=== PATIENT | male | born 1940 | race African-American/Black ===

== ENCOUNTER → 2016-08-28 | Outpatient (CLI) | payer OTHER ==
--- NOTE | 2016-08-28 16:08 | RAD ---
Chest, 2 views, 08/28/2016: History: COPD Comparison is made to a study from 09/17/2009. The heart is within normal limits in size. There is calcific plaquing and tortuosity of the thoracic aorta. There appear to be a few scattered parenchymal scars. No acute infiltrates are seen. There is no evidence of pleural fluid. The bony structures are demineralized. Moderate scattered spurs are present in the spine. IMPRESSION: 1. Aortic atherosclerosis. 2. No acute abnormality is detected.
--- NOTE | 2016-08-28 16:10 | RAD ---
Indication chronic low back pain. AP and lateral views of the lumbar spine were obtained as well as a coned view targeted to the lumbosacral junction. Vertebral height is well maintained. Alignment is unremarkable. Significant disc space narrowing is not seen at any level. Advanced degenerative changes are not seen particularly given the patient's age. Some modest facet degenerative change is noted in the lower lumbar spine. IMPRESSION: No acute finding. No significant finding seen particularly given the patient's age
== END | disposition home or self-care (01) ==
LOC: RAD 13:54
PROVIDERS: ATTEND Internal Medicine Cardiovascular Disease
DX: J44.9 Chronic obstructive pulmonary disease, unspecified (principal); Q25.46 Tortuous aortic arch; I70.0 Atherosclerosis of aorta; G89.29 Other chronic pain
CPT/HCPCS: 71020; 72100

== ENCOUNTER 2018-01-06 12:38 | Inpatient (IN) | payer OTHER ==
[~2018-01-06] VITALS: Ht 172.7 cm; Wt 81.6 kg
[2018-01-06 14:24] LABS: BILIRUBIN,URINE SMALL (NEG); CLARITY,URINE CLEAR; COLOR,URINE AMBER; NITRITE,URINE NEGATIVE (NEG); PROTEIN,URINE NEGATIVE (NEG-TRACE)
[2018-01-06] MEDS ORDERED: FAMOTIDINE 20 MG/2 ML VIAL IVP ONE (14:30)
[2018-01-06] MEDS ORDERED: IOHEXOL 300 MG/ML 100ML VIAL. IV ONE (14:30)
[2018-01-06] MEDS ORDERED: ONDANSETRON PF 4 MG/2 ML VIAL. IV ONE (14:30)
[2018-01-06] MEDS ORDERED: IV NORMAL SALINE 1000ML BAG 1,000 ML IV ONE (14:30)
[2018-01-06 14:34] LABS: BACTERIA,URINE FEW /HPF (0-FEW); HYALINE CASTS, URINE MODERATE /HPF; SQUAMOUS EPITHELIAL CELL,UR FEW /LPF
[2018-01-06] MEDS ORDERED: CONTRAST GIVEN. MC PRN (14:45)
--- NOTE | 2018-01-06 14:58 | RAD ---
Single view of the chest. 01/06/2018 2:28 PM Indication: NOT FELL WELL, PT AMS Comparison: Chest radiograph August 28, 2016 Findings: No pneumothorax or pleural effusion is identified. No acute focal consolidative infiltrate is seen. Diffuse interstitial coarsening is similar to prior studies. Heart size is top normal, but grossly stable. No acute osseous changes are seen. IMPRESSION: No evidence of acute cardiopulmonary process or acute change from prior study. Electronically signed by: Brian Tong MD (01/06/2018 2:55 PM) [facility]
[2018-01-06 15:08] LABS: BASO # 0.1 x10^3/uL (0.0-0.2); BASO % 1 % (0-3); EOS # 0.1 x10^3/uL (0.0-0.7); EOS % 1 % (0-3); HEMOGLOBIN 13.1 g/dL (13.0-17.5); LYMPH # 1.4 x10^3/uL (1.0-4.8); LYMPH % 24 % (24-48); MEAN CORPUSCULAR HEMOGLOBIN 28 pg (25-35); MEAN CORPUSCULAR HGB CONC 34 g/dL (31-37); MEAN CORPUSCULAR VOLUME 82 fL (79-100); MONO # 0.8 x10^3/uL (0.0-1.1); MONO % 14 % (0-9); NEUT # 3.6 x10^3uL (1.8-7.7); NEUT % 61 % (31-73); PLATELET COUNT 212 x10^3/uL (140-400); RED BLOOD COUNT 4.76 x10^6/uL (4.30-5.70); RED CELL DISTRIBUTION WIDTH 14.5 % (11.5-14.5)
[2018-01-06 15:23] LABS: BARBITURATES NEG (NEG); BENZODIAZEPINES NEG (NEG); CANNABINOIDS NEG (NEG); COCAINE NEG (NEG); METHADONE NEG (NEG); OPIATES NEG (NEG); PHENCYCLIDINE NEG (NEG)
[2018-01-06 15:25] LABS: CALCIUM 9.9 mg/dL (8.5-10.1); CREATININE 1.6 mg/dL (0.7-1.3); GFR 51.2; POTASSIUM 4.4 mmol/L (3.5-5.1)
[2018-01-06 15:26] LABS: AMPHETAMINE/METHAMPHETAMINE NEG (NEG)
[2018-01-06 15:28] LABS: INFLUENZA A PATIENT NEGATIVE (NEGATIVE); INFLUENZA B PATIENT NEGATIVE (NEGATIVE)
--- NOTE | 2018-01-06 15:29 | PHYS DOC ---
Past Medical History Past Medical History: COPD, Dementia, Hypertension, Seizure Past Surgical History: No Surgical History Additional Past Surgical Histo: unable to assess Alcohol Use: None Additional Information: unknown Drug Use: None Adult General Chief Complaint Chief Complaint: ABDOMINAL PAIN HPI HPI Patient is a 77 year old male with history of seizures, hypertension, COPD, dementia, was brought today by a day care. Patient is by himself. Patient is demented and not able to give us information, there is a piece of note stating he has lower abdominal pain. Patient's nurse attempted to contact the daycare patient came from, they state patient complained of lower abdominal pain. Patient not able to give us any information. From information received from the daycare patient resides at home alone. Review of Systems Review of Systems Constitutional: Denies fever or chills [] Eyes: Unable to assess HENT: Unable to assess Respiratory: Unable to assess Cardiovascular: Unable to assess] GI: Lower abdominal pain, : Unable to assess Musculoskeletal: Unable to assess Integument: Unable to assess Neurologic: Unable to assess All other systems were reviewed and found to be within normal limits, except as documented in this note. Current Medications Current Medications Current Medications Medications (Trade) Dose Ordered Sig/Rebekah Start Time Stop Time Status Last Admin Dose Admin Ciprofloxacin/ Dextrose 200 ml @ 200 mls/hr 1X ONCE 01/06/18 17:15 01/06/18 18:14 01/06/18 17:25 200 MLS/HR Famotidine (Pepcid Vial) 20 mg 1X ONCE 01/06/18 14:30 01/06/18 14:31 DC 01/06/18 15:24 20 MG Info (CONTRAST GIVEN -- Rx MONITORING) 1 each PRN DAILY PRN 01/06/18 14:45 01/08/18 14:44 Iohexol (Omnipaque 300 Mg/ml) 75 ml 1X ONCE 01/06/18 14:30 01/06/18 14:33 DC Metronidazole 100 ml @ 100 mls/hr 1X ONCE 01/06/18 17:15 01/06/18 18:14 Morphine Sulfate (Morphine Sulfate) 2 mg PRN Q2HR PRN 01/06/18 17:00 01/07/18 16:59 Ondansetron HCl (Zofran) 4 mg PRN Q8HRS PRN 01/06/18 17:00 01/07/18 16:59 Sodium Chloride 1,000 ml @ 1,000 mls/hr 1X ONCE 01/06/18 14:30 01/06/18 15:29 DC 01/06/18 15:24 1,000 MLS/HR Allergies Allergies Allergies Coded Allergies Type Severity Reaction Last Updated Verified No Known Drug Allergies 01/06/18 No Physical Exam Physical Exam Constitutional: Well developed, well nourished, no acute distress, non-toxic appearance. [] HENT: Normocephalic, atraumatic, bilateral external ears normal, oropharynx moist, no oral exudates, nose normal. [] Eyes: PERRLA, EOMI, conjunctiva normal, no discharge. [] Neck: Normal range of motion, no tenderness, supple, no stridor. [] Cardiovascular:Heart rate regular rhythm, no murmur [] Lungs & Thorax: Bilateral breath sounds clear to auscultation [] Abdomen: Bowel sounds normal, soft, no tenderness, no masses, no pulsatile masses. [] Skin: Warm, dry, no erythema, no rash. [] Back: No tenderness, no CVA tenderness. [] Extremities: No tenderness, no cyanosis, no clubbing, ROM intact, no edema. [] Neurologic: Alert and oriented X 1, normal motor function, normal sensory function, no focal deficits noted. Cranial nerves II through XII intact Psychologic: Affect normal, judgement normal, mood normal. [] Current Patient Data Vital Signs Vital Signs Date Time Temp Pulse Resp B/P (MAP) Pulse Ox O2 Delivery O2 Flow Rate FiO2 01/06/18 13:30 97.9 71 18 145/82 (103) 95 Room Air 97.9 Lab Values Laboratory Tests Test 01/06/18 14:18 01/06/18 14:55 Urine Collection Type Unknown Urine Color Honey Urine Clarity Clear Urine pH 5.0 Urine Specific [place] 1.020 Urine Protein Negative mg/dL (NEG-TRACE) Urine Glucose (UA) Negative mg/dL (NEG) Urine Ketones (Stick) Trace mg/dL (NEG) Urine Blood Negative (NEG) Urine Nitrite Negative (NEG) Urine Bilirubin Small (NEG) Urine Urobilinogen Dipstick 1.0 mg/dL (0.2 mg/dL) Urine Leukocyte Esterase Negative (NEG) Urine RBC 1-2 /HPF (0-2) Urine WBC 1-4 /HPF (0-4) Urine Squamous Epithelial Cells Few /LPF Urine Bacteria Few /HPF (0-FEW) Urine Hyaline Casts Moderate /HPF Urine Mucus Mod /LPF Urine Opiates Screen Neg (NEG) Urine Methadone Screen Neg (NEG) Urine Barbiturates Neg (NEG) Urine Phencyclidine Screen Neg (NEG) Urine Amphetamine/Methamphetamine Neg (NEG) Urine Benzodiazepines Screen Neg (NEG) Urine Cocaine Screen Neg (NEG) Urine Cannabinoids Screen Neg (NEG) Urine Ethyl Alcohol Neg (NEG) White Blood Count 6.0 x10^3/uL (4.0-11.0) Red Blood Count 4.76 x10^6/uL (4.30-5.70) Hemoglobin 13.1 g/dL (13.0-17.5) Hematocrit 39.0 % (39.0-53.0) Mean Corpuscular Volume 82 fL (79-100) Mean Corpuscular Hemoglobin 28 pg (25-35) Mean Corpuscular Hemoglobin Concent 34 g/dL (31-37) Red Cell Distribution Width 14.5 % (11.5-14.5) Platelet Count 212 x10^3/uL (140-400) Neutrophils (%) (Auto) 61 % (31-73) Lymphocytes (%) (Auto) 24 % (24-48) Monocytes (%) (Auto) 14 % (0-9) H Eosinophils (%) (Auto) 1 % (0-3) Basophils (%) (Auto) 1 % (0-3) Neutrophils # (Auto) 3.6 x10^3uL (1.8-7.7) Lymphocytes # (Auto) 1.4 x10^3/uL (1.0-4.8) Monocytes # (Auto) 0.8 x10^3/uL (0.0-1.1) Eosinophils # (Auto) 0.1 x10^3/uL (0.0-0.7) Basophils # (Auto) 0.1 x10^3/uL (0.0-0.2) Sodium Level 136 mmol/L (136-145) Potassium Level 4.4 mmol/L (3.5-5.1) Chloride Level 100 mmol/L (98-107) Carbon Dioxide Level 26 mmol/L (21-32) Anion Gap 10 (6-14) Blood Urea Nitrogen 40 mg/dL (8-26) H Creatinine 1.6 mg/dL (0.7-1.3) H Estimated GFR (Cockcroft-Gault) 51.2 BUN/Creatinine Ratio 25 (6-20) H Glucose Level 102 mg/dL (70-99) H Calcium Level 9.9 mg/dL (8.5-10.1) Magnesium Level 2.6 mg/dL (1.8-2.4) H Total Bilirubin 0.5 mg/dL (0.2-1.0) Aspartate Amino Transferase (AST) 36 U/L (15-37) Alanine Aminotransferase (ALT) 28 U/L (16-63) Alkaline Phosphatase 138 U/L (46-116) H Troponin I Quantitative < 0.017 ng/mL (0.000-0.055) UM-Drz-N-Type Natriuretic Peptide 569 pg/mL (0-449) H Total Protein 9.5 g/dL (6.4-8.2) H Albumin 4.0 g/dL (3.4-5.0) Albumin/Globulin Ratio 0.7 (1.0-1.7) L Thyroid Stimulating Hormone (TSH) 0.885 uIU/mL (0.358-3.74) Influenza Type A Antigen Negative (NEGATIVE) Influenza Type B Antigen Negative (NEGATIVE) Laboratory Tests 01/06/18 14:55 Laboratory Tests 01/06/18 14:55 EKG EKG 15:[address] Payton sinus rhythm heart rate 61 no STEMI[] Radiology/Procedures Radiology/Procedures []PROCEDURE: CT ABD PELV W/ IV CONTRST ONLY CT ABD PELV W/ IV CONTRST ONLY Indication: PT COMPLAINS OF ABD PAIN AND H/O DEMENTIA INJ 60 ML OMNI 300 NO PRE Exposure: One or more of the following individualized dose reduction techniques were utilized for this examination: 1. Automated exposure control 2. Adjustment of the mA and/or kV according to patient size 3. Use of iterative reconstruction technique. Comparison: None are available. Contrast: Intravenous contrast was given. No oral contrast per request. FINDINGS: Lower thorax: Mild opacity at the dependent posterior lungs and in the anterior right lung base, likely atelectasis. Heart size appears enlarged, mild coronary artery calcifications. Liver: Small hypodense lesion peripheral right lobe measures 11 mm x 6 mm, too small to accurately characterize but would most likely be benign such as a cyst. Spleen: Unremarkable Pancreas: Unremarkable Adrenals: No evidence of mass. Kidneys: Small bilateral renal lesions too small to characterize but would commonly represent cysts. Urinary tracts: No hydronephrosis. Gallbladder: No calcified stone Lymph nodes: No significant enlargement Vessels: The aorta is calcified, ectatic and tortuous. Ectasia extends into the proximal iliac arteries. No evidence of focal aneurysm. GI tract: Limited exam without oral contrast. Mild distention of small bowel loops with mostly fluid. No obvious colonic wall thickening but limited evaluation due to the lack of much surrounding fat. Mild gaseous distention of the colon. Appendix is not clearly visualized. Reproductive organs: Prostate gland mildly enlarged. Urinary bladder: Unremarkable. Peritoneum: No evidence of pneumoperitoneum. No free fluid. Diffuse fatty stranding throughout the peritoneum and mesentery. Abdominal wall:Unremarkable Spine: Degenerative spondylosis. Bones: No destructive bone lesion. IMPRESSION: 1. Mild small bowel distention, could indicate ileus or enteritis. No definite bowel obstruction. There is stranding within the mesenteric and peritoneal fat, suggesting generalized inflammation or edema. 2. Mild prostatomegaly. 3. Small right liver and small renal lesions too small to characterize but would commonly represent benign lesion such as cysts. Electronically signed by: Curtis Rivas MD (01/06/2018 4:22 PM) [facility] DICTATED and SIGNED BY: CURTIS RIVAS MD DATE: 01/06/18 1611 PROCEDURE: PORTABLE CHEST 1V Single view of the chest. 01/06/2018 2:28 PM Indication: NOT FELL WELL, PT AMS Comparison: Chest radiograph August 28, 2016 Findings: No pneumothorax or pleural effusion is identified. No acute focal consolidative infiltrate is seen. Diffuse interstitial coarsening is similar to prior studies. Heart size is top normal, but grossly stable. No acute osseous changes are seen. IMPRESSION: No evidence of acute cardiopulmonary process or acute change from prior study. Electronically signed by: Brian Pyle MD (01/06/2018 2:55 PM) [facility] DICTATED and SIGNED BY: BRIAN PYLE MD DATE: 01/06/18 3527 Course & Med Decision Making Course & Med Decision Making Pertinent Labs and Imaging studies reviewed. (See chart for details) This is a 77-year-old male patient was dropped off by a day care to the ED with a note stating he has abdominal pain. See history of present illness. Patient himself is a poor historian and not able to give us any information. Apparently this patient lives home by himself. Chest x-ray is negative for any acute findings. CBC with a normal WBC, CMP with creatinine of 1.6, BUN 40 unknown if this is new or old. Consulted with Dr. Lockwood who accepted patient for admission. CT of the abdomen and pelvic IMPRESSION: 1. Mild small bowel distention, could indicate ileus or enteritis. No definite bowel obstruction. There is stranding within the mesenteric and peritoneal fat, suggesting generalized inflammation or edema. 2. Mild prostatomegaly. 3. Small right liver and small renal lesions too small to characterize but would commonly represent benign lesion such as cysts. Patient was started on Flagyl and Cipro in the ED. 17:[address] James who will f/u with patient Dragon Disclaimer Dragon Disclaimer This electronic medical record was generated, in whole or in part, using a voice recognition dictation system. Departure Departure Impression: Primary Impression: Abdominal pain Additional Impression: Ileus Disposition: ADMITTED INPATIENT Condition: STABLE Referrals: UNKNOWN PCP NAME (PCP) Problem Qualifiers Primary Impression: Abdominal pain Abdominal location: lower abdomen, unspecified Qualified Codes: R10.30 - Lower abdominal pain, unspecified JOAQUÍN VELASCO [employer]ATOR Jan 06, 2018 15:29
[2018-01-06 15:30] LABS: ALBUMIN/GLOBULIN RATIO 0.7 (1.0-1.7); MAGNESIUM 2.6 mg/dL (1.8-2.4); TOTAL BILIRUBIN 0.5 mg/dL (0.2-1.0); TOTAL PROTEIN 9.5 g/dL (6.4-8.2)
--- NOTE | 2018-01-06 15:44 | EKG ---
[facility] [address] [place] [address] Test Date: 2018-01-06 Test Time: 15:07:21 Pat Name: ADARSH JACOBS Department: Room: Gender: M [employer] Continuous Process: : 1940 Requested By: JOAQUÍN VELASCO Order Number: [id number] Reading MD: Andres Washington Measurements Intervals [place] Rate: 61 P: 62 MT: 162 QRS: 56 QRSD: 122 T: -7 QT: 432 QTc: 441 Interpretive Statements SINUS RHYTHM T ABNORMALITY IN INFERIOR LEADS ABNORMAL ECG Electronically Signed On 01-09-2018 10:26:05 CDT by Andres Washington
--- NOTE | 2018-01-06 16:23 | PDOC1 ---
History and Physical Date of Admission Date of Admission DATE: 01/06/18 TIME: 16:23 Identification/Chief Complaint Chief Complaint [facility] ED GENERAL TEMPLATE Patient Name: Warren English Unit Number: [id number] Date of : 1940 Patient Status: Admitted Inpatient Attending Doctor: Lamont Becerra MD Past Medical History Past Medical History Past Medical History: COPD, Dementia, Hypertension, Seizure Past Surgical History: No Surgical History Additional Past Surgical Histo: unable to assess Alcohol Use: None Additional Information: unknown Drug Use: None seen in er 77 year old male with history of seizures, hypertension, COPD, dementia, was brought today by a day care. Patient is by himself. Patient is demented and not able to give us information, has lower abdominal pain. Patient 's nurse attempted to contact the daycare patient came from, they state patient complained of lower abdominal pain. Patient not able to give us any information due to advanced dementia Review of Systems Review of Systems Constitutional: Denies fever or chills [] Eyes: Unable to assess HENT: Unable to assess Respiratory: Unable to assess Cardiovascular: Unable to assess] GI: Lower abdominal pain, : Unable to assess Musculoskeletal: Unable to assess Integument: Unable to assess Neurologic: Unable to assess 14 pt systems were reviewed and found to be within normal limits, except as documented. Current Medications Current Medications Current Medications Medications (Trade) Dose Ordered Sig/Rebekah Start Time Stop Time Status Last Admin Dose Admin Ciprofloxacin/ Dextrose 200 ml @ 200 mls/hr 1X ONCE 01/06/18 17:15 01/06/18 18:14 01/06/18 17:25 200 MLS/HR Famotidine (Pepcid Vial) 20 mg 1X ONCE 01/06/18 14:30 01/06/18 14:31 DC 01/06/18 15:24 20 MG Info (CONTRAST GIVEN -- Rx MONITORING) 1 each PRN DAILY PRN 01/06/18 14:45 01/08/18 14:44 Iohexol (Omnipaque 300 Mg/ml) 75 ml 1X ONCE 01/06/18 14:30 01/06/18 14:33 DC Metronidazole 100 ml @ 100 mls/hr 1X ONCE 01/06/18 17:15 01/06/18 18:14 Morphine Sulfate (Morphine Sulfate) 2 mg PRN Q2HR PRN 01/06/18 17:00 01/07/18 16:59 Ondansetron HCl (Zofran) 4 mg PRN Q8HRS PRN 01/06/18 17:00 01/07/18 16:59 Sodium Chloride 1,000 ml @ 1,000 mls/hr 1X ONCE 01/06/18 14:30 01/06/18 15:29 DC 01/06/18 15:24 1,000 MLS/HR Allergies Allergies Allergies Coded Allergies Type Severity Reaction Last Updated Verified No Known Drug Allergies 01/06/18 No Physical Exam Physical Exam Constitutional: Well developed, well nourished, no acute distress, non-toxic appearance. [] HENT: Normocephalic, atraumatic, bilateral external ears normal, oropharynx moist, no oral exudates, nose normal. [] Eyes: PERRLA, EOMI, conjunctiva normal, no discharge. [] Neck: Normal range of motion, no tenderness, supple, no stridor. [] Cardiovascular:Heart rate regular rhythm, no murmur [] Lungs & Thorax: Bilateral breath sounds clear to auscultation [] Abdomen: Bowel sounds normal, soft, no tenderness, no masses, no pulsatile masses. [] Skin: Warm, dry, no erythema, no rash. [] Back: No tenderness, no CVA tenderness. [] Extremities: No tenderness, no cyanosis, no clubbing, ROM intact, no edema. [] Neurologic: confused normal motor function, normal sensory function, no focal deficits noted. Cranial nerves II through XII intact Psychologic: Affect normal, judgement normal, mood normal. [] Current Patient Data Vital Signs Vital Signs Date Time Temp Pulse Resp B/P (MAP) Pulse Ox O2 Delivery O2 Flow Rate FiO2 01/06/18 13:30 97.9 71 18 145/82 (103) 95 Room Air 97.9 Lab Values Laboratory Tests Test 01/06/18 14:18 01/06/18 14:55 Urine Collection Type Unknown Urine Color Honey Urine Clarity Clear Urine pH 5.0 Urine Specific [place] 1.020 Urine Protein Negative mg/dL (NEG-TRACE) Urine Glucose (UA) Negative mg/dL (NEG) Urine Ketones (Stick) Trace mg/dL (NEG) Urine Blood Negative (NEG) Urine Nitrite Negative (NEG) Urine Bilirubin Small (NEG) Urine Urobilinogen Dipstick 1.0 mg/dL (0.2 mg/dL) Urine Leukocyte Esterase Negative (NEG) Urine RBC 1-2 /HPF (0-2) Urine WBC 1-4 /HPF (0-4) Urine Squamous Epithelial Cells Few /LPF Urine Bacteria Few /HPF (0-FEW) Urine Hyaline Casts Moderate /HPF Urine Mucus Mod /LPF Urine Opiates Screen Neg (NEG) Urine Methadone Screen Neg (NEG) Urine Barbiturates Neg (NEG) Urine Phencyclidine Screen Neg (NEG) Urine Amphetamine/Methamphetamine Neg (NEG) Urine Benzodiazepines Screen Neg (NEG) Urine Cocaine Screen Neg (NEG) Urine Cannabinoids Screen Neg (NEG) Urine Ethyl Alcohol Neg (NEG) White Blood Count 6.0 x10^3/uL (4.0-11.0) Red Blood Count 4.76 x10^6/uL (4.30-5.70) Hemoglobin 13.1 g/dL (13.0-17.5) Hematocrit 39.0 % (39.0-53.0) Mean Corpuscular Volume 82 fL (79-100) Mean Corpuscular Hemoglobin 28 pg (25-35) Mean Corpuscular Hemoglobin Concent 34 g/dL (31-37) Red Cell Distribution Width 14.5 % (11.5-14.5) Platelet Count 212 x10^3/uL (140-400) Neutrophils (%) (Auto) 61 % (31-73) Lymphocytes (%) (Auto) 24 % (24-48) Monocytes (%) (Auto) 14 % (0-9) H Eosinophils (%) (Auto) 1 % (0-3) Basophils (%) (Auto) 1 % (0-3) Neutrophils # (Auto) 3.6 x10^3uL (1.8-7.7) Lymphocytes # (Auto) 1.4 x10^3/uL (1.0-4.8) Monocytes # (Auto) 0.8 x10^3/uL (0.0-1.1) Eosinophils # (Auto) 0.1 x10^3/uL (0.0-0.7) Basophils # (Auto) 0.1 x10^3/uL (0.0-0.2) Sodium Level 136 mmol/L (136-145) Potassium Level 4.4 mmol/L (3.5-5.1) Chloride Level 100 mmol/L (98-107) Carbon Dioxide Level 26 mmol/L (21-32) Anion Gap 10 (6-14) Blood Urea Nitrogen 40 mg/dL (8-26) H Creatinine 1.6 mg/dL (0.7-1.3) H Estimated GFR (Cockcroft-Gault) 51.2 BUN/Creatinine Ratio 25 (6-20) H Glucose Level 102 mg/dL (70-99) H Calcium Level 9.9 mg/dL (8.5-10.1) Magnesium Level 2.6 mg/dL (1.8-2.4) H Total Bilirubin 0.5 mg/dL (0.2-1.0) Aspartate Amino Transferase (AST) 36 U/L (15-37) Alanine Aminotransferase (ALT) 28 U/L (16-63) Alkaline Phosphatase 138 U/L (46-116) H Troponin I Quantitative < 0.017 ng/mL (0.000-0.055) GY-Wrk-[id number]-Type Natriuretic Peptide 569 pg/mL (0-449) H Total Protein 9.5 g/dL (6.4-8.2) H Albumin 4.0 g/dL (3.4-5.0) Albumin/Globulin Ratio 0.7 (1.0-1.7) L Thyroid Stimulating Hormone (TSH) 0.885 uIU/mL (0.358-3.74) Influenza Type A Antigen Negative (NEGATIVE) Influenza Type B Antigen Negative (NEGATIVE) Laboratory Tests 01/06/18 14:55 Laboratory Tests 01/06/18 14:55 EKG EKG 15:[address] Payton sinus rhythm heart rate 61 no STEMI[] Radiology/Procedures Radiology/Procedures []PROCEDURE: CT ABD PELV W/ IV CONTRST ONLY CT ABD PELV W/ IV CONTRST ONLY Indication: PT COMPLAINS OF ABD PAIN AND H/O DEMENTIA INJ 60 ML OMNI 300 NO PRE Comparison: None are available. Contrast: Intravenous contrast was given. No oral contrast per request. FINDINGS: Lower thorax: Mild opacity at the dependent posterior lungs and in the anterior right lung base, likely atelectasis. Heart size appears enlarged, mild coronary artery calcifications. Liver: Small hypodense lesion peripheral right lobe measures 11 mm x 6 mm, too small to accurately characterize but would most likely be benign such as a cyst. Spleen: Unremarkable Pancreas: Unremarkable Adrenals: No evidence of mass. Kidneys: Small bilateral renal lesions too small to characterize but would commonly represent cysts. Urinary tracts: No hydronephrosis. Gallbladder: No calcified stone Lymph nodes: No significant enlargement Vessels: The aorta is calcified, ectatic and tortuous. Ectasia extends into the proximal iliac arteries. No evidence of focal aneurysm. GI tract: Limited exam without oral contrast. Mild distention of small bowel loops with mostly fluid. No obvious colonic wall thickening but limited evaluation due to the lack of much surrounding fat. Mild gaseous distention of the colon. Appendix is not clearly visualized. Reproductive organs: Prostate gland mildly enlarged. Urinary bladder: Unremarkable. Peritoneum: No evidence of pneumoperitoneum. No free fluid. Diffuse fatty stranding throughout the peritoneum and mesentery. Abdominal wall:Unremarkable Spine: Degenerative spondylosis. Bones: No destructive bone lesion. IMPRESSION: 1. Mild small bowel distention, could indicate ileus or enteritis. No definite bowel obstruction. There is stranding within the mesenteric and peritoneal fat, suggesting generalized inflammation or edema. 2. Mild prostatomegaly. 3. Small right liver and small renal lesions too small to characterize but would commonly represent benign lesion such as cysts. Electronically signed by: Curtis Rivas MD (01/06/2018 4:22 PM) [facility] DICTATED and SIGNED BY: CURTIS RIVAS MD DATE: 01/06/18 1611 PROCEDURE: PORTABLE CHEST 1V Single view of the chest. 01/06/2018 2:28 PM Indication: NOT FELL WELL, PT AMS Comparison: Chest radiograph August 28, 2016 Findings: No pneumothorax or pleural effusion is identified. No acute focal consolidative infiltrate is seen. Diffuse interstitial coarsening is similar to prior studies. Heart size is top normal, but grossly stable. No acute osseous changes are seen. IMPRESSION: No evidence of acute cardiopulmonary process or acute change from prior study. Electronically signed by: Brian Pyle MD (01/06/2018 2:55 PM) [facility] DICTATED and SIGNED BY: BRIAN PYLE MD DATE: 01/06/[address] of the abdomen and pelvis IMPRESSION: 1. Mild small bowel distention, could indicate ileus or enteritis. No definite bowel obstruction. There is stranding within the mesenteric and peritoneal fat, suggesting generalized inflammation or edema. 2. Mild prostatomegaly. 3. Small right liver and small renal lesions too small to characterize but would commonly represent benign lesion such as cysts. Patient was started on Flagyl and Cipro in the ED. Impression: 1. Abdominal pain 2. Mild small bowel distention, could indicate ileus or enteritis. No definite bowel obstruction. There is stranding within the mesenteric and peritoneal fat, suggesting generalized inflammation or edema. 3.dementia: 4.Ileus 5. lack of social support plan admit iv fluids bowel rest gen surg consult serial exams sq lovenox dvt prophylaxis iv protonix npo Past Medical History Psych: Other (dementia) Family History Family History: Hypertension Social History Smoke: No ALCOHOL: none Drugs: None Current Medications Current Medications Current Medications Sodium Chloride 1,000 ml @ 1,000 mls/hr 1X ONCE IV Last administered on 01/06at 15:24; Start 01/06/18 at 14:30; Stop 01/06/18 at 15:29; Status DC Ondansetron HCl (Zofran) 4 mg 1X ONCE IV Last administered on 01/06/18at 15:24 ; Start 01/06/18 at 14:30; Stop 01/06/18 at 14:31; Status DC Famotidine (Pepcid Vial) 20 mg 1X ONCE IVP Last administered on 01/06/18at 15: 24; Start 01/06/18 at 14:30; Stop 01/06/18 at 14:31; Status DC Iohexol (Omnipaque 300 Mg/ml) 75 ml 1X ONCE IV ; Start 01/06/18 at 14:30; Stop 01/06/18 at 14:33; Status DC Info (CONTRAST GIVEN -- Rx MONITORING) 1 each PRN DAILY PRN MC SEE COMMENTS; Start 01/06/18 at 14:45; Stop 01/08/18 at 14:44 Allergies Allergies: Coded Allergies: No Known Drug Allergies (Unverified , 01/06/18) ROS General: YES: Fatigue ALLERGY AND IMMUNOLOGY: No: Hives, Insect Bite Sensitivity, Itchy/Watery Eyes, Nasal Congestion, Post Nasal Drip, Seasonal Allergies, Other Musculoskeletal: Yes Joint Stiffness Neurological: Yes Confusion Skin: Yes Dry Skin Physical Exam General: Cooperative, mild distress HEENT: Atraumatic, PERRLA Lungs: Clear to auscultation Breasts: Not examined Abdomen: Soft Rectal Exam: not examined Extremities: No cyanosis, No edema Neuro: Cranial nerves 3-12 NL Vitals Vitals Vital Signs Date Time Temp Pulse Resp B/P (MAP) Pulse Ox O2 Delivery O2 Flow Rate FiO2 01/06/18 13:30 97.9 71 18 145/82 (103) 95 Room Air 97.9 Labs Labs Laboratory Tests Test 01/06/18 14:18 01/06/18 14:55 Urine Collection Type Unknown Urine Color Honey Urine Clarity Clear Urine pH 5.0 Urine Specific [place] 1.020 Urine Protein Negative mg/dL (NEG-TRACE) Urine Glucose (UA) Negative mg/dL (NEG) Urine Ketones (Stick) Trace mg/dL (NEG) Urine Blood Negative (NEG) Urine Nitrite Negative (NEG) Urine Bilirubin Small (NEG) Urine Urobilinogen Dipstick 1.0 mg/dL (0.2 mg/dL) Urine Leukocyte Esterase Negative (NEG) Urine RBC 1-2 /HPF (0-2) Urine WBC 1-4 /HPF (0-4) Urine Squamous Epithelial Cells Few /LPF Urine Bacteria Few /HPF (0-FEW) Urine Hyaline Casts Moderate /HPF Urine Mucus Mod /LPF Urine Opiates Screen Neg (NEG) Urine Methadone Screen Neg (NEG) Urine Barbiturates Neg (NEG) Urine Phencyclidine Screen Neg (NEG) Urine Amphetamine/Methamphetamine Neg (NEG) Urine Benzodiazepines Screen Neg (NEG) Urine Cocaine Screen Neg (NEG) Urine Cannabinoids Screen Neg (NEG) Urine Ethyl Alcohol Neg (NEG) White Blood Count 6.0 x10^3/uL (4.0-11.0) Red Blood Count 4.76 x10^6/uL (4.30-5.70) Hemoglobin 13.1 g/dL (13.0-17.5) Hematocrit 39.0 % (39.0-53.0) Mean Corpuscular Volume 82 fL (79-100) Mean Corpuscular Hemoglobin 28 pg (25-35) Mean Corpuscular Hemoglobin Concent 34 g/dL (31-37) Red Cell Distribution Width 14.5 % (11.5-14.5) Platelet Count 212 x10^3/uL (140-400) Neutrophils (%) (Auto) 61 % (31-73) Lymphocytes (%) (Auto) 24 % (24-48) Monocytes (%) (Auto) 14 % (0-9) Eosinophils (%) (Auto) 1 % (0-3) Basophils (%) (Auto) 1 % (0-3) Neutrophils # (Auto) 3.6 x10^3uL (1.8-7.7) Lymphocytes # (Auto) 1.4 x10^3/uL (1.0-4.8) Monocytes # (Auto) 0.8 x10^3/uL (0.0-1.1) Eosinophils # (Auto) 0.1 x10^3/uL (0.0-0.7) Basophils # (Auto) 0.1 x10^3/uL (0.0-0.2) Sodium Level 136 mmol/L (136-145) Potassium Level 4.4 mmol/L (3.5-5.1) Chloride Level 100 mmol/L (98-107) Carbon Dioxide Level 26 mmol/L (21-32) Anion Gap 10 (6-14) Blood Urea Nitrogen 40 mg/dL (8-26) Creatinine 1.6 mg/dL (0.7-1.3) Estimated GFR (Cockcroft-Gault) 51.2 BUN/Creatinine Ratio 25 (6-20) Glucose Level 102 mg/dL (70-99) Calcium Level 9.9 mg/dL (8.5-10.1) Magnesium Level 2.6 mg/dL (1.8-2.4) Total Bilirubin 0.5 mg/dL (0.2-1.0) Aspartate Amino Transf (AST/SGOT) 36 U/L (15-37) Alanine Aminotransferase (ALT/SGPT) 28 U/L (16-63) Alkaline Phosphatase 138 U/L (46-116) Troponin I Quantitative < 0.017 ng/mL (0.000-0.055) DT-Nor-Y-Type Natriuretic Peptide 569 pg/mL (0-449) Total Protein 9.5 g/dL (6.4-8.2) Albumin 4.0 g/dL (3.4-5.0) Albumin/Globulin Ratio 0.7 (1.0-1.7) Thyroid Stimulating Hormone (TSH) 0.885 uIU/mL (0.358-3.74) Influenza Type A Antigen Negative (NEGATIVE) Influenza Type B Antigen Negative (NEGATIVE) Laboratory Tests Test 01/06/18 14:18 01/06/18 14:55 Urine Collection Type Unknown Urine Color Honey Urine Clarity Clear Urine pH 5.0 Urine Specific [place] 1.020 Urine Protein Negative mg/dL (NEG-TRACE) Urine Glucose (UA) Negative mg/dL (NEG) Urine Ketones (Stick) Trace mg/dL (NEG) Urine Blood Negative (NEG) Urine Nitrite Negative (NEG) Urine Bilirubin Small (NEG) Urine Urobilinogen Dipstick 1.0 mg/dL (0.2 mg/dL) Urine Leukocyte Esterase Negative (NEG) Urine RBC 1-2 /HPF (0-2) Urine WBC 1-4 /HPF (0-4) Urine Squamous Epithelial Cells Few /LPF Urine Bacteria Few /HPF (0-FEW) Urine Hyaline Casts Moderate /HPF Urine Mucus Mod /LPF Urine Opiates Screen Neg (NEG) Urine Methadone Screen Neg (NEG) Urine Barbiturates Neg (NEG) Urine Phencyclidine Screen Neg (NEG) Urine Amphetamine/Methamphetamine Neg (NEG) Urine Benzodiazepines Screen Neg (NEG) Urine Cocaine Screen Neg (NEG) Urine Cannabinoids Screen Neg (NEG) Urine Ethyl Alcohol Neg (NEG) White Blood Count 6.0 x10^3/uL (4.0-11.0) Red Blood Count 4.76 x10^6/uL (4.30-5.70) Hemoglobin 13.1 g/dL (13.0-17.5) Hematocrit 39.0 % (39.0-53.0) Mean Corpuscular Volume 82 fL (79-100) Mean Corpuscular Hemoglobin 28 pg (25-35) Mean Corpuscular Hemoglobin Concent 34 g/dL (31-37) Red Cell Distribution Width 14.5 % (11.5-14.5) Platelet Count 212 x10^3/uL (140-400) Neutrophils (%) (Auto) 61 % (31-73) Lymphocytes (%) (Auto) 24 % (24-48) Monocytes (%) (Auto) 14 % (0-9) Eosinophils (%) (Auto) 1 % (0-3) Basophils (%) (Auto) 1 % (0-3) Neutrophils # (Auto) 3.6 x10^3uL (1.8-7.7) Lymphocytes # (Auto) 1.4 x10^3/uL (1.0-4.8) Monocytes # (Auto) 0.8 x10^3/uL (0.0-1.1) Eosinophils # (Auto) 0.1 x10^3/uL (0.0-0.7) Basophils # (Auto) 0.1 x10^3/uL (0.0-0.2) Sodium Level 136 mmol/L (136-145) Potassium Level 4.4 mmol/L (3.5-5.1) Chloride Level 100 mmol/L (98-107) Carbon Dioxide Level 26 mmol/L (21-32) Anion Gap 10 (6-14) Blood Urea Nitrogen 40 mg/dL (8-26) Creatinine 1.6 mg/dL (0.7-1.3) Estimated GFR (Cockcroft-Gault) 51.2 BUN/Creatinine Ratio 25 (6-20) Glucose Level 102 mg/dL (70-99) Calcium Level 9.9 mg/dL (8.5-10.1) Magnesium Level 2.6 mg/dL (1.8-2.4) Total Bilirubin 0.5 mg/dL (0.2-1.0) Aspartate Amino Transf (AST/SGOT) 36 U/L (15-37) Alanine Aminotransferase (ALT/SGPT) 28 U/L (16-63) Alkaline Phosphatase 138 U/L (46-116) Troponin I Quantitative < 0.017 ng/mL (0.000-0.055) QZ-Nnn-K-Type Natriuretic Peptide 569 pg/mL (0-449) Total Protein 9.5 g/dL (6.4-8.2) Albumin 4.0 g/dL (3.4-5.0) Albumin/Globulin Ratio 0.7 (1.0-1.7) Thyroid Stimulating Hormone (TSH) 0.885 uIU/mL (0.358-3.74) Influenza Type A Antigen Negative (NEGATIVE) Influenza Type B Antigen Negative (NEGATIVE) VTE Prophylaxis Ordered VTE Prophylaxis Devices: Yes VTE Pharmacological Prophylaxi: Yes Assessment/Plan Assessment/Plan Impression: 1. Abdominal pain 2. Mild small bowel distention, could indicate ileus or enteritis. No definite bowel obstruction. There is stranding within the mesenteric and peritoneal fat, suggesting generalized inflammation or edema. 3.dementia: 4.Ileus 5. lack of social support plan admit iv fluids bowel rest gen surg consult serial exams sq lovenox dvt prophylaxis iv protonix npo stool enteric pathogens LAMONT BECERRA MD Jan 06, 2018 16:23
[2018-01-06] MEDS ORDERED: MORPHINE SULFATE 2 MG/ML VIAL. IV PRN (17:00)
[2018-01-06] MEDS ORDERED: ONDANSETRON PF 4 MG/2 ML VIAL. IV PRN (17:00)
[2018-01-06] MEDS ORDERED: CIPROFLOXACIN 400MG PREMIX 200 ML IV ONE (17:15)
[2018-01-06 19:00] VITALS: BP 124/84
[2018-01-06] MEDS ORDERED: MEMA10TA PO (19:04)
[2018-01-06] MEDS ORDERED: PHEN100C PO (19:04)
[2018-01-06] MEDS ORDERED: BUDE10.2 IH (19:04)
[2018-01-06] MEDS ORDERED: PROAIR HFA8.5 GM INH (19:04)
[2018-01-06] MEDS ORDERED: LOSA50TA7 PO (19:04)
[2018-01-06] MEDS ORDERED: SIMV40TA3 PO (19:04)
[2018-01-06] MEDS ORDERED: HYDR12.53 PO (19:04)
[2018-01-06 23:06] VITALS: BP 132/85
[2018-01-07 03:08] VITALS: BP 147/82
[2018-01-07 07:00] VITALS: BP 150/59
[2018-01-07 07:43] LABS: CALCIUM 9.4 mg/dL (8.5-10.1); GFR 88.1
[2018-01-07 07:56] LABS: BASO # 0.1 x10^3/uL (0.0-0.2); BASO % 1 % (0-3); EOS # 0.1 x10^3/uL (0.0-0.7); EOS % 2 % (0-3); HEMATOCRIT 39.5 % (39.0-53.0); HEMOGLOBIN 13.3 g/dL (13.0-17.5); LYMPH # 1.6 x10^3/uL (1.0-4.8); LYMPH % 32 % (24-48); MEAN CORPUSCULAR HEMOGLOBIN 28 pg (25-35); MEAN CORPUSCULAR HGB CONC 34 g/dL (31-37); MEAN CORPUSCULAR VOLUME 83 fL (79-100); MONO # 0.6 x10^3/uL (0.0-1.1); MONO % 12 % (0-9); NEUT # 2.6 x10^3uL (1.8-7.7); NEUT % 53 % (31-73); PLATELET COUNT 209 x10^3/uL (140-400); RED BLOOD COUNT 4.74 x10^6/uL (4.30-5.70); RED CELL DISTRIBUTION WIDTH 14.3 % (11.5-14.5)
[2018-01-07] MEDS: CIPROFLOXACIN 400MG PREMIX 200 ML IV SCH ×2 (10:01→21:10)
[2018-01-07 11:55] VITALS: BP 124/65
--- NOTE | 2018-01-07 14:16 | PDOC2 ---
CONSULT Date of Consult Date of Consult DATE: 01/07/18 TIME: 14:12 Reason for Consult Reason for Consult: ileus vs enteritis Referring Physician Referring Physician: Mandie Identification/Chief Complaint Chief Complaint abd pain Source Source: Chart review, Patient History of Present Illness Reason for Visit: 77 yo M with c/o abd pain per NH. Pt is extremely poor historian. Currently appears comfortable Past Medical History Psych: Other (dementia) Past Surgical History Past Surgical History: No pertinent history Family History Family History: Hypertension Social History No ALCOHOL: none Drugs: None Current Problem List Problem List Problems Medical Problems: (1) Ileus Status: Acute Current Medications Current Medications Current Medications Sodium Chloride 1,000 ml @ 1,000 mls/hr 1X ONCE IV Last administered on 01/06at 15:24; Start 01/06/18 at 14:30; Stop 01/06/18 at 15:29; Status DC Ondansetron HCl (Zofran) 4 mg 1X ONCE IV Last administered on 01/06/18at 15:24 ; Start 01/06/18 at 14:30; Stop 01/06/18 at 14:31; Status DC Famotidine (Pepcid Vial) 20 mg 1X ONCE IVP Last administered on 01/06/18at 15: 24; Start 01/06/18 at 14:30; Stop 01/06/18 at 14:31; Status DC Iohexol (Omnipaque 300 Mg/ml) 75 ml 1X ONCE IV ; Start 01/06/18 at 14:30; Stop 01/06/18 at 14:33; Status DC Info (CONTRAST GIVEN -- Rx MONITORING) 1 each PRN DAILY PRN MC SEE COMMENTS; Start 01/06/18 at 14:45; Stop 01/08/18 at 14:44 Ondansetron HCl (Zofran) 4 mg PRN Q8HRS PRN IV NAUSEA/VOMITING; Start at 17:00; Stop 01/07/18 at 16:59 Morphine Sulfate (Morphine Sulfate) 2 mg PRN Q2HR PRN IV PAIN; Start 01/06/18 at 17:00; Stop 01/07/18 at 16:59 Ciprofloxacin/ Dextrose 200 ml @ 200 mls/hr Q12HR IV Last administered on at 10:01; Start 01/07/18 at 09:00 Metronidazole 100 ml @ 100 mls/hr Q8HRS IV Last administered on 01/07/18at 05: 30; Start 01/07/18 at 06:00 Ciprofloxacin/ Dextrose 200 ml @ 200 mls/hr 1X ONCE IV Last administered on 01/06/18at 17:25; Start 01/06/18 at 17:15; Stop 01/06/18 at 18:14; Status DC Metronidazole 100 ml @ 100 mls/hr 1X ONCE IV ; Start 01/06/18 at 17:15; Stop 01/06/18 at 18:14; Status DC Active Scripts Active Reported Losartan Potassium 50 Mg Tablet 50 Mg PO DAILY Hydrochlorothiazide Capsule (Hydrochlorothiazide) 12.5 Mg Capsule 1 Cap PO DAILY Namenda (Memantine Hcl) 10 Mg Tablet 10 Mg PO HS Simvastatin 40 Mg Tablet 1 Tab PO QHS Proair Hfa Inhaler (Albuterol Sulfate) 8.5 Gm Hfa.aer.ad 2 Puff INH QID PRN Dilantin (Phenytoin Sodium Extended) 100 Mg Capsule 1 Cap PO BID Symbicort 160-4.5 Mcg Inhaler (Budesonide/Formoterol Fumarate) 10.2 Gm Hfa.aer.ad 2 Puff IH BID Allergies Allergies: Coded Allergies: No Known Drug Allergies (Unverified , 01/06/18) ROS Review of System unobtainable Physical Exam General: Alert, No acute distress HEENT: Atraumatic Lungs: Normal air movement Abdomen: Soft, No tenderness Extremities: No clubbing, No cyanosis Skin: No rashes, No breakdown Psych/Mental Status: Mood NL Vitals VITALS Vital Signs Date Time Temp Pulse Resp B/P (MAP) Pulse Ox O2 Delivery O2 Flow Rate FiO2 01/07/18 11:55 98.2 63 18 124/65 (84) 95 Room Air 98.2 Labs Labs Laboratory Tests Test 01/06/18 14:18 01/06/18 14:55 01/07/18 06:19 Urine Collection Type Unknown Urine Color Honey Urine Clarity Clear Urine pH 5.0 Urine Specific [place] 1.020 Urine Protein Negative mg/dL (NEG-TRACE) Urine Glucose (UA) Negative mg/dL (NEG) Urine Ketones (Stick) Trace mg/dL (NEG) Urine Blood Negative (NEG) Urine Nitrite Negative (NEG) Urine Bilirubin Small (NEG) Urine Urobilinogen Dipstick 1.0 mg/dL (0.2 mg/dL) Urine Leukocyte Esterase Negative (NEG) Urine RBC 1-2 /HPF (0-2) Urine WBC 1-4 /HPF (0-4) Urine Squamous Epithelial Cells Few /LPF Urine Bacteria Few /HPF (0-FEW) Urine Hyaline Casts Moderate /HPF Urine Mucus Mod /LPF Urine Opiates Screen Neg (NEG) Urine Methadone Screen Neg (NEG) Urine Barbiturates Neg (NEG) Urine Phencyclidine Screen Neg (NEG) Urine Amphetamine/Methamphetamine Neg (NEG) Urine Benzodiazepines Screen Neg (NEG) Urine Cocaine Screen Neg (NEG) Urine Cannabinoids Screen Neg (NEG) Urine Ethyl Alcohol Neg (NEG) White Blood Count 6.0 x10^3/uL (4.0-11.0) 5.0 x10^3/uL (4.0-11.0) Red Blood Count 4.76 x10^6/uL (4.30-5.70) 4.74 x10^6/uL (4.30-5.70) Hemoglobin 13.1 g/dL (13.0-17.5) 13.3 g/dL (13.0-17.5) Hematocrit 39.0 % (39.0-53.0) 39.5 % (39.0-53.0) Mean Corpuscular Volume 82 fL (79-100) 83 fL (79-100) Mean Corpuscular Hemoglobin 28 pg (25-35) 28 pg (25-35) Mean Corpuscular Hemoglobin Concent 34 g/dL (31-37) 34 g/dL (31-37) Red Cell Distribution Width 14.5 % (11.5-14.5) 14.3 % (11.5-14.5) Platelet Count 212 x10^3/uL (140-400) 209 x10^3/uL (140-400) Neutrophils (%) (Auto) 61 % (31-73) 53 % (31-73) Lymphocytes (%) (Auto) 24 % (24-48) 32 % (24-48) Monocytes (%) (Auto) 14 % (0-9) 12 % (0-9) Eosinophils (%) (Auto) 1 % (0-3) 2 % (0-3) Basophils (%) (Auto) 1 % (0-3) 1 % (0-3) Neutrophils # (Auto) 3.6 x10^3uL (1.8-7.7) 2.6 x10^3uL (1.8-7.7) Lymphocytes # (Auto) 1.4 x10^3/uL (1.0-4.8) 1.6 x10^3/uL (1.0-4.8) Monocytes # (Auto) 0.8 x10^3/uL (0.0-1.1) 0.6 x10^3/uL (0.0-1.1) Eosinophils # (Auto) 0.1 x10^3/uL (0.0-0.7) 0.1 x10^3/uL (0.0-0.7) Basophils # (Auto) 0.1 x10^3/uL (0.0-0.2) 0.1 x10^3/uL (0.0-0.2) Sodium Level 136 mmol/L (136-145) 138 mmol/L (136-145) Potassium Level 4.4 mmol/L (3.5-5.1) 4.0 mmol/L (3.5-5.1) Chloride Level 100 mmol/L (98-107) 103 mmol/L (98-107) Carbon Dioxide Level 26 mmol/L (21-32) 24 mmol/L (21-32) Anion Gap 10 (6-14) 11 (6-14) Blood Urea Nitrogen 40 mg/dL (8-26) 26 mg/dL (8-26) Creatinine 1.6 mg/dL (0.7-1.3) 1.0 mg/dL (0.7-1.3) Estimated GFR (Cockcroft-Gault) 51.2 88.1 BUN/Creatinine Ratio 25 (6-20) Glucose Level 102 mg/dL (70-99) 99 mg/dL (70-99) Calcium Level 9.9 mg/dL (8.5-10.1) 9.4 mg/dL (8.5-10.1) Magnesium Level 2.6 mg/dL (1.8-2.4) Total Bilirubin 0.5 mg/dL (0.2-1.0) Aspartate Amino Transf (AST/SGOT) 36 U/L (15-37) Alanine Aminotransferase (ALT/SGPT) 28 U/L (16-63) Alkaline Phosphatase 138 U/L (46-116) Troponin I Quantitative < 0.017 ng/mL (0.000-0.055) VR-Cve-D-Type Natriuretic Peptide 569 pg/mL (0-449) Total Protein 9.5 g/dL (6.4-8.2) Albumin 4.0 g/dL (3.4-5.0) Albumin/Globulin Ratio 0.7 (1.0-1.7) Thyroid Stimulating Hormone (TSH) 0.885 uIU/mL (0.358-3.74) Influenza Type A Antigen Negative (NEGATIVE) Influenza Type B Antigen Negative (NEGATIVE) Laboratory Tests Test 01/06/18 14:18 01/06/18 14:55 01/07/18 06:19 Urine Collection Type Unknown Urine Color Honey Urine Clarity Clear Urine pH 5.0 Urine Specific [place] 1.020 Urine Protein Negative mg/dL (NEG-TRACE) Urine Glucose (UA) Negative mg/dL (NEG) Urine Ketones (Stick) Trace mg/dL (NEG) Urine Blood Negative (NEG) Urine Nitrite Negative (NEG) Urine Bilirubin Small (NEG) Urine Urobilinogen Dipstick 1.0 mg/dL (0.2 mg/dL) Urine Leukocyte Esterase Negative (NEG) Urine RBC 1-2 /HPF (0-2) Urine WBC 1-4 /HPF (0-4) Urine Squamous Epithelial Cells Few /LPF Urine Bacteria Few /HPF (0-FEW) Urine Hyaline Casts Moderate /HPF Urine Mucus Mod /LPF Urine Opiates Screen Neg (NEG) Urine Methadone Screen Neg (NEG) Urine Barbiturates Neg (NEG) Urine Phencyclidine Screen Neg (NEG) Urine Amphetamine/Methamphetamine Neg (NEG) Urine Benzodiazepines Screen Neg (NEG) Urine Cocaine Screen Neg (NEG) Urine Cannabinoids Screen Neg (NEG) Urine Ethyl Alcohol Neg (NEG) White Blood Count 6.0 x10^3/uL (4.0-11.0) 5.0 x10^3/uL (4.0-11.0) Red Blood Count 4.76 x10^6/uL (4.30-5.70) 4.74 x10^6/uL (4.30-5.70) Hemoglobin 13.1 g/dL (13.0-17.5) 13.3 g/dL (13.0-17.5) Hematocrit 39.0 % (39.0-53.0) 39.5 % (39.0-53.0) Mean Corpuscular Volume 82 fL (79-100) 83 fL (79-100) Mean Corpuscular Hemoglobin 28 pg (25-35) 28 pg (25-35) Mean Corpuscular Hemoglobin Concent 34 g/dL (31-37) 34 g/dL (31-37) Red Cell Distribution Width 14.5 % (11.5-14.5) 14.3 % (11.5-14.5) Platelet Count 212 x10^3/uL (140-400) 209 x10^3/uL (140-400) Neutrophils (%) (Auto) 61 % (31-73) 53 % (31-73) Lymphocytes (%) (Auto) 24 % (24-48) 32 % (24-48) Monocytes (%) (Auto) 14 % (0-9) 12 % (0-9) Eosinophils (%) (Auto) 1 % (0-3) 2 % (0-3) Basophils (%) (Auto) 1 % (0-3) 1 % (0-3) Neutrophils # (Auto) 3.6 x10^3uL (1.8-7.7) 2.6 x10^3uL (1.8-7.7) Lymphocytes # (Auto) 1.4 x10^3/uL (1.0-4.8) 1.6 x10^3/uL (1.0-4.8) Monocytes # (Auto) 0.8 x10^3/uL (0.0-1.1) 0.6 x10^3/uL (0.0-1.1) Eosinophils # (Auto) 0.1 x10^3/uL (0.0-0.7) 0.1 x10^3/uL (0.0-0.7) Basophils # (Auto) 0.1 x10^3/uL (0.0-0.2) 0.1 x10^3/uL (0.0-0.2) Sodium Level 136 mmol/L (136-145) 138 mmol/L (136-145) Potassium Level 4.4 mmol/L (3.5-5.1) 4.0 mmol/L (3.5-5.1) Chloride Level 100 mmol/L (98-107) 103 mmol/L (98-107) Carbon Dioxide Level 26 mmol/L (21-32) 24 mmol/L (21-32) Anion Gap 10 (6-14) 11 (6-14) Blood Urea Nitrogen 40 mg/dL (8-26) 26 mg/dL (8-26) Creatinine 1.6 mg/dL (0.7-1.3) 1.0 mg/dL (0.7-1.3) Estimated GFR (Cockcroft-Gault) 51.2 88.1 BUN/Creatinine Ratio 25 (6-20) Glucose Level 102 mg/dL (70-99) 99 mg/dL (70-99) Calcium Level 9.9 mg/dL (8.5-10.1) 9.4 mg/dL (8.5-10.1) Magnesium Level 2.6 mg/dL (1.8-2.4) Total Bilirubin 0.5 mg/dL (0.2-1.0) Aspartate Amino Transf (AST/SGOT) 36 U/L (15-37) Alanine Aminotransferase (ALT/SGPT) 28 U/L (16-63) Alkaline Phosphatase 138 U/L (46-116) Troponin I Quantitative < 0.017 ng/mL (0.000-0.055) LK-Ces-T-Type Natriuretic Peptide 569 pg/mL (0-449) Total Protein 9.5 g/dL (6.4-8.2) Albumin 4.0 g/dL (3.4-5.0) Albumin/Globulin Ratio 0.7 (1.0-1.7) Thyroid Stimulating Hormone (TSH) 0.885 uIU/mL (0.358-3.74) Influenza Type A Antigen Negative (NEGATIVE) Influenza Type B Antigen Negative (NEGATIVE) Images Images CT c/w enteritis Assessment/Plan Assessment/Plan Enteritis supportive care with bowel rest and IVF no surgical plans Thanks for consult! DYLAN LYNCH MD Jan 07, 2018 14:16
[2018-01-07] MEDS ORDERED: traMADol 50 MG TABLET PO PRN (14:30)
[2018-01-07] MEDS ORDERED: DOCUSATE SODIUM 100 MG CAPSULE. PO PRN (14:30)
[2018-01-07] MEDS ORDERED: ACETAMINOPHEN 325 MG TABLET. PO PRN (14:30)
[2018-01-07] MEDS ORDERED: ONDANSETRON PF 4 MG/2 ML VIAL. IV PRN (14:30)
[2018-01-07] MEDS ORDERED: MORPHINE SULFATE 2 MG/ML VIAL. IV PRN (14:30)
--- NOTE | 2018-01-07 14:39 | PDOC ---
PROGRESS NOTES Chief Complaint Chief Complaint Abdominal pain with possible enteritis \severe dementia HTN copd stable markus, vasomotor, resolved plan: fu with sx, no need sx npo for now, swallow eval ivf on cipro, flagyl, likely can dc soon cont home meds if can take po sw consult for SNF dvt ppx PTOT History of Present Illness History of Present Illness vROS: no Fever, chills, sob or chest pain not sure why pt comes to ER. pt looks very calm , but has severe dementia, cannot communicate mumble, nurse said mainly family want him to go to snf, and pt lives alone (not sure if it is true) pt denies abd pain, no tenderness Vitals Vitals Vital Signs Date Time Temp Pulse Resp B/P (MAP) Pulse Ox O2 Delivery O2 Flow Rate FiO2 01/07/18 11:55 98.2 63 18 124/65 (84) 95 Room Air 98.2 Physical Exam Physical Exam aaox1 to himself only follow commands by squeeze my hands General: Alert, No acute distress Heart: Regular rate, Normal S1, Normal S2 Lungs: Clear Abdomen: Normal bowel sounds, Soft, No tenderness Extremities: No clubbing, No cyanosis Skin: No rashes, No breakdown Labs LABS Laboratory Tests Test 01/06/18 14:55 01/07/18 06:19 White Blood Count 6.0 x10^3/uL (4.0-11.0) 5.0 x10^3/uL (4.0-11.0) Red Blood Count 4.76 x10^6/uL (4.30-5.70) 4.74 x10^6/uL (4.30-5.70) Hemoglobin 13.1 g/dL (13.0-17.5) 13.3 g/dL (13.0-17.5) Hematocrit 39.0 % (39.0-53.0) 39.5 % (39.0-53.0) Mean Corpuscular Volume 82 fL (79-100) 83 fL (79-100) Mean Corpuscular Hemoglobin 28 pg (25-35) 28 pg (25-35) Mean Corpuscular Hemoglobin Concent 34 g/dL (31-37) 34 g/dL (31-37) Red Cell Distribution Width 14.5 % (11.5-14.5) 14.3 % (11.5-14.5) Platelet Count 212 x10^3/uL (140-400) 209 x10^3/uL (140-400) Neutrophils (%) (Auto) 61 % (31-73) 53 % (31-73) Lymphocytes (%) (Auto) 24 % (24-48) 32 % (24-48) Monocytes (%) (Auto) 14 % (0-9) 12 % (0-9) Eosinophils (%) (Auto) 1 % (0-3) 2 % (0-3) Basophils (%) (Auto) 1 % (0-3) 1 % (0-3) Neutrophils # (Auto) 3.6 x10^3uL (1.8-7.7) 2.6 x10^3uL (1.8-7.7) Lymphocytes # (Auto) 1.4 x10^3/uL (1.0-4.8) 1.6 x10^3/uL (1.0-4.8) Monocytes # (Auto) 0.8 x10^3/uL (0.0-1.1) 0.6 x10^3/uL (0.0-1.1) Eosinophils # (Auto) 0.1 x10^3/uL (0.0-0.7) 0.1 x10^3/uL (0.0-0.7) Basophils # (Auto) 0.1 x10^3/uL (0.0-0.2) 0.1 x10^3/uL (0.0-0.2) Sodium Level 136 mmol/L (136-145) 138 mmol/L (136-145) Potassium Level 4.4 mmol/L (3.5-5.1) 4.0 mmol/L (3.5-5.1) Chloride Level 100 mmol/L (98-107) 103 mmol/L (98-107) Carbon Dioxide Level 26 mmol/L (21-32) 24 mmol/L (21-32) Anion Gap 10 (6-14) 11 (6-14) Blood Urea Nitrogen 40 mg/dL (8-26) 26 mg/dL (8-26) Creatinine 1.6 mg/dL (0.7-1.3) 1.0 mg/dL (0.7-1.3) Estimated GFR (Cockcroft-Gault) 51.2 88.1 BUN/Creatinine Ratio 25 (6-20) Glucose Level 102 mg/dL (70-99) 99 mg/dL (70-99) Calcium Level 9.9 mg/dL (8.5-10.1) 9.4 mg/dL (8.5-10.1) Magnesium Level 2.6 mg/dL (1.8-2.4) Total Bilirubin 0.5 mg/dL (0.2-1.0) Aspartate Amino Transf (AST/SGOT) 36 U/L (15-37) Alanine Aminotransferase (ALT/SGPT) 28 U/L (16-63) Alkaline Phosphatase 138 U/L (46-116) Troponin I Quantitative < 0.017 ng/mL (0.000-0.055) BT-Dfw-N-Type Natriuretic Peptide 569 pg/mL (0-449) Total Protein 9.5 g/dL (6.4-8.2) Albumin 4.0 g/dL (3.4-5.0) Albumin/Globulin Ratio 0.7 (1.0-1.7) Thyroid Stimulating Hormone (TSH) 0.885 uIU/mL (0.358-3.74) Influenza Type A Antigen Negative (NEGATIVE) Influenza Type B Antigen Negative (NEGATIVE) Assessment and Plan Assessmemt and Plan Problems Medical Problems: (1) Ileus Status: Acute Comment Review of Relevant I have reviewed the following items eleazar (where applicable) has been applied. Labs Laboratory Tests Test 01/06/18 14:18 01/06/18 14:55 01/07/18 06:19 Urine Collection Type Unknown Urine Color Honey Urine Clarity Clear Urine pH 5.0 Urine Specific [place] 1.020 Urine Protein Negative mg/dL (NEG-TRACE) Urine Glucose (UA) Negative mg/dL (NEG) Urine Ketones (Stick) Trace mg/dL (NEG) Urine Blood Negative (NEG) Urine Nitrite Negative (NEG) Urine Bilirubin Small (NEG) Urine Urobilinogen Dipstick 1.0 mg/dL (0.2 mg/dL) Urine Leukocyte Esterase Negative (NEG) Urine RBC 1-2 /HPF (0-2) Urine WBC 1-4 /HPF (0-4) Urine Squamous Epithelial Cells Few /LPF Urine Bacteria Few /HPF (0-FEW) Urine Hyaline Casts Moderate /HPF Urine Mucus Mod /LPF Urine Opiates Screen Neg (NEG) Urine Methadone Screen Neg (NEG) Urine Barbiturates Neg (NEG) Urine Phencyclidine Screen Neg (NEG) Urine Amphetamine/Methamphetamine Neg (NEG) Urine Benzodiazepines Screen Neg (NEG) Urine Cocaine Screen Neg (NEG) Urine Cannabinoids Screen Neg (NEG) Urine Ethyl Alcohol Neg (NEG) White Blood Count 6.0 x10^3/uL (4.0-11.0) 5.0 x10^3/uL (4.0-11.0) Red Blood Count 4.76 x10^6/uL (4.30-5.70) 4.74 x10^6/uL (4.30-5.70) Hemoglobin 13.1 g/dL (13.0-17.5) 13.3 g/dL (13.0-17.5) Hematocrit 39.0 % (39.0-53.0) 39.5 % (39.0-53.0) Mean Corpuscular Volume 82 fL (79-100) 83 fL (79-100) Mean Corpuscular Hemoglobin 28 pg (25-35) 28 pg (25-35) Mean Corpuscular Hemoglobin Concent 34 g/dL (31-37) 34 g/dL (31-37) Red Cell Distribution Width 14.5 % (11.5-14.5) 14.3 % (11.5-14.5) Platelet Count 212 x10^3/uL (140-400) 209 x10^3/uL (140-400) Neutrophils (%) (Auto) 61 % (31-73) 53 % (31-73) Lymphocytes (%) (Auto) 24 % (24-48) 32 % (24-48) Monocytes (%) (Auto) 14 % (0-9) 12 % (0-9) Eosinophils (%) (Auto) 1 % (0-3) 2 % (0-3) Basophils (%) (Auto) 1 % (0-3) 1 % (0-3) Neutrophils # (Auto) 3.6 x10^3uL (1.8-7.7) 2.6 x10^3uL (1.8-7.7) Lymphocytes # (Auto) 1.4 x10^3/uL (1.0-4.8) 1.6 x10^3/uL (1.0-4.8) Monocytes # (Auto) 0.8 x10^3/uL (0.0-1.1) 0.6 x10^3/uL (0.0-1.1) Eosinophils # (Auto) 0.1 x10^3/uL (0.0-0.7) 0.1 x10^3/uL (0.0-0.7) Basophils # (Auto) 0.1 x10^3/uL (0.0-0.2) 0.1 x10^3/uL (0.0-0.2) Sodium Level 136 mmol/L (136-145) 138 mmol/L (136-145) Potassium Level 4.4 mmol/L (3.5-5.1) 4.0 mmol/L (3.5-5.1) Chloride Level 100 mmol/L (98-107) 103 mmol/L (98-107) Carbon Dioxide Level 26 mmol/L (21-32) 24 mmol/L (21-32) Anion Gap 10 (6-14) 11 (6-14) Blood Urea Nitrogen 40 mg/dL (8-26) 26 mg/dL (8-26) Creatinine 1.6 mg/dL (0.7-1.3) 1.0 mg/dL (0.7-1.3) Estimated GFR (Cockcroft-Gault) 51.2 88.1 BUN/Creatinine Ratio 25 (6-20) Glucose Level 102 mg/dL (70-99) 99 mg/dL (70-99) Calcium Level 9.9 mg/dL (8.5-10.1) 9.4 mg/dL (8.5-10.1) Magnesium Level 2.6 mg/dL (1.8-2.4) Total Bilirubin 0.5 mg/dL (0.2-1.0) Aspartate Amino Transf (AST/SGOT) 36 U/L (15-37) Alanine Aminotransferase (ALT/SGPT) 28 U/L (16-63) Alkaline Phosphatase 138 U/L (46-116) Troponin I Quantitative < 0.017 ng/mL (0.000-0.055) EL-Wvw-N-Type Natriuretic Peptide 569 pg/mL (0-449) Total Protein 9.5 g/dL (6.4-8.2) Albumin 4.0 g/dL (3.4-5.0) Albumin/Globulin Ratio 0.7 (1.0-1.7) Thyroid Stimulating Hormone (TSH) 0.885 uIU/mL (0.358-3.74) Influenza Type A Antigen Negative (NEGATIVE) Influenza Type B Antigen Negative (NEGATIVE) Laboratory Tests Test 01/06/18 14:55 01/07/18 06:19 White Blood Count 6.0 x10^3/uL (4.0-11.0) 5.0 x10^3/uL (4.0-11.0) Red Blood Count 4.76 x10^6/uL (4.30-5.70) 4.74 x10^6/uL (4.30-5.70) Hemoglobin 13.1 g/dL (13.0-17.5) 13.3 g/dL (13.0-17.5) Hematocrit 39.0 % (39.0-53.0) 39.5 % (39.0-53.0) Mean Corpuscular Volume 82 fL (79-100) 83 fL (79-100) Mean Corpuscular Hemoglobin 28 pg (25-35) 28 pg (25-35) Mean Corpuscular Hemoglobin Concent 34 g/dL (31-37) 34 g/dL (31-37) Red Cell Distribution Width 14.5 % (11.5-14.5) 14.3 % (11.5-14.5) Platelet Count 212 x10^3/uL (140-400) 209 x10^3/uL (140-400) Neutrophils (%) (Auto) 61 % (31-73) 53 % (31-73) Lymphocytes (%) (Auto) 24 % (24-48) 32 % (24-48) Monocytes (%) (Auto) 14 % (0-9) 12 % (0-9) Eosinophils (%) (Auto) 1 % (0-3) 2 % (0-3) Basophils (%) (Auto) 1 % (0-3) 1 % (0-3) Neutrophils # (Auto) 3.6 x10^3uL (1.8-7.7) 2.6 x10^3uL (1.8-7.7) Lymphocytes # (Auto) 1.4 x10^3/uL (1.0-4.8) 1.6 x10^3/uL (1.0-4.8) Monocytes # (Auto) 0.8 x10^3/uL (0.0-1.1) 0.6 x10^3/uL (0.0-1.1) Eosinophils # (Auto) 0.1 x10^3/uL (0.0-0.7) 0.1 x10^3/uL (0.0-0.7) Basophils # (Auto) 0.1 x10^3/uL (0.0-0.2) 0.1 x10^3/uL (0.0-0.2) Sodium Level 136 mmol/L (136-145) 138 mmol/L (136-145) Potassium Level 4.4 mmol/L (3.5-5.1) 4.0 mmol/L (3.5-5.1) Chloride Level 100 mmol/L (98-107) 103 mmol/L (98-107) Carbon Dioxide Level 26 mmol/L (21-32) 24 mmol/L (21-32) Anion Gap 10 (6-14) 11 (6-14) Blood Urea Nitrogen 40 mg/dL (8-26) 26 mg/dL (8-26) Creatinine 1.6 mg/dL (0.7-1.3) 1.0 mg/dL (0.7-1.3) Estimated GFR (Cockcroft-Gault) 51.2 88.1 BUN/Creatinine Ratio 25 (6-20) Glucose Level 102 mg/dL (70-99) 99 mg/dL (70-99) Calcium Level 9.9 mg/dL (8.5-10.1) 9.4 mg/dL (8.5-10.1) Magnesium Level 2.6 mg/dL (1.8-2.4) Total Bilirubin 0.5 mg/dL (0.2-1.0) Aspartate Amino Transf (AST/SGOT) 36 U/L (15-37) Alanine Aminotransferase (ALT/SGPT) 28 U/L (16-63) Alkaline Phosphatase 138 U/L (46-116) Troponin I Quantitative < 0.017 ng/mL (0.000-0.055) JY-Sem-Q-Type Natriuretic Peptide 569 pg/mL (0-449) Total Protein 9.5 g/dL (6.4-8.2) Albumin 4.0 g/dL (3.4-5.0) Albumin/Globulin Ratio 0.7 (1.0-1.7) Thyroid Stimulating Hormone (TSH) 0.885 uIU/mL (0.358-3.74) Influenza Type A Antigen Negative (NEGATIVE) Influenza Type B Antigen Negative (NEGATIVE) Medications Current Medications Sodium Chloride 1,000 ml @ 1,000 mls/hr 1X ONCE IV Last administered on 01/06at 15:24; Start 01/06/18 at 14:30; Stop 01/06/18 at 15:29; Status DC Ondansetron HCl (Zofran) 4 mg 1X ONCE IV Last administered on 01/06/18at 15:24 ; Start 01/06/18 at 14:30; Stop 01/06/18 at 14:31; Status DC Famotidine (Pepcid Vial) 20 mg 1X ONCE IVP Last administered on 01/06/18at 15: 24; Start 01/06/18 at 14:30; Stop 01/06/18 at 14:31; Status DC Iohexol (Omnipaque 300 Mg/ml) 75 ml 1X ONCE IV ; Start 01/06/18 at 14:30; Stop 01/06/18 at 14:33; Status DC Info (CONTRAST GIVEN -- Rx MONITORING) 1 each PRN DAILY PRN MC SEE COMMENTS; Start 01/06/18 at 14:45; Stop 01/08/18 at 14:44 Ondansetron HCl (Zofran) 4 mg PRN Q8HRS PRN IV NAUSEA/VOMITING; Start at 17:00; Stop 01/07/18 at 16:59 Morphine Sulfate (Morphine Sulfate) 2 mg PRN Q2HR PRN IV PAIN; Start 01/06/18 at 17:00; Stop 01/07/18 at 16:59 Ciprofloxacin/ Dextrose 200 ml @ 200 mls/hr Q12HR IV Last administered on at 10:01; Start 01/07/18 at 09:00 Metronidazole 100 ml @ 100 mls/hr Q8HRS IV Last administered on 01/07/18at 05: 30; Start 01/07/18 at 06:00 Ciprofloxacin/ Dextrose 200 ml @ 200 mls/hr 1X ONCE IV Last administered on 01/06/18at 17:25; Start 01/06/18 at 17:15; Stop 01/06/18 at 18:14; Status DC Metronidazole 100 ml @ 100 mls/hr 1X ONCE IV ; Start 01/06/18 at 17:15; Stop 01/06/18 at 18:14; Status DC Active Scripts Active Reported Losartan Potassium 50 Mg Tablet 50 Mg PO DAILY Hydrochlorothiazide Capsule (Hydrochlorothiazide) 12.5 Mg Capsule 1 Cap PO DAILY Namenda (Memantine Hcl) 10 Mg Tablet 10 Mg PO HS Simvastatin 40 Mg Tablet 1 Tab PO QHS Proair Hfa Inhaler (Albuterol Sulfate) 8.5 Gm Hfa.aer.ad 2 Puff INH QID PRN Dilantin (Phenytoin Sodium Extended) 100 Mg Capsule 1 Cap PO BID Symbicort 160-4.5 Mcg Inhaler (Budesonide/Formoterol Fumarate) 10.2 Gm Hfa.aer.ad 2 Puff IH BID Vitals/I & O Vital Sign - Last 24 Hours 01/06/18 01/06/18 01/06/18 01/06/18 15:30 17:29 19:00 20:08 Temp 97.9 97.9 Pulse 71 52 74 Resp 20 18 20 B/P (MAP) 138/79 (98) 123/86 (98) 124/84 (97) Pulse Ox 93 98 93 O2 Delivery Room Air Room Air Room Air Room Air 01/06/18 01/07/18 01/07/18 01/07/18 23:06 03:08 07:00 08:00 Temp 97.9 97.0 97.4 97.9 97.0 97.4 Pulse 69 70 65 Resp 20 20 18 B/P (MAP) 132/85 (101) 147/82 (103) 150/59 (89) Pulse Ox 98 96 95 O2 Delivery Room Air Room Air Room Air Room Air 01/07/18 11:55 Temp 98.2 98.2 Pulse 63 Resp 18 B/P (MAP) 124/65 (84) Pulse Ox 95 O2 Delivery Room Air Intake and Output 01/06/18 01/06/18 01/07/18 15:00 23:00 07:00 Intake Total 1000 ml Output Total 200 ml Balance 1000 ml -200 ml MAURICE MATHEW MD Jan 07, 2018 14:39
[2018-01-07] MEDS ORDERED: ALBUTEROL SULFATE 2.5 MG/3 ML NEBU. NEB PRN (14:45)
[2018-01-07 15:00] VITALS: BP 141/89
[2018-01-07] MEDS: ALBUTEROL SULFATE 2.5 MG/3 ML NEBU. NEB SCH ×2 (16:08→19:48)
[2018-01-07] MEDS: AMINO AC 3%/ELECTROLYTE/GLYCER 1,000 ML IV SCH (16:40)
[2018-01-07 19:00] VITALS: BP 128/76
[2018-01-07] MEDS: LOSARTAN POTASSIUM 50 MG TABLET. PO SCH (19:45)
[2018-01-07] MEDS: BUDESONIDE 0.5 MG/2 ML NEBU. NEB SCH (19:49)
[2018-01-07] MEDS ORDERED: NON FORMULARY ITEM (Budesonide/Formoterol Fumarate (Symbicort 160-4.5 Mcg Inhaler) 2 PUFF) IH SCH (21:00)
[2018-01-07] MEDS: PHENYTOIN SODIUM EXTENDED 100 MG CAPSULE PO SCH (21:10)
[2018-01-07] MEDS: MEMANTINE 10 MG TABLET. PO SCH (21:10)
[2018-01-07] MEDS: SIMVASTATIN 40 MG TABLET. PO SCH (21:10)
[2018-01-07] MEDS: FAMOTIDINE 20 MG/2 ML VIAL IVP SCH (21:11)
[2018-01-07 23:00] VITALS: BP 117/74
[2018-01-08 03:00] VITALS: BP 138/86
[2018-01-08] MEDS: AMINO AC 3%/ELECTROLYTE/GLYCER 1,000 ML IV SCH (03:30)
[2018-01-08 06:03] LABS: BASO % 1 % (0-3); EOS # 0.1 x10^3/uL (0.0-0.7); EOS % 2 % (0-3); HEMATOCRIT 37.9 % (39.0-53.0); HEMOGLOBIN 12.9 g/dL (13.0-17.5); LYMPH # 0.9 x10^3/uL (1.0-4.8); LYMPH % 19 % (24-48); MEAN CORPUSCULAR HEMOGLOBIN 28 pg (25-35); MEAN CORPUSCULAR HGB CONC 34 g/dL (31-37); MEAN CORPUSCULAR VOLUME 83 fL (79-100); MONO # 0.5 x10^3/uL (0.0-1.1); MONO % 10 % (0-9); NEUT # 3.1 x10^3uL (1.8-7.7); NEUT % 68 % (31-73); PLATELET COUNT 208 x10^3/uL (140-400); RED BLOOD COUNT 4.57 x10^6/uL (4.30-5.70); RED CELL DISTRIBUTION WIDTH 14.2 % (11.5-14.5); WHITE BLOOD COUNT 4.6 x10^3/uL (4.0-11.0)
[2018-01-08 06:08] LABS: CALCIUM 9.4 mg/dL (8.5-10.1); CREATININE 0.9 mg/dL (0.7-1.3); GFR 99.5; POTASSIUM 3.6 mmol/L (3.5-5.1)
[2018-01-08 07:00] VITALS: BP 150/77
[2018-01-08] MEDS: ALBUTEROL SULFATE 2.5 MG/3 ML NEBU. NEB SCH ×4 (08:10→19:43)
[2018-01-08] MEDS: BUDESONIDE 0.5 MG/2 ML NEBU. NEB SCH ×2 (08:10→19:42)
[2018-01-08] MEDS: PHENYTOIN SODIUM EXTENDED 100 MG CAPSULE PO SCH ×2 (08:42→20:34)
[2018-01-08] MEDS: LOSARTAN POTASSIUM 50 MG TABLET. PO SCH (08:43)
[2018-01-08] MEDS: CIPROFLOXACIN 400MG PREMIX 200 ML IV SCH (08:43)
--- NOTE | 2018-01-08 08:46 | PDOC ---
SURGICAL PROGRESS NOTE Subjective Tolerating diet resting stool documented Vital Signs Vital Signs Date Time Temp Pulse Resp B/P (MAP) Pulse Ox O2 Delivery O2 Flow Rate FiO2 01/08/18 08:43 67 138/86 01/08/18 08:12 98 Room Air 01/08/18 03:00 97.9 19 97.9 I&O Intake and Output 01/08/18 07:00 Output Total 0 ml Balance 0 ml Output Urine Total 0 ml # Voids 2 # Bowel Movements 1 General: Alert, Oriented X3, Cooperative, No acute distress Abdomen: Soft, Other (ND, NTTP) Labs Laboratory Tests Test 01/06/18 14:18 01/06/18 14:55 01/07/18 06:19 01/08/18 04:50 Urine Collection Type Unknown Urine Color Honey Urine Clarity Clear Urine pH 5.0 Urine Specific [place] 1.020 Urine Protein Negative mg/dL (NEG-TRACE) Urine Glucose (UA) Negative mg/dL (NEG) Urine Ketones (Stick) Trace mg/dL (NEG) Urine Blood Negative (NEG) Urine Nitrite Negative (NEG) Urine Bilirubin Small (NEG) Urine Urobilinogen Dipstick 1.0 mg/dL (0.2 mg/dL) Urine Leukocyte Esterase Negative (NEG) Urine RBC 1-2 /HPF (0-2) Urine WBC 1-4 /HPF (0-4) Urine Squamous Epithelial Cells Few /LPF Urine Bacteria Few /HPF (0-FEW) Urine Hyaline Casts Moderate /HPF Urine Mucus Mod /LPF Urine Opiates Screen Neg (NEG) Urine Methadone Screen Neg (NEG) Urine Barbiturates Neg (NEG) Urine Phencyclidine Screen Neg (NEG) Urine Amphetamine/Methamphetamine Neg (NEG) Urine Benzodiazepines Screen Neg (NEG) Urine Cocaine Screen Neg (NEG) Urine Cannabinoids Screen Neg (NEG) Urine Ethyl Alcohol Neg (NEG) White Blood Count 6.0 x10^3/uL (4.0-11.0) 5.0 x10^3/uL (4.0-11.0) 4.6 x10^3/uL (4.0-11.0) Red Blood Count 4.76 x10^6/uL (4.30-5.70) 4.74 x10^6/uL (4.30-5.70) 4.57 x10^6/uL (4.30-5.70) Hemoglobin 13.1 g/dL (13.0-17.5) 13.3 g/dL (13.0-17.5) 12.9 g/dL (13.0-17.5) Hematocrit 39.0 % (39.0-53.0) 39.5 % (39.0-53.0) 37.9 % (39.0-53.0) Mean Corpuscular Volume 82 fL (79-100) 83 fL (79-100) 83 fL (79-100) Mean Corpuscular Hemoglobin 28 pg (25-35) 28 pg (25-35) 28 pg (25-35) Mean Corpuscular Hemoglobin Concent 34 g/dL (31-37) 34 g/dL (31-37) 34 g/dL (31-37) Red Cell Distribution Width 14.5 % (11.5-14.5) 14.3 % (11.5-14.5) 14.2 % (11.5-14.5) Platelet Count 212 x10^3/uL (140-400) 209 x10^3/uL (140-400) 208 x10^3/uL (140-400) Neutrophils (%) (Auto) 61 % (31-73) 53 % (31-73) 68 % (31-73) Lymphocytes (%) (Auto) 24 % (24-48) 32 % (24-48) 19 % (24-48) Monocytes (%) (Auto) 14 % (0-9) 12 % (0-9) 10 % (0-9) Eosinophils (%) (Auto) 1 % (0-3) 2 % (0-3) 2 % (0-3) Basophils (%) (Auto) 1 % (0-3) 1 % (0-3) 1 % (0-3) Neutrophils # (Auto) 3.6 x10^3uL (1.8-7.7) 2.6 x10^3uL (1.8-7.7) 3.1 x10^3uL (1.8-7.7) Lymphocytes # (Auto) 1.4 x10^3/uL (1.0-4.8) 1.6 x10^3/uL (1.0-4.8) 0.9 x10^3/uL (1.0-4.8) Monocytes # (Auto) 0.8 x10^3/uL (0.0-1.1) 0.6 x10^3/uL (0.0-1.1) 0.5 x10^3/uL (0.0-1.1) Eosinophils # (Auto) 0.1 x10^3/uL (0.0-0.7) 0.1 x10^3/uL (0.0-0.7) 0.1 x10^3/uL (0.0-0.7) Basophils # (Auto) 0.1 x10^3/uL (0.0-0.2) 0.1 x10^3/uL (0.0-0.2) 0.0 x10^3/uL (0.0-0.2) Sodium Level 136 mmol/L (136-145) 138 mmol/L (136-145) 138 mmol/L (136-145) Potassium Level 4.4 mmol/L (3.5-5.1) 4.0 mmol/L (3.5-5.1) 3.6 mmol/L (3.5-5.1) Chloride Level 100 mmol/L (98-107) 103 mmol/L (98-107) 102 mmol/L (98-107) Carbon Dioxide Level 26 mmol/L (21-32) 24 mmol/L (21-32) 25 mmol/L (21-32) Anion Gap 10 (6-14) 11 (6-14) 11 (6-14) Blood Urea Nitrogen 40 mg/dL (8-26) 26 mg/dL (8-26) 17 mg/dL (8-26) Creatinine 1.6 mg/dL (0.7-1.3) 1.0 mg/dL (0.7-1.3) 0.9 mg/dL (0.7-1.3) Estimated GFR (Cockcroft-Gault) 51.2 88.1 99.5 BUN/Creatinine Ratio 25 (6-20) Glucose Level 102 mg/dL (70-99) 99 mg/dL (70-99) 109 mg/dL (70-99) Calcium Level 9.9 mg/dL (8.5-10.1) 9.4 mg/dL (8.5-10.1) 9.4 mg/dL (8.5-10.1) Magnesium Level 2.6 mg/dL (1.8-2.4) Total Bilirubin 0.5 mg/dL (0.2-1.0) Aspartate Amino Transf (AST/SGOT) 36 U/L (15-37) Alanine Aminotransferase (ALT/SGPT) 28 U/L (16-63) Alkaline Phosphatase 138 U/L (46-116) Troponin I Quantitative < 0.017 ng/mL (0.000-0.055) AN-Zas-J-Type Natriuretic Peptide 569 pg/mL (0-449) Total Protein 9.5 g/dL (6.4-8.2) Albumin 4.0 g/dL (3.4-5.0) Albumin/Globulin Ratio 0.7 (1.0-1.7) Thyroid Stimulating Hormone (TSH) 0.885 uIU/mL (0.358-3.74) Influenza Type A Antigen Negative (NEGATIVE) Influenza Type B Antigen Negative (NEGATIVE) Laboratory Tests Test 01/08/18 04:50 White Blood Count 4.6 x10^3/uL (4.0-11.0) Red Blood Count 4.57 x10^6/uL (4.30-5.70) Hemoglobin 12.9 g/dL (13.0-17.5) Hematocrit 37.9 % (39.0-53.0) Mean Corpuscular Volume 83 fL (79-100) Mean Corpuscular Hemoglobin 28 pg (25-35) Mean Corpuscular Hemoglobin Concent 34 g/dL (31-37) Red Cell Distribution Width 14.2 % (11.5-14.5) Platelet Count 208 x10^3/uL (140-400) Neutrophils (%) (Auto) 68 % (31-73) Lymphocytes (%) (Auto) 19 % (24-48) Monocytes (%) (Auto) 10 % (0-9) Eosinophils (%) (Auto) 2 % (0-3) Basophils (%) (Auto) 1 % (0-3) Neutrophils # (Auto) 3.1 x10^3uL (1.8-7.7) Lymphocytes # (Auto) 0.9 x10^3/uL (1.0-4.8) Monocytes # (Auto) 0.5 x10^3/uL (0.0-1.1) Eosinophils # (Auto) 0.1 x10^3/uL (0.0-0.7) Basophils # (Auto) 0.0 x10^3/uL (0.0-0.2) Sodium Level 138 mmol/L (136-145) Potassium Level 3.6 mmol/L (3.5-5.1) Chloride Level 102 mmol/L (98-107) Carbon Dioxide Level 25 mmol/L (21-32) Anion Gap 11 (6-14) Blood Urea Nitrogen 17 mg/dL (8-26) Creatinine 0.9 mg/dL (0.7-1.3) Estimated GFR (Cockcroft-Gault) 99.5 Glucose Level 109 mg/dL (70-99) Calcium Level 9.4 mg/dL (8.5-10.1) Problem List Problems Medical Problems: (1) Ileus Status: Acute Assessment/Plan enteritis stable no surgical plans ALANA RIVERA [employer] Jan 08, 2018 08:46
--- NOTE | 2018-01-08 10:14 | PDOC ---
PROGRESS NOTES Chief Complaint Chief Complaint Abdominal pain with possible enteritis \severe dementia HTN copd stable markus, vasomotor, resolved plan: fu with sx, no need sx npo for now, swallow eval ivf on cipro, flagyl, likely can dc soon cont home meds if can take po sw consult for SNF dvt ppx PTOT History of Present Illness History of Present Illness vROS: no Fever, chills, sob or chest pain not sure why pt comes to ER. pt looks very calm , but has severe dementia, cannot communicate mumble, nurse said mainly family want him to go to snf, and pt lives alone (not sure if it is true) pt denies abd pain, no tenderness Vitals Vitals Vital Signs Date Time Temp Pulse Resp B/P (MAP) Pulse Ox O2 Delivery O2 Flow Rate FiO2 01/08/18 08:43 67 138/86 01/08/18 08:12 98 Room Air 01/08/18 07:00 97.0 18 97.0 Physical Exam Physical Exam aaox1 to himself only follow commands by squeeze my hands, pleasant General: Alert, Cooperative, No acute distress Heart: Regular rate, Normal S1, Normal S2, No murmurs Lungs: Clear Abdomen: Soft, No tenderness, Other (ND, NTTP) Extremities: No clubbing, No cyanosis Skin: No rashes, No breakdown Labs LABS Liver: Small hypodense lesion peripheral right lobe measures 11 mm x 6 mm, too small to accurately characterize but would most likely be benign such as a cyst. Spleen: Unremarkable Pancreas: Unremarkable Adrenals: No evidence of mass. Kidneys: Small bilateral renal lesions too small to characterize but would commonly represent cysts. Urinary tracts: No hydronephrosis. Gallbladder: No calcified stone Lymph nodes: No significant enlargement Vessels: The aorta is calcified, ectatic and tortuous. Ectasia extends into the proximal iliac arteries. No evidence of focal aneurysm. GI tract: Limited exam without oral contrast. Mild distention of small bowel loops with mostly fluid. No obvious colonic wall thickening but limited evaluation due to the lack of much surrounding fat. Mild gaseous distention of the colon. Appendix is not clearly visualized. Reproductive organs: Prostate gland mildly enlarged. Urinary bladder: Unremarkable. Peritoneum: No evidence of pneumoperitoneum. No free fluid. Diffuse fatty stranding throughout the peritoneum and mesentery. Abdominal wall:Unremarkable Spine: Degenerative spondylosis. Bones: No destructive bone lesion. IMPRESSION: 1. Mild small bowel distention, could indicate ileus or enteritis. No definite bowel obstruction. There is stranding within the mesenteric and peritoneal fat, suggesting generalized inflammation or edema. 2. Mild prostatomegaly. 3. Small right liver and small renal lesions too small to characterize but would commonly represent benign lesion such as cysts. Electronically signed by: Curtis Rivas MD (01/06/2018 4:22 PM) [facility] Laboratory Tests Test 01/08/18 04:50 White Blood Count 4.6 x10^3/uL (4.0-11.0) Red Blood Count 4.57 x10^6/uL (4.30-5.70) Hemoglobin 12.9 g/dL (13.0-17.5) Hematocrit 37.9 % (39.0-53.0) Mean Corpuscular Volume 83 fL (79-100) Mean Corpuscular Hemoglobin 28 pg (25-35) Mean Corpuscular Hemoglobin Concent 34 g/dL (31-37) Red Cell Distribution Width 14.2 % (11.5-14.5) Platelet Count 208 x10^3/uL (140-400) Neutrophils (%) (Auto) 68 % (31-73) Lymphocytes (%) (Auto) 19 % (24-48) Monocytes (%) (Auto) 10 % (0-9) Eosinophils (%) (Auto) 2 % (0-3) Basophils (%) (Auto) 1 % (0-3) Neutrophils # (Auto) 3.1 x10^3uL (1.8-7.7) Lymphocytes # (Auto) 0.9 x10^3/uL (1.0-4.8) Monocytes # (Auto) 0.5 x10^3/uL (0.0-1.1) Eosinophils # (Auto) 0.1 x10^3/uL (0.0-0.7) Basophils # (Auto) 0.0 x10^3/uL (0.0-0.2) Sodium Level 138 mmol/L (136-145) Potassium Level 3.6 mmol/L (3.5-5.1) Chloride Level 102 mmol/L (98-107) Carbon Dioxide Level 25 mmol/L (21-32) Anion Gap 11 (6-14) Blood Urea Nitrogen 17 mg/dL (8-26) Creatinine 0.9 mg/dL (0.7-1.3) Estimated GFR (Cockcroft-Gault) 99.5 Glucose Level 109 mg/dL (70-99) Calcium Level 9.4 mg/dL (8.5-10.1) Assessment and Plan Assessmemt and Plan Problems Medical Problems: (1) Ileus Status: Acute Comment Review of Relevant I have reviewed the following items eleazar (where applicable) has been applied. Labs Laboratory Tests Test 01/06/18 14:18 01/06/18 14:55 01/07/18 06:19 01/08/18 04:50 Urine Collection Type Unknown Urine Color Honey Urine Clarity Clear Urine pH 5.0 Urine Specific [place] 1.020 Urine Protein Negative mg/dL (NEG-TRACE) Urine Glucose (UA) Negative mg/dL (NEG) Urine Ketones (Stick) Trace mg/dL (NEG) Urine Blood Negative (NEG) Urine Nitrite Negative (NEG) Urine Bilirubin Small (NEG) Urine Urobilinogen Dipstick 1.0 mg/dL (0.2 mg/dL) Urine Leukocyte Esterase Negative (NEG) Urine RBC 1-2 /HPF (0-2) Urine WBC 1-4 /HPF (0-4) Urine Squamous Epithelial Cells Few /LPF Urine Bacteria Few /HPF (0-FEW) Urine Hyaline Casts Moderate /HPF Urine Mucus Mod /LPF Urine Opiates Screen Neg (NEG) Urine Methadone Screen Neg (NEG) Urine Barbiturates Neg (NEG) Urine Phencyclidine Screen Neg (NEG) Urine Amphetamine/Methamphetamine Neg (NEG) Urine Benzodiazepines Screen Neg (NEG) Urine Cocaine Screen Neg (NEG) Urine Cannabinoids Screen Neg (NEG) Urine Ethyl Alcohol Neg (NEG) White Blood Count 6.0 x10^3/uL (4.0-11.0) 5.0 x10^3/uL (4.0-11.0) 4.6 x10^3/uL (4.0-11.0) Red Blood Count 4.76 x10^6/uL (4.30-5.70) 4.74 x10^6/uL (4.30-5.70) 4.57 x10^6/uL (4.30-5.70) Hemoglobin 13.1 g/dL (13.0-17.5) 13.3 g/dL (13.0-17.5) 12.9 g/dL (13.0-17.5) Hematocrit 39.0 % (39.0-53.0) 39.5 % (39.0-53.0) 37.9 % (39.0-53.0) Mean Corpuscular Volume 82 fL (79-100) 83 fL (79-100) 83 fL (79-100) Mean Corpuscular Hemoglobin 28 pg (25-35) 28 pg (25-35) 28 pg (25-35) Mean Corpuscular Hemoglobin Concent 34 g/dL (31-37) 34 g/dL (31-37) 34 g/dL (31-37) Red Cell Distribution Width 14.5 % (11.5-14.5) 14.3 % (11.5-14.5) 14.2 % (11.5-14.5) Platelet Count 212 x10^3/uL (140-400) 209 x10^3/uL (140-400) 208 x10^3/uL (140-400) Neutrophils (%) (Auto) 61 % (31-73) 53 % (31-73) 68 % (31-73) Lymphocytes (%) (Auto) 24 % (24-48) 32 % (24-48) 19 % (24-48) Monocytes (%) (Auto) 14 % (0-9) 12 % (0-9) 10 % (0-9) Eosinophils (%) (Auto) 1 % (0-3) 2 % (0-3) 2 % (0-3) Basophils (%) (Auto) 1 % (0-3) 1 % (0-3) 1 % (0-3) Neutrophils # (Auto) 3.6 x10^3uL (1.8-7.7) 2.6 x10^3uL (1.8-7.7) 3.1 x10^3uL (1.8-7.7) Lymphocytes # (Auto) 1.4 x10^3/uL (1.0-4.8) 1.6 x10^3/uL (1.0-4.8) 0.9 x10^3/uL (1.0-4.8) Monocytes # (Auto) 0.8 x10^3/uL (0.0-1.1) 0.6 x10^3/uL (0.0-1.1) 0.5 x10^3/uL (0.0-1.1) Eosinophils # (Auto) 0.1 x10^3/uL (0.0-0.7) 0.1 x10^3/uL (0.0-0.7) 0.1 x10^3/uL (0.0-0.7) Basophils # (Auto) 0.1 x10^3/uL (0.0-0.2) 0.1 x10^3/uL (0.0-0.2) 0.0 x10^3/uL (0.0-0.2) Sodium Level 136 mmol/L (136-145) 138 mmol/L (136-145) 138 mmol/L (136-145) Potassium Level 4.4 mmol/L (3.5-5.1) 4.0 mmol/L (3.5-5.1) 3.6 mmol/L (3.5-5.1) Chloride Level 100 mmol/L (98-107) 103 mmol/L (98-107) 102 mmol/L (98-107) Carbon Dioxide Level 26 mmol/L (21-32) 24 mmol/L (21-32) 25 mmol/L (21-32) Anion Gap 10 (6-14) 11 (6-14) 11 (6-14) Blood Urea Nitrogen 40 mg/dL (8-26) 26 mg/dL (8-26) 17 mg/dL (8-26) Creatinine 1.6 mg/dL (0.7-1.3) 1.0 mg/dL (0.7-1.3) 0.9 mg/dL (0.7-1.3) Estimated GFR (Cockcroft-Gault) 51.2 88.1 99.5 BUN/Creatinine Ratio 25 (6-20) Glucose Level 102 mg/dL (70-99) 99 mg/dL (70-99) 109 mg/dL (70-99) Calcium Level 9.9 mg/dL (8.5-10.1) 9.4 mg/dL (8.5-10.1) 9.4 mg/dL (8.5-10.1) Magnesium Level 2.6 mg/dL (1.8-2.4) Total Bilirubin 0.5 mg/dL (0.2-1.0) Aspartate Amino Transf (AST/SGOT) 36 U/L (15-37) Alanine Aminotransferase (ALT/SGPT) 28 U/L (16-63) Alkaline Phosphatase 138 U/L (46-116) Troponin I Quantitative < 0.017 ng/mL (0.000-0.055) XB-Riv-E-Type Natriuretic Peptide 569 pg/mL (0-449) Total Protein 9.5 g/dL (6.4-8.2) Albumin 4.0 g/dL (3.4-5.0) Albumin/Globulin Ratio 0.7 (1.0-1.7) Thyroid Stimulating Hormone (TSH) 0.885 uIU/mL (0.358-3.74) Influenza Type A Antigen Negative (NEGATIVE) Influenza Type B Antigen Negative (NEGATIVE) Laboratory Tests Test 01/08/18 04:50 White Blood Count 4.6 x10^3/uL (4.0-11.0) Red Blood Count 4.57 x10^6/uL (4.30-5.70) Hemoglobin 12.9 g/dL (13.0-17.5) Hematocrit 37.9 % (39.0-53.0) Mean Corpuscular Volume 83 fL (79-100) Mean Corpuscular Hemoglobin 28 pg (25-35) Mean Corpuscular Hemoglobin Concent 34 g/dL (31-37) Red Cell Distribution Width 14.2 % (11.5-14.5) Platelet Count 208 x10^3/uL (140-400) Neutrophils (%) (Auto) 68 % (31-73) Lymphocytes (%) (Auto) 19 % (24-48) Monocytes (%) (Auto) 10 % (0-9) Eosinophils (%) (Auto) 2 % (0-3) Basophils (%) (Auto) 1 % (0-3) Neutrophils # (Auto) 3.1 x10^3uL (1.8-7.7) Lymphocytes # (Auto) 0.9 x10^3/uL (1.0-4.8) Monocytes # (Auto) 0.5 x10^3/uL (0.0-1.1) Eosinophils # (Auto) 0.1 x10^3/uL (0.0-0.7) Basophils # (Auto) 0.0 x10^3/uL (0.0-0.2) Sodium Level 138 mmol/L (136-145) Potassium Level 3.6 mmol/L (3.5-5.1) Chloride Level 102 mmol/L (98-107) Carbon Dioxide Level 25 mmol/L (21-32) Anion Gap 11 (6-14) Blood Urea Nitrogen 17 mg/dL (8-26) Creatinine 0.9 mg/dL (0.7-1.3) Estimated GFR (Cockcroft-Gault) 99.5 Glucose Level 109 mg/dL (70-99) Calcium Level 9.4 mg/dL (8.5-10.1) Medications Current Medications Sodium Chloride 1,000 ml @ 1,000 mls/hr 1X ONCE IV Last administered on 01/06at 15:24; Start 01/06/18 at 14:30; Stop 01/06/18 at 15:29; Status DC Ondansetron HCl (Zofran) 4 mg 1X ONCE IV Last administered on 01/06/18at 15:24 ; Start 01/06/18 at 14:30; Stop 01/06/18 at 14:31; Status DC Famotidine (Pepcid Vial) 20 mg 1X ONCE IVP Last administered on 01/06/18at 15: 24; Start 01/06/18 at 14:30; Stop 01/06/18 at 14:31; Status DC Iohexol (Omnipaque 300 Mg/ml) 75 ml 1X ONCE IV ; Start 01/06/18 at 14:30; Stop 01/06/18 at 14:33; Status DC Info (CONTRAST GIVEN -- Rx MONITORING) 1 each PRN DAILY PRN MC SEE COMMENTS; Start 01/06/18 at 14:45; Stop 01/08/18 at 14:44 Ondansetron HCl (Zofran) 4 mg PRN Q8HRS PRN IV NAUSEA/VOMITING; Start at 17:00; Stop 01/07/18 at 16:59; Status DC Morphine Sulfate (Morphine Sulfate) 2 mg PRN Q2HR PRN IV PAIN; Start 01/06/18 at 17:00; Stop 01/07/18 at 16:59; Status DC Ciprofloxacin/ Dextrose 200 ml @ 200 mls/hr Q12HR IV Last administered on 01/08at 08:43; Start 01/07/18 at 09:00 Metronidazole 100 ml @ 100 mls/hr Q8HRS IV Last administered on 01/08/18at 05: 53; Start 01/07/18 at 06:00 Ciprofloxacin/ Dextrose 200 ml @ 200 mls/hr 1X ONCE IV Last administered on 01/06/18at 17:25; Start 01/06/18 at 17:15; Stop 01/06/18 at 18:14; Status DC Metronidazole 100 ml @ 100 mls/hr 1X ONCE IV ; Start 01/06/18 at 17:15; Stop 01/06/18 at 18:14; Status DC Losartan Potassium (Cozaar) 50 mg DAILY PO Last administered on 01/08/18at 08:43 ; Start 01/07/18 at 15:30 Albuterol Sulfate (Ventolin Neb Soln) 2.5 mg PRN Q6HRS PRN NEB SHORTNESS OF BREATH; Start 01/07/18 at 14:45 Non-Formulary Medication (Budesonide/ Formoterol Fumarate (Symbicort 160-4.5 Mcg Inhaler)) 2 puff BID IH ; Start 01/07/18 at 21:00; Status UNV Memantine (Namenda) 10 mg QHS PO Last administered on 01/07/18at 21:10; Start 01/07/18 at 21:00 Phenytoin Sodium (Dilantin) 100 mg BID PO Last administered on 01/08/18at 08:42 ; Start 01/07/18 at 21:00 Simvastatin (Zocor) 40 mg QHS PO Last administered on 01/07/18at 21:10; Start 01/07/18 at 21:00 Acetaminophen (Tylenol) 650 mg PRN Q6HRS PRN PO FEVER; Start 01/07/18 at 14:30 Ondansetron HCl (Zofran) 4 mg PRN Q6HRS PRN IV NAUSEA/VOMITING; Start at 14:30 Morphine Sulfate (Morphine Sulfate) 2 mg PRN Q2HR PRN IV MODERATE TO SEVERE PAIN; Start 01/07/18 at 14:30 Tramadol HCl (Ultram) 50 mg PRN Q6HRS PRN PO MILD TO MODERATE PAIN; Start at 14:30 Docusate Sodium (Colace) 100 mg PRN DAILY PRN PO CONSTIPATION; Start 01/07/18 at 14:30 Famotidine (Pepcid Vial) 20 mg QHS IVP Last administered on 01/07/18at 21:11; Start 01/07/18 at 21:00 Amino Acids/ Glycerin/ Electrolytes 1,000 ml @ 80 mls/hr [id number] IV Last administered on 01/08/18at 03:30; Start 01/07/18 at 15:00 Budesonide (Pulmicort) 0.5 mg RTBID NEB Last administered on 01/08/18at 08:10; Start 01/07/18 at 20:00 Albuterol Sulfate (Ventolin Neb Soln) 2.5 mg RTQID NEB Last administered on 01/08/18at 08:10; Start 01/07/18 at 16:00 Active Scripts Active Reported Losartan Potassium 50 Mg Tablet 50 Mg PO DAILY Hydrochlorothiazide Capsule (Hydrochlorothiazide) 12.5 Mg Capsule 1 Cap PO DAILY Namenda (Memantine Hcl) 10 Mg Tablet 10 Mg PO HS Simvastatin 40 Mg Tablet 1 Tab PO QHS Proair Hfa Inhaler (Albuterol Sulfate) 8.5 Gm Hfa.aer.ad 2 Puff INH QID PRN Dilantin (Phenytoin Sodium Extended) 100 Mg Capsule 1 Cap PO BID Symbicort 160-4.5 Mcg Inhaler (Budesonide/Formoterol Fumarate) 10.2 Gm Hfa.aer.ad 2 Puff IH BID Vitals/I & O Vital Sign - Last 24 Hours 01/07/18 01/07/18 01/07/18 01/07/18 11:55 15:00 16:12 19:00 Temp 98.2 97.5 97.8 98.2 97.5 97.8 Pulse 63 61 94 Resp 18 18 B/P (MAP) 124/65 (84) 141/89 (106) 128/76 (93) Pulse Ox 95 98 94 97 O2 Delivery Room Air Room Air Room Air Room Air 01/07/18 01/07/18 01/07/1801/07/18 19:45 19:49 19:52 20:00 Pulse 75 B/P (MAP) 117/82 Pulse Ox 96 96 O2 Delivery Room Air Room Air Room Air 01/07/18 01/08/18 01/08/18 01/08/18 23:00 03:00 07:00 08:00 Temp 97.9 97.9 97.0 97.9 97.9 97.0 Pulse 73 67 63 Resp 17 19 18 B/P (MAP) 117/74 (88) 138/86 (103) 150/77 (101) Pulse Ox 97 98 O2 Delivery Room Air Room Air Room Air Room Air 01/08/18 01/08/18 08:12 08:43 Pulse 67 B/P (MAP) 138/86 Pulse Ox 98 O2 Delivery Room Air Intake and Output 01/07/18 01/07/18 01/08/18 15:00 23:00 07:00 Output Total 0 ml Balance 0 ml PHILOMENA BECERRA MD Jan 08, 2018 10:14
[2018-01-08 11:00] VITALS: BP 113/72
[2018-01-08 15:00] VITALS: BP 140/78
[2018-01-08 19:00] VITALS: BP 131/90
[2018-01-08] MEDS: MEMANTINE 10 MG TABLET. PO SCH (20:33)
[2018-01-08] MEDS: SIMVASTATIN 40 MG TABLET. PO SCH (20:33)
[2018-01-08] MEDS: CIPROFLOXACIN HCL 250 MG TABLET. PO SCH (20:33)
[2018-01-08] MEDS: LACTOBACILLUS RHAMNOSUS GG 1 CAPSULE. PO SCH (20:34)
[2018-01-08] MEDS: FAMOTIDINE 20 MG/2 ML VIAL IVP SCH (20:34)
[2018-01-08] MEDS: metroNIDAZOLE 500 MG TABLET PO SCH (21:50)
[2018-01-08] MEDS ORDERED: OLANZapine IM 10 MG VIAL. IM ONE (22:45)
[2018-01-08 23:00] VITALS: BP 135/85
[2018-01-09] MEDS ORDERED: HALOPERIDOL 2 MG TABLET. PO ONE (01:00)
[2018-01-09 03:00] VITALS: BP 140/86
[2018-01-09] MEDS: metroNIDAZOLE 500 MG TABLET PO SCH ×3 (05:08→21:50)
[2018-01-09 07:00] VITALS: BP 162/90
[2018-01-09] MEDS: BUDESONIDE 0.5 MG/2 ML NEBU. NEB SCH ×2 (07:18→20:07)
--- NOTE | 2018-01-09 07:46 | RAD ---
Acute abdomen series with chest, 3 views, 01/08/2018: HISTORY: Ileus There is a moderate amount of gas in the transverse colon. There is a small amount of gas and stool in other portions of the colon. No free air seen in the abdomen. There is no evidence of organomegaly. Multiple pelvic calcifications are probably vascular. Moderate degenerative change is evident in the spine. The heart is mildly enlarged. There is calcific plaquing and tortuosity of the thoracic aorta. A few scattered parenchymal scars are seen. No pulmonary consolidation is evident. There is no evidence of pleural fluid. IMPRESSION: 1. No acute abdominal abnormality is detected. 2. Mild cardiomegaly and aortic atherosclerosis. Electronically signed by: Tomasz Sanchez MD (01/09/2018 7:43 AM) [facility]
[2018-01-09] MEDS: ALBUTEROL SULFATE 2.5 MG/3 ML NEBU. NEB SCH ×4 (07:56→20:07)
--- NOTE | 2018-01-09 08:13 | PDOC ---
PROGRESS NOTES Chief Complaint Chief Complaint Abdominal pain with possible enteritis severe dementia HTN copd stable markus, vasomotor, resolved History of Present Illness History of Present Illness not sure why pt comes to ER initially, but was found with abdominal pain on report, seen by GI and surgery. Also noted with ARF. pt looks very calm , but has severe dementia, cannot communicate, mumbles. Overnight he became very agitated, restless, shouting at nursing staff. Now on 1 -1 sitter. Given zyprex with improvement and very improved with jello, pudding, and ice cream. He now has appetite, but notes his abdomen still hurts, then begins mumbling incoherently ROS: no Fever, chills, sob or chest pain A/P: Abdominal pain with possible enteritis - no need for surgery, on cipro, flagyl, likely can dc soon severe dementia with acute delerium - will cont 1-1 sitter for today, will reorient and medication judiciously with zyprexa and haldol if absolutely necessary HTN - stable copd stable markus, vasomotor, resolved Hypokalemia - 3.1 today, orally replacing and 1x IV replacement 20meq sw consult for SNF dvt ppx PTOT Full Code Vitals Vitals Vital Signs Date Time Temp Pulse Resp B/P (MAP) Pulse Ox O2 Delivery O2 Flow Rate FiO2 01/09/18 07:23 98 Room Air 01/09/18 03:00 97.6 60 18 140/86 (104) 97.6 Physical Exam Physical Exam aaox1 to himself only follow commands by squeeze my hands, pleasant General: Alert, Cooperative, No acute distress Heart: Regular rate, Normal S1, Normal S2, No murmurs Lungs: Clear Abdomen: Soft, No tenderness, Other (ND, NTTP) Extremities: No clubbing, No cyanosis Skin: No rashes, No breakdown Assessment and Plan Assessmemt and Plan Problems Medical Problems: (1) Ileus Status: Acute Comment Review of Relevant I have reviewed the following items eleazar (where applicable) has been applied. Labs Laboratory Tests Test 01/08/18 04:50 White Blood Count 4.6 x10^3/uL (4.0-11.0) Red Blood Count 4.57 x10^6/uL (4.30-5.70) Hemoglobin 12.9 g/dL (13.0-17.5) Hematocrit 37.9 % (39.0-53.0) Mean Corpuscular Volume 83 fL (79-100) Mean Corpuscular Hemoglobin 28 pg (25-35) Mean Corpuscular Hemoglobin Concent 34 g/dL (31-37) Red Cell Distribution Width 14.2 % (11.5-14.5) Platelet Count 208 x10^3/uL (140-400) Neutrophils (%) (Auto) 68 % (31-73) Lymphocytes (%) (Auto) 19 % (24-48) Monocytes (%) (Auto) 10 % (0-9) Eosinophils (%) (Auto) 2 % (0-3) Basophils (%) (Auto) 1 % (0-3) Neutrophils # (Auto) 3.1 x10^3uL (1.8-7.7) Lymphocytes # (Auto) 0.9 x10^3/uL (1.0-4.8) Monocytes # (Auto) 0.5 x10^3/uL (0.0-1.1) Eosinophils # (Auto) 0.1 x10^3/uL (0.0-0.7) Basophils # (Auto) 0.0 x10^3/uL (0.0-0.2) Sodium Level 138 mmol/L (136-145) Potassium Level 3.6 mmol/L (3.5-5.1) Chloride Level 102 mmol/L (98-107) Carbon Dioxide Level 25 mmol/L (21-32) Anion Gap 11 (6-14) Blood Urea Nitrogen 17 mg/dL (8-26) Creatinine 0.9 mg/dL (0.7-1.3) Estimated GFR (Cockcroft-Gault) 99.5 Glucose Level 109 mg/dL (70-99) Calcium Level 9.4 mg/dL (8.5-10.1) Medications Current Medications Sodium Chloride 1,000 ml @ 1,000 mls/hr 1X ONCE IV Last administered on 01/06at 15:24; Start 01/06/18 at 14:30; Stop 01/06/18 at 15:29; Status DC Ondansetron HCl (Zofran) 4 mg 1X ONCE IV Last administered on 01/06/18at 15:24 ; Start 01/06/18 at 14:30; Stop 01/06/18 at 14:31; Status DC Famotidine (Pepcid Vial) 20 mg 1X ONCE IVP Last administered on 01/06/18at 15: 24; Start 01/06/18 at 14:30; Stop 01/06/18 at 14:31; Status DC Iohexol (Omnipaque 300 Mg/ml) 75 ml 1X ONCE IV ; Start 01/06/18 at 14:30; Stop 01/06/18 at 14:33; Status DC Info (CONTRAST GIVEN -- Rx MONITORING) 1 each PRN DAILY PRN MC SEE COMMENTS; Start 01/06/18 at 14:45; Stop 01/08/18 at 14:44; Status DC Ondansetron HCl (Zofran) 4 mg PRN Q8HRS PRN IV NAUSEA/VOMITING; Start at 17:00; Stop 01/07/18 at 16:59; Status DC Morphine Sulfate (Morphine Sulfate) 2 mg PRN Q2HR PRN IV PAIN; Start 01/06/18 at 17:00; Stop 01/07/18 at 16:59; Status DC Ciprofloxacin/ Dextrose 200 ml @ 200 mls/hr Q12HR IV Last administered on 01/08at 08:43; Start 01/07/18 at 09:00; Stop 01/08/18 at 14:54; Status DC Metronidazole 100 ml @ 100 mls/hr Q8HRS IV Last administered on 01/08/18at 13: 47; Start 01/07/18 at 06:00; Stop 01/08/18 at 16:00; Status DC Ciprofloxacin/ Dextrose 200 ml @ 200 mls/hr 1X ONCE IV Last administered on 01/06/18at 17:25; Start 01/06/18 at 17:15; Stop 01/06/18 at 18:14; Status DC Metronidazole 100 ml @ 100 mls/hr 1X ONCE IV ; Start 01/06/18 at 17:15; Stop 01/06/18 at 18:14; Status DC Losartan Potassium (Cozaar) 50 mg DAILY PO Last administered on 01/08/18at 08:43 ; Start 01/07/18 at 15:30 Albuterol Sulfate (Ventolin Neb Soln) 2.5 mg PRN Q6HRS PRN NEB SHORTNESS OF BREATH; Start 01/07/18 at 14:45 Non-Formulary Medication (Budesonide/ Formoterol Fumarate (Symbicort 160-4.5 Mcg Inhaler)) 2 puff BID IH ; Start 01/07/18 at 21:00; Status UNV Memantine (Namenda) 10 mg QHS PO Last administered on 01/08/18at 20:33; Start 01/07/18 at 21:00 Phenytoin Sodium (Dilantin) 100 mg BID PO Last administered on 01/08/18at 20:34 ; Start 01/07/18 at 21:00 Simvastatin (Zocor) 40 mg QHS PO Last administered on 01/08/18at 20:33; Start 01/07/18 at 21:00 Acetaminophen (Tylenol) 650 mg PRN Q6HRS PRN PO FEVER; Start 01/07/18 at 14:30 Ondansetron HCl (Zofran) 4 mg PRN Q6HRS PRN IV NAUSEA/VOMITING; Start at 14:30 Morphine Sulfate (Morphine Sulfate) 2 mg PRN Q2HR PRN IV MODERATE TO SEVERE PAIN; Start 01/07/18 at 14:30 Tramadol HCl (Ultram) 50 mg PRN Q6HRS PRN PO MILD TO MODERATE PAIN; Start at 14:30 Docusate Sodium (Colace) 100 mg PRN DAILY PRN PO CONSTIPATION; Start 01/07/18 at 14:30 Famotidine (Pepcid Vial) 20 mg QHS IVP Last administered on 01/08/18at 20:34; Start 01/07/18 at 21:00 Amino Acids/ Glycerin/ Electrolytes 1,000 ml @ 80 mls/hr [id number] IV Last administered on 01/08/18at 03:30; Start 01/07/18 at 15:00; Stop 01/08/18 at 19: 48; Status DC Budesonide (Pulmicort) 0.5 mg RTBID NEB Last administered on 01/09/18at 07:18; Start 01/07/18 at 20:00 Albuterol Sulfate (Ventolin Neb Soln) 2.5 mg RTQID NEB Last administered on 01/09/18at 07:56; Start 01/07/18 at 16:00 Ciprofloxacin (Cipro) 500 mg BID PO Last administered on 01/08/18at 20:33; Start 01/08/18 at 21:00 Metronidazole (Flagyl) 500 mg Q8HRS PO Last administered on 01/09/18at 05:08; Start 01/08/18 at 22:00 Lactobacillus Rhamnosus (Culturelle) 1 cap BID PO Last administered on at 20:34; Start 01/08/18 at 21:00 Olanzapine (ZyPREXA IM) 5 mg 1X ONCE IM Last administered on 01/08/18at 23:06; Start 01/08/18 at 22:45; Stop 01/08/18 at 22:46; Status DC Haloperidol (Haldol) 2 mg 1X ONCE PO Last administered on 01/09/18at 00:58; Start 01/09/18 at 01:00; Stop 01/09/18 at 01:01; Status DC Active Scripts Active Reported Losartan Potassium 50 Mg Tablet 50 Mg PO DAILY Hydrochlorothiazide Capsule (Hydrochlorothiazide) 12.5 Mg Capsule 1 Cap PO DAILY Namenda (Memantine Hcl) 10 Mg Tablet 10 Mg PO HS Simvastatin 40 Mg Tablet 1 Tab PO QHS Proair Hfa Inhaler (Albuterol Sulfate) 8.5 Gm Hfa.aer.ad 2 Puff INH QID PRN Dilantin (Phenytoin Sodium Extended) 100 Mg Capsule 1 Cap PO BID Symbicort 160-4.5 Mcg Inhaler (Budesonide/Formoterol Fumarate) 10.2 Gm Hfa.aer.ad 2 Puff IH BID Vitals/I & O Vital Sign - Last 24 Hours 01/08/18 01/08/18 01/08/18 01/08/18 08:43 11:00 12:02 15:00 Temp 96.8 98.8 96.8 98.8 Pulse 67 65 92 Resp 18 18 B/P (MAP) 138/86 113/72 (86) 140/78 (98) Pulse Ox 98 O2 Delivery Room Air Room Air Room Air 01/08/18 01/08/18 01/08/18 01/08/18 15:46 19:00 19:44 19:45 Temp 97.9 97.9 Pulse 70 Resp 18 B/P (MAP) 131/90 (104) Pulse Ox 97 97 O2 Delivery Room Air Room Air Room Air Room Air 01/08/18 01/08/18 01/09/18 01/09/18 20:00 23:00 03:00 07:23 Temp 97.9 97.6 97.9 97.6 Pulse 71 60 Resp 18 18 B/P (MAP) 135/85 (102) 140/86 (104) Pulse Ox 98 O2 Delivery Room Air Room Air Room Air Room Air Intake and Output 01/08/18 01/08/18 01/09/18 15:00 23:00 07:00 Intake Total 1060 ml 340 ml Balance 1060 ml 340 ml LUÍS ARRIAGA MD Jan 09, 2018 08:13
[2018-01-09 08:36] LABS: BASO % 1 % (0-3); EOS # 0.1 x10^3/uL (0.0-0.7); EOS % 3 % (0-3); HEMATOCRIT 39.2 % (39.0-53.0); HEMOGLOBIN 13.1 g/dL (13.0-17.5); LYMPH % 20 % (24-48); MEAN CORPUSCULAR HEMOGLOBIN 28 pg (25-35); MEAN CORPUSCULAR HGB CONC 34 g/dL (31-37); MEAN CORPUSCULAR VOLUME 83 fL (79-100); MONO # 0.6 x10^3/uL (0.0-1.1); MONO % 11 % (0-9); NEUT # 3.3 x10^3uL (1.8-7.7); NEUT % 65 % (31-73); PLATELET COUNT 225 x10^3/uL (140-400); RED BLOOD COUNT 4.74 x10^6/uL (4.30-5.70); RED CELL DISTRIBUTION WIDTH 13.8 % (11.5-14.5)
[2018-01-09] MEDS: CIPROFLOXACIN HCL 250 MG TABLET. PO SCH ×2 (08:51→21:51)
[2018-01-09] MEDS: LOSARTAN POTASSIUM 50 MG TABLET. PO SCH (08:51)
[2018-01-09] MEDS: LACTOBACILLUS RHAMNOSUS GG 1 CAPSULE. PO SCH ×2 (08:52→21:51)
[2018-01-09 08:56] LABS: CALCIUM 9.2 mg/dL (8.5-10.1); GFR 88.1; POTASSIUM 3.1 mmol/L (3.5-5.1)
[2018-01-09] MEDS: PHENYTOIN SODIUM EXTENDED 100 MG CAPSULE PO SCH ×2 (08:57→21:50)
[2018-01-09 11:00] VITALS: BP 133/91
--- NOTE | 2018-01-09 11:32 | PDOC ---
SURGICAL PROGRESS NOTE Subjective tolerating diet appears to have no complaints having confusion Vital Signs Vital Signs Date Time Temp Pulse Resp B/P (MAP) Pulse Ox O2 Delivery O2 Flow Rate FiO2 01/09/18 11:22 98 Room Air 01/09/18 08:51 60 140/86 01/09/18 03:00 97.6 18 97.6 I&O Intake and Output 01/09/18 07:00 Intake Total 1400 ml Balance 1400 ml Intake Oral 1400 ml # Voids 8 General: Cooperative Abdomen: Soft Labs Laboratory Tests Test 01/08/18 04:50 01/09/18 08:15 White Blood Count 4.6 x10^3/uL (4.0-11.0) 5.0 x10^3/uL (4.0-11.0) Red Blood Count 4.57 x10^6/uL (4.30-5.70) 4.74 x10^6/uL (4.30-5.70) Hemoglobin 12.9 g/dL (13.0-17.5) 13.1 g/dL (13.0-17.5) Hematocrit 37.9 % (39.0-53.0) 39.2 % (39.0-53.0) Mean Corpuscular Volume 83 fL (79-100) 83 fL (79-100) Mean Corpuscular Hemoglobin 28 pg (25-35) 28 pg (25-35) Mean Corpuscular Hemoglobin Concent 34 g/dL (31-37) 34 g/dL (31-37) Red Cell Distribution Width 14.2 % (11.5-14.5) 13.8 % (11.5-14.5) Platelet Count 208 x10^3/uL (140-400) 225 x10^3/uL (140-400) Neutrophils (%) (Auto) 68 % (31-73) 65 % (31-73) Lymphocytes (%) (Auto) 19 % (24-48) 20 % (24-48) Monocytes (%) (Auto) 10 % (0-9) 11 % (0-9) Eosinophils (%) (Auto) 2 % (0-3) 3 % (0-3) Basophils (%) (Auto) 1 % (0-3) 1 % (0-3) Neutrophils # (Auto) 3.1 x10^3uL (1.8-7.7) 3.3 x10^3uL (1.8-7.7) Lymphocytes # (Auto) 0.9 x10^3/uL (1.0-4.8) 1.0 x10^3/uL (1.0-4.8) Monocytes # (Auto) 0.5 x10^3/uL (0.0-1.1) 0.6 x10^3/uL (0.0-1.1) Eosinophils # (Auto) 0.1 x10^3/uL (0.0-0.7) 0.1 x10^3/uL (0.0-0.7) Basophils # (Auto) 0.0 x10^3/uL (0.0-0.2) 0.0 x10^3/uL (0.0-0.2) Sodium Level 138 mmol/L (136-145) 136 mmol/L (136-145) Potassium Level 3.6 mmol/L (3.5-5.1) 3.1 mmol/L (3.5-5.1) Chloride Level 102 mmol/L (98-107) 102 mmol/L (98-107) Carbon Dioxide Level 25 mmol/L (21-32) 23 mmol/L (21-32) Anion Gap 11 (6-14) 11 (6-14) Blood Urea Nitrogen 17 mg/dL (8-26) 15 mg/dL (8-26) Creatinine 0.9 mg/dL (0.7-1.3) 1.0 mg/dL (0.7-1.3) Estimated GFR (Cockcroft-Gault) 99.5 88.1 Glucose Level 109 mg/dL (70-99) 112 mg/dL (70-99) Calcium Level 9.4 mg/dL (8.5-10.1) 9.2 mg/dL (8.5-10.1) Laboratory Tests Test 01/09/18 08:15 White Blood Count 5.0 x10^3/uL (4.0-11.0) Red Blood Count 4.74 x10^6/uL (4.30-5.70) Hemoglobin 13.1 g/dL (13.0-17.5) Hematocrit 39.2 % (39.0-53.0) Mean Corpuscular Volume 83 fL (79-100) Mean Corpuscular Hemoglobin 28 pg (25-35) Mean Corpuscular Hemoglobin Concent 34 g/dL (31-37) Red Cell Distribution Width 13.8 % (11.5-14.5) Platelet Count 225 x10^3/uL (140-400) Neutrophils (%) (Auto) 65 % (31-73) Lymphocytes (%) (Auto) 20 % (24-48) Monocytes (%) (Auto) 11 % (0-9) Eosinophils (%) (Auto) 3 % (0-3) Basophils (%) (Auto) 1 % (0-3) Neutrophils # (Auto) 3.3 x10^3uL (1.8-7.7) Lymphocytes # (Auto) 1.0 x10^3/uL (1.0-4.8) Monocytes # (Auto) 0.6 x10^3/uL (0.0-1.1) Eosinophils # (Auto) 0.1 x10^3/uL (0.0-0.7) Basophils # (Auto) 0.0 x10^3/uL (0.0-0.2) Sodium Level 136 mmol/L (136-145) Potassium Level 3.1 mmol/L (3.5-5.1) Chloride Level 102 mmol/L (98-107) Carbon Dioxide Level 23 mmol/L (21-32) Anion Gap 11 (6-14) Blood Urea Nitrogen 15 mg/dL (8-26) Creatinine 1.0 mg/dL (0.7-1.3) Estimated GFR (Cockcroft-Gault) 88.1 Glucose Level 112 mg/dL (70-99) Calcium Level 9.2 mg/dL (8.5-10.1) Problem List Problems Medical Problems: (1) Ileus Status: Acute Assessment/Plan improved no surgical needs, available as needed ALANA RIVERA APRN Jan 09, 2018 11:32
[2018-01-09] MEDS ORDERED: OLANZapine IM 10 MG VIAL. IM SCH (12:15)
[2018-01-09 15:00] VITALS: BP 146/93
[2018-01-09] MEDS ORDERED: HALOPERIDOL LACTATE 5 MG/ML VIAL. IVP PRN (16:45)
[2018-01-09 19:00] VITALS: BP 162/90
[2018-01-09] MEDS: MEMANTINE 10 MG TABLET. PO SCH (19:55)
[2018-01-09] MEDS: SIMVASTATIN 40 MG TABLET. PO SCH (21:51)
[2018-01-09] MEDS: FAMOTIDINE 20 MG/2 ML VIAL IVP SCH (21:52)
[2018-01-09 22:37] VITALS: BP 126/82
[2018-01-10 02:55] VITALS: BP 147/86
[2018-01-10] MEDS: metroNIDAZOLE 500 MG TABLET PO SCH ×3 (06:22→20:56)
[2018-01-10 07:00] VITALS: BP 141/80
[2018-01-10] MEDS: ALBUTEROL SULFATE 2.5 MG/3 ML NEBU. NEB SCH ×4 (07:46→20:35)
[2018-01-10] MEDS: BUDESONIDE 0.5 MG/2 ML NEBU. NEB SCH ×2 (07:46→20:35)
--- NOTE | 2018-01-10 08:22 | PDOC ---
PROGRESS NOTES Chief Complaint Chief Complaint Abdominal pain with possible enteritis severe dementia HTN copd stable markus, vasomotor, resolved History of Present Illness History of Present Illness not sure why pt comes to ER initially, but was found with abdominal pain on report, seen by GI and surgery. Also noted with ARF. pt looks very calm , but has severe dementia, cannot communicate, mumbles. Overnight he became very agitated, restless, shouting at nursing staff. Now on 1 -1 sitter. Given zyprex with improvement and very improved with jello, pudding, and ice cream. He now has appetite, but notes his abdomen still hurts, then begins mumbling incoherently ROS: no Fever, chills, sob or chest pain A/P: Abdominal pain with possible enteritis - no need for surgery, on cipro, flagyl, likely can dc WHEN CASE MGT ARRANGES severe dementia with acute delerium - will cont 1-1 sitter for today, will reorient and medication judiciously with zyprexa and haldol if absolutely necessary HTN - stable copd stable markus, vasomotor, resolved Hypokalemia - PRN orally replacing sw consult for SNF dvt ppx PTOT Full Code Vitals Vitals Vital Signs Date Time Temp Pulse Resp B/P (MAP) Pulse Ox O2 Delivery O2 Flow Rate FiO2 01/10/18 07:47 96 Room Air 01/10/18 02:55 97.3 61 16 147/86 (106) 97.3 Physical Exam Physical Exam aaox1 to himself only follow commands by squeeze my hands, pleasant General: Cooperative, No acute distress Heart: Regular rate, Normal S1, Normal S2, No murmurs Lungs: Clear Abdomen: Normal bowel sounds, Soft, No tenderness Extremities: No clubbing, No cyanosis Skin: No rashes, No breakdown Assessment and Plan Assessmemt and Plan Problems Medical Problems: (1) Ileus Status: Acute Comment Review of Relevant I have reviewed the following items eleazar (where applicable) has been applied. Labs Laboratory Tests Test 01/09/18 08:15 White Blood Count 5.0 x10^3/uL (4.0-11.0) Red Blood Count 4.74 x10^6/uL (4.30-5.70) Hemoglobin 13.1 g/dL (13.0-17.5) Hematocrit 39.2 % (39.0-53.0) Mean Corpuscular Volume 83 fL (79-100) Mean Corpuscular Hemoglobin 28 pg (25-35) Mean Corpuscular Hemoglobin Concent 34 g/dL (31-37) Red Cell Distribution Width 13.8 % (11.5-14.5) Platelet Count 225 x10^3/uL (140-400) Neutrophils (%) (Auto) 65 % (31-73) Lymphocytes (%) (Auto) 20 % (24-48) Monocytes (%) (Auto) 11 % (0-9) Eosinophils (%) (Auto) 3 % (0-3) Basophils (%) (Auto) 1 % (0-3) Neutrophils # (Auto) 3.3 x10^3uL (1.8-7.7) Lymphocytes # (Auto) 1.0 x10^3/uL (1.0-4.8) Monocytes # (Auto) 0.6 x10^3/uL (0.0-1.1) Eosinophils # (Auto) 0.1 x10^3/uL (0.0-0.7) Basophils # (Auto) 0.0 x10^3/uL (0.0-0.2) Sodium Level 136 mmol/L (136-145) Potassium Level 3.1 mmol/L (3.5-5.1) Chloride Level 102 mmol/L (98-107) Carbon Dioxide Level 23 mmol/L (21-32) Anion Gap 11 (6-14) Blood Urea Nitrogen 15 mg/dL (8-26) Creatinine 1.0 mg/dL (0.7-1.3) Estimated GFR (Cockcroft-Gault) 88.1 Glucose Level 112 mg/dL (70-99) Calcium Level 9.2 mg/dL (8.5-10.1) Medications Current Medications Sodium Chloride 1,000 ml @ 1,000 mls/hr 1X ONCE IV Last administered on 01/06at 15:24; Start 01/06/18 at 14:30; Stop 01/06/18 at 15:29; Status DC Ondansetron HCl (Zofran) 4 mg 1X ONCE IV Last administered on 01/06/18at 15:24 ; Start 01/06/18 at 14:30; Stop 01/06/18 at 14:31; Status DC Famotidine (Pepcid Vial) 20 mg 1X ONCE IVP Last administered on 01/06/18at 15: 24; Start 01/06/18 at 14:30; Stop 01/06/18 at 14:31; Status DC Iohexol (Omnipaque 300 Mg/ml) 75 ml 1X ONCE IV ; Start 01/06/18 at 14:30; Stop 01/06/18 at 14:33; Status DC Info (CONTRAST GIVEN -- Rx MONITORING) 1 each PRN DAILY PRN MC SEE COMMENTS; Start 01/06/18 at 14:45; Stop 01/08/18 at 14:44; Status DC Ondansetron HCl (Zofran) 4 mg PRN Q8HRS PRN IV NAUSEA/VOMITING; Start at 17:00; Stop 01/07/18 at 16:59; Status DC Morphine Sulfate (Morphine Sulfate) 2 mg PRN Q2HR PRN IV PAIN; Start 01/06/18 at 17:00; Stop 01/07/18 at 16:59; Status DC Ciprofloxacin/ Dextrose 200 ml @ 200 mls/hr Q12HR IV Last administered on 01/08at 08:43; Start 01/07/18 at 09:00; Stop 01/08/18 at 14:54; Status DC Metronidazole 100 ml @ 100 mls/hr Q8HRS IV Last administered on 01/08/18at 13: 47; Start 01/07/18 at 06:00; Stop 01/08/18 at 16:00; Status DC Ciprofloxacin/ Dextrose 200 ml @ 200 mls/hr 1X ONCE IV Last administered on 01/06/18at 17:25; Start 01/06/18 at 17:15; Stop 01/06/18 at 18:14; Status DC Metronidazole 100 ml @ 100 mls/hr 1X ONCE IV ; Start 01/06/18 at 17:15; Stop 01/06/18 at 18:14; Status DC Losartan Potassium (Cozaar) 50 mg DAILY PO Last administered on 01/09/18at 08:51 ; Start 01/07/18 at 15:30 Albuterol Sulfate (Ventolin Neb Soln) 2.5 mg PRN Q6HRS PRN NEB SHORTNESS OF BREATH; Start 01/07/18 at 14:45 Non-Formulary Medication (Budesonide/ Formoterol Fumarate (Symbicort 160-4.5 Mcg Inhaler)) 2 puff BID IH ; Start 01/07/18 at 21:00; Status UNV Memantine (Namenda) 10 mg QHS PO Last administered on 01/09/18at 19:55; Start 01/07/18 at 21:00 Phenytoin Sodium (Dilantin) 100 mg BID PO Last administered on 01/09/18at 21:50 ; Start 01/07/18 at 21:00 Simvastatin (Zocor) 40 mg QHS PO Last administered on 01/09/18 21:51; Start 01/07/18 at 21:00 Acetaminophen (Tylenol) 650 mg PRN Q6HRS PRN PO FEVER; Start 01/07/18 at 14:30 Ondansetron HCl (Zofran) 4 mg PRN Q6HRS PRN IV NAUSEA/VOMITING; Start at 14:30 Morphine Sulfate (Morphine Sulfate) 2 mg PRN Q2HR PRN IV MODERATE TO SEVERE PAIN; Start 01/07/18 at 14:30 Tramadol HCl (Ultram) 50 mg PRN Q6HRS PRN PO MILD TO MODERATE PAIN; Start at 14:30 Docusate Sodium (Colace) 100 mg PRN DAILY PRN PO CONSTIPATION; Start 01/07/18 at 14:30 Famotidine (Pepcid Vial) 20 mg QHS IVP Last administered on 01/09/18at 21:52; Start 01/07/18 at 21:00 Amino Acids/ Glycerin/ Electrolytes 1,000 ml @ 80 mls/hr [id number] IV Last administered on 01/08/18at 03:30; Start 01/07/18 at 15:00; Stop 01/08/18 at 19: 48; Status DC Budesonide (Pulmicort) 0.5 mg RTBID NEB Last administered on 01/10/18at 07:46; Start 01/07/18 at 20:00 Albuterol Sulfate (Ventolin Neb Soln) 2.5 mg RTQID NEB Last administered on 01/10/18at 07:46; Start 01/07/18 at 16:00 Ciprofloxacin (Cipro) 500 mg BID PO Last administered on 11/2/18at 21:51; Start 01/08/18 at 21:00 Metronidazole (Flagyl) 500 mg Q8HRS PO Last administered on 01/10/18at 06:22; Start 01/08/18 at 22:00 Lactobacillus Rhamnosus (Culturelle) 1 cap BID PO Last administered on at 21:51; Start 01/08/18 at 21:00 Olanzapine (ZyPREXA IM) 5 mg 1X ONCE IM Last administered on 01/08/18at 23:06; Start 01/08/18 at 22:45; Stop 01/09/18 at 12:19; Status DC Haloperidol (Haldol) 2 mg 1X ONCE PO Last administered on 01/09/18at 00:58; Start 01/09/18 at 01:00; Stop 01/09/18 at 01:01; Status DC Olanzapine (ZyPREXA IM) 10 mg BID IM ; Start 01/09/18 at 12:15; Status UNV Olanzapine (ZyPREXA ZYDIS) 5 mg BID PO ; Start 01/09/18 at 21:00; Stop 01/09/18 at 21:00; Status DC Olanzapine (ZyPREXA ZYDIS) 5 mg BID PO Last administered on 01/09/18at 19:55; Start 01/09/18 at 13:00 Haloperidol Lactate (Haldol Inj) 2.5 mg PRN Q5MIN PRN IVP AGITATION Last administered on 01/09/18at 19:21; Start 01/09/18 at 16:45 Active Scripts Active Reported Losartan Potassium 50 Mg Tablet 50 Mg PO DAILY Hydrochlorothiazide Capsule (Hydrochlorothiazide) 12.5 Mg Capsule 1 Cap PO DAILY Namenda (Memantine Hcl) 10 Mg Tablet 10 Mg PO HS Simvastatin 40 Mg Tablet 1 Tab PO QHS Proair Hfa Inhaler (Albuterol Sulfate) 8.5 Gm Hfa.aer.ad 2 Puff INH QID PRN Dilantin (Phenytoin Sodium Extended) 100 Mg Capsule 1 Cap PO BID Symbicort 160-4.5 Mcg Inhaler (Budesonide/Formoterol Fumarate) 10.2 Gm Hfa.aer.ad 2 Puff IH BID Vitals/I & O Vital Sign - Last 24 Hours 01/09/18 01/09/18 01/09/18 01/09/18 08:51 11:00 11:22 15:00 Temp 98.7 96.6 98.7 96.6 Pulse 60 68 78 Resp 18 20 B/P (MAP) 140/86 133/91 (105) 146/93 (110) Pulse Ox 98 98 98 O2 Delivery Room Air Room Air Room Air 01/09/18 01/09/18 01/09/18 01/09/18 15:40 19:00 20:00 20:09 Pulse 87 Resp 20 B/P (MAP) 162/90 (114) Pulse Ox 98 99 O2 Delivery Room Air Room Air Room Air Room Air 01/09/18 01/10/18 01/10/18 22:37 02:55 07:47 Temp 97.6 97.3 97.6 97.3 Pulse 70 61 Resp 18 16 B/P (MAP) 126/82 (97) 147/86 (106) Pulse Ox 99 97 96 O2 Delivery Room Air Room Air Room Air Intake and Output 01/09/18 01/09/18 01/10/18 15:00 23:00 07:00 Intake Total 200 ml 800 ml Balance 200 ml 800 ml Nutrition Consultation Dietary Evaluation: Recommendations by RD: Increase Calorie Intake, Protein supplementation Comments: ensure tid Expected Outcomes/Goals: to meet > 75% est nutr needs Malnutrition Findings: Body Fat Depletion (Non Severe: Mild Depletion Weight Status: Underweight PHILOMENA BECERRA MD Jan 10, 2018 08:22
[2018-01-10] MEDS: CIPROFLOXACIN HCL 250 MG TABLET. PO SCH ×2 (08:58→20:56)
[2018-01-10] MEDS: LOSARTAN POTASSIUM 50 MG TABLET. PO SCH (08:59)
[2018-01-10] MEDS: PHENYTOIN SODIUM EXTENDED 100 MG CAPSULE PO SCH ×2 (08:59→20:56)
[2018-01-10] MEDS: LACTOBACILLUS RHAMNOSUS GG 1 CAPSULE. PO SCH ×2 (08:59→20:56)
[2018-01-10 11:00] VITALS: BP 137/72
[2018-01-10 15:00] VITALS: BP 159/42
[2018-01-10 19:00] VITALS: BP 111/72
[2018-01-10] MEDS: MEMANTINE 10 MG TABLET. PO SCH (20:56)
[2018-01-10] MEDS: SIMVASTATIN 40 MG TABLET. PO SCH (20:56)
[2018-01-10] MEDS: FAMOTIDINE 20 MG/2 ML VIAL IVP SCH (20:57)
[2018-01-10 23:00] VITALS: BP 120/80
[2018-01-11 03:00] VITALS: BP 116/70
[2018-01-11] MEDS: metroNIDAZOLE 500 MG TABLET PO SCH ×3 (05:02→21:30)
[2018-01-11 05:21] LABS: BASO # 0.1 x10^3/uL (0.0-0.2); BASO % 1 % (0-3); EOS # 0.3 x10^3/uL (0.0-0.7); EOS % 6 % (0-3); HEMOGLOBIN 11.7 g/dL (13.0-17.5); LYMPH # 1.7 x10^3/uL (1.0-4.8); LYMPH % 33 % (24-48); MEAN CORPUSCULAR HEMOGLOBIN 28 pg (25-35); MEAN CORPUSCULAR HGB CONC 33 g/dL (31-37); MEAN CORPUSCULAR VOLUME 83 fL (79-100); MONO # 0.5 x10^3/uL (0.0-1.1); MONO % 9 % (0-9); NEUT # 2.6 x10^3uL (1.8-7.7); NEUT % 51 % (31-73); PLATELET COUNT 211 x10^3/uL (140-400); RED BLOOD COUNT 4.24 x10^6/uL (4.30-5.70); RED CELL DISTRIBUTION WIDTH 14.2 % (11.5-14.5); WHITE BLOOD COUNT 5.1 x10^3/uL (4.0-11.0)
[2018-01-11 05:54] LABS: CALCIUM 8.7 mg/dL (8.5-10.1); CREATININE 1.2 mg/dL (0.7-1.3); GFR 71.4; POTASSIUM 4.1 mmol/L (3.5-5.1)
[2018-01-11 07:00] VITALS: BP 139/90
[2018-01-11] MEDS: ALBUTEROL SULFATE 2.5 MG/3 ML NEBU. NEB SCH ×4 (07:44→19:44)
[2018-01-11] MEDS: BUDESONIDE 0.5 MG/2 ML NEBU. NEB SCH ×2 (07:44→19:44)
--- NOTE | 2018-01-11 09:08 | PDOC ---
PROGRESS NOTES Chief Complaint Chief Complaint Abdominal pain with possible enteritis severe dementia HTN copd stable markus, vasomotor, resolved History of Present Illness History of Present Illness not sure why pt comes to ER initially, but was found with abdominal pain on report, seen by GI and surgery. Also noted with ARF. pt looks very calm , but has severe dementia, cannot communicate, mumbles. Overnight he became very agitated, restless, shouting at nursing staff. Now on 1 -1 sitter. Given zyprex with improvement and very improved with jello, pudding, and ice cream. He now has appetite, but notes his abdomen still hurts, then begins mumbling incoherently ROS: no Fever, chills, sob or chest pain A/P: Abdominal pain with possible enteritis - no need for surgery, on cipro, flagyl, likely can dc WHEN CASE MGT ARRANGES severe dementia with acute delerium - will cont 1-1 sitter for today, will reorient and medication judiciously with zyprexa and haldol if absolutely necessary HTN - stable copd stable markus, vasomotor, resolved Hypokalemia - PRN orally replacing sw consult for SNF dvt ppx PTOT Full Code Vitals Vitals Vital Signs Date Time Temp Pulse Resp B/P (MAP) Pulse Ox O2 Delivery O2 Flow Rate FiO2 01/11/18 07:47 98 Room Air 01/11/18 03:00 97.5 75 18 116/70 (85) 97.5 Physical Exam Physical Exam aaox1 to himself only follow commands by squeeze my hands, pleasant General: Cooperative, No acute distress Heart: Regular rate, Normal S1, Normal S2, No murmurs Lungs: Clear Abdomen: Normal bowel sounds, Soft, No tenderness Extremities: No clubbing, No cyanosis Skin: No rashes, No breakdown Labs LABS Laboratory Tests Test 01/11/18 04:50 White Blood Count 5.1 x10^3/uL (4.0-11.0) Red Blood Count 4.24 x10^6/uL (4.30-5.70) Hemoglobin 11.7 g/dL (13.0-17.5) Hematocrit 35.0 % (39.0-53.0) Mean Corpuscular Volume 83 fL (79-100) Mean Corpuscular Hemoglobin 28 pg (25-35) Mean Corpuscular Hemoglobin Concent 33 g/dL (31-37) Red Cell Distribution Width 14.2 % (11.5-14.5) Platelet Count 211 x10^3/uL (140-400) Neutrophils (%) (Auto) 51 % (31-73) Lymphocytes (%) (Auto) 33 % (24-48) Monocytes (%) (Auto) 9 % (0-9) Eosinophils (%) (Auto) 6 % (0-3) Basophils (%) (Auto) 1 % (0-3) Neutrophils # (Auto) 2.6 x10^3uL (1.8-7.7) Lymphocytes # (Auto) 1.7 x10^3/uL (1.0-4.8) Monocytes # (Auto) 0.5 x10^3/uL (0.0-1.1) Eosinophils # (Auto) 0.3 x10^3/uL (0.0-0.7) Basophils # (Auto) 0.1 x10^3/uL (0.0-0.2) Sodium Level 138 mmol/L (136-145) Potassium Level 4.1 mmol/L (3.5-5.1) Chloride Level 105 mmol/L (98-107) Carbon Dioxide Level 24 mmol/L (21-32) Anion Gap 9 (6-14) Blood Urea Nitrogen 25 mg/dL (8-26) Creatinine 1.2 mg/dL (0.7-1.3) Estimated GFR (Cockcroft-Gault) 71.4 Glucose Level 86 mg/dL (70-99) Calcium Level 8.7 mg/dL (8.5-10.1) Assessment and Plan Assessmemt and Plan Problems Medical Problems: (1) Ileus Status: Acute Comment Review of Relevant I have reviewed the following items eleazar (where applicable) has been applied. Labs Laboratory Tests Test 01/11/18 04:50 White Blood Count 5.1 x10^3/uL (4.0-11.0) Red Blood Count 4.24 x10^6/uL (4.30-5.70) Hemoglobin 11.7 g/dL (13.0-17.5) Hematocrit 35.0 % (39.0-53.0) Mean Corpuscular Volume 83 fL (79-100) Mean Corpuscular Hemoglobin 28 pg (25-35) Mean Corpuscular Hemoglobin Concent 33 g/dL (31-37) Red Cell Distribution Width 14.2 % (11.5-14.5) Platelet Count 211 x10^3/uL (140-400) Neutrophils (%) (Auto) 51 % (31-73) Lymphocytes (%) (Auto) 33 % (24-48) Monocytes (%) (Auto) 9 % (0-9) Eosinophils (%) (Auto) 6 % (0-3) Basophils (%) (Auto) 1 % (0-3) Neutrophils # (Auto) 2.6 x10^3uL (1.8-7.7) Lymphocytes # (Auto) 1.7 x10^3/uL (1.0-4.8) Monocytes # (Auto) 0.5 x10^3/uL (0.0-1.1) Eosinophils # (Auto) 0.3 x10^3/uL (0.0-0.7) Basophils # (Auto) 0.1 x10^3/uL (0.0-0.2) Sodium Level 138 mmol/L (136-145) Potassium Level 4.1 mmol/L (3.5-5.1) Chloride Level 105 mmol/L (98-107) Carbon Dioxide Level 24 mmol/L (21-32) Anion Gap 9 (6-14) Blood Urea Nitrogen 25 mg/dL (8-26) Creatinine 1.2 mg/dL (0.7-1.3) Estimated GFR (Cockcroft-Gault) 71.4 Glucose Level 86 mg/dL (70-99) Calcium Level 8.7 mg/dL (8.5-10.1) Laboratory Tests Test 01/11/18 04:50 White Blood Count 5.1 x10^3/uL (4.0-11.0) Red Blood Count 4.24 x10^6/uL (4.30-5.70) Hemoglobin 11.7 g/dL (13.0-17.5) Hematocrit 35.0 % (39.0-53.0) Mean Corpuscular Volume 83 fL (79-100) Mean Corpuscular Hemoglobin 28 pg (25-35) Mean Corpuscular Hemoglobin Concent 33 g/dL (31-37) Red Cell Distribution Width 14.2 % (11.5-14.5) Platelet Count 211 x10^3/uL (140-400) Neutrophils (%) (Auto) 51 % (31-73) Lymphocytes (%) (Auto) 33 % (24-48) Monocytes (%) (Auto) 9 % (0-9) Eosinophils (%) (Auto) 6 % (0-3) Basophils (%) (Auto) 1 % (0-3) Neutrophils # (Auto) 2.6 x10^3uL (1.8-7.7) Lymphocytes # (Auto) 1.7 x10^3/uL (1.0-4.8) Monocytes # (Auto) 0.5 x10^3/uL (0.0-1.1) Eosinophils # (Auto) 0.3 x10^3/uL (0.0-0.7) Basophils # (Auto) 0.1 x10^3/uL (0.0-0.2) Sodium Level 138 mmol/L (136-145) Potassium Level 4.1 mmol/L (3.5-5.1) Chloride Level 105 mmol/L (98-107) Carbon Dioxide Level 24 mmol/L (21-32) Anion Gap 9 (6-14) Blood Urea Nitrogen 25 mg/dL (8-26) Creatinine 1.2 mg/dL (0.7-1.3) Estimated GFR (Cockcroft-Gault) 71.4 Glucose Level 86 mg/dL (70-99) Calcium Level 8.7 mg/dL (8.5-10.1) Microbiology 01/07/18 Stool Culture - Final, Resulted 01/07/18 Stool Culture Result 1 (CRISTIN) - Final, Resulted 01/07/18 Campylobacter Antigen Assay - Preliminary, Resulted 01/07/18 Campylobactor Result 1 - Preliminary, Resulted 01/07/18 Shiga Toxin Test - Final, Resulted Medications Current Medications Sodium Chloride 1,000 ml @ 1,000 mls/hr 1X ONCE IV Last administered on 01/06at 15:24; Start 01/06/18 at 14:30; Stop 01/06/18 at 15:29; Status DC Ondansetron HCl (Zofran) 4 mg 1X ONCE IV Last administered on 01/06/18at 15:24 ; Start 01/06/18 at 14:30; Stop 01/06/18 at 14:31; Status DC Famotidine (Pepcid Vial) 20 mg 1X ONCE IVP Last administered on 01/06/18at 15: 24; Start 01/06/18 at 14:30; Stop 01/06/18 at 14:31; Status DC Iohexol (Omnipaque 300 Mg/ml) 75 ml 1X ONCE IV ; Start 01/06/18 at 14:30; Stop 01/06/18 at 14:33; Status DC Info (CONTRAST GIVEN -- Rx MONITORING) 1 each PRN DAILY PRN MC SEE COMMENTS; Start 01/06/18 at 14:45; Stop 01/08/18 at 14:44; Status DC Ondansetron HCl (Zofran) 4 mg PRN Q8HRS PRN IV NAUSEA/VOMITING; Start at 17:00; Stop 01/07/18 at 16:59; Status DC Morphine Sulfate (Morphine Sulfate) 2 mg PRN Q2HR PRN IV PAIN; Start 01/06/18 at 17:00; Stop 01/07/18 at 16:59; Status DC Ciprofloxacin/ Dextrose 200 ml @ 200 mls/hr Q12HR IV Last administered on 01/08at 08:43; Start 01/07/18 at 09:00; Stop 01/08/18 at 14:54; Status DC Metronidazole 100 ml @ 100 mls/hr Q8HRS IV Last administered on 01/08/18at 13: 47; Start 01/07/18 at 06:00; Stop 01/08/18 at 16:00; Status DC Ciprofloxacin/ Dextrose 200 ml @ 200 mls/hr 1X ONCE IV Last administered on 01/06/18at 17:25; Start 01/06/18 at 17:15; Stop 01/06/18 at 18:14; Status DC Metronidazole 100 ml @ 100 mls/hr 1X ONCE IV ; Start 01/06/18 at 17:15; Stop 01/06/18 at 18:14; Status DC Losartan Potassium (Cozaar) 50 mg DAILY PO Last administered on 01/10/18at 08:59 ; Start 01/07/18 at 15:30 Albuterol Sulfate (Ventolin Neb Soln) 2.5 mg PRN Q6HRS PRN NEB SHORTNESS OF BREATH; Start 01/07/18 at 14:45 Non-Formulary Medication (Budesonide/ Formoterol Fumarate (Symbicort 160-4.5 Mcg Inhaler)) 2 puff BID IH ; Start 01/07/18 at 21:00; Status UNV Memantine (Namenda) 10 mg QHS PO Last administered on 01/10/18at 20:56; Start 01/07/18 at 21:00 Phenytoin Sodium (Dilantin) 100 mg BID PO Last administered on 01/10/18at 20:56 ; Start 01/07/18 at 21:00 Simvastatin (Zocor) 40 mg QHS PO Last administered on 01/10/18at 20:56; Start 01/07/18 at 21:00 Acetaminophen (Tylenol) 650 mg PRN Q6HRS PRN PO FEVER; Start 01/07/18 at 14:30 Ondansetron HCl (Zofran) 4 mg PRN Q6HRS PRN IV NAUSEA/VOMITING; Start at 14:30 Morphine Sulfate (Morphine Sulfate) 2 mg PRN Q2HR PRN IV MODERATE TO SEVERE PAIN; Start 01/07/18 at 14:30 Tramadol HCl (Ultram) 50 mg PRN Q6HRS PRN PO MILD TO MODERATE PAIN; Start at 14:30 Docusate Sodium (Colace) 100 mg PRN DAILY PRN PO CONSTIPATION; Start 01/07/18 at 14:30 Famotidine (Pepcid Vial) 20 mg QHS IVP Last administered on 01/10/18at 20:57; Start 01/07/18 at 21:00 Amino Acids/ Glycerin/ Electrolytes 1,000 ml @ 80 mls/hr [id number] IV Last administered on 01/08/18at 03:30; Start 01/07/18 at 15:00; Stop 01/08/18 at 19: 48; Status DC Budesonide (Pulmicort) 0.5 mg RTBID NEB Last administered on 01/11/18at 07:44; Start 01/07/18 at 20:00 Albuterol Sulfate (Ventolin Neb Soln) 2.5 mg RTQID NEB Last administered on 01/11/18at 07:44; Start 01/07/18 at 16:00 Ciprofloxacin (Cipro) 500 mg BID PO Last administered on 01/10/18at 20:56; Start 01/08/18 at 21:00 Metronidazole (Flagyl) 500 mg Q8HRS PO Last administered on 01/11/18at 05:02; Start 01/08/18 at 22:00 Lactobacillus Rhamnosus (Culturelle) 1 cap BID PO Last administered on at 20:56; Start 01/08/18 at 21:00 Olanzapine (ZyPREXA IM) 5 mg 1X ONCE IM Last administered on 01/08/18at 23:06; Start 01/08/18 at 22:45; Stop 01/09/18 at 12:19; Status DC Haloperidol (Haldol) 2 mg 1X ONCE PO Last administered on 01/09/18at 00:58; Start 01/09/18 at 01:00; Stop 01/09/18 at 01:01; Status DC Olanzapine (ZyPREXA IM) 10 mg BID IM ; Start 01/09/18 at 12:15; Status UNV Olanzapine (ZyPREXA ZYDIS) 5 mg BID PO ; Start 01/09/18 at 21:00; Stop 01/09/18 at 21:00; Status DC Olanzapine (ZyPREXA ZYDIS) 5 mg BID PO Last administered on 01/10/18at 20:56; Start 01/09/18 at 13:00 Haloperidol Lactate (Haldol Inj) 2.5 mg PRN Q5MIN PRN IVP AGITATION Last administered on 01/09/18at 19:21; Start 01/09/18 at 16:45 Active Scripts Active Reported Losartan Potassium 50 Mg Tablet 50 Mg PO DAILY Hydrochlorothiazide Capsule (Hydrochlorothiazide) 12.5 Mg Capsule 1 Cap PO DAILY Namenda (Memantine Hcl) 10 Mg Tablet 10 Mg PO HS Simvastatin 40 Mg Tablet 1 Tab PO QHS Proair Hfa Inhaler (Albuterol Sulfate) 8.5 Gm Hfa.aer.ad 2 Puff INH QID PRN Dilantin (Phenytoin Sodium Extended) 100 Mg Capsule 1 Cap PO BID Symbicort 160-4.5 Mcg Inhaler (Budesonide/Formoterol Fumarate) 10.2 Gm Hfa.aer.ad 2 Puff IH BID Vitals/I & O Vital Sign - Last 24 Hours 11/301/10/18 01/10/18 01/10/18 09:30 11:00 11:55 14:00 Temp 98.7 98.7 Pulse 88 Resp 18 B/P (MAP) 137/72 (93) Pulse Ox 98 O2 Delivery Room Air Room Air Room Air Room Air 01/10/18 01/10/18 01/10/18 01/10/18 15:00 16:31 19:00 19:47 Temp 94.1 97.8 94.1 97.8 Pulse 84 61 Resp 18 18 B/P (MAP) 159/42 (81) 111/72 (85) Pulse Ox 98 98 O2 Delivery Room Air Room Air Room Air Room Air 01/10/18 01/10/18 01/11/18 01/11/18 20:36 23:00 03:00 07:46 Temp 97.9 97.5 97.9 97.5 Pulse 74 75 Resp 18 18 B/P (MAP) 120/80 (93) 116/70 (85) Pulse Ox 96 100 98 O2 Delivery Room Air Room Air Room Air Room Air 01/11/18 07:47 Pulse Ox 98 O2 Delivery Room Air Intake and Output 01/10/18 01/10/18 01/11/18 15:00 23:00 07:00 Intake Total 200 ml 200 ml Output Total 775 ml Balance 200 ml -575 ml Nutrition Consultation Dietary Evaluation: Recommendations by RD: Increase Calorie Intake, Protein supplementation Comments: ensure tid Expected Outcomes/Goals: to meet > 75% est nutr needs Malnutrition Findings: Body Fat Depletion (Non Severe: Mild Depletion Weight Status: Underweight PHILOMENA BECERRA MD Jan 11, 2018 09:08
[2018-01-11 11:00] VITALS: BP 101/60
[2018-01-11 15:00] VITALS: BP 132/41
[2018-01-11] MEDS: PHENYTOIN SODIUM EXTENDED 100 MG CAPSULE PO SCH ×2 (17:25→21:30)
[2018-01-11] MEDS: CIPROFLOXACIN HCL 250 MG TABLET. PO SCH ×2 (17:25→21:29)
[2018-01-11] MEDS: LACTOBACILLUS RHAMNOSUS GG 1 CAPSULE. PO SCH ×2 (17:25→21:30)
[2018-01-11] MEDS: LOSARTAN POTASSIUM 50 MG TABLET. PO SCH (17:26)
[2018-01-11 19:00] VITALS: BP 126/62
[2018-01-11] MEDS ORDERED: FAMOTIDINE 20 MG TABLET. PO SCH (21:00)
[2018-01-11] MEDS: SIMVASTATIN 40 MG TABLET. PO SCH (21:30)
[2018-01-11] MEDS: MEMANTINE 10 MG TABLET. PO SCH (21:30)
[2018-01-11 23:00] VITALS: BP 98/57
[2018-01-12 03:00] VITALS: BP 106/71
[2018-01-12] MEDS: metroNIDAZOLE 500 MG TABLET PO SCH ×2 (06:30→15:26)
[2018-01-12 07:00] VITALS: BP 114/81
[2018-01-12] MEDS: BUDESONIDE 0.5 MG/2 ML NEBU. NEB SCH (08:11)
[2018-01-12] MEDS: ALBUTEROL SULFATE 2.5 MG/3 ML NEBU. NEB SCH ×2 (08:12→12:07)
[2018-01-12] MEDS: CIPROFLOXACIN HCL 250 MG TABLET. PO SCH (08:46)
[2018-01-12] MEDS: LACTOBACILLUS RHAMNOSUS GG 1 CAPSULE. PO SCH (08:46)
[2018-01-12] MEDS: PHENYTOIN SODIUM EXTENDED 100 MG CAPSULE PO SCH (08:46)
[2018-01-12] MEDS: LOSARTAN POTASSIUM 50 MG TABLET. PO SCH (08:48)
[2018-01-12] MEDS ORDERED: METR500T PO (09:03)
[2018-01-12] MEDS ORDERED: BUDE0.5A NEB (09:03)
[2018-01-12] MEDS ORDERED: OLAN5TAB5 PO (09:03)
[2018-01-12] MEDS ORDERED: CIPR250T30 PO (09:03)
--- NOTE | 2018-01-12 09:04 | DISCH ---
DISCHARGE DISCHARGE INFORMATION: DISCHARGE DATE: Jan 12, 2018 FINAL DIAGNOSIS Problems Medical Problems: (1) Ileus Status: Acute CONDITION ON DISCHARGE: Stable CODE STATUS: Code Status: Full HALF-WAY: SNF STAY <30 DAYS: Yes HOSPICE: HOSPICE: No HOSPICE EVAL & TREAT: No LTAC: ADMIT TO LTAC: Yes POST DISCHARGE ORDERS: ACTIVITY ORDERS: Activity as tolerated WEIGHT BEARING STATUS: As tolerated DIET AFTER DISCHARGE: Regular CHECKS AFTER DISCHARGE: CHECKS AFTER DISCHARGE: Check blood press - daily TREATMENT/EQUIPMENT ORDERS: ADAPTIVE EQUIPMENT NEEDED: Four wheeled walker Physical Therapy For: Evalulation/Treatment Occupational Therapy For: Evaluation/Treatment DISCHARGE MEDICATIONS: Home Meds Active Scripts Budesonide (BUDESONIDE) 0.5 Mg/2 Ml Ampul.neb, 0.5 MG NEB RTBID for SOA MDD 1, # 30 EACH Prov:SHALONDA BENSON MD 01/12/18 Olanzapine (ZYPREXA ZYDIS) 5 Mg Tab.rapdis, 5 MG PO BID for agitatuon MDD 1, # 30 TAB Prov:SHALONDA BENSON MD 01/12/18 Metronidazole (FLAGYL) 500 Mg Tablet, 500 MG PO Q8HRS for AGE MDD 1 for 7 Days, #21 TAB Prov:SHALONDA BENSON MD 01/12/18 Ciprofloxacin Hcl (CIPRO) 250 Mg Tablet, 500 MG PO BID for AGE MDD 1 for 7 Days , #28 TAB Prov:SHALONDA BENSON MD 01/12/18 Reported Medications Losartan Potassium (LOSARTAN POTASSIUM) 50 Mg Tablet, 50 MG PO DAILY, TAB 01/06/18 Hydrochlorothiazide (HYDROCHLOROTHIAZIDE CAPSULE ) 12.5 Mg Capsule, 1 CAP PO DAILY, #30 CAP 5 Refills 01/06/18 Memantine Hcl (NAMENDA) 10 Mg Tablet, 10 MG PO HS, TAB 01/06/18 Simvastatin (SIMVASTATIN) 40 Mg Tablet, 1 TAB PO QHS, #30 TAB 5 Refills 01/06/18 Albuterol Sulfate (PROAIR HFA INHALER) 8.5 Gm Hfa.aer.ad, 2 PUFF INH QID PRN for SHORTNESS OF BREATH, INHALER 0 Refills 01/06/18 Phenytoin Sodium Extended (DILANTIN) 100 Mg Capsule, 1 CAP PO BID, #90 CAP 3 Refills 01/06/18 Budesonide/Formoterol Fumarate (SYMBICORT 160-4.5 MCG INHALER) 10.2 Gm Hfa.aer.ad, 2 PUFF IH BID, #10.6 GM 3 Refills 01/06/18 SHALONDA BENSON MD Jan 12, 2018 09:04
--- NOTE | 2018-01-12 10:55 | PDOC3 ---
Discharge Summary Visit Information Date of Admission: Jan 06, 2018 Date of Discharge: Jan 12, 2018 Admitting Diagnosis Comment: enteritis, resolved severe dementia on meds - no swallow issues HTN copd stable markus, vasomotor, resolved FULL CODE Final Diagnosis Problems Medical Problems: (1) Ileus Status: Acute Brief Hospital Course Allergies Allergies Coded Allergies Type Severity Reaction Last Updated Verified No Known Drug Allergies 01/06/18 No Vital Signs Vital Signs Date Time Temp Pulse Resp B/P (MAP) Pulse Ox O2 Delivery O2 Flow Rate FiO2 01/12/18 08:48 67 114/81 01/12/18 08:12 98 Room Air 01/12/18 07:00 97.8 18 97.8 Lab Results Laboratory Tests Test 01/11/18 04:50 White Blood Count 5.1 x10^3/uL (4.0-11.0) Red Blood Count 4.24 x10^6/uL (4.30-5.70) Hemoglobin 11.7 g/dL (13.0-17.5) Hematocrit 35.0 % (39.0-53.0) Mean Corpuscular Volume 83 fL (79-100) Mean Corpuscular Hemoglobin 28 pg (25-35) Mean Corpuscular Hemoglobin Concent 33 g/dL (31-37) Red Cell Distribution Width 14.2 % (11.5-14.5) Platelet Count 211 x10^3/uL (140-400) Neutrophils (%) (Auto) 51 % (31-73) Lymphocytes (%) (Auto) 33 % (24-48) Monocytes (%) (Auto) 9 % (0-9) Eosinophils (%) (Auto) 6 % (0-3) Basophils (%) (Auto) 1 % (0-3) Neutrophils # (Auto) 2.6 x10^3uL (1.8-7.7) Lymphocytes # (Auto) 1.7 x10^3/uL (1.0-4.8) Monocytes # (Auto) 0.5 x10^3/uL (0.0-1.1) Eosinophils # (Auto) 0.3 x10^3/uL (0.0-0.7) Basophils # (Auto) 0.1 x10^3/uL (0.0-0.2) Sodium Level 138 mmol/L (136-145) Potassium Level 4.1 mmol/L (3.5-5.1) Chloride Level 105 mmol/L (98-107) Carbon Dioxide Level 24 mmol/L (21-32) Anion Gap 9 (6-14) Blood Urea Nitrogen 25 mg/dL (8-26) Creatinine 1.2 mg/dL (0.7-1.3) Estimated GFR (Cockcroft-Gault) 71.4 Glucose Level 86 mg/dL (70-99) Calcium Level 8.7 mg/dL (8.5-10.1) Brief Hospital Course Mr. English is a 77 old very pleasant -[place] male came in from home, admitted for gastroenteritis with diarrhea abdominal pain as manifestation. Started on Cipro Flagyl and doing much better, no more GI symptoms. Course remarkable for some mild AK I which we have corrected. Needs SNU per PT and is agreeable. Full code. On file Dementia on meds but no swallowing issues DC time less than 30 minutes on discharge disposition to SNU-full code Meds on chart Consults-none Procedures none Discharge Information Condition at Discharge: Improved, Stable Disposition/Orders: Other (snu) Scheduled Budesonide (Budesonide) 0.5 Mg/2 Ml Ampul.neb, 0.5 MG NEB RTBID for SOA MDD 1, # 30 Prescribed by: SHALONDA BENSON on 01/12/18 0903 Budesonide/Formoterol Fumarate (Symbicort 160-4.5 Mcg Inhaler) 10.2 Gm Hfa.aer.ad, 2 PUFF IH BID, #10.6 Ref 3 (Reported) Entered as Reported by: SALVATORE WAGGONER on 01/06/181903 Last Action: Converted on 01/07/181431 by MAURICE MATHEW MD Ciprofloxacin Hcl (Cipro) 250 Mg Tablet, 500 MG PO BID for AGE MDD 1 for 7 Days , #28 Prescribed by: SHALONDA BENSON on 01/12/18 0903 Hydrochlorothiazide (Hydrochlorothiazide Capsule ) 12.5 Mg Capsule, 1 CAP PO DAILY, #30 Ref 5 (Reported) Entered as Reported by: SALVATORE WAGGONER on 01/06/181903 Last Action: HELD on 01/07/18 143 by MAURICE MATHEW MD Losartan Potassium (Losartan Potassium) 50 Mg Tablet, 50 MG PO DAILY, (Reported) Entered as Reported by: SALVATORE WAGGONER on 01/06/181903 Last Action: Continued on 01/07/181431 by MAURICE MATHEW MD Memantine Hcl (Namenda) 10 Mg Tablet, 10 MG PO HS, (Reported) Entered as Reported by: SALVATORE WAGGONER on 01/06/181903 Last Action: Converted on 01/07/181431 by MAURICE MATHEW MD Metronidazole (Flagyl) 500 Mg Tablet, 500 MG PO Q8HRS for AGE MDD 1 for 7 Days, #21 Prescribed by: SHALONDA BENSON on 01/12/18 0903 Olanzapine (Zyprexa Zydis) 5 Mg Tab.rapdis, 5 MG PO BID for agitatuon MDD 1, #30 Prescribed by: SHALONDA BENSON on 01/12/18 0903 Phenytoin Sodium Extended (Dilantin) 100 Mg Capsule, 1 CAP PO BID, #90 Ref 3 ( Reported) Entered as Reported by: SALVATORE WAGGONER on 01/06/181903 Last Action: Converted on 01/07/181431 by MAURICE MATHEW MD Simvastatin (Simvastatin) 40 Mg Tablet, 1 TAB PO QHS, #30 Ref 5 (Reported) Entered as Reported by: SALVATORE WAGGONER on 01/06/181903 Last Action: Converted on 01/07/181431 by MAURICE MATHEW MD Scheduled PRN Albuterol Sulfate (Proair Hfa Inhaler) 8.5 Gm Hfa.aer.ad, 2 PUFF INH QID PRN for SHORTNESS OF BREATH, Ref 0 (Reported) Entered as Reported by: SALVATORE WAGGONER on 01/06/181903 Last Action: Converted on 01/07/181431 by MD KELLEY DEAN CHERRIE Y MD Jan 12, 2018 10:55
[2018-01-12 11:00] VITALS: BP 115/78
[2018-01-12 15:00] VITALS: BP 109/68
== END 2018-01-12 15:30 | DRG 371 ==
LOC: ER 12:38 → ED HOLD 16:22 → 5 NORTH 18:23
PROVIDERS: ADMIT Family Medicine; ATTEND Family Medicine
DX: A04.9 Bacterial intestinal infection, unspecified (principal); N17.0 Acute kidney failure with tubular necrosis; K56.7 Ileus, unspecified; E87.6 Hypokalemia; F03.90 Unspecified dementia, unspecified severity, without behavioral disturbance, psychotic disturbance, mood disturbance, and anxiety; I10 Essential (primary) hypertension; J44.9 Chronic obstructive pulmonary disease, unspecified; N40.0 Benign prostatic hyperplasia without lower urinary tract symptoms; Z79.899 Other long term (current) drug therapy; Z82.49 Family history of ischemic heart disease and other diseases of the circulatory system
CPT/HCPCS: 36415; 71045; 74022; 74177; 80048; 80053; 80307; 81001; 83735; 83880; 84443; 84484; 85025; 87045; 87804; 93005; 94640; 94760; 96361; 96365; 96375; J0744; J1630; J2405; J3490; J7030; J7613; J7626; 92610; 97116; 97535; 99285-25; G0479

== ENCOUNTER 2019-04-14 13:32 | Emergency (ER) | payer MEDICARE, OTHER ==
[~2019-04-14] VITALS: Ht 185.4 cm; Wt 70.0 kg
[~2019-04-14 13:32] MED LIST: ALBU2.5V8 INH; BUDE0.5A NEB; BUDE10.2 IH; CIPR250T30 PO; HYDR12.575 PO; LOSA-73 PO; MELO7.5T29 PO; MEMA10TA PO; METR500T PO; OLAN5TAB5 PO; PHEN100C PO; SIMV40TA18 PO
--- NOTE | 2019-04-14 13:52 | PHYS DOC ---
Past Medical History Past Medical History: COPD, Dementia, Hypertension, Seizure Past Surgical History: No Surgical History Additional Past Surgical Histo: unable to assess Smoking Status: Never Smoker Alcohol Use: None Drug Use: None Adult General HPI HPI Patient is a 79-year-old male, with a past history of COPD, dementia, and epilepsy, her prior records, who presents to the emergency department via EMS. Bessy rapp was reportedly at a library with his family members, who were reportedly trying to take over power of front desk lead for the patient and manage his affairs, financial and otherwise, and the patient reportedly became agitated. He began shaking in his agitation but did not lose consciousness or fall down. Family was concerned that he might be having a seizure and EMS was called but the patient was not postictal, and was coherent upon their arrival. The patient denies any complaints at this time and denies any pain. He reports taking his Dilantin as prescribed for his seizures. There are no alleviating or exacerbating factors to his symptoms. Review of Systems Review of Systems Constitutional: Denies fever or chills [] Eyes: Denies change in visual acuity, redness, or eye pain [] HENT: Denies nasal congestion or sore throat [] Respiratory: Denies cough or shortness of breath [] Cardiovascular: The patient denies any shortness of breath, chest pain, pal pitations, or orthopnea [] GI: Denies abdominal pain, nausea, vomiting, bloody stools or diarrhea [] : Denies dysuria or hematuria [] Musculoskeletal: Denies back pain or joint pain [] Integument: Denies rash or skin lesions [] Neurologic: Denies headache, focal weakness or sensory changes [] Endocrine: Denies polyuria or polydipsia [] All other systems were reviewed and found to be within normal limits, except as documented in this note. Current Medications Current Medications Current Medications Medications (Trade) Dose Ordered Sig/Rebekah Start Time Stop Time Status Last Admin Dose Admin Lorazepam (Ativan Inj) 0.5 mg 1X ONCE 04/14/19 14:00 04/14/19 14:01 DC Allergies Allergies Allergies Coded Allergies Type Severity Reaction Last Updated Verified No Known Drug Allergies 01/06/18 No Physical Exam Physical Exam PHYSICAL EXAM: CONSTITUTIONAL: Well developed, well nourished HEAD: normocephalic, atraumatic EENT: PERRL, EOMI. Conjunctivae normal color, sclerae non-icteric; moist mucous membranes. NECK: Supple, non-tender; no meningismus. LUNGS: Lungs CTA, breathing even and unlabored. Normal air movement. HEART: Regular rate and rhythm, no murmur CHEST: No deformity; non-tender ABDOMEN: The abdomen is soft, and non-tender, no masses or bruits. EXTREM: Normal ROM; no deformity, no calf tenderness. Normal pulses palpable in all extremities. There is no pedal edema. SKIN: No rash; no diaphoresis NEURO: Alert; normal speech and cognition; CN's grossly intact; strength grossly intact without focal deficit. BACK: No CVA TTP. PSYCHIATRIC: The patient appears mildly anxious. The patient is mildly tremulous, but able to follow commands. He is not exhibiting any seizure activity. Current Patient Data Vital Signs Vital Signs Date Time Temp Pulse Resp B/P (MAP) Pulse Ox O2 Delivery O2 Flow Rate FiO2 04/14/19 14:44 84 117/66 (83) 98 Room Air 04/14/19 13:32 97.6 19 97.6 Lab Values Laboratory Tests Test 04/14/19 14:50 White Blood Count 6.7 x10^3/uL (4.0-11.0) Red Blood Count 4.42 x10^6/uL (4.30-5.70) Hemoglobin 12.2 g/dL (13.0-17.5) L Hematocrit 36.7 % (39.0-53.0) L Mean Corpuscular Volume 83 fL (79-100) Mean Corpuscular Hemoglobin 28 pg (25-35) Mean Corpuscular Hemoglobin Concent 33 g/dL (31-37) Red Cell Distribution Width 14.3 % (11.5-14.5) Platelet Count 199 x10^3/uL (140-400) Neutrophils (%) (Auto) 75 % (31-73) H Lymphocytes (%) (Auto) 16 % (24-48) L Monocytes (%) (Auto) 8 % (0-9) Eosinophils (%) (Auto) 0 % (0-3) Basophils (%) (Auto) 1 % (0-3) Neutrophils # (Auto) 5.0 x10^3/uL (1.8-7.7) Lymphocytes # (Auto) 1.1 x10^3/uL (1.0-4.8) Monocytes # (Auto) 0.5 x10^3/uL (0.0-1.1) Eosinophils # (Auto) 0.0 x10^3/uL (0.0-0.7) Basophils # (Auto) 0.1 x10^3/uL (0.0-0.2) Sodium Level 144 mmol/L (136-145) Potassium Level 3.5 mmol/L (3.5-5.1) Chloride Level 108 mmol/L (98-107) H Carbon Dioxide Level 29 mmol/L (21-32) Anion Gap 7 (6-14) Blood Urea Nitrogen 22 mg/dL (8-26) Creatinine 1.2 mg/dL (0.7-1.3) Estimated GFR (Cockcroft-Gault) 71.0 Glucose Level 120 mg/dL (70-99) H Calcium Level 8.8 mg/dL (8.5-10.1) Phenytoin (Dilantin) Level 11.7 mcg/mL (10.0-20.0) Phenytoin Last Dose Date Unk Phenytoin Last Dose Time Unk Laboratory Tests 04/14/19 14:50 Laboratory Tests 04/14/19 14:50 EKG EKG [] Radiology/Procedures Radiology/Procedures [] Course & Med Decision Making Course & Med Decision Making Pertinent Lab studies reviewed. (See chart for details) 4:15 p.m.:Patient remains stable. I discussed test results, the need for close follow-up, and return precautions. Dragon Disclaimer Dragon Disclaimer This electronic medical record was generated, in whole or in part, using a voice recognition dictation system. Departure Departure Impression: Primary Impression: Anxiety Disposition: HOME, SELF-CARE Condition: STABLE Referrals: KELSY BERNSTEIN MD (PCP) Patient Instructions: Anxiety and Panic Attacks DONNY CLINTON MD Apr 14, 2019 13:52
[2019-04-14 15:07] LABS: BASO # 0.1 x10^3/uL (0.0-0.2); BASO % 1 % (0-3); EOS % 0 % (0-3); HEMATOCRIT 36.7 % (39.0-53.0); HEMOGLOBIN 12.2 g/dL (13.0-17.5); LYMPH # 1.1 x10^3/uL (1.0-4.8); LYMPH % 16 % (24-48); MEAN CORPUSCULAR HEMOGLOBIN 28 pg (25-35); MEAN CORPUSCULAR HGB CONC 33 g/dL (31-37); MEAN CORPUSCULAR VOLUME 83 fL (79-100); MONO # 0.5 x10^3/uL (0.0-1.1); MONO % 8 % (0-9); NEUT % 75 % (31-73); PLATELET COUNT 199 x10^3/uL (140-400); RED BLOOD COUNT 4.42 x10^6/uL (4.30-5.70); RED CELL DISTRIBUTION WIDTH 14.3 % (11.5-14.5); WHITE BLOOD COUNT 6.7 x10^3/uL (4.0-11.0)
[2019-04-14 15:29] LABS: ANION GAP 7 (6-14); BLOOD UREA NITROGEN 22 mg/dL (8-26); CALCIUM 8.8 mg/dL (8.5-10.1); CARBON DIOXIDE 29 mmol/L (21-32); CHLORIDE 108 mmol/L (98-107); CREATININE 1.2 mg/dL (0.7-1.3); GLUCOSE 120 mg/dL (70-99); PHENY 11.7 mcg/mL (10.0-20.0); POTASSIUM 3.5 mmol/L (3.5-5.1); SODIUM 144 mmol/L (136-145)
[2019-04-14 17:55] VITALS: BP 146/92
== END 2019-04-14 18:00 | disposition home or self-care (01) ==
LOC: ER 13:32
DX: F41.9 Anxiety disorder, unspecified (principal); R45.1 Restlessness and agitation; J44.9 Chronic obstructive pulmonary disease, unspecified; I10 Essential (primary) hypertension
CPT/HCPCS: 36415; 80048; 80185; 85025; 99284

== ENCOUNTER 2019-09-29 15:02 | Inpatient (IN) | payer MEDICARE, OTHER ==
[~2019-09-29] VITALS: Ht 170.2 cm; Wt 58.8 kg
[~2019-09-29 15:02] MED LIST changes: -OLAN5TAB5 PO; +OLAN5TAB99 PO
[2019-09-29 15:57] LABS: BASO % 1 % (0-3); EOS # 0.1 x10^3/uL (0.0-0.7); EOS % 2 % (0-3); HEMOGLOBIN 11.2 g/dL (13.0-17.5); LYMPH # 1.4 x10^3/uL (1.0-4.8); LYMPH % 28 % (24-48); MEAN CORPUSCULAR HEMOGLOBIN 28 pg (25-35); MEAN CORPUSCULAR HGB CONC 34 g/dL (31-37); MEAN CORPUSCULAR VOLUME 83 fL (79-100); MONO # 0.6 x10^3/uL (0.0-1.1); MONO % 12 % (0-9); NEUT # 2.9 x10^3/uL (1.8-7.7); NEUT % 58 % (31-73); PLATELET COUNT 222 x10^3/uL (140-400); RED BLOOD COUNT 3.99 x10^6/uL (4.30-5.70); RED CELL DISTRIBUTION WIDTH 15.2 % (11.5-14.5); WHITE BLOOD COUNT 5.1 x10^3/uL (4.0-11.0)
[2019-09-29 16:06] LABS: CALCIUM 8.2 mg/dL (8.5-10.1); CREATININE 1.3 mg/dL (0.7-1.3); GFR 64.8; POTASSIUM 4.4 mmol/L (3.5-5.1)
[2019-09-29 16:13] LABS: ALBUMIN 3.3 g/dL (3.4-5.0); ALBUMIN/GLOBULIN RATIO 0.7 (1.0-1.7); MAGNESIUM 2.1 mg/dL (1.8-2.4); TOTAL BILIRUBIN 0.3 mg/dL (0.2-1.0); TOTAL PROTEIN 7.8 g/dL (6.4-8.2)
[2019-09-29 16:32] LABS: BILIRUBIN,URINE NEGATIVE (NEG); CLARITY,URINE CLEAR; COLOR,URINE YELLOW; NITRITE,URINE POSITIVE (NEG); PH,URINE 7.5 (<5.0-8.0); PROTEIN,URINE NEGATIVE (NEG-TRACE); UROBILINOGEN,URINE 0.2 mg/dL (0.2 mg/dL)
[2019-09-29 16:42] LABS: BACTERIA,URINE MANY /HPF (0-FEW); RBC,URINE 0 /HPF (0-2); WBC,URINE OCC /HPF (0-4)
[2019-09-29] MEDS ORDERED: cefTRIAXone IV Push 1 GM VIAL. IVP ONE ×2 (16:54→16:55)
[2019-09-29] MEDS ORDERED: IV NORMAL SALINE 1000ML BAG 1,000 ML IV ONE (17:15)
--- NOTE | 2019-09-29 18:09 | PHYS DOC ---
Past Medical History Past Medical History: COPD, Dementia, Hypertension, Seizure Past Surgical History: No Surgical History Additional Past Surgical Histo: unable to assess Smoking Status: Former Smoker Alcohol Use: None Drug Use: None General Adult EDM: Chief Complaint: ams HPI: HPI: Patient is a 79 year old male with history of seizure disorder was brought here by EMS from home due to altered mental status. Patient has history of dementia at baseline. He was observed sitting outside on the bench and slid down, he picked himself up, was acting confused then. It was not sure if he had a seizure. EMS were called to take him here for evaluation. Upon arrival to ER patient was confused, did not follow commands, agitated, he keeps trying to get out of the bed, he tried to urinate on the floor. It was reported that patient lives in an apartment complex by himself however he had a home health nurse lives in the same apartment complex that she would check on him daily. Review of Systems: Review of Systems: Constitutional: Denies fever or chills. [] Eyes: Denies change in visual acuity. [] HENT: Denies nasal congestion or sore throat. [] Respiratory: Denies cough or shortness of breath. [] Cardiovascular: Denies chest pain or edema. [] GI: Denies abdominal pain, nausea, vomiting, bloody stools or diarrhea. [] : Denies dysuria. [] Musculoskeletal: Denies back pain or joint pain. [] Integument: Denies rash. [] Neurologic: Denies headache, focal weakness or sensory changes. [] Endocrine: Denies polyuria or polydipsia. [] Lymphatic: Denies swollen glands. [] Psychiatric: Denies depression or anxiety. [] Heart Score: Risk Factors: Risk Factors: DM, Current or recent (<one month) smoker, HTN, HLP, family history of CAD, obesity. Risk Scores: Score 0 - 3: 2.5% MACE over next 6 weeks - Discharge Home Score 4 - 6: 20.3% MACE over next 6 weeks - Admit for Clinical Observation Score 7 - 10: 72.7% MACE over next 6 weeks - Early Invasive Strategies Current Medications: Current Medications Medications (Trade) Dose Ordered Sig/Rebekah Start Time Stop Time Status Last Admin Dose Admin Ceftriaxone Sodium (Rocephin) 1 gm 1X ONCE 09/29/19 16:55 09/29/19 17:04 DC 09/29/19 16:55 1 GM Lorazepam (Ativan Inj) 1 mg 1X ONCE 09/29/19 16:55 09/29/19 17:04 DC 09/29/19 16:55 1 MG Sodium Chloride 1,000 ml @ 1,000 mls/hr 1X ONCE 09/29/19 17:15 09/29/19 18:14 09/29/19 17:08 1,000 MLS/HR Allergies: Allergies: Allergies Coded Allergies Type Severity Reaction Last Updated Verified No Known Drug Allergies 01/06/18 No Physical Exam: PE: Constitutional: Well developed, well nourished, appears agitated, non-toxic appearance. [] HENT: Normocephalic, atraumatic, bilateral external ears normal, oropharynx dry. No oral exudates, nose normal. [] Eyes: PERRLA, EOMI, conjunctiva normal, no discharge. [] Neck: Normal range of motion, no tenderness, supple, no stridor. [] Cardiovascular:Heart rate regular rhythm, no murmur [] Lungs & Thorax: Bilateral breath sounds clear to auscultation [] Abdomen: Bowel sounds normal, soft, no tenderness, no masses, no pulsatile masses. [] Skin: Warm, dry, no erythema, no rash. [] Back: No tenderness, no CVA tenderness. [] Extremities: No tenderness, no cyanosis, no clubbing, ROM intact, no edema. [] Neurologic: Patient is awake alert, disoriented to time place and person, he was able to move all extremities] Psychologic: He appears agitated, and anxious. Current Patient Data: Labs: Laboratory Tests Test 09/29/19 15:10 White Blood Count 5.1 x10^3/uL (4.0-11.0) Red Blood Count 3.99 x10^6/uL (4.30-5.70) L Hemoglobin 11.2 g/dL (13.0-17.5) L Hematocrit 33.0 % (39.0-53.0) L Mean Corpuscular Volume 83 fL (79-100) Mean Corpuscular Hemoglobin 28 pg (25-35) Mean Corpuscular Hemoglobin Concent 34 g/dL (31-37) Red Cell Distribution Width 15.2 % (11.5-14.5) H Platelet Count 222 x10^3/uL (140-400) Neutrophils (%) (Auto) 58 % (31-73) Lymphocytes (%) (Auto) 28 % (24-48) Monocytes (%) (Auto) 12 % (0-9) H Eosinophils (%) (Auto) 2 % (0-3) Basophils (%) (Auto) 1 % (0-3) Neutrophils # (Auto) 2.9 x10^3/uL (1.8-7.7) Lymphocytes # (Auto) 1.4 x10^3/uL (1.0-4.8) Monocytes # (Auto) 0.6 x10^3/uL (0.0-1.1) Eosinophils # (Auto) 0.1 x10^3/uL (0.0-0.7) Basophils # (Auto) 0.0 x10^3/uL (0.0-0.2) Urine Collection Type Unknown Urine Color Yellow Urine Clarity Clear Urine pH 7.5 (<5.0-8.0) Urine Specific [place] 1.010 (1.000-1.030) Urine Protein Negative mg/dL (NEG-TRACE) Urine Glucose (UA) Negative mg/dL (NEG) Urine Ketones (Stick) Negative mg/dL (NEG) Urine Blood Negative (NEG) Urine Nitrite Positive (NEG) Urine Bilirubin Negative (NEG) Urine Urobilinogen Dipstick 0.2 mg/dL (0.2 mg/dL) Urine Leukocyte Esterase Trace (NEG) Urine RBC 0 /HPF (0-2) Urine WBC Occ /HPF (0-4) Urine Squamous Epithelial Cells None /LPF Urine Bacteria Many /HPF (0-FEW) Sodium Level 139 mmol/L (136-145) Potassium Level 4.4 mmol/L (3.5-5.1) Chloride Level 105 mmol/L (98-107) Carbon Dioxide Level 29 mmol/L (21-32) Anion Gap 5 (6-14) L Blood Urea Nitrogen 21 mg/dL (8-26) Creatinine 1.3 mg/dL (0.7-1.3) Estimated GFR (Cockcroft-Gault) 64.8 BUN/Creatinine Ratio 16 (6-20) Glucose Level 82 mg/dL (70-99) Calcium Level 8.2 mg/dL (8.5-10.1) L Magnesium Level 2.1 mg/dL (1.8-2.4) Total Bilirubin 0.3 mg/dL (0.2-1.0) Aspartate Amino Transferase (AST) 21 U/L (15-37) Alanine Aminotransferase (ALT) 19 U/L (16-63) Alkaline Phosphatase 129 U/L (46-116) H Creatine Kinase 122 U/L (39-308) Troponin I Quantitative < 0.017 ng/mL (0.000-0.055) OG-Nwg-D-Type Natriuretic Peptide 884 pg/mL (0-449) H Total Protein 7.8 g/dL (6.4-8.2) Albumin 3.3 g/dL (3.4-5.0) L Albumin/Globulin Ratio 0.7 (1.0-1.7) L Laboratory Tests 09/29/19 15:10 Laboratory Tests 09/29/19 15:10 Vital Signs: Vital Signs Date Time Temp Pulse Resp B/P (MAP) Pulse Ox O2 Delivery O2 Flow Rate FiO2 09/29/19 15:35 76 09/29/19 15:14 20 135/64 (87) Room Air EKG: EKG: [] Radiology/Procedures: Radiology/Procedures: [] Course & Med Decision Making: Course & Med Decision Making Pertinent Labs and Imaging studies reviewed. (See chart for details) Patient is a 79-year-old male who was evaluated in the ER due to confusion, his lab work showed that he had a UTI. Patient was acting agitated, continue to climb out of the bed, urinated on the floor. He was requiring one-to-one for observation. Dragon Disclaimer: Dragon Disclaimer: This electronic medical record was generated, in whole or in part, using a voice recognition dictation system. Departure Departure Impression: Primary Impression: UTI (urinary tract infection) Additional Impression: AMS (altered mental status) Disposition: ADMITTED INPATIENT Admitting Physician: Kelsy Glynn Condition: STABLE Referrals: KELSY GLYNN MD (PCP) Justicifation of Admission Dx: Justifications for Admission: Justification of Admission Dx: N/A JUAN CARLOS CHATMAN DO Sep 29, 2019 18:09
[2019-09-29 18:59] LABS: PHENY 15.4 mcg/mL (10.0-20.0)
[2019-09-29] MEDS ORDERED: ONDANSETRON PF 4 MG/2 ML VIAL. IV PRN (19:00)
[2019-09-29] MEDS: IV NORMAL SALINE 1000ML BAG 1,000 ML IV SCH (19:15)
[2019-09-29 21:30] VITALS: BP 124/74
[2019-09-29 23:00] VITALS: BP 141/86
--- NOTE | 2019-09-29 23:03 | NUR ---
Pt received to unit from ED per deepak @ 2109. Admitted with AMS and UTI. Pt a/o X 1-2. Limited admission data due to pt's mental status. Denies discomfort or pain. Hx of seizure, seizure precaution implemented with rails padded x 4. On 1:1.
[2019-09-30 03:00] VITALS: BP 134/91
[2019-09-30] MEDS: IV NORMAL SALINE 1000ML BAG 1,000 ML IV SCH (03:10)
--- NOTE | 2019-09-30 04:48 | EKG ---
[facility] [address] [place] [address] Test Date: 2019-09-29 Test Time: 16:20:20 Pat Name: ADARSH JACOBS Department: Room: Gender: M Creative Lead: : 1940 Requested By: JUAN CARLOS CHATMAN Order Number: [id number] Reading MD: Measurements Intervals [place] Rate: 79 P: 60 MO: 188 QRS: -61 QRSD: 128 T: -13 QT: 396 QTc: 455 Interpretive Statements SINUS RHYTHM VENTRICULAR PREMATURE COMPLEX(ES) ABNORMAL LEFT AXIS DEVIATION LEFT ANTERIOR FASCICULAR BLOCK NON SPECIFIC INTRAVENTRICULAR BLOCK ABNORMAL ECG RI6.02 No previous ECG available for comparison
--- NOTE | 2019-09-30 06:49 | NUR ---
Pt continues to be a/o x1-2. Frequent urination with episodes of incontinence. Dr Glynn paged x 2 for orders.
[2019-09-30 07:05] VITALS: BP_SYST 136; BP_DIAS 70; BP_DIAS 95
[2019-09-30] MEDS: cefTRIAXone IV Push 1 GM VIAL. IVP SCH (08:05)
[2019-09-30] MEDS: LOSARTAN POTASSIUM 50 MG TABLET. PO SCH (09:00)
[2019-09-30] MEDS ORDERED: ALBUTEROL SULFATE 2.5 MG/3 ML NEBU. INH PRN (09:00)
[2019-09-30] MEDS ORDERED: NON FORMULARY ITEM (Budesonide/Formoterol Fumarate (Symbicort 160-4.5 Mcg Inhaler) 2 PUFF) IH SCH (09:00)
--- NOTE | 2019-09-30 09:31 | HP ---
ADMIT DATE: 09/29/2019 MEDICAL HISTORY AND PHYSICAL LOCATION: 504. REASON FOR ADMISSION TO THE HOSPITAL: Confusion, urinary tract infection and elevated Dilantin levels. HISTORY OF PRESENT ILLNESS: The patient is a 79-year-old male patient known to me, has history of hypertension, dementia, and previous seizure disorder. The patient has been brought because of his worsening altered mental status and confusion. He has a visiting nurse. He was observed to be slid down and is acting confused. The patient was brought to the Emergency Room. His urine shows infection and CBC and chem profile were unremarkable. His Dilantin was slightly elevated to 15. He usually does well below the levels of 10. In the past, he was admitted one time with a high Dilantin toxicity couple of years ago. PAST MEDICAL HISTORY: COPD, dementia, seizures, and hypertension. PAST SURGICAL HISTORY: None. ALLERGIES: None. MEDICATIONS AT HOME: The patient is on Dilantin 100 mg twice a day, albuterol 2 puffs 4 times daily, Symbicort 1 twice a day, losartan 50 mg daily, Namenda 10 mg daily, and simvastatin 40 mg daily. PERSONAL HISTORY: Ex-smoker, other than smoked for 30-40 years, now he does not smoke. Denies alcohol or drug abuse. SOCIAL HISTORY: Lives at home. Niece is DPOA. He has home health. FAMILY HISTORY: Unremarkable. REVIEW OF SYMPTOMS: The patient denies any chest pain or shortness of breath. Rest of the review of systems was reviewed and negative. PHYSICAL EXAMINATION: GENERAL: The patient is not in any distress in bed. He is making a slight conversation. VITAL SIGNS: Temperature 98, pulse 76, respirations 20, and oxygen 92-95 saturation on room air. HEENT: Head is atraumatic. Pupils equal. Oral cavity: No congestion. NECK: Supple. Thyroid not enlarged. JVD not elevated. CHEST: Symmetrical. CARDIOVASCULAR: S1 and S2. LUNGS: Clear. ABDOMEN: Soft, no mass palpable. EXTERNAL GENITALIA: No Akbar. RECTAL: Deferred. EXTREMITIES: No calf tenderness, no edema. NEUROLOGIC: Cranial nerves intact. Power 5/5, moving all extremities. No focal deficits noted. LABORATORY DATA: Shows a Dilantin is 15. White count 5, hemoglobin 11, and platelets 222. Electrolytes show sodium 139, potassium 4.4, chloride 105, bicarbonate 29, BUN 21, and creatinine 1.3. LFTs were normal. Troponin was negative. Urine shows occasional white cells, positive for nitrites. FINAL IMPRESSION: 1. Confusion. 2. Possible urinary tract infection, contributing confusion. 3. Possible Dilantin toxicity. 4. History of seizures, on Dilantin. 5. Hypertension. 6. Dementia, Alzheimer's. PLAN: At this time, was given IV fluids. Urine cultures were sent. Start on Rocephin IV and also we will hold Dilantin levels and see if it comes to below 10, resume his Dilantin level. The patient may be getting progressively worse now, may need a intermediate. We will have social service consult. KELSY BERNSTEIN MD DR: LIANET/nts JOB#: [id number] / [id number]
--- NOTE | 2019-09-30 09:39 | RAD ---
EXAM: Chest, 2 views. HISTORY: COPD. Confusion. COMPARISON: 11/06/2018 FINDINGS: 2 views of the chest are obtained. There is hyperinflation due to emphysema. There is no consolidation, pleural effusion or pneumothorax. There is a stable prominent cardiac silhouette and tortuous thoracic aorta. IMPRESSION: No acute pulmonary finding. Electronically signed by: Mary Domínguez MD (09/30/2019 9:36 AM) [id number]
--- NOTE | 2019-09-30 10:02 | EKG ---
[facility] [address] [place] [address] Test Date: 2019-09-30 Test Time: 10:00:24 Pat Name: ADARSH JACOBS Department: Room: 504 1 Gender: M Communication Analyst: NICOLETTE : 1940 Requested By: KELSY BERNSTEIN Order Number: [id number] Reading MD: Measurements Intervals [place] Rate: 57 P: 63 [place]: 186 QRS: 134 QRSD: 130 T: -33 QT: 436 QTc: 427 Interpretive Statements SINUS RHYTHM VENTRICULAR PREMATURE COMPLEX(ES) ATRIAL PREMATURE COMPLEX(ES) NON SPECIFIC INTRAVENTRICULAR BLOCK CONSIDER RIGHT VENTRICULAR HYPERTROPHY ABNORMAL ECG RI6.02 Compared to ECG 09/29/2019 16:20:20 Left-axis deviation no longer present Left anterior fascicular block no longer present
--- NOTE | 2019-09-30 10:32 | NUR ---
ANTHONY following. Discussed with RN, pt from home alone, room air. Dr. Glynn is speaking with family about plan, possibility for SNU at discharge. PT/OT has been ordered. Pt confused, likely due to UTI and unstable labs. SW notified RN of pt needing a COVID test to go to SNU if that is the plan. RN checking with Dr. Glynn RE order.
[2019-09-30 11:15] VITALS: BP 152/84
[2019-09-30] MEDS: BUDESONIDE 0.5 MG/2 ML NEBU. NEB SCH ×2 (12:02→21:06)
[2019-09-30] MEDS: ALBUTEROL SULFATE 2.5 MG/3 ML NEBU. NEB SCH ×2 (12:02→21:06)
[2019-09-30 15:00] VITALS: BP 133/79
[2019-09-30 19:00] VITALS: BP 105/69
[2019-09-30] MEDS: MEMANTINE 10 MG TABLET. PO SCH (20:43)
[2019-09-30] MEDS: SIMVASTATIN 40 MG TABLET. PO SCH (20:43)
[2019-09-30] MEDS: LACTOBACILLUS RHAMNOSUS GG 1 CAPSULE. PO SCH (20:43)
[2019-09-30 23:00] VITALS: BP 101/74
[2019-10-01] VITALS (7 sets, daily range): BP systolic 105–171; BP diastolic 61–99
[2019-10-01 05:45] LABS: PHENY 10.8 mcg/mL (10.0-20.0)
[2019-10-01] MEDS: ALBUTEROL SULFATE 2.5 MG/3 ML NEBU. NEB SCH ×5 (07:16→20:14)
[2019-10-01] MEDS: BUDESONIDE 0.5 MG/2 ML NEBU. NEB SCH ×2 (07:16→20:14)
--- NOTE | 2019-10-01 08:27 | NUR ---
ANTHONY following. RN notified ANTHONY late yesterday of family wanting pt to go to [facility] for SNU. ANTHONY phoned and faxed referral this morning. COVID-19 swab done late yesterday. If Dr. Glynn can do discharge instructions/orders today for SNU, then [facility] can take pt tomorrow morning (10/02/2019), after pt's third midnight. ANTHONY notified Dr. Glynn. RN notified. Awaiting acceptance decision, and COVID-19 result. ANTHONY will continue to follow. Addendum: 10/01/19 at 1131 by DENVER CRUZ Pt accepted at [facility], pending COVID-19 result. ANTHONY will continue to follow.
--- NOTE | 2019-10-01 09:43 | PDOC ---
PROGRESS NOTES Subjective Subjective no new problems Objective Objective Vital Signs Date Time Temp Pulse Resp B/P (MAP) Pulse Ox O2 Delivery O2 Flow Rate FiO2 10/01/19 07:17 97 Room Air 10/01/19 07:15 97.6 74 18 138/93 (108) 97.6 Intake and Output 10/01/19 07:00 Intake Total 300 ml Output Total 560 ml Balance -260 ml Intake Oral 300 ml Output Urine Total 560 ml # Voids 3 Physical Exam Abdomen: Normal bowel sounds, Soft Heart: Regular rate, Normal S1, Normal S2 Extremities: No clubbing General: Alert, No acute distress HEENT: Atraumatic Lungs: Clear to auscultation MUSCULOSKELETAL: No deformity Neck: Supple Neuro: Normal speech Psych/Mental Status: Mental status NL Skin: No breakdown Diagnosis Problem List Problems Medical Problems: (1) AMS (altered mental status) Status: Acute (2) UTI (urinary tract infection) Status: Acute Assessment Assessment Problems Medical Problems: (1) AMS (altered mental status) Status: Acute (2) UTI (urinary tract infection) Status: Acute FINAL IMPRESSION: 1. Confusion.multiple etiologies. 2. Possible urinary tract infection, contributing confusion. 3. Possible Dilantin toxicity. 4. History of seizures, on Dilantin. 5. Hypertension. 6. Dementia, Alzheimer's. PLAN: dilantin 15 down to 10 today resume dilantin urine c/s pending iv rocephin for uti snu screen spoke with Karin URBINA. At this time, was given IV fluids. Urine cultures were sent. Start on Rocephin IV and also we will hold Dilantin levels and see if it comes to below 10, resume his Dilantin level. The patient may be getting progressively worse now, may need a alf. We will have social service consult. Plan Plan of Care Problems Medical Problems: (1) AMS (altered mental status) Status: Acute (2) UTI (urinary tract infection) Status: Acute Comment Review of Relevant I have reviewed the following items eleazar (where applicable) has been applied. Labs Laboratory Tests Test 10/01/19 04:26 Thyroid Stimulating Hormone (TSH) 2.897 uIU/mL (0.358-3.74) Phenytoin (Dilantin) Level 10.8 mcg/mL (10.0-20.0) Phenytoin Last Dose Date 09/29/19 Phenytoin Last Dose Time 1800 Medications Current Medications Albuterol Sulfate (Ventolin Neb Soln) 2.5 mg Q6HRS NEB Last administered on 09/30/19at 21:06; Start 09/30/19 at 12:00; Stop 10/01/19 at 05:21; Status DC Albuterol Sulfate (Ventolin Neb Soln) 2.5 mg RTQID NEB Last administered on 10/01/19at 07:16; Start 10/01/19 at 08:00 Lactobacillus Rhamnosus (Culturelle) 1 cap BID PO Last administered on 09/30/19at 20:43; Start 09/30/19 at 21:00 Memantine (Namenda) 10 mg HS PO Last administered on 09/30/19at 20:43; Start 09/30/19 at 21:00 Simvastatin (Zocor) 40 mg QHS PO Last administered on 09/30/19at 20:43; Start 09/30/19 at 21:00 Vitals/I & O Vital Sign - Last 24 Hours 09/30/19 09/30/19 09/30/19 09/30/19 10:27 11:15 12:05 15:00 Temp 98.0 97.3 98.0 97.3 Pulse 56 62 Resp 16 18 B/P (MAP) 152/84 (106) 133/79 (97) Pulse Ox 97 97 96 O2 Delivery Room Air Room Air Room Air Room Air 09/30/19 09/30/19 09/30/19 09/30/19 19:00 19:20 21:06 21:08 Temp 98.4 98.4 Pulse 69 Resp 20 B/P (MAP) 105/69 (81) Pulse Ox 96 97 97 O2 Delivery Room Air Room Air Room Air Room Air 09/30/19 10/01/19 10/01/19 10/01/19 23:00 03:02 04:00 07:15 Temp 97.5 97.9 97.6 97.5 97.9 97.6 Pulse 59 63 62 74 Resp 20 20 18 B/P (MAP) 101/74 (83) 171/99 (123) 154/89 (110) 138/93 (108) Pulse Ox 97 96 96 O2 Delivery Room Air Room Air Room Air 10/01/19 07:17 Pulse Ox 97 O2 Delivery Room Air Intake and Output 09/30/19 09/30/19 10/01/19 15:00 23:00 07:00 Intake Total 300 ml Output Total 200 ml 360 ml Balance -200 ml -60 ml Justicifation of Admission Dx: Justifications for Admission: Justification of Admission Dx: Yes Sepsis: Altered Mental Status KELSY BERNSTEIN MD Oct 01, 2019 09:43
[2019-10-01] MEDS: cefTRIAXone IV Push 1 GM VIAL. IVP SCH (09:46)
[2019-10-01] MEDS: LOSARTAN POTASSIUM 50 MG TABLET. PO SCH (09:47)
[2019-10-01] MEDS: LACTOBACILLUS RHAMNOSUS GG 1 CAPSULE. PO SCH ×2 (09:47→21:14)
[2019-10-01] MEDS: PHENYTOIN SODIUM EXTENDED 100 MG CAPSULE PO SCH ×2 (12:33→21:15)
[2019-10-01] MEDS ORDERED: CEFP200T PO (15:18)
--- NOTE | 2019-10-01 15:19 | SNU/HH DC ---
DISCHARGE ORDERS DISCHARGE INFORMATION: DISCHARGE DATE: Oct 02, 2019 FINAL DIAGNOSIS Problems Medical Problems: (1) AMS (altered mental status) Status: Acute (2) UTI (urinary tract infection) Status: Acute CONDITION ON DISCHARGE: Stable CODE STATUS: Code Status: Full [facility]: SNF STAY <30 DAYS: Yes HOSPICE: HOSPICE: No HOSPICE EVAL & TREAT: No LTAC: ADMIT TO LTAC: No POST DISCHARGE ORDERS: ACTIVITY ORDERS: Resume previous activity, Activity as tolerated WEIGHT BEARING STATUS: As tolerated DIET AFTER DISCHARGE: Low Sodium 2 gm CHECKS AFTER DISCHARGE: CHECKS AFTER DISCHARGE: Check blood press - daily TREATMENT/EQUIPMENT ORDERS: ADAPTIVE EQUIPMENT NEEDED: Four wheeled walker Physical Therapy For: Evalulation/Treatment Occupational Therapy For: Evaluation/Treatment DISCHARGE MEDICATIONS: Home Meds Active Scripts Cefpodoxime Proxetil (CEFPODOXIME PROXETIL) 200 Mg Tablet, 1 TAB PO BID for uti, #14 TAB Prov:KELSY BERNSTEIN MD 10/01/19 Reported Medications Losartan Potassium (LOSARTAN POTASSIUM) 50 Mg Tablet, 50 MG PO DAILY, TAB 01/06/18 Memantine Hcl (NAMENDA) 10 Mg Tablet, 10 MG PO HS, TAB 01/06/18 Simvastatin (SIMVASTATIN) 40 Mg Tablet, 1 TAB PO QHS, #30 TAB 5 Refills 01/06/18 Albuterol Sulfate (PROAIR HFA INHALER) 8.5 Gm Hfa.aer.ad, 2 PUFF INH QID PRN for SHORTNESS OF BREATH, INHALER 0 Refills 01/06/18 Phenytoin Sodium Extended (DILANTIN) 100 Mg Capsule, 1 CAP PO BID, #90 CAP 3 Refills 01/06/18 Budesonide/Formoterol Fumarate (SYMBICORT 160-4.5 MCG INHALER) 10.2 Gm Hfa.aer.ad, 2 PUFF IH BID, #10.6 GM 3 Refills 01/06/18 KELSY BERNSTEIN MD Oct 01, 2019 15:19
[2019-10-01] MEDS: SIMVASTATIN 40 MG TABLET. PO SCH (21:15)
[2019-10-01] MEDS: MEMANTINE 10 MG TABLET. PO SCH (21:15)
[2019-10-02 00:08] LABS: HEMOGLOBIN A1C 5.4 % (4.8-5.6)
[2019-10-02 03:00] VITALS: BP 148/94
[2019-10-02] MEDS: ALBUTEROL SULFATE 2.5 MG/3 ML NEBU. NEB SCH ×2 (07:30→11:23)
[2019-10-02] MEDS: BUDESONIDE 0.5 MG/2 ML NEBU. NEB SCH (07:30)
[2019-10-02 07:59] VITALS: BP 118/65
--- NOTE | 2019-10-02 08:39 | PDOC ---
PROGRESS NOTES Subjective Subjective no new problems ,base line confusion Objective Objective Vital Signs Date Time Temp Pulse Resp B/P (MAP) Pulse Ox O2 Delivery O2 Flow Rate FiO2 10/02/19 07:32 95 Room Air 10/02/19 03:00 97.5 65 18 148/94 (112) 97.5 Intake and Output 10/02/19 07:00 Intake Total 300 ml Balance 300 ml Intake Oral 300 ml # Voids 2 Physical Exam Abdomen: Normal bowel sounds, Soft Heart: Regular rate, Normal S1, Normal S2 Extremities: No clubbing General: Alert, No acute distress HEENT: Atraumatic Lungs: Clear to auscultation MUSCULOSKELETAL: No deformity Neck: Supple Neuro: Normal speech Psych/Mental Status: Mental status NL Skin: No breakdown Diagnosis Problem List Problems Medical Problems: (1) AMS (altered mental status) Status: Acute (2) UTI (urinary tract infection) Status: Acute Assessment Assessment Problems Medical Problems: (1) AMS (altered mental status) Status: Acute (2) UTI (urinary tract infection) Status: Acute FINAL IMPRESSION: 1. Confusion.multiple etiologies. 2. Possible urinary tract infection, contributing confusion. 3. Possible Dilantin toxicity. 4. History of seizures, on Dilantin. 5. Hypertension. 6. Dementia, Alzheimer's. PLAN: d/c to SNU today dilantin 15 down to 10 today resume dilantin urine c/s pending po Vantin for uti spoke with Karin URBINA. At this time, was given IV fluids. Urine cultures were sent. Start on Rocephin IV and also we will hold Dilantin levels and see if it comes to below 10, resume his Dilantin level. The patient may be getting progressively worse now, may need a custodial. We will have social service consult. Plan Plan of Care Problems Medical Problems: (1) AMS (altered mental status) Status: Acute (2) UTI (urinary tract infection) Status: Acute Comment Review of Relevant I have reviewed the following items eleazar (where applicable) has been applied. Medications Current Medications Phenytoin Sodium (Dilantin) 100 mg BID PO Last administered on 10/01/19at 21:15; Start 10/01/19 at 11:00 Vitals/I & O Vital Sign - Last 24 Hours 10/01/19 10/01/19 10/01/19 10/01/19 09:47 11:07 11:10 15:15 Temp 98.0 97.8 98.0 97.8 Pulse 74 68 59 Resp 16 16 B/P (MAP) 138/93 109/68 (82) 105/73 (84) Pulse Ox 100 98 O2 Delivery Room Air Room Air Room Air 10/01/19 10/01/19 10/01/19 10/01/19 15:20 19:00 20:00 20:17 Temp 98.1 98.1 Pulse 56 Resp 18 B/P (MAP) 118/61 (80) Pulse Ox 95 94 O2 Delivery Room Air Room Air Room Air Room Air 10/01/19 10/01/19 10/02/19 10/02/19 20:18 23:04 03:00 07:32 Temp 98.3 97.5 98.3 97.5 Pulse 51 65 Resp 18 18 B/P (MAP) 114/68 (83) 148/94 (112) Pulse Ox 94 92 96 95 O2 Delivery Room Air Room Air Room Air Room Air Intake and Output 10/01/19 10/01/19 10/02/19 15:00 23:00 07:00 Intake Total 200 ml 100 ml Balance 200 ml 100 ml Justicifation of Admission Dx: Justifications for Admission: Justification of Admission Dx: Yes Sepsis: Altered Mental Status KELSY BERNSTEIN MD Oct 02, 2019 08:39
[2019-10-02] MEDS: PHENYTOIN SODIUM EXTENDED 100 MG CAPSULE PO SCH (09:26)
[2019-10-02] MEDS: LACTOBACILLUS RHAMNOSUS GG 1 CAPSULE. PO SCH (09:26)
[2019-10-02] MEDS: LOSARTAN POTASSIUM 50 MG TABLET. PO SCH (09:27)
[2019-10-02] MEDS: cefTRIAXone IV Push 1 GM VIAL. IVP SCH (09:27)
[2019-10-02 10:23] VITALS: BP 101/71
--- NOTE | 2019-10-02 13:35 | NUR ---
Discharge Note: ADARSH JACOBS Discharge instructions and discharge home medications reviewed with Other facility and a copy given. All questions have been answered and understanding verbalized. The following instructions and handouts were given: patient sent with medication list and discharge paperwork. Discontinued lines and drains: Iv removed per protocol. Patient discharged to [facility], report given to JOSSE Centeno.
--- NOTE | 2019-10-05 09:59 | PDOC ---
Provider Note Provider Note Discharge summary dictated.#[id number]. Justicifation of Admission Dx: Justifications for Admission: Justification of Admission Dx: Yes Sepsis: Altered Mental Status KELSY BERNSTEIN MD Oct 05, 2019 09:59
--- NOTE | 2019-10-05 10:20 | DS ---
DATE OF DISCHARGE: 10/02/2019 REASON FOR ADMISSION TO THE HOSPITAL: 1. Worsening confusion. 2. Underlying dementia. 3. urinary tract infection with Escherichia coli. 4. Dilantin toxicity. HOSPITAL COURSE: The patient is a 79-year-old male with dementia, on Namenda. He also has hypertension and he was more agitated and confused. He has home health and they sent him to the hospital. The patient had a urine shows E. coli more than 100,000, sensitive to all medications, was given Rocephin, changed it to Vantin. The patient's Dilantin level was 15, he usually has a good level less than 10, he does okay. In the past, he had Dilantin toxicity couple of years ago. The patient was hold on Dilantin and came down to less than 10, was restarted on Dilantin. The patient also has dementia, the family want to send him to SNU for some time and the patient was discharged to long term at [facility]. FINAL DIAGNOSES: 1. Urinary tract infection with worsening confusion. 2. Possible Dilantin toxicity, contributing to the problem. 3. Underlying dementia. 4. Hypertension. COVID was negative. Chest x-ray was negative. KELSY BERNSTEIN MD DR: LIANET/yaneth JOB#: [id number] / [id number] XANDER
== END 2019-10-02 13:33 | DRG 689 ==
LOC: ER 15:02 → ED HOLD 18:35 → 5 NORTH 19:48
PROVIDERS: ADMIT Internal Medicine; ATTEND Internal Medicine
DX: N39.0 Urinary tract infection, site not specified (principal); G92 Toxic encephalopathy; J44.9 Chronic obstructive pulmonary disease, unspecified; F02.80 Dementia in other diseases classified elsewhere, unspecified severity, without behavioral disturbance, psychotic disturbance, mood disturbance, and anxiety; I10 Essential (primary) hypertension; G30.9 Alzheimer's disease, unspecified; T42.0X5A Adverse effect of hydantoin derivatives, initial encounter; Y92.89 Other specified places as the place of occurrence of the external cause; Z87.891 Personal history of nicotine dependence; Z03.818 Encounter for observation for suspected exposure to other biological agents ruled out
CPT/HCPCS: 36415; 71046; 80053; 80185; 81001; 82550; 83036; 83735; 83880; 84443; 84484; 85025; 87077; 87086; 87186; 93005; 94640; 94760; 96361; 96374; 96375; 99285; J0696; J2060; J7030; 97110-GP; 97530-GO; 97530-GP; 97535-GO; G0378; J7613; J7626; U0003-CS

== ENCOUNTER 2020-03-03 14:09 | Emergency (ER) | payer MEDICARE, OTHER ==
[~2020-03-03] VITALS: Ht 180.3 cm; Wt 66.0 kg
[~2020-03-03 14:09] MED LIST changes: +CEFP200T PO
[2020-03-03 14:44] LABS: BASO % 1 % (0-3); EOS # 0.1 x10^3/uL (0.0-0.7); EOS % 1 % (0-3); HEMATOCRIT 41.4 % (39.0-53.0); HEMOGLOBIN 13.8 g/dL (13.0-17.5); LYMPH # 1.1 x10^3/uL (1.0-4.8); LYMPH % 18 % (24-48); MEAN CORPUSCULAR HEMOGLOBIN 28 pg (25-35); MEAN CORPUSCULAR HGB CONC 33 g/dL (31-37); MEAN CORPUSCULAR VOLUME 83 fL (79-100); MONO # 0.6 x10^3/uL (0.0-1.1); MONO % 10 % (0-9); NEUT # 4.3 x10^3/uL (1.8-7.7); NEUT % 70 % (31-73); PLATELET COUNT 191 x10^3/uL (140-400); RED BLOOD COUNT 4.98 x10^6/uL (4.30-5.70); RED CELL DISTRIBUTION WIDTH 14.6 % (11.5-14.5); WHITE BLOOD COUNT 6.1 x10^3/uL (4.0-11.0)
[2020-03-03 14:46] LABS: BILIRUBIN,URINE NEGATIVE (NEG); CLARITY,URINE CLEAR; COLOR,URINE YELLOW; NITRITE,URINE NEGATIVE (NEG); PROTEIN,URINE 30 mg/dL (NEG-TRACE); UROBILINOGEN,URINE 0.2 mg/dL (0.2 mg/dL)
--- NOTE | 2020-03-03 14:46 | PHYS DOC ---
Past Medical History Past Medical History: COPD, Dementia, Hypertension, Seizure Past Surgical History: No Surgical History Additional Past Surgical Histo: unable to assess Smoking Status: Unknown if ever smoked Alcohol Use: None Drug Use: None General Adult EDM: Chief Complaint: ALTERED MENTAL STATUS HPI: HPI: Patient is a 80 year old male who was brought here by EMS from home due to confusion. Patient has history of dementia, hypertension, seizure disorder, who lives alone himself. He denies came by to check on him today and found him to be acting confused so EMS was called to take him here for evaluation. Patient did not want to come. Patient denies any chest pain, no abdominal pain, no nausea vomiting. Patient denies any cough or fever. Patient is upset that he was brought here for evaluation. Review of Systems: Review of Systems: Constitutional: Denies fever or chills. [] Eyes: Denies change in visual acuity. [] HENT: Denies nasal congestion or sore throat. [] Respiratory: Denies cough or shortness of breath. [] Cardiovascular: Denies chest pain or edema. [] GI: Denies abdominal pain, nausea, vomiting, bloody stools or diarrhea. [] : Denies dysuria. [] Musculoskeletal: Denies back pain or joint pain. [] Integument: Denies rash. [] Neurologic: Denies headache, focal weakness or sensory changes. [] Endocrine: Denies polyuria or polydipsia. [] Lymphatic: Denies swollen glands. [] Psychiatric: Denies depression or anxiety. [] Heart Score: Risk Factors: Risk Factors: DM, Current or recent (<one month) smoker, HTN, HLP, family history of CAD, obesity. Risk Scores: Score 0 - 3: 2.5% MACE over next 6 weeks - Discharge Home Score 4 - 6: 20.3% MACE over next 6 weeks - Admit for Clinical Observation Score 7 - 10: 72.7% MACE over next 6 weeks - Early Invasive Strategies Allergies: Allergies: Allergies Coded Allergies Type Severity Reaction Last Updated Verified No Known Drug Allergies 01/06/18 No Physical Exam: PE: Constitutional: Well developed, well nourished, no acute distress, non-toxic appearance. [] HENT: Normocephalic, atraumatic, bilateral external ears normal, oropharynx dry, no oral exudates, nose normal. [] Eyes: PERRLA, EOMI, conjunctiva normal, no discharge. [] Neck: Normal range of motion, no tenderness, supple, no stridor. [] Cardiovascular:Heart rate regular rhythm, no murmur [] Lungs & Thorax: Bilateral breath sounds clear to auscultation [] Abdomen: Bowel sounds normal, soft, no tenderness, no masses, no pulsatile masses. [] Skin: Warm, dry, no erythema, no rash. [] Back: No tenderness, no CVA tenderness. [] Extremities: No tenderness, no cyanosis, no clubbing, ROM intact, no edema. [] Neurologic: Alert and person and place, normal motor function, normal sensory function, no focal deficits noted. [] Psychologic: Affect normal, judgement normal, mood normal. [] Current Patient Data: Labs: Laboratory Tests Test 03/03/20 14:23 White Blood Count 6.1 x10^3/uL Red Blood Count 4.98 x10^6/uL Hemoglobin 13.8 g/dL Hematocrit 41.4 % Mean Corpuscular Volume 83 fL Mean Corpuscular Hemoglobin 28 pg Mean Corpuscular Hemoglobin Concent 33 g/dL Red Cell Distribution Width 14.6 % Platelet Count 191 x10^3/uL Neutrophils (%) (Auto) 70 % Lymphocytes (%) (Auto) 18 % Monocytes (%) (Auto) 10 % Eosinophils (%) (Auto) 1 % Basophils (%) (Auto) 1 % Neutrophils # (Auto) 4.3 x10^3/uL Lymphocytes # (Auto) 1.1 x10^3/uL Monocytes # (Auto) 0.6 x10^3/uL Eosinophils # (Auto) 0.1 x10^3/uL Basophils # (Auto) 0.0 x10^3/uL Urine Collection Type Void Urine Color Yellow Urine Clarity Clear Urine pH 5.0 Urine Specific [place] 1.015 Urine Protein 30 mg/dL Urine Glucose (UA) Negative mg/dL Urine Ketones (Stick) Trace mg/dL Urine Blood Moderate Urine Nitrite Negative Urine Bilirubin Negative Urine Urobilinogen Dipstick 0.2 mg/dL Urine Leukocyte Esterase Negative Urine RBC 0 /HPF Urine WBC Rare /HPF Urine Squamous Epithelial Cells Occ /LPF Urine Bacteria 0 /HPF Sodium Level 140 mmol/L Potassium Level 4.8 mmol/L Chloride Level 101 mmol/L Carbon Dioxide Level 23 mmol/L Anion Gap 16 Blood Urea Nitrogen 62 mg/dL Creatinine 2.2 mg/dL Estimated GFR (Cockcroft-Gault) 35.2 BUN/Creatinine Ratio 28 Glucose Level 107 mg/dL Calcium Level 9.8 mg/dL Magnesium Level 2.5 mg/dL Total Bilirubin 0.8 mg/dL Aspartate Amino Transf (AST/SGOT) 70 U/L Alanine Aminotransferase (ALT/SGPT) 56 U/L Alkaline Phosphatase 145 U/L Total Protein 9.5 g/dL Albumin 4.4 g/dL Albumin/Globulin Ratio 0.9 Urine Opiates Screen Neg Urine Methadone Screen Neg Urine Barbiturates Neg Phenytoin (Dilantin) Level 5.0 mcg/mL Phenytoin Last Dose Date Unk Phenytoin Last Dose Time Unk Urine Phencyclidine Screen Neg Urine Amphetamine/Methamphetamine Neg Urine Benzodiazepines Screen Neg Urine Cocaine Screen Neg Urine Cannabinoids Screen Neg Ethyl Alcohol Level < 10 mg/dL Urine Ethyl Alcohol Neg Current Medications Medications (Trade) Dose Ordered Sig/Rebekah Route PRN Reason Start Time Stop Time Status Last Admin Dose Admin Sodium Chloride 1,000 ml @ 1,000 mls/hr 1X ONCE IV 03/03/20 15:00 03/03/20 15:59 DC 03/03/20 14:54 Vital Signs: Vital Signs Date Time Temp Pulse Resp B/P (MAP) Pulse Ox O2 Delivery O2 Flow Rate FiO2 03/03/20 14:20 98.3 86 16 169/101 (123) 98 Room Air 98.3 EKG: EKG: [] Radiology/Procedures: Radiology/Procedures: [][facility] [address] [place], [place] [id number] IMAGING REPORT Signed PATIENT: ADARSH JACOBS ACCOUNT: [id number] : 1940 LOCATION: ER AGE: 80 SEX: M EXAM STATUS: REG ER ORD. PHYSICIAN: JUAN CARLOS CHATMAN DO REASON: AMS PROCEDURE: CT HEAD WO CONTRAST Exam performed: CT scan of the head without contrast. Date of Service: 03/03/2020. Comparison: CT head without contrast from . Clinical History: Altered mental status. Technique: Helical acquisitions are obtained from the foramen magnum to the vertex without intravenous administration of contrast. Findings: The ventricles are midline without evidence of dilatation. Normal farrell-white differentiation is maintained. There is no extra axial fluid collection, intraparenchymal hemorrhage or mass lesion. The visualized portions of the orbits, paranasal sinuses and the mastoid air cells appear clear. The calvarium is intact. Impression: 1. No acute intracranial process detected. PQRS Compliance Statement: One or more of the following individualized dose reduction techniques were utilized for this examination: 1. Automated exposure control 2. Adjustment of the mA and/or kV according to patient size 3. Use of iterative reconstruction technique Electronically signed by: Yzamin Gasca MD (03/03/2020 3:08 PM) [facility] DICTATED and SIGNED BY: YAZMIN GASCA MD DATE: 03/03/20 [id number] Course & Med Decision Making: Course & Med Decision Making Pertinent Labs and Imaging studies reviewed. (See chart for details) Patient is a 80-year-old male who was evaluated in ER due to confusion. Patient was found to be dehydrated, his creatinine level elevated and his BUN elevated. Patient was given 1 L normal saline IV bolus. Patient refused to be admitted to hospital. Patient wanted to be discharged home, patient asked that we call his niece to come and get him home. Patient will need to follow-up with his family physician to recheck HIS kidney function next week. Siminon Disclaimer: Johnna Disclaimer: This electronic medical record was generated, in whole or in part, using a voice recognition dictation system. Departure Departure Impression: Primary Impression: Dehydration Additional Impression: Acute renal insufficiency Disposition: 01 DC HOME SELF CARE/HOMELESS Condition: IMPROVED Referrals: KELSY BERNSTEIN MD (PCP) Please call your family physician for follow-up on Friday, you need to have your kidney function rechecked. Patient Instructions: Chronic Renal Insufficiency, Dehydration, Adult JUAN CARLOS CHATMAN DO Mar 03, 2020 14:45
[2020-03-03 14:48] LABS: BARBITURATES NEG (NEG); BENZODIAZEPINES NEG (NEG); CANNABINOIDS NEG (NEG); COCAINE NEG (NEG); METHADONE NEG (NEG); OPIATES NEG (NEG); PHENCYCLIDINE NEG (NEG)
[2020-03-03 14:49] LABS: AMPHETAMINE/METHAMPHETAMINE NEG (NEG)
[2020-03-03] MEDS ORDERED: IV NORMAL SALINE 1000ML BAG 1,000 ML IV ONE (15:00)
[2020-03-03 15:02] LABS: BACTERIA,URINE 0 /HPF (0-FEW); RBC,URINE 0 /HPF (0-2); WBC,URINE RARE /HPF (0-4)
--- NOTE | 2020-03-03 15:11 | RAD ---
Exam performed: CT scan of the head without contrast. Date of Service: 03/03/2020. Comparison: CT head without contrast from 11/06/2018. Clinical History: Altered mental status. Technique: Helical acquisitions are obtained from the foramen magnum to the vertex without intravenou s administration of contrast. Findings: The ventricles are midline without evidence of dilatation. Normal farrell-white differentiation is maint ained. There is no extra axial fluid collection, intraparenchymal hemorrhage or mass lesion. The vi sualized portions of the orbits, paranasal sinuses and the mastoid air cells appear clear. The stevie rium is intact. Impression: 1. No acute intracranial process detected. PQRS Compliance Statement: One or more of the following individualized dose reduction techniques were utilized for this examinat ion: 1. Automated exposure control 2. Adjustment of the mA and/or kV according to patient size 3. Use of iterative reconstruction technique Electronically signed by: Yazmin Gasca MD (03/03/2020 3:08 PM) [facility]
[2020-03-03 15:16] LABS: CALCIUM 9.8 mg/dL (8.5-10.1); CREATININE 2.2 mg/dL (0.7-1.3); GFR 35.2; POTASSIUM 4.8 mmol/L (3.5-5.1)
[2020-03-03 15:19] LABS: ALBUMIN 4.4 g/dL (3.4-5.0); ALBUMIN/GLOBULIN RATIO 0.9 (1.0-1.7); MAGNESIUM 2.5 mg/dL (1.8-2.4); TOTAL BILIRUBIN 0.8 mg/dL (0.2-1.0); TOTAL PROTEIN 9.5 g/dL (6.4-8.2)
[2020-03-03 16:47] VITALS: BP 149/86
[2020-03-05] MEDS ORDERED: HYDR12.58 PO (09:21)
== END 2020-03-03 17:02 | disposition home or self-care (01) ==
LOC: ER 14:09
DX: E86.0 Dehydration (principal); N28.9 Disorder of kidney and ureter, unspecified; R41.0 Disorientation, unspecified; J44.9 Chronic obstructive pulmonary disease, unspecified; F03.90 Unspecified dementia, unspecified severity, without behavioral disturbance, psychotic disturbance, mood disturbance, and anxiety; I10 Essential (primary) hypertension; G40.909 Epilepsy, unspecified, not intractable, without status epilepticus
CPT/HCPCS: 36415; 70450; 80053; 80185; 80307; 81001; 83735; 85025; 96360; 96361; 99284; G0480; J7030

== ENCOUNTER 2020-05-28 11:50 | Inpatient (IN) | payer MEDICARE, OTHER ==
[~2020-05-28] VITALS: Ht 180.3 cm; Wt 62.3 kg
[2020-05-28] VITALS (7 sets, daily range): BP systolic 104–140; BP diastolic 57–79
[~2020-05-28 11:50] MED LIST changes: +ASPI325T11 PO; +CRESTOR40 MG PO; +HYDR12.58 PO; +METO-239 PO
[2020-05-28 12:27] LABS: BASO # 0.1 x10^3/uL (0.0-0.2); BASO % 1 % (0-3); EOS % 0 % (0-3); HEMATOCRIT 38.9 % (39.0-53.0); LYMPH # 1.1 x10^3/uL (1.0-4.8); LYMPH % 9 % (24-48); MEAN CORPUSCULAR HEMOGLOBIN 28 pg (25-35); MEAN CORPUSCULAR HGB CONC 33 g/dL (31-37); MEAN CORPUSCULAR VOLUME 84 fL (79-100); MONO # 1.1 x10^3/uL (0.0-1.1); MONO % 10 % (0-9); NEUT # 9.6 x10^3/uL (1.8-7.7); NEUT % 81 % (31-73); PLATELET COUNT 247 x10^3/uL (140-400); RED BLOOD COUNT 4.66 x10^6/uL (4.30-5.70); RED CELL DISTRIBUTION WIDTH 13.8 % (11.5-14.5); WHITE BLOOD COUNT 11.9 x10^3/uL (4.0-11.0)
--- NOTE | 2020-05-28 12:29 | PHYS DOC ---
Past Medical History Past Medical History: COPD, Dementia, Hypertension, Seizure, Other Additional [facility] Past Surgical History: No Surgical History Additional Past Surgical Histo: unable to assess Smoking Status: Unknown if ever smoked Alcohol Use: None Drug Use: None Adult General Chief Complaint Chief Complaint: ALTERED MENTAL STATUS [facility] HPI Patient is a 80 year old male with a past medical history of hypertension, sezi ures and dementia now presenting the emergency department for possible fall. According to EMS they were called when the patient was found down on the ground. Patient was found next his bed by vending machine refiller who apparently was at the patient typically once at night. Primary vending machine refiller was coming to see the patient today noted the patient was on the ground. EMS was attempting to talk to the vending machine refiller and stated that the patient is normally alert and oriented x2 but there again there are times determining with the patient's normal baseline mental status was. Patient was only intermittently verbal and a poor historian and unable to provide any significant history. Supervisor [employer] Department also unable to provide any other significant history. Review of Systems Review of Systems Constitutional: Denies fever or chills [] Eyes: Denies change in visual acuity, redness, or eye pain [] HENT: Denies nasal congestion or sore throat [] Respiratory: Denies cough or shortness of breath [] Cardiovascular: No additional information not addressed in HPI [] GI: Denies abdominal pain, nausea, vomiting, bloody stools or diarrhea [] : Denies dysuria or hematuria [] Musculoskeletal: Denies back pain or joint pain [] Integument: Denies rash or skin lesions [] Neurologic: Denies headache, focal weakness or sensory changes [] Endocrine: Denies polyuria or polydipsia [] All other systems were reviewed and found to be within normal limits, except as documented in this note. Current Medications Current Medications Current Medications Medications (Trade) Dose Ordered Sig/Rebekah Start Time Stop Time Status Last Admin Dose Admin Aspirin (Aspirin Chewable) 324 mg 1X ONCE 05/28/20 13:00 05/28/20 13:01 DC 05/28/20 13:14 324 MG Furosemide (Lasix) 40 mg 1X ONCE 05/28/20 13:45 05/28/20 13:46 DC Allergies Allergies Allergies Coded Allergies Type Severity Reaction Last Updated Verified No Known Drug Allergies 01/06/18 No Physical Exam Physical Exam Constitutional: Well developed, well nourished, no acute distress, non-toxic appearance. [] HENT: Normocephalic, atraumatic, bilateral external ears normal, oropharynx moist, no oral exudates, nose normal. [] Eyes: PERRLA, EOMI, conjunctiva normal, no discharge. [] Neck: Normal range of motion, no tenderness, supple, no stridor. [] Cardiovascular:Heart rate regular rhythm, no murmur [] Lungs & Thorax: Bilateral breath sounds clear to auscultation [] Abdomen: Bowel sounds normal, soft, no tenderness, no masses, no pulsatile masses. [] Skin: Warm, dry, no erythema, no rash. [] Back: No tenderness, no CVA tenderness. [] Extremities: No tenderness, no cyanosis, no clubbing, ROM intact, no edema. [] Neurologic: Alert and oriented X 1, chronic left-sided facial and left upper and lower extremity deficits. [] Psychologic: Affect normal, judgement normal, mood normal. [] Current Patient Data Vital Signs Vital Signs Date Time Temp Pulse Resp B/P (MAP) Pulse Ox O2 Delivery O2 Flow Rate FiO2 05/28/20 11:50 99.2 95 32 136/85 (102) 98 Room Air 99.2 Lab Values Laboratory Tests Test 05/28/20 12:05 White Blood Count 11.9 x10^3/uL (4.0-11.0) H Red Blood Count 4.66 x10^6/uL (4.30-5.70) Hemoglobin 13.0 g/dL (13.0-17.5) Hematocrit 38.9 % (39.0-53.0) L Mean Corpuscular Volume 84 fL (79-100) Mean Corpuscular Hemoglobin 28 pg (25-35) Mean Corpuscular Hemoglobin Concent 33 g/dL (31-37) Red Cell Distribution Width 13.8 % (11.5-14.5) Platelet Count 247 x10^3/uL (140-400) Neutrophils (%) (Auto) 81 % (31-73) H Lymphocytes (%) (Auto) 9 % (24-48) L Monocytes (%) (Auto) 10 % (0-9) H Eosinophils (%) (Auto) 0 % (0-3) Basophils (%) (Auto) 1 % (0-3) Neutrophils # (Auto) 9.6 x10^3/uL (1.8-7.7) H Lymphocytes # (Auto) 1.1 x10^3/uL (1.0-4.8) Monocytes # (Auto) 1.1 x10^3/uL (0.0-1.1) Eosinophils # (Auto) 0.0 x10^3/uL (0.0-0.7) Basophils # (Auto) 0.1 x10^3/uL (0.0-0.2) Sodium Level 137 mmol/L (136-145) Potassium Level 3.8 mmol/L (3.5-5.1) Chloride Level 101 mmol/L (98-107) Carbon Dioxide Level 27 mmol/L (21-32) Anion Gap 9 (6-14) Blood Urea Nitrogen 14 mg/dL (8-26) Creatinine 1.1 mg/dL (0.7-1.3) Estimated GFR (Cockcroft-Gault) 78.3 Glucose Level 108 mg/dL (70-99) H Calcium Level 9.3 mg/dL (8.5-10.1) Magnesium Level 2.1 mg/dL (1.8-2.4) Total Bilirubin 0.7 mg/dL (0.2-1.0) Direct Bilirubin 0.3 mg/dL (0.0-0.2) H Aspartate Amino Transferase (AST) 142 U/L (15-37) H Alanine Aminotransferase (ALT) 33 U/L (16-63) Alkaline Phosphatase 149 U/L (46-116) H Ammonia 10 mcmol/L (11-34) L Creatine Kinase 1048 U/L (39-308) H Troponin I Quantitative 34.764 ng/mL (0.000-0.055) FK-Yhq-C-Type Natriuretic Peptide 1388 pg/mL (0-449) H Total Protein 8.5 g/dL (6.4-8.2) H Albumin 3.2 g/dL (3.4-5.0) L Laboratory Tests 05/28/20 12:05 Laboratory Tests 05/28/20 12:05 EKG EKG [] Radiology/Procedures Radiology/Procedures [] Course & Med Decision Making Course & Med Decision Making Pertinent Labs and Imaging studies reviewed. (See chart for details) 80M with nonspecific reported change in mental status are determined. In addition to the HPI EMS did note the patient had PVCs on EKG in route to the emergency department. Patient not expressing any chest pain at the time of this difficult to determine. Will obtain broad-spectrum work-up for altered mental status and encephalopathy which is include ACS, factious etiology or medication overdose. 13:26 -patient is a blood work does demonstrate a severely elevated troponin at 34 with an elevated BNP which raises concern for acute heart failure injury At this time. EKG does show some lateral depressions. I had a conversation with Dr Brooks the direct care worker on-call who evaluated the EKG and reviewed the patient's blood work and does not feel that the patient warrants treatment for ST elevation NV. In addition I was called by radiology informing me that the CT scan of the head does demonstrate what appears to be a subdural mass which could either be a hematoma or empyema. Given the patient's history of a fall we have to assume that this is secondary to a fall and acute trauma and must hold off on heparin for the possible acute coronary syndrome at this time. Currently attempting to page neurosurgeon on-call. 13:52 -neurosurgical team aware. Do agree that this is likely representing at subdural hematoma and planning to take the patient to the operating room. I did manage to get a hold of patient's niece who is the power of county attorney who states that she does not nothing about the event but does state that the family consents for any further procedures. Patient to be admitted to the ICU under the care of Dr. Glynn. Dragon Disclaimer Dragon Disclaimer This electronic medical record was generated, in whole or in part, using a voice recognition dictation system. Departure Departure Impression: Primary Impression: Subdural hematoma caused by concussion Additional Impression: Elevated troponin Disposition: 09 ADMITTED INPT THIS HOSP Condition: CRITICAL Referrals: KELSY GLYNN MD (PCP) Problem Qualifiers ELIER MONIQUE MD May 28, 2020 12:29
[2020-05-28 12:37] LABS: CALCIUM 9.3 mg/dL (8.5-10.1); CREATININE 1.1 mg/dL (0.7-1.3); GFR 78.3; POTASSIUM 3.8 mmol/L (3.5-5.1)
[2020-05-28 12:52] LABS: ALBUMIN 3.2 g/dL (3.4-5.0); DIRECT BILIRUBIN 0.3 mg/dL (0.0-0.2); MAGNESIUM 2.1 mg/dL (1.8-2.4); TOTAL BILIRUBIN 0.7 mg/dL (0.2-1.0); TOTAL PROTEIN 8.5 g/dL (6.4-8.2)
[2020-05-28] MEDS ORDERED: ASPIRIN CHEWABLE 81 MG TABLET. PO ONE (13:00)
--- NOTE | 2020-05-28 13:04 | RAD ---
CT HEAD/BRAIN WO History: Reason: altered mental status / Spl. Instructions: / History: Comparison: December 05, 2019 Technique: Noncontrast CT imaging was performed of the head. Exposure: One or more of the following individualized dose reduction techniques were utilized for thi s examination: 1. Automated exposure control 2. Adjustment of the mA and/or kV according to patient size 3. Use of iterative reconstruction technique. Findings: New right subdural heterogeneous predominantly low-attenuation collection. There is slight thickening of the dura. There is mass effect on the adjacent parietal and parietal lobes. Leftward midline shif t measures approximately 7 mm. Compression of the right lateral ventricle. Brain parenchymal volume loss. Foci of decreased attenuation within the hemispheric white matter, mos t often due to chronic microvascular ischemia. Imaged orbits are unremarkable. Imaged paranasal sinuses and mastoid air cells are clear. No acute ca lvarial fracture. Impression: 1. New right cerebral convexity subdural collection contributing to mass effect and leftward midline shift. Findings may relate to empyema or subacute hematoma. Recommend further clinical evaluation. R ecommend MRI with and without contrast to further evaluate. FOR INTERNAL CODING PURPOSES Critical result: Findings discussed with Dr. Randhawa at 05/28/2020 1:00 PM. RESULT CODE: (C) Electronically signed by: Jose R Hinojosa DO (05/28/2020 1:02 PM) [facility]
--- NOTE | 2020-05-28 13:14 | RAD ---
XR CHEST 1V History: Reason: altered mental status / Spl. Instructions: / History: Comparison: March 04, 2020 Findings: Hyperinflation with emphysematous changes. No consolidation or pleural effusion. Unchanged heart size . No pneumothorax. Impression: 1. Hyperinflation with emphysematous changes. Electronically signed by: Jose R Hinojosa DO (05/28/2020 1:11 PM) [facility] [place]
[2020-05-28] MEDS ORDERED: FUROSEMIDE 40 MG/4 ML VIAL. IVP ONE (13:45)
[2020-05-28] MEDS ORDERED: MORPHINE SULFATE 4 MG/ML VIAL. IV PRN (14:00)
[2020-05-28] MEDS ORDERED: ONDANSETRON PF 4 MG/2 ML VIAL. IV PRN (14:00)
[2020-05-28 14:01] LABS: PROTHROMBIN TIME PATIENT 15.5 SEC (11.7-14.0)
[2020-05-28] MEDS ORDERED: PROPOFOL 10 MG/ML (20ML) VIAL. IV ONE (14:19)
[2020-05-28] MEDS ORDERED: LIDOCAINE 2% PF 5 ML VIAL. ONE (14:19)
[2020-05-28] MEDS ORDERED: ROCURONIUM 50 MG/5 ML VIAL. ONE ×2 (14:20→16:26)
[2020-05-28] MEDS ORDERED: fentaNYL PF VIAL 100 MCG/2 ML VIAL ONE (14:20)
[2020-05-28] MEDS ORDERED: PHENYLEPHRINE in 0.9% NACL PF 1 MG/10 ML SYRINGE. IV ONE (14:21)
[2020-05-28] MEDS ORDERED: niCARdipine INJ. IV ONE (14:47)
[2020-05-28] MEDS ORDERED: NITROGLYCERIN 50 MG/10 ML ONE (14:47)
[2020-05-28] MEDS ORDERED: THROMBIN TOPICAL 20,000 UNIT SPRAY.SYRN KIT TP ONE (14:58)
[2020-05-28] MEDS ORDERED: SURGICEL HEMOSTAT 4X8 EACH. ONE (14:58)
[2020-05-28] MEDS ORDERED: BUPIVACAINE-EPI 0.5% 30 ML VIAL KIT. ONE (14:58)
[2020-05-28] MEDS ORDERED: BUPIVACAINE-EPI 0.5%-1:200000 MPF 30 ML VIAL. ONE (14:58)
[2020-05-28] MEDS ORDERED: GELATIN SPONGE SIZE 100. ONE (14:58)
[2020-05-28] MEDS ORDERED: HYDROmorphone 2 MG/ML VIAL IVP PRN (15:00)
[2020-05-28] MEDS ORDERED: fentaNYL PF VIAL 100 MCG/2 ML VIAL IVP PRN (15:00)
[2020-05-28] MEDS ORDERED: BACITRACIN 50,000 UNIT in IV NORMAL SALINE 1000ML BAG 1,000 ML IRR ONE (15:00)
[2020-05-28] MEDS ORDERED: MORPHINE SULFATE 2 MG/ML VIAL. IVP PRN (15:00)
[2020-05-28] MEDS ORDERED: IV RINGERS,LACTATED 1000ML 1,000 ML IV SCH (15:00)
[2020-05-28] MEDS ORDERED: PROCHLORPERAZINE 10 MG/2 ML VIAL. IVP PRN (15:00)
[2020-05-28] MEDS ORDERED: DEXAMETHASONE SOD PHOS 4 MG/ML VIAL ONE (16:26)
[2020-05-28] MEDS ORDERED: ePHEDrine PF IN SALINE 50 MG/10 ML SYRINGE. IV ONE (16:26)
[2020-05-28] MEDS ORDERED: ONDANSETRON PF 4 MG/2 ML VIAL. ONE (16:26)
[2020-05-28] MEDS ORDERED: PHENYLEPHRINE 10 MG/ML VIAL. ONE ×2 (16:26→16:40)
[2020-05-28] MEDS ORDERED: 0.9 % SODIUM CHLORIDE 10 ML DISP.SYRIN. IV PRN (17:15)
[2020-05-28] MEDS ORDERED: hydrALAZINE 20 MG/ML VIAL. IVP PRN (17:15)
[2020-05-28] MEDS ORDERED: MAGNESIUM HYDROXIDE 2,400 MG/30 ML ORAL.SUSP. PO PRN (17:15)
[2020-05-28] MEDS ORDERED: DEXTROSE 50% 25 GM / 50ML DISP.SYRIN. IV PRN (17:15)
[2020-05-28] MEDS ORDERED: SEVOFLURANE 61 TO 120 MINUTES. IH ONE (17:20)
--- NOTE | 2020-05-28 17:46 | OP ---
DATE OF SURGERY: 05/28/2020 PREOPERATIVE DIAGNOSES: Right frontoparietal subdural hematoma with mass effect shift and weakness and confusion. POSTOPERATIVE DIAGNOSIS: Right frontoparietal subdural hematoma with mass effect shift and weakness and confusion. OPERATION PERFORMED: Right posterior frontal elba hole evacuation of chronic subdural hematoma. SURGEON: Rick Fajardo M.D. [employer] FARM LABORER: Bisi Clements APRN, who assisted with the exposure and placing the elba hole evacuation and closure. OPERATIVE INDICATIONS: The patient is a pleasant 80-year-old man who was found down and in the Emergency Room was confused and demonstrated left-sided weakness. On imaging studies, the above-mentioned findings, which was a very large subacute/chronic right frontoparietal subdural hematoma and I recommended craniotomy emergently with evacuation. He had a number of other health issues and I felt that removing the subdural promptly for more complete and better care postoperatively. The family was apprised of the situation and per the Emergency Room physician wished for us to go ahead. DESCRIPTION OF PROCEDURE: Following general endotracheal anesthesia, the patient was positioned with a roll underneath his right shoulder. His head was turned to the left and the right frontotemporoparietal region was brought uppermost. I clipped, prepped and draped in the standard fashion. HUMBLE hose and AV impulse boots were applied for DVT prophylaxis. Ancef 2 grams was given less than 1 hour prior to initiation of the surgery. An incision was made in the right posterior frontal region and Aesculap clips were placed along the skin edges. I then stripped back the periosteum, placed self-retaining retractors and brought in a conical bur and placed a large elba hole. I used a Kerrison to enlarge this somewhat, still had excellent exposure and I incised the dura. There was another membrane beneath the dura, which I opened and there was spontaneous egress of brown colored subdural fluid. I irrigated with warmed saline and with the subdural fluid came back virtually clear and then I placed a Wiley drain brought out through a separate stab incision. I placed a elba hole cover, which largely cover the entire elba with opening for the drain. I secured this with 4 mm microscrews. Then, I closed the wound with absorbable suture. The skin was closed with skin dinorah. I did sew the drain in place with 3-0 nylon. The surgery went very well. The patient was awakened uneventfully. RICK FAJARDO MD DR: LÁZARO/yaneth JOB#: [id number] / [id number] XANDER
[2020-05-28] MEDS: POTASSIUM CL 20MEQ D5-0.45NACL 1,000 ML IV SCH (18:18)
[2020-05-28] MEDS: fentaNYL PF VIAL 100 MCG/2 ML VIAL IVP PRN ×2 (19:28→22:28)
[2020-05-28] MEDS: DOCUSATE SODIUM 100 MG CAPSULE. PO SCH (20:32)
--- NOTE | 2020-05-28 20:34 | EKG ---
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
[2020-05-28] MEDS: ceFAZolin SODIUM IV Push 1 GM VIAL. IVP SCH (21:33)
[2020-05-28] MEDS: PHENYTOIN SODIUM EXTENDED 100 MG CAPSULE PO SCH (22:15)
[2020-05-29] VITALS (23 sets, daily range): BP systolic 93–130; BP diastolic 47–87
[2020-05-29] MEDS: fentaNYL PF VIAL 100 MCG/2 ML VIAL IVP PRN (00:42)
[2020-05-29 00:43] LABS: PHENY 24.2 mcg/mL (10.0-20.0)
--- NOTE | 2020-05-29 04:45 | EKG ---
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
[2020-05-29 05:34] LABS: CALCIUM 7.8 mg/dL (8.5-10.1); CREATININE 1.2 mg/dL (0.7-1.3); GFR 70.9; POTASSIUM 4.3 mmol/L (3.5-5.1)
[2020-05-29 05:36] LABS: BASO % 0 % (0-3); EOS % 0 % (0-3); HEMATOCRIT 36.3 % (39.0-53.0); HEMOGLOBIN 11.8 g/dL (13.0-17.5); LYMPH # 1.3 x10^3/uL (1.0-4.8); LYMPH % 10 % (24-48); MEAN CORPUSCULAR HEMOGLOBIN 27 pg (25-35); MEAN CORPUSCULAR HGB CONC 32 g/dL (31-37); MEAN CORPUSCULAR VOLUME 84 fL (79-100); MONO # 1.3 x10^3/uL (0.0-1.1); MONO % 10 % (0-9); NEUT # 10.4 x10^3/uL (1.8-7.7); NEUT % 80 % (31-73); PLATELET COUNT 242 x10^3/uL (140-400); RED BLOOD COUNT 4.34 x10^6/uL (4.30-5.70); RED CELL DISTRIBUTION WIDTH 13.6 % (11.5-14.5); WHITE BLOOD COUNT 13.1 x10^3/uL (4.0-11.0)
[2020-05-29] MEDS: ceFAZolin SODIUM IV Push 1 GM VIAL. IVP SCH ×2 (05:56→15:19)
--- NOTE | 2020-05-29 08:31 | PDOC ---
PROGRESS NOTES Date of Service: DATE: 05/29/20 TIME: 08:31 Objective Objective Vital Signs Date Time Temp Pulse Resp B/P (MAP) Pulse Ox O2 Delivery O2 Flow Rate FiO2 05/29/20 07:58 99.2 99.2 05/29/20 06:24 67 103/55 (71) 100 Nasal Cannula 2.0 05/29/20 05:18 18 Intake and Output 05/29/20 07:00 Intake Total 0 ml Output Total 1245 ml Balance -1245 ml Intake Oral 0 ml Output Urine Total 1195 ml Drainage Total 40 ml Estimated Blood Loss 10 ml Physical Exam MUSCULOSKELETAL: No swelling Diagnosis Problem List Problems Medical Problems: (1) Elevated troponin Status: Acute (2) Subdural hematoma caused by concussion Status: Acute Assessment Assessment Problems Medical Problems: (1) Elevated troponin Status: Acute (2) Subdural hematoma caused by concussion Status: Acute Plan Plan of Care Problems Medical Problems: (1) Elevated troponin Status: Acute (2) Subdural hematoma caused by concussion Status: Acute Comment Review of Relevant I have reviewed the following items eleazar (where applicable) has been applied. Labs Laboratory Tests Test 05/28/20 12:05 05/28/20 13:40 05/29/20 00:25 05/29/20 05:15 White Blood Count 11.9 x10^3/uL (4.0-11.0) 13.1 x10^3/uL (4.0-11.0) Red Blood Count 4.66 x10^6/uL (4.30-5.70) 4.34 x10^6/uL (4.30-5.70) Hemoglobin 13.0 g/dL (13.0-17.5) 11.8 g/dL (13.0-17.5) Hematocrit 38.9 % (39.0-53.0) 36.3 % (39.0-53.0) Mean Corpuscular Volume 84 fL (79-100) 84 fL (79-100) Mean Corpuscular Hemoglobin 28 pg (25-35) 27 pg (25-35) Mean Corpuscular Hemoglobin Concent 33 g/dL (31-37) 32 g/dL (31-37) Red Cell Distribution Width 13.8 % (11.5-14.5) 13.6 % (11.5-14.5) Platelet Count 247 x10^3/uL (140-400) 242 x10^3/uL (140-400) Neutrophils (%) (Auto) 81 % (31-73) 80 % (31-73) Lymphocytes (%) (Auto) 9 % (24-48) 10 % (24-48) Monocytes (%) (Auto) 10 % (0-9) 10 % (0-9) Eosinophils (%) (Auto) 0 % (0-3) 0 % (0-3) Basophils (%) (Auto) 1 % (0-3) 0 % (0-3) Neutrophils # (Auto) 9.6 x10^3/uL (1.8-7.7) 10.4 x10^3/uL (1.8-7.7) Lymphocytes # (Auto) 1.1 x10^3/uL (1.0-4.8) 1.3 x10^3/uL (1.0-4.8) Monocytes # (Auto) 1.1 x10^3/uL (0.0-1.1) 1.3 x10^3/uL (0.0-1.1) Eosinophils # (Auto) 0.0 x10^3/uL (0.0-0.7) 0.0 x10^3/uL (0.0-0.7) Basophils # (Auto) 0.1 x10^3/uL (0.0-0.2) 0.0 x10^3/uL (0.0-0.2) Prothrombin Time 15.5 SEC (11.7-14.0) Prothromb Time International Ratio 1.3 (0.8-1.1) Activated Partial Thromboplast Time 30 SEC (24-38) Sodium Level 137 mmol/L (136-145) 137 mmol/L (136-145) Potassium Level 3.8 mmol/L (3.5-5.1) 4.3 mmol/L (3.5-5.1) Chloride Level 101 mmol/L (98-107) 103 mmol/L (98-107) Carbon Dioxide Level 27 mmol/L (21-32) 26 mmol/L (21-32) Anion Gap 9 (6-14) 8 (6-14) Blood Urea Nitrogen 14 mg/dL (8-26) 18 mg/dL (8-26) Creatinine 1.1 mg/dL (0.7-1.3) 1.2 mg/dL (0.7-1.3) Estimated GFR (Cockcroft-Gault) 78.3 70.9 Glucose Level 108 mg/dL (70-99) 143 mg/dL (70-99) Calcium Level 9.3 mg/dL (8.5-10.1) 7.8 mg/dL (8.5-10.1) Magnesium Level 2.1 mg/dL (1.8-2.4) Total Bilirubin 0.7 mg/dL (0.2-1.0) Direct Bilirubin 0.3 mg/dL (0.0-0.2) Aspartate Amino Transf (AST/SGOT) 142 U/L (15-37) Alanine Aminotransferase (ALT/SGPT) 33 U/L (16-63) Alkaline Phosphatase 149 U/L (46-116) Ammonia 10 mcmol/L (11-34) Creatine Kinase 1048 U/L (39-308) Troponin I Quantitative 34.764 ng/mL (0.000-0.055) 19.152 ng/mL (0.000-0.055) 17.354 ng/mL (0.000-0.055) UK-Nys-T-Type Natriuretic Peptide 1388 pg/mL (0-449) Total Protein 8.5 g/dL (6.4-8.2) Albumin 3.2 g/dL (3.4-5.0) SARS-CoV-2 Antigen (Rapid) Negative (NEGATIVE) Phenytoin (Dilantin) Level 24.2 mcg/mL (10.0-20.0) Phenytoin Last Dose Date Unk Phenytoin Last Dose Time Unk Medications Current Medications Albuterol Sulfate (Ventolin Neb Soln) 2.5 mg RTQID NEB ; Start 05/29/20 at 08:00 Aspirin (Aspirin Chewable) 324 mg 1X ONCE PO Last administered on 05/28/20at 13:14; Start 05/28/20 at 13:00; Stop 05/28/20 at 13:01; Status DC Atorvastatin Calcium (Lipitor) 80 mg QHS PO ; Start 05/29/20 at 21:00 Bacitracin 02019 unit/Sodium Chloride 1,000 ml @ 1,000 mls/hr 1X ONCE IRR Last administered on 05/28/20at 16:14; Start 05/28/20 at 15:00; Stop 05/28/20 at 15:59; Status DC Budesonide (Pulmicort) 0.5 mg RTBID NEB ; Start 05/29/20 at 08:00 Bupivacaine HCl/ Epinephrine Bitart (Sensorcain-Epi 0.5% Kit) 30 ml STK-MED ONCE .ROUTE ; Start 05/28/20 at 14:58; Stop 05/28/20 at 14:58; Status DC Bupivacaine HCl/ Epinephrine Bitart (Sensorcain-Epi 0.5%-1:127449 Mpf) 30 ml STK-MED ONCE .ROUTE Last administered on 05/28/20at 16:14; Start 05/28/20 at 14:58; Stop 05/28/20 at 14:59; Status DC Cefazolin Sodium (Ancef) 1 gm Q8HRS IVP Last administered on 05/29/20at 05:56; Start 05/28/20 at 22:00; Stop 05/29/20 at 14:01 Cellulose (Surgicel Hemostat 4x8) 1 each STK-MED ONCE .ROUTE ; Start 05/28/20 at 14:58; Stop 05/28/20 at 14:58; Status DC Dexamethasone Sodium Phosphate (Decadron) 4 mg STK-MED ONCE .ROUTE ; Start 05/28/20 at 16:26; Stop 05/28/20 at 16:27; Status DC Dextrose (Dextrose 50%-Water Syringe) 12.5 gm PRN Q15MIN PRN IV SEE COMMENTS; Start 05/28/20 at 17:15 Docusate Sodium (Colace) 100 mg BID PO ; Start 05/28/20 at 21:00 Ephedrine Sulfate (ePHEDrine PF IN SALINE SYRINGE) 50 mg STK-MED ONCE IV ; Start 05/28/20 at 16:26; Stop 05/28/20 at 16:27; Status DC Fentanyl Citrate (Fentanyl 2ml Vial) 25 mcg PRN Q5MIN PRN IVP MILD PAIN 1-3; Start 05/28/20 at 15:00; Stop 05/28/20 at 21:00; Status DC Fentanyl Citrate (Fentanyl 2ml Vial) 50 mcg PRN Q2HR PRN IVP PAIN Last administered on 05/29/20at 00:42; Start 05/28/20 at 17:15 Fentanyl Citrate (Fentanyl 2ml Vial) 100 mcg STK-MED ONCE .ROUTE ; Start 05/28/20 at 14:20; Stop 05/28/20 at 14:20; Status DC Furosemide (Lasix) 40 mg 1X ONCE IVP Last administered on 05/28/20at 13:56; Start 05/28/20 at 13:45; Stop 05/28/20 at 13:46; Status DC Gelatin (Gelfoam Size 100) 1 each STK-MED ONCE .ROUTE Last administered on 05/28/20at 16:14; Start 05/28/20 at 14:58; Stop 05/28/20 at 14:58; Status DC Hydralazine HCl (Apresoline Inj) 5 mg PRN Q6HRS PRN IVP TO KEEP SBP<150mmHg; Start 05/28/20 at 17:15 Hydromorphone HCl (Dilaudid) 0.5 mg PRN Q10MIN PRN IVP SEVERE PAIN 7-10, 2nd CHOICE; Start 05/28/20 at 15:00; Stop 05/28/20 at 21:00; Status DC Lidocaine HCl (Lidocaine Pf 2% Vial) 5 ml STK-MED ONCE .ROUTE ; Start 05/28/20 at 14:19; Stop 05/28/20 at 14:20; Status DC Losartan Potassium (Cozaar) 50 mg DAILY PO ; Start 05/29/20 at 09:00 Magnesium Hydroxide (Milk Of Magnesia) 2,400 mg PRN Q12HR PRN PO CONSTIPATION; Start 05/28/20 at 17:15 Metoprolol Succinate (Toprol Xl) 25 mg DAILY PO ; Start 05/29/20 at 09:00 Morphine Sulfate (Morphine Sulfate) 1 mg PRN Q10MIN PRN IVP SEVERE PAIN 7-10; Start 05/28/20 at 15:00; Stop 05/28/20 at 21:00; Status DC Morphine Sulfate (Morphine Sulfate) 4 mg PRN Q2HR PRN IV PAIN Last administered on 05/29/20at 02:35; Start 05/28/20 at 14:00; Stop 05/29/20 at 13:59 Nicardipine HCl (Cardene) 25 mg STK-MED ONCE IV ; Start 05/28/20 at 14:47; Stop 05/28/20 at 14:47; Status DC Nicardipine HCl 50 mg/Sodium Chloride 250 ml @ 25 mls/hr TITRATE PRN IV PER PROTOCOL; Start 05/28/20 at 17:30 Nitroglycerin (Nitroglycerin) 50 mg STK-MED ONCE .ROUTE ; Start 05/28/20 at 14:47; Stop 05/28/20 at 14:47; Status DC Non-Formulary Medication (Budesonide/ Formoterol Fumarate (Symbicort 160-4.5 Mcg Inhaler)) 2 puff BID IH ; Start 05/29/20 at 09:00; Status UNV Ondansetron HCl (Zofran) 4 mg PRN Q8HRS PRN IV NAUSEA/VOMITING; Start 05/28/20 at 14:00; Stop 05/29/20 at 13:59 Ondansetron HCl (Zofran) 4 mg STK-MED ONCE .ROUTE ; Start 05/28/20 at 16:26; Stop 05/28/20 at 16:27; Status DC Phenylephrine HCl (John-Synephrine Inj) 10 mg STK-MED ONCE .ROUTE ; Start 05/28/20 at 16:26; Stop 05/28/20 at 16:27; Status DC Phenylephrine HCl (John-Synephrine Inj) 10 mg STK-MED ONCE .ROUTE ; Start 05/28/20 at 16:40; Stop 05/28/20 at 16:41; Status DC Phenylephrine HCl (PHENYLEPHRINE in 0.9% NACL PF) 1 mg STK-MED ONCE IV ; Start 05/28/20 at 14:21; Stop 05/28/20 at 14:21; Status DC Phenytoin Sodium (Dilantin) 100 mg BID PO ; Start 05/28/20 at 22:15 Potassium Chloride/Dextrose/ Sod Cl 1,000 ml @ 75 mls/hr [id number] IV Last administered on 05/28/20at 18:18; Start 05/28/20 at 20:00 Prochlorperazine Edisylate (Compazine) 5 mg PACU PRN PRN IVP NAUSEA, MRX1; Start 05/28/20 at 15:00; Stop 05/28/20 at 21:00; Status DC Propofol (Diprivan) 200 mg STK-MED ONCE IV ; Start 05/28/20 at 14:19; Stop 05/28/20 at 14:20; Status DC Ringer's Solution 1,000 ml @ 30 mls/hr Q24H IV ; Start 05/28/20 at 15:00; Stop 05/28/20 at 21:00; Status DC Rocuronium Marion (Zemuron) 50 mg STK-MED ONCE .ROUTE ; Start 05/28/20 at 14:20; Stop 05/28/20 at 14:20; Status DC Rocuronium Marion (Zemuron) 50 mg STK-MED ONCE .ROUTE ; Start 05/28/20 at 16:26; Stop 05/28/20 at 16:26; Status DC Sevoflurane (Ultane) 60 ml STK-MED ONCE IH ; Start 05/28/20 at 17:20; Stop 05/28/20 at 17:20; Status DC Sodium Chloride (Normal Saline Flush) 3 ml QSHIFT PRN IV AFTER MEDS AND BLOOD DRAWS; Start 05/28/20 at 17:15 Thrombin 20,000 unit STK-MED ONCE TP Last administered on 05/28/20at 16:14; Start 05/28/20 at 14:58; Stop 05/28/20 at 14:58; Status DC Vitals/I & O Vital Sign - Last 24 Hours 05/28/20 05/28/20 05/28/20 05/28/20 11:50 12:57 13:12 13:42 Temp 99.2 99.2 Pulse 95 73 75 71 Resp 32 16 16 16 B/P (MAP) 136/85 (102) 142/84 (103) 146/86 (106) 142/87 (105) Pulse Ox 98 93 93 97 O2 Delivery Room Air Room Air Room Air Nasal Cannula O2 Flow Rate 2.0 05/28/20 05/28/20 05/28/20 05/28/20 13:57 14:12 17:24 17:24 Temp 98.8 98.8 Pulse 70 78 76 Resp 16 16 20 B/P (MAP) 143/86 (105) 137/83 (101) 123/81 Pulse Ox 100 100 100 O2 Delivery Nasal Cannula Nasal Cannula Simple Mask Mask O2 Flow Rate 2.0 2.0 10 10 05/28/20 05/28/20 05/28/20 05/28/20 17:39 17:54 18:00 18:09 Pulse 69 69 71 71 Resp 22 20 18 20 B/P (MAP) 145/74 124/78 140/79 (99) 129/74 Pulse Ox 98 100 94 94 O2 Delivery Simple Mask Simple Mask Room Air Room Air O2 Flow Rate 10 10 05/28/20 05/28/20 05/28/20 05/28/20 18:24 18:31 19:19 19:28 Temp 97.4 98.6 97.4 98.6 Pulse 70 77 62 Resp 20 20 22 16 B/P (MAP) 140/66 117/84 133/57 (82) Pulse Ox 91 92 95 95 O2 Delivery Room Air Room Air Nasal Cannula Room Air O2 Flow Rate 2.0 2.0 05/28/20 05/28/20 05/28/20 05/28/20 19:58 20:00 20:01 20:58 Temp 98.6 98.6 98.6 98.6 Pulse 62 70 Resp 16 16 18 B/P (MAP) 129/57 (81) 126/61 (82) Pulse Ox 94 100 100 O2 Delivery Room Air Nasal Cannula Nasal Cannula Nasal Cannula O2 Flow Rate 2.0 2.0 2.0 2.0 05/28/20 05/28/20 05/28/20 05/28/20 21:53 22:28 22:58 23:00 Temp 98.6 98.6 Pulse 65 72 Resp 20 18 18 B/P (MAP) 136/62 (86) 119/77 (91) Pulse Ox 100 97 100 100 O2 Delivery Nasal Cannula BiPAP/CPAP Nasal Cannula Nasal Cannula O2 Flow Rate 2.0 2.0 2.0 2.0 05/28/20 05/28/20 05/29/20 05/29/20 23:46 23:49 00:42 00:53 Temp 98.6 98.3 98.6 98.3 Pulse 70 76 Resp 20 20 20 B/P (MAP) 104/78 (87) 101/68 (79) Pulse Ox 100 100 O2 Delivery Nasal Cannula Nasal Cannula Nasal Cannula Nasal Cannula O2 Flow Rate 2.0 2.0 2.0 2.0 05/29/20 05/29/20 05/29/20 05/29/20 01:30 02:01 02:35 03:03 Temp 98.3 98.3 98.3 98.3 Pulse 68 68 Resp 16 16 20 20 B/P (MAP) 104/53 (70) 108/49 (68) Pulse Ox 99 100 100 100 O2 Delivery Nasal Cannula Nasal Cannula Nasal Cannula Nasal Cannula O2 Flow Rate 2.0 2.0 2.0 2.0 05/29/20 05/29/20 05/29/20 05/29/20 03:12 04:05 04:07 05:18 Temp 98.3 98.3 98.3 98.3 Pulse 69 67 Resp 18 16 18 B/P (MAP) 93/55 (68) 103/55 (71) Pulse Ox 99 100 100 O2 Delivery Nasal Cannula Nasal Cannula Nasal Cannula Nasal Cannula O2 Flow Rate 2.0 2.0 2.0 2.0 05/29/20 05/29/20 06:24 07:58 Temp 98.4 99.2 98.4 99.2 Pulse 67 B/P (MAP) 103/55 (71) Pulse Ox 100 O2 Delivery Nasal Cannula O2 Flow Rate 2.0 Intake and Output 05/28/20 05/28/20 05/29/20 15:00 23:00 07:00 Intake Total 0 ml 0 ml Output Total 905 ml 340 ml Balance -905 ml -340 ml Justifications for Admission Other Justification KELSY BERNSTEIN MD May 29, 2020 08:31
[2020-05-29] MEDS: PHENYTOIN SODIUM EXTENDED 100 MG CAPSULE PO SCH (09:00)
[2020-05-29] MEDS: METOPROLOL SUCC 24HR ER 25 MG TAB.ER.24H. PO SCH (09:00)
[2020-05-29] MEDS ORDERED: NON FORMULARY ITEM (Budesonide/Formoterol Fumarate (Symbicort 160-4.5 Mcg Inhaler) 2 PUFF) IH SCH (09:00)
[2020-05-29] MEDS: DOCUSATE SODIUM 100 MG CAPSULE. PO SCH ×2 (09:00→20:54)
[2020-05-29] MEDS ORDERED: LOSARTAN POTASSIUM 50 MG TABLET. PO SCH (09:00)
--- NOTE | 2020-05-29 09:19 | PDOC2 ---
RUY ROSALES WORK[employer] COMPENSATION EXAMINER 05/29/20 0919: CARDIAC CONSULT DATE OF CONSULT Date of Consult DATE: 05/29/20 TIME: 08:52 REASON FOR CONSULT Reason for Consult: CAD, NSTEMI REFERRING PHYSICIAN Referring Physician: Dr. Glynn SOURCE Source: Chart review HISTORY OF PRESENT ILLNESS HISTORY OF PRESENT ILLNESS This is a 80 yo male, with a history of 3V CAD, seizures, and dementia, who presented secondary to altered mental status. Patient was found down on floor by caregiver. Mentation was altered from baseline. Patient is able to tell me her feel at home. Does not know if he tripped and fell or was dizziness. Unknown if there was any loss of consciousness. Patient has a known history of 3V CAD being medically managed. Troponin noted at [address] head noted with subdural hematoma and underwent evacuation by neurosurgery. Patient was not started on anticoagulation therapy due to SDH. Patient denies any chest pain, dizziness, diaphoresis, or shortness of breath. PAST MEDICAL HISTORY Cardiovascular: CAD, CHF, HTN, Hyperlipidemia Pulmonary: COPD CENTRAL NERVOUS SYSTEM: Dementia, Seizure Musculoskeletal: Osteoarthritis Renal/: Acute renal failure PAST SURGICAL HISTORY Past Surgical History: No pertinent history FAMILY HISTORY Family History: Hypertension SOCIAL HISTORY Smoke: Quit ALCOHOL: none Drugs: None Lives: Alone CURRENT MEDICATIONS CURRENT MEDICATIONS Current Medications Medications (Trade) Dose Ordered Sig/Rebekah Route PRN Reason Start Time Stop Time Status Last Admin Dose Admin Aspirin (Aspirin Chewable) 324 mg 1X ONCE PO 05/28/20 13:00 05/28/20 13:01 DC 05/28/20 13:14 Furosemide (Lasix) 40 mg 1X ONCE IVP 05/28/20 13:45 05/28/20 13:46 DC 05/28/20 13:56 Morphine Sulfate (Morphine Sulfate) 4 mg PRN Q2HR PRN IV PAIN 05/28/20 14:00 05/29/20 13:59 05/29/20 02:35 Bacitracin 03078 unit/Sodium Chloride 1,000 ml @ 1,000 mls/hr 1X ONCE IRR 05/28/20 15:00 05/28/20 15:59 DC 05/28/20 16:14 Gelatin (Gelfoam Size 100) 1 each STK-MED ONCE .ROUTE 05/28/20 14:58 05/28/20 14:58 DC 05/28/20 16:14 Thrombin 20,000 unit STK-MED ONCE TP 05/28/20 14:58 05/28/20 14:58 DC 05/28/20 16:14 Bupivacaine HCl/ Epinephrine Bitart (Sensorcain-Epi 0.5%-1:810492 Mpf) 30 ml STK-MED ONCE .ROUTE 05/28/20 14:58 05/28/20 14:59 DC 05/28/20 16:14 Cefazolin Sodium (Ancef) 1 gm Q8HRS IVP 05/28/20 22:00 05/29/20 14:01 05/29/20 05:56 Fentanyl Citrate (Fentanyl 2ml Vial) 50 mcg PRN Q2HR PRN IVP PAIN 05/28/20 17:15 05/29/20 00:42 Potassium Chloride/Dextrose/ Sod Cl 1,000 ml @ 75 mls/hr [id number] IV 05/28/20 20:00 05/28/20 18:18 ALLERGIES ALLERGIES: Coded Allergies: No Known Drug Allergies (Unverified , 05/28/20) ROS Review of System 14 point ROS conducted with pertinent positives noted above in HPI, although limited. PHYSICAL EXAM General: Alert, Cooperative, No acute distress HEENT: Other (drsg intact to right head ) Heart: Regular rate Abdomen: Soft, No tenderness Extremities: No edema, Normal pulses Skin: No significant lesion Neuro: Normal speech, Sensation intact Psych/Mental Status: Mood NL MUSCULOSKELETAL: Osteoarthritic changes both hands VITALS/I&O VITALS/I&O: Vital Signs Date Time Temp Pulse Resp B/P (MAP) Pulse Ox O2 Delivery O2 Flow Rate FiO2 05/29/20 07:58 99.2 99.2 05/29/20 06:24 67 103/55 (71) 100 Nasal Cannula 2.0 05/29/20 05:18 18 I & O 05/28/20 05/28/20 05/29/20 15:00 23:00 07:00 Intake Total 0 ml 0 ml Output Total 905 ml 340 ml Balance -905 ml -340 ml LABS Lab: Laboratory Tests Test 05/28/20 12:05 05/28/20 13:40 05/29/20 00:25 05/29/20 05:15 White Blood Count 11.9 x10^3/uL (4.0-11.0) H 13.1 x10^3/uL (4.0-11.0) H Red Blood Count 4.66 x10^6/uL (4.30-5.70) 4.34 x10^6/uL (4.30-5.70) Hemoglobin 13.0 g/dL (13.0-17.5) 11.8 g/dL (13.0-17.5) L Hematocrit 38.9 % (39.0-53.0) L 36.3 % (39.0-53.0) L Mean Corpuscular Volume 84 fL (79-100) 84 fL (79-100) Mean Corpuscular Hemoglobin 28 pg (25-35) 27 pg (25-35) Mean Corpuscular Hemoglobin Concent 33 g/dL (31-37) 32 g/dL (31-37) Red Cell Distribution Width 13.8 % (11.5-14.5) 13.6 % (11.5-14.5) Platelet Count 247 x10^3/uL (140-400) 242 x10^3/uL (140-400) Neutrophils (%) (Auto) 81 % (31-73) H 80 % (31-73) H Lymphocytes (%) (Auto) 9 % (24-48) L 10 % (24-48) L Monocytes (%) (Auto) 10 % (0-9) H 10 % (0-9) H Eosinophils (%) (Auto) 0 % (0-3) 0 % (0-3) Basophils (%) (Auto) 1 % (0-3) 0 % (0-3) Neutrophils # (Auto) 9.6 x10^3/uL (1.8-7.7) H 10.4 x10^3/uL (1.8-7.7) H Lymphocytes # (Auto) 1.1 x10^3/uL (1.0-4.8) 1.3 x10^3/uL (1.0-4.8) Monocytes # (Auto) 1.1 x10^3/uL (0.0-1.1) 1.3 x10^3/uL (0.0-1.1) H Eosinophils # (Auto) 0.0 x10^3/uL (0.0-0.7) 0.0 x10^3/uL (0.0-0.7) Basophils # (Auto) 0.1 x10^3/uL (0.0-0.2) 0.0 x10^3/uL (0.0-0.2) Prothrombin Time 15.5 SEC (11.7-14.0) H Prothrombin Time INR 1.3 (0.8-1.1) H Activated Partial Thromboplast Time 30 SEC (24-38) Sodium Level 137 mmol/L (136-145) 137 mmol/L (136-145) Potassium Level 3.8 mmol/L (3.5-5.1) 4.3 mmol/L (3.5-5.1) Chloride Level 101 mmol/L (98-107) 103 mmol/L (98-107) Carbon Dioxide Level 27 mmol/L (21-32) 26 mmol/L (21-32) Anion Gap 9 (6-14) 8 (6-14) Blood Urea Nitrogen 14 mg/dL (8-26) 18 mg/dL (8-26) Creatinine 1.1 mg/dL (0.7-1.3) 1.2 mg/dL (0.7-1.3) Estimated GFR (Cockcroft-Gault) 78.3 70.9 Glucose Level 108 mg/dL (70-99) H 143 mg/dL (70-99) H Calcium Level 9.3 mg/dL (8.5-10.1) 7.8 mg/dL (8.5-10.1) L Magnesium Level 2.1 mg/dL (1.8-2.4) Total Bilirubin 0.7 mg/dL (0.2-1.0) Direct Bilirubin 0.3 mg/dL (0.0-0.2) H Aspartate Amino Transferase (AST) 142 U/L (15-37) H Alanine Aminotransferase (ALT) 33 U/L (16-63) Alkaline Phosphatase 149 U/L (46-116) H Ammonia 10 mcmol/L (11-34) L Creatine Kinase 1048 U/L (39-308) H Troponin I Quantitative 34.764 ng/mL (0.000-0.055) 19.152 ng/mL (0.000-0.055) 17.354 ng/mL (0.000-0.055) VX-Tas-D-Type Natriuretic Peptide 1388 pg/mL (0-449) H Total Protein 8.5 g/dL (6.4-8.2) H Albumin 3.2 g/dL (3.4-5.0) L SARS-CoV-2 Antigen (Rapid) Negative (NEGATIVE) Phenytoin (Dilantin) Level 24.2 mcg/mL (10.0-20.0) H Phenytoin Last Dose Date Unk Phenytoin Last Dose Time Unk Laboratory Tests 05/28/20 12:05 05/29/20 05:15 Laboratory Tests 05/28/20 12:05 05/29/20 05:15 ECHOCARDIOGRAM ECHOCARDIOGRAM <Conclusion> Akinetic apical wall with ejection fraction estimated at 40-45%. 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 Mild aortic regurgitation. Moderate mitral regurgitation. Mild to moderate tricuspid regurgitation. Estimated PAP 46 mmHg. There is no evidence of significant pericardial effusion. DATE: 03/06/20 [id number] 0 HEART CATH HEART CATH FINDINGS 1. Hemodynamics: Left ventricular end-diastolic pressure of 16 mmHg. No pullback gradient across the aortic valve. 2. Coronary angiography: a. The left main coronary artery arose from the left sinus of Valsalva, gave rise to the left anterior descending and left circumflex arteries and did not show any significant stenosis. b. The left anterior descending artery was heavily calcified and showed sequential 80%, 80% and 90% stenosis in the midsegment. c. The left circumflex artery was calcified and showed ectatic areas with a long 50% stenosis in the midsegment and 100% occlusion in the very distal segment. The first obtuse marginal branch which is a medium caliber vessel showed 90% proximal segment stenosis and a second obtuse marginal branch which is also a medium caliber vessel showed 90% stenosis in the proximal segment. d. The right coronary artery arose from the right sinus of Valsalva and showed 70% stenosis in the proximal to mid segment and 60% stenosis in the midsegment. Conclusion Severe three-vessel coronary artery disease Recommendations Patient needs coronary artery bypass surgery but considering his age, dementia a nd comorbidities, we will discuss with family regarding pursuing conservative management by optimizing medical therapy. DATE: 03/06/20 [id number] 0 ASSESSMENT/PLAN ASSESSMENT/PLAN 1. Fall; details unknown. No acute events on tele. 2. Encephalopathy with underlying dementia 3. SDH s/p evacuation 4. NSTEMI: trop peak 34. Recent LHC revealed severe 3VD CAD as noted above. Managed medically given his significant dementia, age and significant comorbid conditions. CP free. 5. Chronic systolic CHF; clinically compensated 6. ICM: Recent echo with LVEF of 40-45% 7. Hx of seizure with Dilantin use 8. NAE: due to dehydration and now resolved 9. Hypertension; low end 10. Hyperlipidemia; statin Recommendations Secondary prevention as able. No ASA with SDH Continue statin Losartan and Toprol as BP allows. Follow neurosurgery recommendations Supportive care FRANKIE MARRUFO MD 05/29/20 2913: CARDIAC CONSULT ASSESSMENT/PLAN ASSESSMENT/PLAN Patient seen and examined. Agree with EGG WORKER's assessment and plan. Patient presented with acute subdural hematoma resulting in from fall and underwent evacuation by neurosurgery team Elevated troponin consistent with non-STEMI. Patient has known history of three-vessel coronary disease that has been managed medically as stated above. Chronic systolic heart failure clinically well compensated. Telemetry did not show any significant arrhythmias. We were unable to give heparin secondary to SDH. Continue conservative management for non-STEMI secondary to his comorbidities. Thank you for your consultation. RUY ROSALES APRN May 29, 2020 09:19 FRANKIE MARRUFO MD May 29, 2020 17:59
[2020-05-29] MEDS: ALBUTEROL SULFATE 2.5 MG/3 ML NEBU. NEB SCH ×4 (09:21→20:32)
[2020-05-29] MEDS: BUDESONIDE 0.5 MG/2 ML NEBU. NEB SCH ×2 (09:21→20:32)
--- NOTE | 2020-05-29 10:06 | PDOC ---
PROGRESS NOTES Date of Service DATE: 05/29/20 TIME: 10:02 Subjective Subjective POD #1 s/p Right posterior frontal elba hole evacuation of chronic subdural hematoma awake, alert denies headache Objective Objective Vital Signs Date Time Temp Pulse Resp B/P (MAP) Pulse Ox O2 Delivery O2 Flow Rate FiO2 05/29/20 09:22 100 Nasal Cannula 2.0 05/29/20 09:00 64 24 104/67 (79) 05/29/20 07:58 99.2 99.2 Intake and Output 05/29/20 07:00 Intake Total 0 ml Output Total 1245 ml Balance -1245 ml Intake Oral 0 ml Output Urine Total 1195 ml Drainage Total 40 ml Estimated Blood Loss 10 ml Physical Exam General: Alert, Cooperative, No acute distress MUSCULOSKELETAL: Other (DAVE) Neuro: Other (DAVE, weaker on the left) Skin: Other (dressing dry and intact, drain removed without difficulty) Assessment Assessment Problems Medical Problems: (1) Elevated troponin Status: Acute (2) Subdural hematoma caused by concussion Status: Acute Plan Plan of Care needs to be flat for 2 hours post drain removal then may be OOB to chair PT/ OT SCDs D/W RN Comment Review of Relevant I have reviewed the following items eleazar (where applicable) has been applied. Labs Laboratory Tests Test 05/28/20 12:05 05/28/20 13:40 05/29/20 00:25 05/29/20 05:15 White Blood Count 11.9 x10^3/uL (4.0-11.0) 13.1 x10^3/uL (4.0-11.0) Red Blood Count 4.66 x10^6/uL (4.30-5.70) 4.34 x10^6/uL (4.30-5.70) Hemoglobin 13.0 g/dL (13.0-17.5) 11.8 g/dL (13.0-17.5) Hematocrit 38.9 % (39.0-53.0) 36.3 % (39.0-53.0) Mean Corpuscular Volume 84 fL (79-100) 84 fL (79-100) Mean Corpuscular Hemoglobin 28 pg (25-35) 27 pg (25-35) Mean Corpuscular Hemoglobin Concent 33 g/dL (31-37) 32 g/dL (31-37) Red Cell Distribution Width 13.8 % (11.5-14.5) 13.6 % (11.5-14.5) Platelet Count 247 x10^3/uL (140-400) 242 x10^3/uL (140-400) Neutrophils (%) (Auto) 81 % (31-73) 80 % (31-73) Lymphocytes (%) (Auto) 9 % (24-48) 10 % (24-48) Monocytes (%) (Auto) 10 % (0-9) 10 % (0-9) Eosinophils (%) (Auto) 0 % (0-3) 0 % (0-3) Basophils (%) (Auto) 1 % (0-3) 0 % (0-3) Neutrophils # (Auto) 9.6 x10^3/uL (1.8-7.7) 10.4 x10^3/uL (1.8-7.7) Lymphocytes # (Auto) 1.1 x10^3/uL (1.0-4.8) 1.3 x10^3/uL (1.0-4.8) Monocytes # (Auto) 1.1 x10^3/uL (0.0-1.1) 1.3 x10^3/uL (0.0-1.1) Eosinophils # (Auto) 0.0 x10^3/uL (0.0-0.7) 0.0 x10^3/uL (0.0-0.7) Basophils # (Auto) 0.1 x10^3/uL (0.0-0.2) 0.0 x10^3/uL (0.0-0.2) Prothrombin Time 15.5 SEC (11.7-14.0) Prothromb Time International Ratio 1.3 (0.8-1.1) Activated Partial Thromboplast Time 30 SEC (24-38) Sodium Level 137 mmol/L (136-145) 137 mmol/L (136-145) Potassium Level 3.8 mmol/L (3.5-5.1) 4.3 mmol/L (3.5-5.1) Chloride Level 101 mmol/L (98-107) 103 mmol/L (98-107) Carbon Dioxide Level 27 mmol/L (21-32) 26 mmol/L (21-32) Anion Gap 9 (6-14) 8 (6-14) Blood Urea Nitrogen 14 mg/dL (8-26) 18 mg/dL (8-26) Creatinine 1.1 mg/dL (0.7-1.3) 1.2 mg/dL (0.7-1.3) Estimated GFR (Cockcroft-Gault) 78.3 70.9 Glucose Level 108 mg/dL (70-99) 143 mg/dL (70-99) Calcium Level 9.3 mg/dL (8.5-10.1) 7.8 mg/dL (8.5-10.1) Magnesium Level 2.1 mg/dL (1.8-2.4) Total Bilirubin 0.7 mg/dL (0.2-1.0) Direct Bilirubin 0.3 mg/dL (0.0-0.2) Aspartate Amino Transf (AST/SGOT) 142 U/L (15-37) Alanine Aminotransferase (ALT/SGPT) 33 U/L (16-63) Alkaline Phosphatase 149 U/L (46-116) Ammonia 10 mcmol/L (11-34) Creatine Kinase 1048 U/L (39-308) Troponin I Quantitative 34.764 ng/mL (0.000-0.055) 19.152 ng/mL (0.000-0.055) 17.354 ng/mL (0.000-0.055) ZV-Sga-F-Type Natriuretic Peptide 1388 pg/mL (0-449) Total Protein 8.5 g/dL (6.4-8.2) Albumin 3.2 g/dL (3.4-5.0) SARS-CoV-2 Antigen (Rapid) Negative (NEGATIVE) Phenytoin (Dilantin) Level 24.2 mcg/mL (10.0-20.0) Phenytoin Last Dose Date Unk Phenytoin Last Dose Time Unk Laboratory Tests Test 05/28/20 12:05 05/28/20 13:40 05/29/20 00:25 05/29/20 05:15 White Blood Count 11.9 x10^3/uL (4.0-11.0) 13.1 x10^3/uL (4.0-11.0) Red Blood Count 4.66 x10^6/uL (4.30-5.70) 4.34 x10^6/uL (4.30-5.70) Hemoglobin 13.0 g/dL (13.0-17.5) 11.8 g/dL (13.0-17.5) Hematocrit 38.9 % (39.0-53.0) 36.3 % (39.0-53.0) Mean Corpuscular Volume 84 fL (79-100) 84 fL (79-100) Mean Corpuscular Hemoglobin 28 pg (25-35) 27 pg (25-35) Mean Corpuscular Hemoglobin Concent 33 g/dL (31-37) 32 g/dL (31-37) Red Cell Distribution Width 13.8 % (11.5-14.5) 13.6 % (11.5-14.5) Platelet Count 247 x10^3/uL (140-400) 242 x10^3/uL (140-400) Neutrophils (%) (Auto) 81 % (31-73) 80 % (31-73) Lymphocytes (%) (Auto) 9 % (24-48) 10 % (24-48) Monocytes (%) (Auto) 10 % (0-9) 10 % (0-9) Eosinophils (%) (Auto) 0 % (0-3) 0 % (0-3) Basophils (%) (Auto) 1 % (0-3) 0 % (0-3) Neutrophils # (Auto) 9.6 x10^3/uL (1.8-7.7) 10.4 x10^3/uL (1.8-7.7) Lymphocytes # (Auto) 1.1 x10^3/uL (1.0-4.8) 1.3 x10^3/uL (1.0-4.8) Monocytes # (Auto) 1.1 x10^3/uL (0.0-1.1) 1.3 x10^3/uL (0.0-1.1) Eosinophils # (Auto) 0.0 x10^3/uL (0.0-0.7) 0.0 x10^3/uL (0.0-0.7) Basophils # (Auto) 0.1 x10^3/uL (0.0-0.2) 0.0 x10^3/uL (0.0-0.2) Prothrombin Time 15.5 SEC (11.7-14.0) Prothromb Time International Ratio 1.3 (0.8-1.1) Activated Partial Thromboplast Time 30 SEC (24-38) Sodium Level 137 mmol/L (136-145) 137 mmol/L (136-145) Potassium Level 3.8 mmol/L (3.5-5.1) 4.3 mmol/L (3.5-5.1) Chloride Level 101 mmol/L (98-107) 103 mmol/L (98-107) Carbon Dioxide Level 27 mmol/L (21-32) 26 mmol/L (21-32) Anion Gap 9 (6-14) 8 (6-14) Blood Urea Nitrogen 14 mg/dL (8-26) 18 mg/dL (8-26) Creatinine 1.1 mg/dL (0.7-1.3) 1.2 mg/dL (0.7-1.3) Estimated GFR (Cockcroft-Gault) 78.3 70.9 Glucose Level 108 mg/dL (70-99) 143 mg/dL (70-99) Calcium Level 9.3 mg/dL (8.5-10.1) 7.8 mg/dL (8.5-10.1) Magnesium Level 2.1 mg/dL (1.8-2.4) Total Bilirubin 0.7 mg/dL (0.2-1.0) Direct Bilirubin 0.3 mg/dL (0.0-0.2) Aspartate Amino Transf (AST/SGOT) 142 U/L (15-37) Alanine Aminotransferase (ALT/SGPT) 33 U/L (16-63) Alkaline Phosphatase 149 U/L (46-116) Ammonia 10 mcmol/L (11-34) Creatine Kinase 1048 U/L (39-308) Troponin I Quantitative 34.764 ng/mL (0.000-0.055) 19.152 ng/mL (0.000-0.055) 17.354 ng/mL (0.000-0.055) AX-Vsg-R-Type Natriuretic Peptide 1388 pg/mL (0-449) Total Protein 8.5 g/dL (6.4-8.2) Albumin 3.2 g/dL (3.4-5.0) SARS-CoV-2 Antigen (Rapid) Negative (NEGATIVE) Phenytoin (Dilantin) Level 24.2 mcg/mL (10.0-20.0) Phenytoin Last Dose Date Unk Phenytoin Last Dose Time Unk Medications Current Medications Aspirin (Aspirin Chewable) 324 mg 1X ONCE PO Last administered on 05/28/20at 13:14; Start 05/28/20 at 13:00; Stop 05/28/20 at 13:01; Status DC Furosemide (Lasix) 40 mg 1X ONCE IVP Last administered on 05/28/20at 13:56; Start 05/28/20 at 13:45; Stop 05/28/20 at 13:46; Status DC Ondansetron HCl (Zofran) 4 mg PRN Q8HRS PRN IV NAUSEA/VOMITING; Start 05/28/20 at 14:00; Stop 05/29/20 at 13:59 Morphine Sulfate (Morphine Sulfate) 4 mg PRN Q2HR PRN IV PAIN Last administered on 05/29/20at 02:35; Start 05/28/20 at 14:00; Stop 05/29/20 at 13:59 Lidocaine HCl (Lidocaine Pf 2% Vial) 5 ml STK-MED ONCE .ROUTE ; Start 05/28/20 at 14:19; Stop 05/28/20 at 14:20; Status DC Propofol (Diprivan) 200 mg STK-MED ONCE IV ; Start 05/28/20 at 14:19; Stop 05/28/20 at 14:20; Status DC Fentanyl Citrate (Fentanyl 2ml Vial) 100 mcg STK-MED ONCE .ROUTE ; Start 05/28/20 at 14:20; Stop 05/28/20 at 14:20; Status DC Rocuronium [place]rance (Zemuron) 50 mg STK-MED ONCE .ROUTE ; Start 05/28/20 at 14:20; Stop 05/28/20 at 14:20; Status DC Phenylephrine HCl (PHENYLEPHRINE in 0.9% NACL PF) 1 mg STK-MED ONCE IV ; Start 05/28/20 at 14:21; Stop 05/28/20 at 14:21; Status DC Bacitracin 34650 unit/Sodium Chloride 1,000 ml @ 1,000 mls/hr 1X ONCE IRR Last administered on 05/28/20at 16:14; Start 05/28/20 at 15:00; Stop 05/28/20 at 15:59; Status DC Nicardipine HCl (Cardene) 25 mg STK-MED ONCE IV ; Start 05/28/20 at 14:47; Stop 05/28/20 at 14:47; Status DC Nitroglycerin (Nitroglycerin) 50 mg STK-MED ONCE .ROUTE ; Start 05/28/20 at 14:47; Stop 05/28/20 at 14:47; Status DC Fentanyl Citrate (Fentanyl 2ml Vial) 25 mcg PRN Q5MIN PRN IVP MILD PAIN 1-3; Start 05/28/20 at 15:00; Stop 05/28/20 at 21:00; Status DC Morphine Sulfate (Morphine Sulfate) 1 mg PRN Q10MIN PRN IVP SEVERE PAIN 7-10; Start 05/28/20 at 15:00; Stop 05/28/20 at 21:00; Status DC Ringer's Solution 1,000 ml @ 30 mls/hr Q24H IV ; Start 05/28/20 at 15:00; Stop 05/28/20 at 21:00; Status DC Hydromorphone HCl (Dilaudid) 0.5 mg PRN Q10MIN PRN IVP SEVERE PAIN 7-10, 2nd CHOICE; Start 05/28/20 at 15:00; Stop 05/28/20 at 21:00; Status DC Prochlorperazine Edisylate (Compazine) 5 mg PACU PRN PRN IVP NAUSEA, MRX1; Start 05/28/20 at 15:00; Stop 05/28/20 at 21:00; Status DC Gelatin (Gelfoam Size 100) 1 each STK-MED ONCE .ROUTE Last administered on 05/28/20at 16:14; Start 05/28/20 at 14:58; Stop 05/28/20 at 14:58; Status DC Bupivacaine HCl/ Epinephrine Bitart (Sensorcain-Epi 0.5% Kit) 30 ml STK-MED ONCE .ROUTE ; Start 05/28/20 at 14:58; Stop 05/28/20 at 14:58; Status DC Cellulose (Surgicel Hemostat 4x8) 1 each STK-MED ONCE .ROUTE ; Start 05/28/20 at 14:58; Stop 05/28/20 at 14:58; Status DC Thrombin 20,000 unit STK-MED ONCE TP Last administered on 05/28/20at 16:14; Start 05/28/20 at 14:58; Stop 05/28/20 at 14:58; Status DC Bupivacaine HCl/ Epinephrine Bitart (Sensorcain-Epi 0.5%-1:229644 Mpf) 30 ml STK-MED ONCE .ROUTE Last administered on 05/28/20at 16:14; Start 05/28/20 at 14:58; Stop 05/28/20 at 14:59; Status DC Rocuronium [place]rance (Zemuron) 50 mg STK-MED ONCE .ROUTE ; Start 05/28/20 at 16:26; Stop 05/28/20 at 16:26; Status DC Ephedrine Sulfate (ePHEDrine PF IN SALINE SYRINGE) 50 mg STK-MED ONCE IV ; Start 05/28/20 at 16:26; Stop 05/28/20 at 16:27; Status DC Phenylephrine HCl (John-Synephrine Inj) 10 mg STK-MED ONCE .ROUTE ; Start 05/28/20 at 16:26; Stop 05/28/20 at 16:27; Status DC Ondansetron HCl (Zofran) 4 mg STK-MED ONCE .ROUTE ; Start 05/28/20 at 16:26; Stop 05/28/20 at 16:27; Status DC Dexamethasone Sodium Phosphate (Decadron) 4 mg STK-MED ONCE .ROUTE ; Start 05/28/20 at 16:26; Stop 05/28/20 at 16:27; Status DC Phenylephrine HCl (John-Synephrine Inj) 10 mg STK-MED ONCE .ROUTE ; Start 05/28/20 at 16:40; Stop 05/28/20 at 16:41; Status DC Sevoflurane (Ultane) 60 ml STK-MED ONCE IH ; Start 05/28/20 at 17:20; Stop 05/28/20 at 17:20; Status DC Nicardipine HCl 50 mg/Sodium Chloride 250 ml @ 25 mls/hr TITRATE PRN IV PER PROTOCOL; Start 05/28/20 at 17:30 Hydralazine HCl (Apresoline Inj) 5 mg PRN Q6HRS PRN IVP TO KEEP SBP<150mmHg; Start 05/28/20 at 17:15 Sodium Chloride (Normal Saline Flush) 3 ml QSHIFT PRN IV AFTER MEDS AND BLOOD DRAWS; Start 05/28/20 at 17:15 Dextrose (Dextrose 50%-Water Syringe) 12.5 gm PRN Q15MIN PRN IV SEE COMMENTS; Start 05/28/20 at 17:15 Docusate Sodium (Colace) 100 mg BID PO ; Start 05/28/20 at 21:00 Magnesium Hydroxide (Milk Of Magnesia) 2,400 mg PRN Q12HR PRN PO CONSTIPATION; Start 05/28/20 at 17:15 Cefazolin Sodium (Ancef) 1 gm Q8HRS IVP Last administered on 05/29/20at 05:56; Start 05/28/20 at 22:00; Stop 05/29/20 at 14:01 Fentanyl Citrate (Fentanyl 2ml Vial) 50 mcg PRN Q2HR PRN IVP PAIN Last administered on 05/29/20at 00:42; Start 05/28/20 at 17:15 Potassium Chloride/Dextrose/ Sod Cl 1,000 ml @ 75 mls/hr [id number] IV Last administered on 05/28/20at 18:18; Start 05/28/20 at 20:00 Losartan Potassium (Cozaar) 50 mg DAILY PO ; Start 05/29/20 at 09:00; Stop 05/29/20 at 09:08; Status DC Metoprolol Succinate (Toprol Xl) 25 mg DAILY PO ; Start 05/29/20 at 09:00 Phenytoin Sodium (Dilantin) 100 mg BID PO ; Start 05/28/20 at 22:15 Non-Formulary Medication (Budesonide/ Formoterol Fumarate (Symbicort 160-4.5 Mcg Inhaler)) 2 puff BID IH ; Start 05/29/20 at 09:00; Status UNV Atorvastatin Calcium (Lipitor) 80 mg QHS PO ; Start 05/29/20 at 21:00 Budesonide (Pulmicort) 0.5 mg RTBID NEB Last administered on 05/29/20at 09:21; Start 05/29/20 at 08:00 Albuterol Sulfate (Ventolin Neb Soln) 2.5 mg RTQID NEB Last administered on 05/29/20at 09:21; Start 05/29/20 at 08:00 Losartan Potassium (Cozaar) 25 mg DAILY PO ; Start 05/30/20 at 09:00 Active Scripts Active Crestor (Rosuvastatin Calcium) 40 Mg Tablet 0.5 Tab PO DAILY 30 Days Metoprolol Succinate ( Xl ) (Metoprolol Succinate) 25 Mg Tab.er.24h 1 Tab PO DAILY Aspirin Ec (Aspirin) 325 Mg Tablet.dr 325 Mg PO DAILYWBKFT 365 Days Reported Losartan Potassium 50 Mg Tablet 50 Mg PO DAILY Namenda (Memantine Hcl) 10 Mg Tablet 10 Mg PO HS Proair Hfa Inhaler (Albuterol Sulfate) 8.5 Gm Hfa.aer.ad 2 Puff INH QID PRN Dilantin (Phenytoin Sodium Extended) 100 Mg Capsule 1 Cap PO BID Symbicort 160-4.5 Mcg Inhaler (Budesonide/Formoterol Fumarate) 10.2 Gm Hfa.aer.ad 2 Puff IH BID Vitals/I & O Vital Sign - Last 24 Hours 05/28/20 05/28/20 05/28/20 05/28/20 11:50 12:57 13:12 13:42 Temp 99.2 99.2 Pulse 95 73 75 71 Resp 32 16 16 16 B/P (MAP) 136/85 (102) 142/84 (103) 146/86 (106) 142/87 (105) Pulse Ox 98 93 93 97 O2 Delivery Room Air Room Air Room Air Nasal Cannula O2 Flow Rate 2.0 05/28/20 05/28/20 05/28/20 05/28/20 13:57 14:12 17:24 17:24 Temp 98.8 98.8 Pulse 70 78 76 Resp 16 16 20 B/P (MAP) 143/86 (105) 137/83 (101) 123/81 Pulse Ox 100 100 100 O2 Delivery Nasal Cannula Nasal Cannula Simple Mask Mask O2 Flow Rate 2.0 2.0 10 10 05/28/20 05/28/20 05/28/20 05/28/20 17:39 17:54 18:00 18:09 Pulse 69 69 71 71 Resp 22 20 18 20 B/P (MAP) 145/74 124/78 140/79 (99) 129/74 Pulse Ox 98 100 94 94 O2 Delivery Simple Mask Simple Mask Room Air Room Air O2 Flow Rate 10 10 05/28/20 05/28/20 05/28/20 05/28/20 18:24 18:31 19:19 19:28 Temp 97.4 98.6 97.4 98.6 Pulse 70 77 62 Resp 20 20 22 16 B/P (MAP) 140/66 117/84 133/57 (82) Pulse Ox 91 92 95 95 O2 Delivery Room Air Room Air Nasal Cannula Room Air O2 Flow Rate 2.0 2.0 05/28/20 05/28/20 05/28/20 05/28/20 19:58 20:00 20:01 20:58 Temp 98.6 98.6 98.6 98.6 Pulse 62 70 Resp 16 16 18 B/P (MAP) 129/57 (81) 126/61 (82) Pulse Ox 94 100 100 O2 Delivery Room Air Nasal Cannula Nasal Cannula Nasal Cannula O2 Flow Rate 2.0 2.0 2.0 2.0 05/28/20 05/28/20 05/28/20 05/28/20 21:53 22:28 22:58 23:00 Temp 98.6 98.6 Pulse 65 72 Resp 20 18 18 B/P (MAP) 136/62 (86) 119/77 (91) Pulse Ox 100 97 100 100 O2 Delivery Nasal Cannula BiPAP/CPAP Nasal Cannula Nasal Cannula O2 Flow Rate 2.0 2.0 2.0 2.0 05/28/20 05/28/20 05/29/20 05/29/20 23:46 23:49 00:42 00:53 Temp 98.6 98.3 98.6 98.3 Pulse 70 76 Resp 20 20 20 B/P (MAP) 104/78 (87) 101/68 (79) Pulse Ox 100 100 O2 Delivery Nasal Cannula Nasal Cannula Nasal Cannula Nasal Cannula O2 Flow Rate 2.0 2.0 2.0 2.0 05/29/20 05/29/20 05/29/20 05/29/20 01:30 02:01 02:35 03:03 Temp 98.3 98.3 98.3 98.3 Pulse 68 68 Resp 16 16 20 20 B/P (MAP) 104/53 (70) 108/49 (68) Pulse Ox 99 100 100 100 O2 Delivery Nasal Cannula Nasal Cannula Nasal Cannula Nasal Cannula O2 Flow Rate 2.0 2.0 2.0 2.0 05/29/20 05/29/20 05/29/20 05/29/20 03:12 04:05 04:07 05:18 Temp 98.3 98.3 98.3 98.3 Pulse 69 67 Resp 18 16 18 B/P (MAP) 93/55 (68) 103/55 (71) Pulse Ox 99 100 100 O2 Delivery Nasal Cannula Nasal Cannula Nasal Cannula Nasal Cannula O2 Flow Rate 2.0 2.0 2.0 2.0 05/29/20 05/29/20 05/29/20 05/29/20 06:24 07:00 07:58 08:00 Temp 98.4 99.6 99.2 98.4 99.6 99.2 Pulse 67 68 68 Resp 18 26 B/P (MAP) 103/55 (71) 112/68 (83) 104/68 (80) Pulse Ox 100 100 100 O2 Delivery Nasal Cannula Nasal Cannula Nasal Cannula O2 Flow Rate 2.0 2.0 2.0 05/29/20 05/29/20 09:00 09:22 Pulse 64 Resp 24 B/P (MAP) 104/67 (79) Pulse Ox 100 100 O2 Delivery Nasal Cannula Nasal Cannula O2 Flow Rate 2.0 2.0 Intake and Output 05/28/20 05/28/20 05/29/20 15:00 23:00 07:00 Intake Total 0 ml 0 ml Output Total 905 ml 340 ml Balance -905 ml -340 ml Justifications for Admission Other Justification LIZZETTE FONTENOT APRN May 29, 2020 10:06
--- NOTE | 2020-05-29 16:02 | PDOC ---
Provider Note Date of Service: DATE: 05/29/20 TIME: 16:01 Provider Note Pt seen this morning 9 am , spoke with RN and pts jesus. H&P dictated.#[id number]. Justifications for Admission Other Justification KELSY BERNSTEIN MD May 29, 2020 16:02
--- NOTE | 2020-05-29 16:04 | NUR ---
SS following for discharge planning. SS reviewed pt chart and discussed with pt RN. Pt is from home and is currently requiring oxygen at two liters nasal canula. COVID19 negative. Pt had IV Ancef today. Pt had surgery on 05/28/[address] Elizabeth. Pt NPO. ST evaluation ordered. PT/OT ordered. Dr. Fernandez consulted. SS will continue to follow for discharge planning.
--- NOTE | 2020-05-29 16:24 | HP ---
ADMIT DATE: 05/28/2020 MEDICAL HISTORY AND PHYSICAL LOCATION: 107. REASON FOR ADMISSION TO THE HOSPITAL: Mechanical fall at home, subdural hematoma. HISTORY OF PRESENT ILLNESS: The patient is a 80-year-old male who lives at home who has a caregiver and the patient's caregiver came to him. He was on the floor and he was confused. Paramedics were called, brought to the hospital. CT scan shows a right subdural hematoma with left-sided weakness. The patient was taken to emergency surgery last night and a elba hole done and subdural was evacuated. Was admitted to the ICU. The patient was also found to have elevated troponin, 34. The patient has a known history of coronary artery disease in the past. The patient's family decided to continue medical treatment. No intervention and is a 3-vessel disease by heart cath, I believe. PAST MEDICAL HISTORY: Coronary artery disease, CHF, hypertension, dementia, seizures, COPD. PAST SURGICAL HISTORY: Heart cath 3 months ago. FAMILY HISTORY: Hypertension. SOCIAL HISTORY: Ex-smoker, quit. Denies alcohol, drug abuse. ALLERGIES: None. MEDICATIONS AT HOME: The patient is on Dilantin 100 mg twice daily, losartan 50 mg daily, metoprolol 25 mg daily, Crestor 40 mg daily, aspirin 81 mg daily, Namenda 10 mg at bedtime, albuterol inhaler. REVIEW OF SYMPTOMS: The patient is seen in the ICU, has some confusion, hard to get a good review of symptoms. Spoke with the patient's niece. PHYSICAL EXAMINATION: VITAL SIGNS: At the time of admission shows a temperature 99, pulse 95, respirations 32, blood pressure 136/85, 98 on room air. HEENT: Head had a elba hole on the right side. Pupils equal. Oral cavity, no congestion. The patient recognizes me and smiles. CHEST: Symmetrical. CARDIOVASCULAR: S1, S2. LUNGS: Clear to auscultation. ABDOMEN: Soft. No mass palpable. EXTERNAL GENITALIA: Deferred. EXTREMITIES: No calf tenderness, no edema. NEUROLOGIC: The patient is moving extremities. LABORATORY DATA: Shows a white count of 12, hemoglobin 13, platelets 247. INR 1.3. Electrolytes show sodium 137, potassium 3.8, chloride 101, bicarb 27, anion gap 9, BUN 14, creatinine 1.1, magnesium 2.1, AST 143. BNP 1388. His troponin 34, trending down to 17. Dilantin is 24. COVID test was negative. CT scan shows a right subdural hematoma and the chest x-ray, emphysema. FINAL IMPRESSION: 1. Subdural hematoma secondary to a fall. 2. History of seizures, on Dilantin. 3. Non-ST elevation myocardial infarction, elevated troponin. The patient has a known history of coronary artery disease, 3-vessel disease. The patient's family opted medical treatment. 4. Dementia. 5. Chronic obstructive pulmonary disease. PLAN: At this time, was admitted to the hospital, had a surgery for evacuation of hematoma, last night with elba hole and seems to be improving. Continue PT, OT. Hold aspirin for 24 hours until cleared by Neurosurgery. We will have Cardiology consult for troponin elevated, it is trending down. PT, OT and speech and see how he does. KELSY BERNTSEIN MD DR: LIANET/yaneth JOB#: [id number] / [id number]
[2020-05-29] MEDS: ATORVASTATIN CALCIUM 40 MG TABLET. PO SCH (20:54)
[2020-05-29] MEDS: POTASSIUM CL 20MEQ D5-0.45NACL 1,000 ML IV SCH (20:54)
[2020-05-30] VITALS (19 sets, daily range): BP systolic 92–126; BP diastolic 56–92
[2020-05-30] MEDS: ALBUTEROL SULFATE 2.5 MG/3 ML NEBU. NEB SCH ×4 (07:35→20:59)
[2020-05-30] MEDS: BUDESONIDE 0.5 MG/2 ML NEBU. NEB SCH ×2 (07:36→20:59)
[2020-05-30 07:49] LABS: BASO # 0.1 x10^3/uL (0.0-0.2); BASO % 1 % (0-3); EOS % 0 % (0-3); HEMOGLOBIN 11.1 g/dL (13.0-17.5); LYMPH # 1.1 x10^3/uL (1.0-4.8); LYMPH % 10 % (24-48); MEAN CORPUSCULAR HEMOGLOBIN 27 pg (25-35); MEAN CORPUSCULAR HGB CONC 33 g/dL (31-37); MEAN CORPUSCULAR VOLUME 84 fL (79-100); MONO # 1.2 x10^3/uL (0.0-1.1); MONO % 10 % (0-9); NEUT # 9.2 x10^3/uL (1.8-7.7); NEUT % 79 % (31-73); PLATELET COUNT 227 x10^3/uL (140-400); RED BLOOD COUNT 4.05 x10^6/uL (4.30-5.70); RED CELL DISTRIBUTION WIDTH 13.3 % (11.5-14.5); WHITE BLOOD COUNT 11.6 x10^3/uL (4.0-11.0)
[2020-05-30 08:01] LABS: CALCIUM 7.8 mg/dL (8.5-10.1); GFR 87.4; POTASSIUM 4.4 mmol/L (3.5-5.1)
--- NOTE | 2020-05-30 08:12 | PDOC ---
PROGRESS NOTES Date of Service: DATE: 05/30/20 TIME: 08:12 Subjective Subjective awake Objective Objective Vital Signs Date Time Temp Pulse Resp B/P (MAP) Pulse Ox O2 Delivery O2 Flow Rate FiO2 05/30/20 07:36 100 Nasal Cannula 2.0 05/30/20 06:00 77 28 106/65 (79) 05/30/20 04:00 98.8 98.8 Intake and Output 05/30/20 07:00 Intake Total 900 ml Output Total 880 ml Balance 20 ml Intake Oral 0 ml Other 900 ml Output Urine Total 880 ml Stool Total 0 ml Physical Exam Abdomen: Soft, No tenderness Heart: Regular rate Extremities: No edema, Normal pulses General: Alert, Cooperative, No acute distress HEENT: Other (drsg intact to right head ) MUSCULOSKELETAL: Osteoarthritic changes both hands Neuro: Normal speech, Sensation intact Psych/Mental Status: Mood NL Skin: No significant lesion Diagnosis Problem List Problems Medical Problems: (1) Elevated troponin Status: Acute (2) Subdural hematoma caused by concussion Status: Acute Assessment Assessment Problems Medical Problems: (1) Elevated troponin Status: Acute (2) Subdural hematoma caused by concussion Status: Acute FINAL IMPRESSION: 1. Subdural hematoma secondary to a fall. 2. History of seizures, on Dilantin. 3. Non-ST elevation myocardial infarction, elevated troponin. The patient has a known history of coronary artery disease, 3-vessel disease. The patient's family opted medical treatment. 4. Dementia. 5. Chronic obstructive pulmonary disease. PLAN: POD#3,bur hole for subdural hematoma nauro consult appreciated change to Bang from dilantin speech consult step down unit start feeding today SNU placement At this time, was admitted to the hospital, had a surgery for evacuation of hematoma, last night with elba hole and seems to be improving. Continue PT, OT. Hold aspirin for 24 hours until cleared by Neurosurgery. We will have Cardiology consult for troponin elevated, it is trending down. PT, OT and speech and see how he does. Plan Plan of Care Problems Medical Problems: (1) Elevated troponin Status: Acute (2) Subdural hematoma caused by concussion Status: Acute Comment Review of Relevant I have reviewed the following items eleazar (where applicable) has been applied. Labs Laboratory Tests Test 05/30/20 07:45 White Blood Count 11.6 x10^3/uL (4.0-11.0) Red Blood Count 4.05 x10^6/uL (4.30-5.70) Hemoglobin 11.1 g/dL (13.0-17.5) Hematocrit 34.0 % (39.0-53.0) Mean Corpuscular Volume 84 fL (79-100) Mean Corpuscular Hemoglobin 27 pg (25-35) Mean Corpuscular Hemoglobin Concent 33 g/dL (31-37) Red Cell Distribution Width 13.3 % (11.5-14.5) Platelet Count 227 x10^3/uL (140-400) Neutrophils (%) (Auto) 79 % (31-73) Lymphocytes (%) (Auto) 10 % (24-48) Monocytes (%) (Auto) 10 % (0-9) Eosinophils (%) (Auto) 0 % (0-3) Basophils (%) (Auto) 1 % (0-3) Neutrophils # (Auto) 9.2 x10^3/uL (1.8-7.7) Lymphocytes # (Auto) 1.1 x10^3/uL (1.0-4.8) Monocytes # (Auto) 1.2 x10^3/uL (0.0-1.1) Eosinophils # (Auto) 0.0 x10^3/uL (0.0-0.7) Basophils # (Auto) 0.1 x10^3/uL (0.0-0.2) Sodium Level 139 mmol/L (136-145) Potassium Level 4.4 mmol/L (3.5-5.1) Chloride Level 105 mmol/L (98-107) Carbon Dioxide Level 25 mmol/L (21-32) Anion Gap 9 (6-14) Blood Urea Nitrogen 19 mg/dL (8-26) Creatinine 1.0 mg/dL (0.7-1.3) Estimated GFR (Cockcroft-Gault) 87.4 Glucose Level 116 mg/dL (70-99) Calcium Level 7.8 mg/dL (8.5-10.1) Microbiology 05/28/20 Blood Culture - Preliminary, Resulted NO GROWTH AFTER 1 DAY Medications Current Medications Atorvastatin Calcium (Lipitor) 80 mg QHS PO ; Start 05/29/20 at 21:00 Levetiracetam (Keppra) 250 mg BID PO ; Start 05/30/20 at 09:00 Losartan Potassium (Cozaar) 25 mg DAILY PO ; Start 05/30/20 at 09:00 Losartan Potassium (Cozaar) 50 mg DAILY PO ; Start 05/29/20 at 09:00; Stop 05/29/20 at 09:08; Status DC Metoprolol Succinate (Toprol Xl) 25 mg DAILY PO ; Start 05/29/20 at 09:00 Non-Formulary Medication (Budesonide/ Formoterol Fumarate (Symbicort 160-4.5 Mcg Inhaler)) 2 puff BID IH ; Start 05/29/20 at 09:00; Status UNV Vitals/I & O Vital Sign - Last 24 Hours 05/29/20 05/29/20 05/29/20 05/29/20 09:00 09:00 09:22 10:00 Pulse 64 66 65 Resp 24 24 B/P (MAP) 104/67 (79) 105/50 100/47 (64) Pulse Ox 100 100 100 O2 Delivery Nasal Cannula Nasal Cannula Nasal Cannula O2 Flow Rate 2.0 2.0 2.0 05/29/20 05/29/20 05/29/20 05/29/20 10:00 11:00 11:00 12:00 Temp 99.2 99.2 Pulse 66 66 66 66 Resp 24 18 33 22 B/P (MAP) 109/60 (76) 105/50 (68) 105/65 (78) 111/59 (76) Pulse Ox 100 100 100 100 O2 Delivery Nasal Cannula Nasal Cannula Nasal Cannula Nasal Cannula O2 Flow Rate 2.0 2.0 2.0 2.0 05/29/20 05/29/20 05/29/20 05/29/20 12:00 12:58 13:00 14:00 Temp 98.5 98.5 Pulse 70 70 Resp 20 24 B/P (MAP) 119/53 (75) 104/51 (68) Pulse Ox 100 100 100 O2 Delivery Nasal Cannula Nasal Cannula Nasal Cannula Nasal Cannula O2 Flow Rate 2.0 2.0 2.0 2.0 05/29/20 05/29/20 05/29/20 05/29/20 15:00 15:08 16:00 16:00 Temp 98.4 98.4 Pulse 73 76 75 Resp 24 27 26 B/P (MAP) 130/76 (94) 113/63 (80) 129/87 (101) Pulse Ox 100 100 100 100 O2 Delivery Nasal Cannula Nasal Cannula Nasal Cannula Nasal Cannula O2 Flow Rate 2.0 2.0 2.0 2.0 05/29/20 05/29/20 05/29/20 05/29/20 16:00 17:00 18:00 19:00 Temp 97.4 97.4 Pulse 79 80 78 Resp 22 22 29 B/P (MAP) 126/77 (93) 105/67 (80) 115/70 (85) Pulse Ox 100 100 100 O2 Delivery Nasal Cannula Nasal Cannula Nasal Cannula Nasal Cannula O2 Flow Rate 2.0 2.0 2.0 2.0 05/29/20 05/29/20 05/29/20 05/29/20 20:00 20:00 20:33 21:00 Pulse 81 77 Resp 23 20 B/P (MAP) 118/82 (94) 119/72 (88) Pulse Ox 100 100 100 O2 Delivery Nasal Cannula Nasal Cannula Nasal Cannula Room Air O2 Flow Rate 2.0 2.0 2.0 05/29/20 05/29/20 05/29/20 05/30/20 22:01 23:00 23:59 00:00 Temp 98.8 98.8 Pulse 82 81 75 Resp 26 32 32 B/P (MAP) 123/63 (83) 113/79 (90) 103/60 (74) Pulse Ox 100 100 100 O2 Delivery Room Air Nasal Cannula Nasal Cannula Nasal Cannula O2 Flow Rate 2.0 2.0 2.0 05/30/20 05/30/20 05/30/20 05/30/20 02:00 03:00 04:00 05:00 Temp 98.8 98.8 Pulse 74 82 80 80 Resp 20 25 22 25 B/P (MAP) 101/63 (76) 113/71 (85) 107/56 (73) 114/56 (75) Pulse Ox 100 100 100 100 O2 Delivery Room Air Room Air Room Air Room Air 05/30/20 05/30/20 06:00 07:36 Pulse 77 Resp 28 B/P (MAP) 106/65 (79) Pulse Ox 100 100 O2 Delivery Room Air Nasal Cannula O2 Flow Rate 2.0 Intake and Output0 05/29/20 05/29/20 05/30/20 15:00 23:00 07:00 Intake Total 0 ml 0 ml 900 ml Output Total 150 ml 200 ml 530 ml Balance -150 ml -200 ml 370 ml Justifications for Admission Other Justification Nutrition Consultation Dietary Evaluation: Recommendations by RD: Dietary education by RD, Increase Calorie Intake, Protein supplementation Comments: REC advance diet as able/appropriate, goal diet cardiac w/Ensure supplements prn REC PPN or dobhoff/TFs if unable to advance diet within 24 - 48 hrs Expected Outcomes/Goals: diet advancement Malnutrition Findings: Body Fat Depletion (Non Severe: Mild Depletion Weight Status: Underweight KELSY BERNSTEIN MD May 30, 2020 08:12
--- NOTE | 2020-05-30 08:48 | PDOC ---
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 05/30/20 0848: CARDIO Progress Notes Date and Time Date of Service 05/30/20 Time of Evaluation 1150 Subjective Subjective: No Chest Pain, No shortness of breath, No Palpitations Vitals Vitals Vital Signs Date Time Temp Pulse Resp B/P (MAP) Pulse Ox O2 Delivery O2 Flow Rate FiO2 05/30/20 07:36 100 Nasal Cannula 2.0 05/30/20 06:00 77 28 106/65 (79) 05/30/20 04:00 98.8 98.8 Weight Weight [ ] Input and Output Intake and Output Intake and Output 05/30/20 07:00 Intake Total 900 ml Output Total 880 ml Balance 20 ml Intake Oral 0 ml Other 900 ml Output Urine Total 880 ml Stool Total 0 ml Laboratory Labs Laboratory Tests Test 05/30/20 07:45 White Blood Count 11.6 x10^3/uL (4.0-11.0) Red Blood Count 4.05 x10^6/uL (4.30-5.70) Hemoglobin 11.1 g/dL (13.0-17.5) Hematocrit 34.0 % (39.0-53.0) Mean Corpuscular Volume 84 fL (79-100) Mean Corpuscular Hemoglobin 27 pg (25-35) Mean Corpuscular Hemoglobin Concent 33 g/dL (31-37) Red Cell Distribution Width 13.3 % (11.5-14.5) Platelet Count 227 x10^3/uL (140-400) Neutrophils (%) (Auto) 79 % (31-73) Lymphocytes (%) (Auto) 10 % (24-48) Monocytes (%) (Auto) 10 % (0-9) Eosinophils (%) (Auto) 0 % (0-3) Basophils (%) (Auto) 1 % (0-3) Neutrophils # (Auto) 9.2 x10^3/uL (1.8-7.7) Lymphocytes # (Auto) 1.1 x10^3/uL (1.0-4.8) Monocytes # (Auto) 1.2 x10^3/uL (0.0-1.1) Eosinophils # (Auto) 0.0 x10^3/uL (0.0-0.7) Basophils # (Auto) 0.1 x10^3/uL (0.0-0.2) Sodium Level 139 mmol/L (136-145) Potassium Level 4.4 mmol/L (3.5-5.1) Chloride Level 105 mmol/L (98-107) Carbon Dioxide Level 25 mmol/L (21-32) Anion Gap 9 (6-14) Blood Urea Nitrogen 19 mg/dL (8-26) Creatinine 1.0 mg/dL (0.7-1.3) Estimated GFR (Cockcroft-Gault) 87.4 Glucose Level 116 mg/dL (70-99) Calcium Level 7.8 mg/dL (8.5-10.1) Microbiology Micro Microbiology 05/28/20 Blood Culture - Preliminary, Resulted NO GROWTH AFTER 1 DAY Physical Exam HEENT: Neck Supple W Full Motion, Other (drsg intact to head) Chest: Symmetric LUNGS: Clear to Auscultation Heart: irregularly irregular (AFIB) Abdomen: Soft N/T Extremities: No Edema Neurology: alert, follow commands, confused (forgetful) Assessment Assessment 1. Fall; details unknown. No significant arrhythmias on tele 2. Encephalopathy with underlying dementia 3. Acute SDH s/p evacuation 4. NSTEMI: trop peak 34. Unable to give heparin due to SDH. 5. CAD; Recent LHC revealed severe 3VD. Managed medically given his significant dementia, age, and significant comorbid conditions. CP free. 6. Chronic systolic CHF; clinically compensated 7. ICM: Recent echo with LVEF of 40-45% 8. Hx of seizure with Dilantin use 9. Hypertension; low end 10. Hyperlipidemia; statin 11. AFIB; new finding. rate controlled Recommendations EKG now Secondary prevention as able. No ASA or anticoagulation with SDH Continue statin Losartan and Toprol as BP allows. Follow neurosurgery recommendations Conservative measures from a CV standpoint Supportive care Justicifation of Admission Dx: Justifications for Admission: Justification of Admission Dx: Yes Sepsis: Altered Mental Status FRANKIE MARRUFO MD 05/30/201919: CARDIO Progress Notes Assessment Assessment Patient seen and examined. Agree with PATIENT TRANSPORT OFFICER's assessment and plan. Patient presented with acute subdural hematoma resulting in from fall and underwent evacuation by neurosurgery team Elevated troponin consistent with non-STEMI. Patient has known history of three-vessel coronary disease that has been managed medically as stated above. Chronic systolic heart failure clinically well compensated. AF rate controlled We were unable to give heparin secondary to SDH. Continue conservative management for non-STEMI secondary to his comorbidities. RUY ROSALES APRN May 30, 2020 08:48 FRANKIE MARRUFO MD May 30, 2020 19:20
--- NOTE | 2020-05-30 08:56 | PDOC ---
PROGRESS NOTES Date of Service DATE: 05/30/20 TIME: 08:53 Subjective Subjective POD #2 S/P evacuation right SDH denies headache Objective Objective Vital Signs Date Time Temp Pulse Resp B/P (MAP) Pulse Ox O2 Delivery O2 Flow Rate FiO2 05/30/20 07:36 100 Nasal Cannula 2.0 05/30/20 06:00 77 28 106/65 (79) 05/30/20 04:00 98.8 98.8 Intake and Output 05/30/20 07:00 Intake Total 900 ml Output Total 880 ml Balance 20 ml Intake Oral 0 ml Other 900 ml Output Urine Total 880 ml Stool Total 0 ml Physical Exam General: Oriented X3 (slightly weaker on the left ), Cooperative, No acute distress, Other (drowsy but awakens to voice, follows commands) Neuro: Other Skin: Other (dressing C,D, I) Assessment Assessment Problems Medical Problems: (1) Elevated troponin Status: Acute (2) Subdural hematoma caused by concussion Status: Acute Plan Plan of Care ok to transfer to floor from NS standpoint SCDS OOB PT/ OT D/W RN Comment Review of Relevant I have reviewed the following items eleazar (where applicable) has been applied. Labs Laboratory Tests Test 05/28/20 12:05 05/28/20 13:40 05/29/20 00:25 05/29/20 05:15 White Blood Count 11.9 x10^3/uL (4.0-11.0) 13.1 x10^3/uL (4.0-11.0) Red Blood Count 4.66 x10^6/uL (4.30-5.70) 4.34 x10^6/uL (4.30-5.70) Hemoglobin 13.0 g/dL (13.0-17.5) 11.8 g/dL (13.0-17.5) Hematocrit 38.9 % (39.0-53.0) 36.3 % (39.0-53.0) Mean Corpuscular Volume 84 fL (79-100) 84 fL (79-100) Mean Corpuscular Hemoglobin 28 pg (25-35) 27 pg (25-35) Mean Corpuscular Hemoglobin Concent 33 g/dL (31-37) 32 g/dL (31-37) Red Cell Distribution Width 13.8 % (11.5-14.5) 13.6 % (11.5-14.5) Platelet Count 247 x10^3/uL (140-400) 242 x10^3/uL (140-400) Neutrophils (%) (Auto) 81 % (31-73) 80 % (31-73) Lymphocytes (%) (Auto) 9 % (24-48) 10 % (24-48) Monocytes (%) (Auto) 10 % (0-9) 10 % (0-9) Eosinophils (%) (Auto) 0 % (0-3) 0 % (0-3) Basophils (%) (Auto) 1 % (0-3) 0 % (0-3) Neutrophils # (Auto) 9.6 x10^3/uL (1.8-7.7) 10.4 x10^3/uL (1.8-7.7) Lymphocytes # (Auto) 1.1 x10^3/uL (1.0-4.8) 1.3 x10^3/uL (1.0-4.8) Monocytes # (Auto) 1.1 x10^3/uL (0.0-1.1) 1.3 x10^3/uL (0.0-1.1) Eosinophils # (Auto) 0.0 x10^3/uL (0.0-0.7) 0.0 x10^3/uL (0.0-0.7) Basophils # (Auto) 0.1 x10^3/uL (0.0-0.2) 0.0 x10^3/uL (0.0-0.2) Prothrombin Time 15.5 SEC (11.7-14.0) Prothromb Time International Ratio 1.3 (0.8-1.1) Activated Partial Thromboplast Time 30 SEC (24-38) Sodium Level 137 mmol/L (136-145) 137 mmol/L (136-145) Potassium Level 3.8 mmol/L (3.5-5.1) 4.3 mmol/L (3.5-5.1) Chloride Level 101 mmol/L (98-107) 103 mmol/L (98-107) Carbon Dioxide Level 27 mmol/L (21-32) 26 mmol/L (21-32) Anion Gap 9 (6-14) 8 (6-14) Blood Urea Nitrogen 14 mg/dL (8-26) 18 mg/dL (8-26) Creatinine 1.1 mg/dL (0.7-1.3) 1.2 mg/dL (0.7-1.3) Estimated GFR (Cockcroft-Gault) 78.3 70.9 Glucose Level 108 mg/dL (70-99) 143 mg/dL (70-99) Calcium Level 9.3 mg/dL (8.5-10.1) 7.8 mg/dL (8.5-10.1) Magnesium Level 2.1 mg/dL (1.8-2.4) Total Bilirubin 0.7 mg/dL (0.2-1.0) Direct Bilirubin 0.3 mg/dL (0.0-0.2) Aspartate Amino Transf (AST/SGOT) 142 U/L (15-37) Alanine Aminotransferase (ALT/SGPT) 33 U/L (16-63) Alkaline Phosphatase 149 U/L (46-116) Ammonia 10 mcmol/L (11-34) Creatine Kinase 1048 U/L (39-308) Troponin I Quantitative 34.764 ng/mL (0.000-0.055) 19.152 ng/mL (0.000-0.055) 17.354 ng/mL (0.000-0.055) ER-Rlk-I-Type Natriuretic Peptide 1388 pg/mL (0-449) Total Protein 8.5 g/dL (6.4-8.2) Albumin 3.2 g/dL (3.4-5.0) SARS-CoV-2 Antigen (Rapid) Negative (NEGATIVE) Phenytoin (Dilantin) Level 24.2 mcg/mL (10.0-20.0) Phenytoin Last Dose Date Unk Phenytoin Last Dose Time Unk Test 05/30/20 07:45 White Blood Count 11.6 x10^3/uL (4.0-11.0) Red Blood Count 4.05 x10^6/uL (4.30-5.70) Hemoglobin 11.1 g/dL (13.0-17.5) Hematocrit 34.0 % (39.0-53.0) Mean Corpuscular Volume 84 fL (79-100) Mean Corpuscular Hemoglobin 27 pg (25-35) Mean Corpuscular Hemoglobin Concent 33 g/dL (31-37) Red Cell Distribution Width 13.3 % (11.5-14.5) Platelet Count 227 x10^3/uL (140-400) Neutrophils (%) (Auto) 79 % (31-73) Lymphocytes (%) (Auto) 10 % (24-48) Monocytes (%) (Auto) 10 % (0-9) Eosinophils (%) (Auto) 0 % (0-3) Basophils (%) (Auto) 1 % (0-3) Neutrophils # (Auto) 9.2 x10^3/uL (1.8-7.7) Lymphocytes # (Auto) 1.1 x10^3/uL (1.0-4.8) Monocytes # (Auto) 1.2 x10^3/uL (0.0-1.1) Eosinophils # (Auto) 0.0 x10^3/uL (0.0-0.7) Basophils # (Auto) 0.1 x10^3/uL (0.0-0.2) Sodium Level 139 mmol/L (136-145) Potassium Level 4.4 mmol/L (3.5-5.1) Chloride Level 105 mmol/L (98-107) Carbon Dioxide Level 25 mmol/L (21-32) Anion Gap 9 (6-14) Blood Urea Nitrogen 19 mg/dL (8-26) Creatinine 1.0 mg/dL (0.7-1.3) Estimated GFR (Cockcroft-Gault) 87.4 Glucose Level 116 mg/dL (70-99) Calcium Level 7.8 mg/dL (8.5-10.1) Laboratory Tests Test 05/30/20 07:45 White Blood Count 11.6 x10^3/uL (4.0-11.0) Red Blood Count 4.05 x10^6/uL (4.30-5.70) Hemoglobin 11.1 g/dL (13.0-17.5) Hematocrit 34.0 % (39.0-53.0) Mean Corpuscular Volume 84 fL (79-100) Mean Corpuscular Hemoglobin 27 pg (25-35) Mean Corpuscular Hemoglobin Concent 33 g/dL (31-37) Red Cell Distribution Width 13.3 % (11.5-14.5) Platelet Count 227 x10^3/uL (140-400) Neutrophils (%) (Auto) 79 % (31-73) Lymphocytes (%) (Auto) 10 % (24-48) Monocytes (%) (Auto) 10 % (0-9) Eosinophils (%) (Auto) 0 % (0-3) Basophils (%) (Auto) 1 % (0-3) Neutrophils # (Auto) 9.2 x10^3/uL (1.8-7.7) Lymphocytes # (Auto) 1.1 x10^3/uL (1.0-4.8) Monocytes # (Auto) 1.2 x10^3/uL (0.0-1.1) Eosinophils # (Auto) 0.0 x10^3/uL (0.0-0.7) Basophils # (Auto) 0.1 x10^3/uL (0.0-0.2) Sodium Level 139 mmol/L (136-145) Potassium Level 4.4 mmol/L (3.5-5.1) Chloride Level 105 mmol/L (98-107) Carbon Dioxide Level 25 mmol/L (21-32) Anion Gap 9 (6-14) Blood Urea Nitrogen 19 mg/dL (8-26) Creatinine 1.0 mg/dL (0.7-1.3) Estimated GFR (Cockcroft-Gault) 87.4 Glucose Level 116 mg/dL (70-99) Calcium Level 7.8 mg/dL (8.5-10.1) Microbiology 05/28/20 Blood Culture - Preliminary, Resulted NO GROWTH AFTER 1 DAY Medications Current Medications Aspirin (Aspirin Chewable) 324 mg 1X ONCE PO Last administered on 05/28/20at 13:14; Start 05/28/20 at 13:00; Stop 05/28/20 at 13:01; Status DC Furosemide (Lasix) 40 mg 1X ONCE IVP Last administered on 05/28/20at 13:56; Start 05/28/20 at 13:45; Stop 05/28/20 at 13:46; Status DC Ondansetron HCl (Zofran) 4 mg PRN Q8HRS PRN IV NAUSEA/VOMITING; Start 05/28/20 at 14:00; Stop 05/29/20 at 13:59; Status DC Morphine Sulfate (Morphine Sulfate) 4 mg PRN Q2HR PRN IV PAIN Last administered on 05/29/20at 02:35; Start 05/28/20 at 14:00; Stop 05/29/20 at 13:59; Status DC Lidocaine HCl (Lidocaine Pf 2% Vial) 5 ml STK-MED ONCE .ROUTE ; Start 05/28/20 at 14:19; Stop 05/28/20 at 14:20; Status DC Propofol (Diprivan) 200 mg STK-MED ONCE IV ; Start 05/28/20 at 14:19; Stop 05/28/20 at 14:20; Status DC Fentanyl Citrate (Fentanyl 2ml Vial) 100 mcg STK-MED ONCE .ROUTE ; Start 05/28/20 at 14:20; Stop 05/28/20 at 14:20; Status DC Rocuronium [place]cadia (Zemuron) 50 mg STK-MED ONCE .ROUTE ; Start 05/28/20 at 14:20; Stop 05/28/20 at 14:20; Status DC Phenylephrine HCl (PHENYLEPHRINE in 0.9% NACL PF) 1 mg STK-MED ONCE IV ; Start 05/28/20 at 14:21; Stop 05/28/20 at 14:21; Status DC Bacitracin 17451 unit/Sodium Chloride 1,000 ml @ 1,000 mls/hr 1X ONCE IRR Last administered on 05/28/20at 16:14; Start 05/28/20 at 15:00; Stop 05/28/20 at 15:59; Status DC Nicardipine HCl (Cardene) 25 mg STK-MED ONCE IV ; Start 05/28/20 at 14:47; Stop 05/28/20 at 14:47; Status DC Nitroglycerin (Nitroglycerin) 50 mg STK-MED ONCE .ROUTE ; Start 05/28/20 at 14:47; Stop 05/28/20 at 14:47; Status DC Fentanyl Citrate (Fentanyl 2ml Vial) 25 mcg PRN Q5MIN PRN IVP MILD PAIN 1-3; Start 05/28/20 at 15:00; Stop 05/28/20 at 21:00; Status DC Morphine Sulfate (Morphine Sulfate) 1 mg PRN Q10MIN PRN IVP SEVERE PAIN 7-10; Start 05/28/20 at 15:00; Stop 05/28/20 at 21:00; Status DC Ringer's Solution 1,000 ml @ 30 mls/hr Q24H IV ; Start 05/28/20 at 15:00; Stop 05/28/20 at 21:00; Status DC Hydromorphone HCl (Dilaudid) 0.5 mg PRN Q10MIN PRN IVP SEVERE PAIN 7-10, 2nd CHOICE; Start 05/28/20 at 15:00; Stop 05/28/20 at 21:00; Status DC Prochlorperazine Edisylate (Compazine) 5 mg PACU PRN PRN IVP NAUSEA, MRX1; Start 05/28/20 at 15:00; Stop 05/28/20 at 21:00; Status DC Gelatin (Gelfoam Size 100) 1 each STK-MED ONCE .ROUTE Last administered on 05/28/20at 16:14; Start 05/28/20 at 14:58; Stop 05/28/20 at 14:58; Status DC Bupivacaine HCl/ Epinephrine Bitart (Sensorcain-Epi 0.5% Kit) 30 ml STK-MED ONCE .ROUTE ; Start 05/28/20 at 14:58; Stop 05/28/20 at 14:58; Status DC Cellulose (Surgicel Hemostat 4x8) 1 each STK-MED ONCE .ROUTE ; Start 05/28/20 at 14:58; Stop 05/28/20 at 14:58; Status DC Thrombin 20,000 unit STK-MED ONCE TP Last administered on 05/28/20at 16:14; Start 05/28/20 at 14:58; Stop 05/28/20 at 14:58; Status DC Bupivacaine HCl/ Epinephrine Bitart (Sensorcain-Epi 0.5%-1:168206 Mpf) 30 ml STK-MED ONCE .ROUTE Last administered on 05/28/20at 16:14; Start 05/28/20 at 14:58; Stop 05/28/20 at 14:59; Status DC Rocuronium Arcadia (Zemuron) 50 mg STK-MED ONCE .ROUTE ; Start 05/28/20 at 16:26; Stop 05/28/20 at 16:26; Status DC Ephedrine Sulfate (ePHEDrine PF IN SALINE SYRINGE) 50 mg STK-MED ONCE IV ; Start 05/28/20 at 16:26; Stop 05/28/20 at 16:27; Status DC Phenylephrine HCl (John-Synephrine Inj) 10 mg STK-MED ONCE .ROUTE ; Start 05/28/20 at 16:26; Stop 05/28/20 at 16:27; Status DC Ondansetron HCl (Zofran) 4 mg STK-MED ONCE .ROUTE ; Start 05/28/20 at 16:26; Stop 05/28/20 at 16:27; Status DC Dexamethasone Sodium Phosphate (Decadron) 4 mg STK-MED ONCE .ROUTE ; Start 05/28/20 at 16:26; Stop 05/28/20 at 16:27; Status DC Phenylephrine HCl (John-Synephrine Inj) 10 mg STK-MED ONCE .ROUTE ; Start 05/28/20 at 16:40; Stop 05/28/20 at 16:41; Status DC Sevoflurane (Ultane) 60 ml STK-MED ONCE IH ; Start 05/28/20 at 17:20; Stop 05/28/20 at 17:20; Status DC Nicardipine HCl 50 mg/Sodium Chloride 250 ml @ 25 mls/hr TITRATE PRN IV PER PROTOCOL; Start 05/28/20 at 17:30 Hydralazine HCl (Apresoline Inj) 5 mg PRN Q6HRS PRN IVP TO KEEP SBP<150mmHg; Start 05/28/20 at 17:15 Sodium Chloride (Normal Saline Flush) 3 ml QSHIFT PRN IV AFTER MEDS AND BLOOD DRAWS; Start 05/28/20 at 17:15 Dextrose (Dextrose 50%-Water Syringe) 12.5 gm PRN Q15MIN PRN IV SEE COMMENTS; Start 05/28/20 at 17:15 Docusate Sodium (Colace) 100 mg BID PO ; Start 05/28/20 at 21:00 Magnesium Hydroxide (Milk Of Magnesia) 2,400 mg PRN Q12HR PRN PO CONSTIPATION; Start 05/28/20 at 17:15 Cefazolin Sodium (Ancef) 1 gm Q8HRS IVP Last administered on 05/29/20at 15:19; Start 05/28/20 at 22:00; Stop 05/29/20 at 14:01; Status DC Fentanyl Citrate (Fentanyl 2ml Vial) 50 mcg PRN Q2HR PRN IVP PAIN Last administered on 05/29/20at 00:42; Start 05/28/20 at 17:15 Potassium Chloride/Dextrose/ Sod Cl 1,000 ml @ 75 mls/hr [id number] IV Last administered on 05/29/20at 20:54; Start 05/28/20 at 20:00 Losartan Potassium (Cozaar) 50 mg DAILY PO ; Start 05/29/20 at 09:00; Stop 05/29/20 at 09:08; Status DC Metoprolol Succinate (Toprol Xl) 25 mg DAILY PO ; Start 05/29/20 at 09:00 Phenytoin Sodium (Dilantin) 100 mg BID PO ; Start 05/28/20 at 22:15; Stop 05/29/20 at 15:55; Status DC Non-Formulary Medication (Budesonide/ Formoterol Fumarate (Symbicort 160-4.5 Mcg Inhaler)) 2 puff BID IH ; Start 05/29/20 at 09:00; Status UNV Atorvastatin Calcium (Lipitor) 80 mg QHS PO ; Start 05/29/20 at 21:00 Budesonide (Pulmicort) 0.5 mg RTBID NEB Last administered on 05/30/20at 07:36; Start 05/29/20 at 08:00 Albuterol Sulfate (Ventolin Neb Soln) 2.5 mg RTQID NEB Last administered on 05/30/20at 07:35; Start 05/29/20 at 08:00 Losartan Potassium (Cozaar) 25 mg DAILY PO ; Start 05/30/20 at 09:00 Levetiracetam (Keppra) 250 mg BID PO ; Start 05/30/20 at 09:00 Active Scripts Active Crestor (Rosuvastatin Calcium) 40 Mg Tablet 0.5 Tab PO DAILY 30 Days Metoprolol Succinate ( Xl ) (Metoprolol Succinate) 25 Mg Tab.er.24h 1 Tab PO DAILY Aspirin Ec (Aspirin) 325 Mg Tablet. 325 Mg PO [id number] 365 Days Reported Losartan Potassium 50 Mg Tablet 50 Mg PO DAILY Namenda (Memantine Hcl) 10 Mg Tablet 10 Mg PO HS Proair Hfa Inhaler (Albuterol Sulfate) 8.5 Gm Hfa.aer.ad 2 Puff INH QID PRN Dilantin (Phenytoin Sodium Extended) 100 Mg Capsule 1 Cap PO BID Symbicort 160-4.5 Mcg Inhaler (Budesonide/Formoterol Fumarate) 10.2 Gm Hfa.aer.ad 2 Puff IH BID Vitals/I & O Vital Sign - Last 24 Hours 05/29/20 05/29/20 05/29/20 05/29/20 09:00 09:00 09:22 10:00 Pulse 64 66 65 Resp 24 24 B/P (MAP) 104/67 (79) 105/50 100/47 (64) Pulse Ox 100 100 100 O2 Delivery Nasal Cannula Nasal Cannula Nasal Cannula O2 Flow Rate 2.0 2.0 2.0 05/29/20 05/29/20 05/29/20 05/29/20 10:00 11:00 11:00 12:00 Temp 99.2 99.2 Pulse 66 66 66 66 Resp 24 18 33 22 B/P (MAP) 109/60 (76) 105/50 (68) 105/65 (78) 111/59 (76) Pulse Ox 100 100 100 100 O2 Delivery Nasal Cannula Nasal Cannula Nasal Cannula Nasal Cannula O2 Flow Rate 2.0 2.0 2.0 2.0 05/29/20 05/29/20 05/29/20 05/29/20 12:00 12:58 13:00 14:00 Temp 98.5 98.5 Pulse 70 70 Resp 24 B/P (MAP) 119/53 (75) 104/51 (68) Pulse Ox 100 100 100 O2 Delivery Nasal Cannula Nasal Cannula Nasal Cannula Nasal Cannula O2 Flow Rate 2.0 2.0 2.0 2.0 05/29/20 05/29/20 05/29/20 05/29/20 15:00 15:08 16:00 16:00 Temp 98.4 98.4 Pulse 73 76 75 Resp 24 27 26 B/P (MAP) 130/76 (94) 113/63 (80) 129/87 (101) Pulse Ox 100 100 100 100 O2 Delivery Nasal Cannula Nasal Cannula Nasal Cannula Nasal Cannula O2 Flow Rate 2.0 2.0 2.0 2.0 05/29/20 05/29/20 05/29/20 05/29/20 16:00 17:00 18:00 19:00 Temp 97.4 97.4 Pulse 79 80 78 Resp 22 22 29 B/P (MAP) 126/77 (93) 105/67 (80) 115/70 (85) Pulse Ox 100 100 100 O2 Delivery Nasal Cannula Nasal Cannula Nasal Cannula Nasal Cannula O2 Flow Rate 2.0 2.0 2.0 2.0 05/29/20 05/29/20 05/29/20 05/29/20 20:00 20:00 20:33 21:00 Pulse 81 77 Resp 23 20 B/P (MAP) 118/82 (94) 119/72 (88) Pulse Ox 100 100 100 O2 Delivery Nasal Cannula Nasal Cannula Nasal Cannula Room Air O2 Flow Rate 2.0 2.0 2.0 05/29/20 05/29/20 05/29/20 05/30/20 22:01 23:00 23:59 00:00 Temp 98.8 98.8 Pulse 82 81 75 Resp 26 32 32 B/P (MAP) 123/63 (83) 113/79 (90) 103/60 (74) Pulse Ox 100 100 100 O2 Delivery Room Air Nasal Cannula Nasal Cannula Nasal Cannula O2 Flow Rate 2.0 2.0 2.0 05/30/20 05/30/20 05/30/20 05/30/20 02:00 03:00 04:00 05:00 Temp 98.8 98.8 Pulse 74 82 80 80 Resp 20 25 22 25 B/P (MAP) 101/63 (76) 113/71 (85) 107/56 (73) 114/56 (75) Pulse Ox 100 100 100 100 O2 Delivery Room Air Room Air Room Air Room Air 05/30/20 05/30/20 06:00 07:36 Pulse 77 Resp 28 B/P (MAP) 106/65 (79) Pulse Ox 100 100 O2 Delivery Room Air Nasal Cannula O2 Flow Rate 2.0 Intake and Output 05/29/20 05/29/20 05/30/20 15:00 23:00 07:00 Intake Total 0 ml 0 ml 900 ml Output Total 150 ml 200 ml 530 ml Balance -150 ml -200 ml 370 ml Justifications for Admission Other Justification Nutrition Consultation Dietary Evaluation: Recommendations by RD: Dietary education by RD, Increase Calorie Intake, Protein supplementation Comments: REC advance diet as able/appropriate, goal diet cardiac w/Ensure supplements prn REC PPN or dobhoff/TFs if unable to advance diet within 24 - 48 hrs Expected Outcomes/Goals: diet advancement Malnutrition Findings: Body Fat Depletion (Non Severe: Mild Depletion Weight Status: Underweight LIZZETTE FONTENOT [employer] SUPER[employer]OR May 30, 2020 08:56
[2020-05-30] MEDS: LOSARTAN POTASSIUM 25 MG TABLET. PO SCH (09:00)
[2020-05-30] MEDS: DOCUSATE SODIUM 100 MG CAPSULE. PO SCH ×2 (09:00→21:30)
[2020-05-30] MEDS ORDERED: levETIRAcetam 250 MG TABLET PO SCH (09:00)
[2020-05-30] MEDS: POTASSIUM CL 20MEQ D5-0.45NACL 1,000 ML IV SCH ×2 (09:37→12:00)
[2020-05-30] MEDS ORDERED: levETIRAcetam 250 MG in IV DEXTROSE 5% 100ML 100 ML IV SCH (10:00)
--- NOTE | 2020-05-30 12:37 | CONS ---
DATE OF CONSULTATION: ATTENDING PHYSICIAN: Kvng Glynn MD REASON FOR CONSULTATION: The patient was seen at the request of Dr. Glynn for rehab evaluation. HISTORY OF PRESENT ILLNESS: This is a 80-year-old male who lives at home, had a caregiver few hours per day. He was found by caregiver on the floor, confused. The patient was admitted through the Emergency Room. CT scan of the brain revealed right subdural hematoma with pressure on the left side of the brain. He underwent emergency elba hole drainage of subdural hematoma. The patient was also noted with elevated troponin level of 05/11 without any known history of coronary artery disease. The patient with known congestive heart failure, hypertension, dementia, seizure, chronic obstructive pulmonary disease, had heart catheterization done about 3 months ago. He had a 3-vessel disease, but no intervention was done at that time. He is an ex-smoker. FAMILY HISTORY: Hypertension. ALLERGIES: He is not known allergic to any medication. PHYSICAL EXAMINATION: Today, revealed an elderly male. He is awake, follows some commands, some cognitive problems persists. He had mild left central facial paresis. He moves all 4 extremities voluntarily where he had 4/5 to 4+/5 grade muscle strength. Deep tendon reflexes are decreased overall with absent ankle jerks. He had equal perception of touch and pinprick sensation bilaterally. He had an indwelling Akbar catheter in place, receiving oxygen by nasal cannula. The patient can get up with supervision and he walked at bedside with handheld assistance. No obvious visual problems noted. ASSESSMENT: An elderly male with recent fall and subdural hematoma, status post elba hole evacuation. The patient presents with mild left central facial paresis and mild cognitive problems. The patient with known dementia, coronary artery disease, congestive heart failure, hypertension, seizure disorder and chronic obstructive pulmonary disease, clinical evidence of peripheral neuropathy. RECOMMENDATIONS: Agree with the plans for physical therapy, occupational therapy and speech pathology to help with his deficits to [facility] care unit when medically stable for continued care. Dr. Glynn, I appreciate asking me to participate in the care of this interesting patient. I will be glad to see him for followup with you on as needed basis. BAILEY BROWN MD DR: MADAI/yaneth JOB#: [id number] / [id number]
--- NOTE | 2020-05-30 12:55 | PDOC2 ---
NEUROLOGY CONSULT Date of Service DOS: DATE: 05/30/20 TIME: 12:48 Reason for Consult Reason for Consult: Subdural, history of seizures Referring Physician Referring Physician: Dr. Glynn Source Source: Chart review, Patient History of Present Illness History of Present Illness The patient is a 80-year-old right-handed male whose caregiver found him on the floor with confusion on 05/28. He was found to have a right-sided subdural hematoma. 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 Patient did have ev acuation of the subdural. I last saw him 3 months ago during his stay for altered mental status. I felt that he had metabolic encephalopathy in the setting of dementia. There is a history of seizures, but the patient does not remember his last seizure. He has chronically been on Dilantin. Last time the level was subtherapeutic, this time the level was supratherapeutic. Dr. Glynn has stopped the Dilantin in favor of levetiracetam. 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 a full-time care provider in his own home Current Medications Current Medications Current Medications Aspirin (Aspirin Chewable) 324 mg 1X ONCE PO Last administered on 05/28/20at 13:14; Start 05/28/20 at 13:00; Stop 05/28/20 at 13:01; Status DC Furosemide (Lasix) 40 mg 1X ONCE IVP Last administered on 05/28/20at 13:56; Start 05/28/20 at 13:45; Stop 05/28/20 at 13:46; Status DC Ondansetron HCl (Zofran) 4 mg PRN Q8HRS PRN IV NAUSEA/VOMITING; Start 05/28/20 at 14:00; Stop 05/29/20 at 13:59; Status DC Morphine Sulfate (Morphine Sulfate) 4 mg PRN Q2HR PRN IV PAIN Last administered on 05/29/20at 02:35; Start 05/28/20 at 14:00; Stop 05/29/20 at 13:59; Status DC Lidocaine HCl (Lidocaine Pf 2% Vial) 5 ml STK-MED ONCE .ROUTE ; Start 05/28/20 at 14:19; Stop 05/28/20 at 14:20; Status DC Propofol (Diprivan) 200 mg STK-MED ONCE IV ; Start 05/28/20 at 14:19; Stop 05/28/20 at 14:20; Status DC Fentanyl Citrate (Fentanyl 2ml Vial) 100 mcg STK-MED ONCE .ROUTE ; Start 05/28/20 at 14:20; Stop 05/28/20 at 14:20; Status DC Rocuronium Roby (Zemuron) 50 mg STK-MED ONCE .ROUTE ; Start 05/28/20 at 14:20; Stop 05/28/20 at 14:20; Status DC Phenylephrine HCl (PHENYLEPHRINE in 0.9% NACL PF) 1 mg STK-MED ONCE IV ; Start 05/28/20 at 14:21; Stop 05/28/20 at 14:21; Status DC Bacitracin 60543 unit/Sodium Chloride 1,000 ml @ 1,000 mls/hr 1X ONCE IRR Last administered on 05/28/20at 16:14; Start 05/28/20 at 15:00; Stop 05/28/20 at 15:59; Status DC Nicardipine HCl (Cardene) 25 mg STK-MED ONCE IV ; Start 05/28/20 at 14:47; Stop 05/28/20 at 14:47; Status DC Nitroglycerin (Nitroglycerin) 50 mg STK-MED ONCE .ROUTE ; Start 05/28/20 at 14:47; Stop 05/28/20 at 14:47; Status DC Fentanyl Citrate (Fentanyl 2ml Vial) 25 mcg PRN Q5MIN PRN IVP MILD PAIN 1-3; Start 05/28/20 at 15:00; Stop 05/28/20 at 21:00; Status DC Morphine Sulfate (Morphine Sulfate) 1 mg PRN Q10MIN PRN IVP SEVERE PAIN 7-10; Start 05/28/20 at 15:00; Stop 05/28/20 at 21:00; Status DC Ringer's Solution 1,000 ml @ 30 mls/hr Q24H IV ; Start 05/28/20 at 15:00; Stop 05/28/20 at 21:00; Status DC Hydromorphone HCl (Dilaudid) 0.5 mg PRN Q10MIN PRN IVP SEVERE PAIN 7-10, 2nd CHOICE; Start 05/28/20 at 15:00; Stop 05/28/20 at 21:00; Status DC Prochlorperazine Edisylate (Compazine) 5 mg PACU PRN PRN IVP NAUSEA, MRX1; Start 05/28/20 at 15:00; Stop 05/28/20 at 21:00; Status DC Gelatin (Gelfoam Size 100) 1 each STK-MED ONCE .ROUTE Last administered on 05/28/20at 16:14; Start 05/28/20 at 14:58; Stop 05/28/20 at 14:58; Status DC Bupivacaine HCl/ Epinephrine Bitart (Sensorcain-Epi 0.5% Kit) 30 ml STK-MED ONCE .ROUTE ; Start 05/28/20 at 14:58; Stop 05/28/20 at 14:58; Status DC Cellulose (Surgicel Hemostat 4x8) 1 each STK-MED ONCE .ROUTE ; Start 05/28/20 at 14:58; Stop 05/28/20 at 14:58; Status DC Thrombin 20,000 unit STK-MED ONCE TP Last administered on 05/28/20at 16:14; Start 05/28/20 at 14:58; Stop 05/28/20 at 14:58; Status DC Bupivacaine HCl/ Epinephrine Bitart (Sensorcain-Epi 0.5%-1:[id number] Mpf) 30 ml STK-MED ONCE .ROUTE Last administered on 05/28/20at 16:14; Start 05/28/20 at 14:58; Stop 05/28/20 at 14:59; Status DC Rocuronium Roby (Zemuron) 50 mg STK-MED ONCE .ROUTE ; Start 05/28/20 at 16:26; Stop 05/28/20 at 16:26; Status DC Ephedrine Sulfate (ePHEDrine PF IN SALINE SYRINGE) 50 mg STK-MED ONCE IV ; Start 05/28/20 at 16:26; Stop 05/28/20 at 16:27; Status DC Phenylephrine HCl (John-Synephrine Inj) 10 mg STK-MED ONCE .ROUTE ; Start 05/28/20 at 16:26; Stop 05/28/20 at 16:27; Status DC Ondansetron HCl (Zofran) 4 mg STK-MED ONCE .ROUTE ; Start 05/28/20 at 16:26; Stop 05/28/20 at 16:27; Status DC Dexamethasone Sodium Phosphate (Decadron) 4 mg STK-MED ONCE .ROUTE ; Start 05/28/20 at 16:26; Stop 05/28/20 at 16:27; Status DC Phenylephrine HCl (John-Synephrine Inj) 10 mg STK-MED ONCE .ROUTE ; Start 05/28/20 at 16:40; Stop 05/28/20 at 16:41; Status DC Sevoflurane (Ultane) 60 ml STK-MED ONCE IH ; Start 05/28/20 at 17:20; Stop 05/28/20 at 17:20; Status DC Nicardipine HCl 50 mg/Sodium Chloride 250 ml @ 25 mls/hr TITRATE PRN IV PER PROTOCOL; Start 05/28/20 at 17:30 Hydralazine HCl (Apresoline Inj) 5 mg PRN Q6HRS PRN IVP TO KEEP SBP<150mmHg; Start 05/28/20 at 17:15 Sodium Chloride (Normal Saline Flush) 3 ml QSHIFT PRN IV AFTER MEDS AND BLOOD DRAWS; Start 05/28/20 at 17:15 Dextrose (Dextrose 50%-Water Syringe) 12.5 gm PRN Q15MIN PRN IV SEE COMMENTS; Start 05/28/20 at 17:15 Docusate Sodium (Colace) 100 mg BID PO ; Start 05/28/20 at 21:00 Magnesium Hydroxide (Milk Of Magnesia) 2,400 mg PRN Q12HR PRN PO CONSTIPATION; Start 05/28/20 at 17:15 Cefazolin Sodium (Ancef) 1 gm Q8HRS IVP Last administered on 05/29/20at 15:19; Start 05/28/20 at 22:00; Stop 05/29/20 at 14:01; Status DC Fentanyl Citrate (Fentanyl 2ml Vial) 50 mcg PRN Q2HR PRN IVP PAIN Last administered on 05/29/20at 00:42; Start 05/28/20 at 17:15 Potassium Chloride/Dextrose/ Sod Cl 1,000 ml @ 75 mls/hr [id number] IV Last administered on 05/30/20at 09:37; Start 05/28/20 at 20:00 Losartan Potassium (Cozaar) 50 mg DAILY PO ; Start 05/29/20 at 09:00; Stop 05/29/20 at 09:08; Status DC Metoprolol Succinate (Toprol Xl) 25 mg DAILY PO ; Start 05/29/20 at 09:00 Phenytoin Sodium (Dilantin) 100 mg BID PO ; Start 05/28/20 at 22:15; Stop 05/29/20 at 15:55; Status DC Non-Formulary Medication (Budesonide/ Formoterol Fumarate (Symbicort 160-4.5 Mcg Inhaler)) 2 puff BID IH ; Start 05/29/20 at 09:00; Status UNV Atorvastatin Calcium (Lipitor) 80 mg QHS PO ; Start 05/29/20 at 21:00 Budesonide (Pulmicort) 0.5 mg RTBID NEB Last administered on 05/30/20at 07:36; Start 05/29/20 at 08:00 Albuterol Sulfate (Ventolin Neb Soln) 2.5 mg RTQID NEB Last administered on 05/30/20at 12:13; Start 05/29/20 at 08:00 Losartan Potassium (Cozaar) 25 mg DAILY PO ; Start 05/30/20 at 09:00 Levetiracetam (Keppra) 250 mg BID PO ; Start 05/30/20 at 09:00 Levetiracetam 250 mg/Dextrose 102.5 ml @ 410 mls/hr Q12HR IV ; Start 05/30/20 at 10:00; Stop 05/30/20 at 09:35; Status DC Levetiracetam 250 mg/Dextrose 102.5 ml @ 410 mls/hr Q12HR IV Last administered on 05/30/20at 09:40; Start 05/30/20 at 10:00; Stop 05/30/20 at 12:02; Status DC Active Scripts Active Crestor (Rosuvastatin Calcium) 40 Mg Tablet 0.5 Tab PO DAILY 30 Days Metoprolol Succinate ( Xl ) (Metoprolol Succinate) 25 Mg Tab.er.24h 1 Tab PO DAILY Aspirin Ec (Aspirin) 325 Mg Tablet.dr 325 Mg PO [id number] 365 Days Reported Losartan Potassium 50 Mg Tablet 50 Mg PO DAILY Namenda (Memantine Hcl) 10 Mg Tablet 10 Mg PO HS Proair Hfa Inhaler (Albuterol Sulfate) 8.5 Gm Hfa.aer.ad 2 Puff INH QID PRN Dilantin (Phenytoin Sodium Extended) 100 Mg Capsule 1 Cap PO BID Symbicort 160-4.5 Mcg Inhaler (Budesonide/Formoterol Fumarate) 10.2 Gm Hfa.aer.ad 2 Puff IH BID Allergies Allergies: Coded Allergies: No Known Drug Allergies (Unverified , 05/28/20) ROS Review of System Negative for fever, chills, weight loss, shortness of breath, chest pain, indigestion, hematochezia, melena, and dysuria. Full 14-point review of systems is negative. Physical Exam Physical Examination General: Well-developed, well-nourished black male in no acute distress HEENT: Normocephalic, right sided craniotomy scar. Temporal arteriespulsatile and nontender. Neck: Supple without bruit, no meningismus Musculoskeletal: Stability:see neurologic. Gait exam:see neurologic. Tone:see neurologic.Strength:see neurologic. Neurological: Mental Status: orientation, memory, attention span/concentration, language, fund of knowledge: Does not know date or location, knows he is in the hospital. Cranial Nerves:Pupils equal and reactive to light, extraocular movements arei ntact, visual bowles are full to confrontation. Facial sensation is normal. There is no facial asymmetry. Vestibulo-ocular reflex is intact. Palate elevates and tongue protrudes in midline. All other cranial related problems are negative except as mentioned before.Reflexes:2+ and symmetric with flexor plantar responses. Bilateral grasp reflexes, may be a little weaker in the left support representative. Motor:4/5 strength with normal tone and bulk. Coordination and gait:Not cooperative. Sensory:Normal pinprick, vibration, light touch, proprioception. Vitals VITALS Vital Signs Date Time Temp Pulse Resp B/P (MAP) Pulse Ox O2 Delivery O2 Flow Rate FiO2 05/30/20 12:13 97 Room Air 05/30/20 11:00 86 29 125/92 (103) 05/30/20 09:00 2.0 05/30/20 07:00 100.3 100.3 Labs Labs Laboratory Tests Test 05/28/20 13:40 05/29/20 00:25 05/29/20 05:15 05/30/20 07:45 SARS-CoV-2 Antigen (Rapid) Negative (NEGATIVE) Troponin I Quantitative 19.152 ng/mL (0.000-0.055) 17.354 ng/mL (0.000-0.055) Phenytoin (Dilantin) Level 24.2 mcg/mL (10.0-20.0) Phenytoin Last Dose Date Unk Phenytoin Last Dose Time Unk White Blood Count 13.1 x10^3/uL (4.0-11.0) 11.6 x10^3/uL (4.0-11.0) Red Blood Count 4.34 x10^6/uL (4.30-5.70) 4.05 x10^6/uL (4.30-5.70) Hemoglobin 11.8 g/dL (13.0-17.5) 11.1 g/dL (13.0-17.5) Hematocrit 36.3 % (39.0-53.0) 34.0 % (39.0-53.0) Mean Corpuscular Volume 84 fL (79-100) 84 fL (79-100) Mean Corpuscular Hemoglobin 27 pg (25-35) 27 pg (25-35) Mean Corpuscular Hemoglobin Concent 32 g/dL (31-37) 33 g/dL (31-37) Red Cell Distribution Width 13.6 % (11.5-14.5) 13.3 % (11.5-14.5) Platelet Count 242 x10^3/uL (140-400) 227 x10^3/uL (140-400) Neutrophils (%) (Auto) 80 % (31-73) 79 % (31-73) Lymphocytes (%) (Auto) 10 % (24-48) 10 % (24-48) Monocytes (%) (Auto) 10 % (0-9) 10 % (0-9) Eosinophils (%) (Auto) 0 % (0-3) 0 % (0-3) Basophils (%) (Auto) 0 % (0-3) 1 % (0-3) Neutrophils # (Auto) 10.4 x10^3/uL (1.8-7.7) 9.2 x10^3/uL (1.8-7.7) Lymphocytes # (Auto) 1.3 x10^3/uL (1.0-4.8) 1.1 x10^3/uL (1.0-4.8) Monocytes # (Auto) 1.3 x10^3/uL (0.0-1.1) 1.2 x10^3/uL (0.0-1.1) Eosinophils # (Auto) 0.0 x10^3/uL (0.0-0.7) 0.0 x10^3/uL (0.0-0.7) Basophils # (Auto) 0.0 x10^3/uL (0.0-0.2) 0.1 x10^3/uL (0.0-0.2) Sodium Level 137 mmol/L (136-145) 139 mmol/L (136-145) Potassium Level 4.3 mmol/L (3.5-5.1) 4.4 mmol/L (3.5-5.1) Chloride Level 103 mmol/L (98-107) 105 mmol/L (98-107) Carbon Dioxide Level 26 mmol/L (21-32) 25 mmol/L (21-32) Anion Gap 8 (6-14) 9 (6-14) Blood Urea Nitrogen 18 mg/dL (8-26) 19 mg/dL (8-26) Creatinine 1.2 mg/dL (0.7-1.3) 1.0 mg/dL (0.7-1.3) Estimated GFR (Cockcroft-Gault) 70.9 87.4 Glucose Level 143 mg/dL (70-99) 116 mg/dL (70-99) Calcium Level 7.8 mg/dL (8.5-10.1) 7.8 mg/dL (8.5-10.1) Laboratory Tests Test 05/30/20 07:45 White Blood Count 11.6 x10^3/uL (4.0-11.0) Red Blood Count 4.05 x10^6/uL (4.30-5.70) Hemoglobin 11.1 g/dL (13.0-17.5) Hematocrit 34.0 % (39.0-53.0) Mean Corpuscular Volume 84 fL (79-100) Mean Corpuscular Hemoglobin 27 pg (25-35) Mean Corpuscular Hemoglobin Concent 33 g/dL (31-37) Red Cell Distribution Width 13.3 % (11.5-14.5) Platelet Count 227 x10^3/uL (140-400) Neutrophils (%) (Auto) 79 % (31-73) Lymphocytes (%) (Auto) 10 % (24-48) Monocytes (%) (Auto) 10 % (0-9) Eosinophils (%) (Auto) 0 % (0-3) Basophils (%) (Auto) 1 % (0-3) Neutrophils # (Auto) 9.2 x10^3/uL (1.8-7.7) Lymphocytes # (Auto) 1.1 x10^3/uL (1.0-4.8) Monocytes # (Auto) 1.2 x10^3/uL (0.0-1.1) Eosinophils # (Auto) 0.0 x10^3/uL (0.0-0.7) Basophils # (Auto) 0.1 x10^3/uL (0.0-0.2) Sodium Level 139 mmol/L (136-145) Potassium Level 4.4 mmol/L (3.5-5.1) Chloride Level 105 mmol/L (98-107) Carbon Dioxide Level 25 mmol/L (21-32) Anion Gap 9 (6-14) Blood Urea Nitrogen 19 mg/dL (8-26) Creatinine 1.0 mg/dL (0.7-1.3) Estimated GFR (Cockcroft-Gault) 87.4 Glucose Level 116 mg/dL (70-99) Calcium Level 7.8 mg/dL (8.5-10.1) Images Images CT HEAD/BRAIN WO History: Reason: altered mental status / Spl. Instructions: / History: Comparison: December 05, 2019 Technique: Noncontrast CT imaging was performed of the head. Exposure: One or more of the following individualized dose reduction techniques were utilized for this examination: 1. Automated exposure control 2. Adjustment of the mA and/or kV according to patient size 3. Use of iterative reconstruction technique. Findings: New right subdural heterogeneous predominantly low-attenuation collection. There is slight thickening of the dura. There is mass effect on the adjacent parietal and parietal lobes. Leftward midline shift measures approximately 7 mm. Compression of the right lateral ventricle. Brain parenchymal volume loss. Foci of decreased attenuation within the hemispheric white matter, most often due to chronic microvascular ischemia. Imaged orbits are unremarkable. Imaged paranasal sinuses and mastoid air cells are clear. No acute calvarial fracture. Impression: 1. New right cerebral convexity subdural collection contributing to mass effect and leftward midline shift. Findings may relate to empyema or subacute hematoma. Recommend further clinical evaluation. Recommend MRI with and without contrast to further evaluate. Assessment/Plan Assessment/Plan Impression: Right sided subdural hematoma status-post evacuation History of epilepsy, no recent seizures Dementia Recommendations: Agree with switch to levetiracetam, can now take orally, he passed his swallow evaluation. I disagree with the low dose, standard dose is 500 mg twice daily It sounds like he needs placement in detention Thank you for letting me help with the patient's care. EMMA SAWANT MD May 30, 2020 12:55
[2020-05-30] MEDS: METOPROLOL SUCC 24HR ER 25 MG TAB.ER.24H. PO SCH (13:04)
--- NOTE | 2020-05-30 16:16 | NUR ---
SS following up with discharge planning. SS reviewed pt chart and discussed with pt RN. Pt is currently on room air. COVID19 negative. PT/OT ordered. PT recommended acute rehabilitation. Pt on PO diet. Pt has dementia. SS contacted pt's niece, Karin Christine, , to discuss discharge planning and acute rehabilitation. Pt's niece agreeable to acute rehabilitation and requested referral be phoned and faxed to [facility], ; fax [phone]. SS phoned and faxed referral as requested. SS will continue to follow for discharge planning.
--- NOTE | 2020-05-30 18:15 | NUR ---
Patient transferred to room 204 via wheelchair with JOSSE Manrique at around 1815. Report given to JOSSE Gutierrez.
--- NOTE | 2020-05-30 18:28 | NUR ---
Notified Dr. Glynn of patient's axillary temperature, orders received.
[2020-05-30] MEDS ORDERED: VANCOMYCIN 1 GM in IV NORMAL SALINE 250ML 250 ML IV SCH (18:30)
[2020-05-30] MEDS ORDERED: VANCOMYCIN 1.25 GM in IV NORMAL SALINE 250ML 250 ML IV ONE (18:45)
[2020-05-30 19:43] LABS: BASO # 0.1 x10^3/uL (0.0-0.2); BASO % 0 % (0-3); EOS # 0.1 x10^3/uL (0.0-0.7); EOS % 1 % (0-3); HEMATOCRIT 39.3 % (39.0-53.0); HEMOGLOBIN 12.7 g/dL (13.0-17.5); LYMPH # 1.1 x10^3/uL (1.0-4.8); LYMPH % 9 % (24-48); MEAN CORPUSCULAR HEMOGLOBIN 28 pg (25-35); MEAN CORPUSCULAR HGB CONC 33 g/dL (31-37); MEAN CORPUSCULAR VOLUME 85 fL (79-100); MONO % 8 % (0-9); NEUT # 9.9 x10^3/uL (1.8-7.7); NEUT % 82 % (31-73); PLATELET COUNT 242 x10^3/uL (140-400); RED BLOOD COUNT 4.62 x10^6/uL (4.30-5.70); RED CELL DISTRIBUTION WIDTH 13.8 % (11.5-14.5); WHITE BLOOD COUNT 12.1 x10^3/uL (4.0-11.0)
[2020-05-30] MEDS: PIPERACILLIN/TAZOBACTAM 3.375 GM in IV NORMAL SALINE 50ML 50 ML IV SCH ×2 (20:00→23:33)
--- NOTE | 2020-05-30 20:00 | RAD ---
AP chest. HISTORY: Fever, short of breath AP view was taken of the chest. Heart is mildly enlarged. There is no pleural effusion. There are mil d interstitial changes similar to recent studies. There is mild atelectasis in the medial left lung b ase. No other new infiltrates are noted. Patient's not taken a deep inspiration. IMPRESSION: 1. Mild chronic interstitial changes. 2. Poor inspiration. 3. Mild increase atelectasis left lung base without other new infiltrates. Electronically signed by: Matheus Burnett MD (05/30/2020 7:58 PM) [facility]
[2020-05-30 20:11] LABS: ALBUMIN 2.7 g/dL (3.4-5.0); ALBUMIN/GLOBULIN RATIO 0.5 (1.0-1.7); CALCIUM 8.4 mg/dL (8.5-10.1); CREATININE 1.1 mg/dL (0.7-1.3); GFR 78.3; POTASSIUM 4.3 mmol/L (3.5-5.1); TOTAL BILIRUBIN 0.5 mg/dL (0.2-1.0); TOTAL PROTEIN 8.1 g/dL (6.4-8.2)
[2020-05-30] MEDS: ATORVASTATIN CALCIUM 40 MG TABLET. PO SCH (21:29)
[2020-05-30] MEDS: ACETAMINOPHEN 500 MG TABLET PO PRN (21:29)
[2020-05-30] MEDS: levETIRAcetam 500 MG TABLET PO SCH (21:30)
--- NOTE | 2020-05-30 21:56 | NUR ---
IV compatibility of vancomycin and 20 MeQ K confirmed with pharmacy.
[2020-05-30 22:29] LABS: COLOR,URINE YELLOW
[2020-05-30 22:30] LABS: BILIRUBIN,URINE NEGATIVE (NEG); CLARITY,URINE CLEAR; NITRITE,URINE NEGATIVE (NEG); PH,URINE 5.5 (<5.0-8.0); PROTEIN,URINE 30 mg/dL (NEG-TRACE)
[2020-05-30 22:31] LABS: AMORPHOUS SEDIMENT,UR PRESENT /HPF; BACTERIA,URINE FEW /HPF (0-FEW)
[2020-05-30 22:32] LABS: HYALINE CASTS, URINE FEW /HPF
[2020-05-31] MEDS: VANCOMYCIN PER PHARMACY MC PRN ×2 (00:17→00:22)
--- NOTE | 2020-05-31 00:19 | NUR ---
Pharmacy Vancomycin Dosing Note S:Consulted to monitor and dose vancomycin started 05/30/20. O:ADARSH JACOBS is a 80 year old M with Sepsis RT SIDED SUBDURAL HEMATOMA POST EVACUATION . Height: 5 feet, 11 inches Weight: 56.8 kg [place] Body Weight: 75.30 Adjusted Body Weight: 67.90 Dosing Weight: Actual Other Antibiotics: LABS: Last BUN: 19 Last Creatinine: 1.1 Creatinine Clearance: 44 mL/min Last WBC: 12.1 Last Procalcitonin: Tmax (past 24 hours): Microbiology: I/O: 900/880 Drug Levels: Last level: on at Last dose given at Vancomycin Dosing: Loading Dose: 1250 mg x1 05/30/202128 Dosing Weight: Actual Target Trough: 15-20 A: Based on: Actual Wt and CrCl P: 1. 05/31/202129 Vancomycin 1000 mg IV q24h 2. Follow up Trough level on 06/01/20 at 2100 3. Pharmacy will continue to monitor, follow and adjust therapy as needed. LATRICE GLASGOW RPH, 05/31/20 0019 Signed: 05/31/20 at 0020 by LATRICE GLASGOW RPH PHA Addendum: 05/31/20 at 0025 by LATRICE GLASGOW RPH PHA 05/30/20 ORIANA 3.375GM IV Q6H Signed: 05/31/20 at 0025 by LATRICE GLASGOW RPH PHA
[2020-05-31 02:50] VITALS: BP 97/65
[2020-05-31] MEDS: POTASSIUM CL 20MEQ D5-0.45NACL 1,000 ML IV SCH ×2 (04:19→21:16)
[2020-05-31] MEDS: PIPERACILLIN/TAZOBACTAM 3.375 GM in IV NORMAL SALINE 50ML 50 ML IV SCH ×3 (05:11→18:03)
[2020-05-31 07:00] VITALS: BP 114/73
[2020-05-31] MEDS: DOCUSATE SODIUM 100 MG CAPSULE. PO SCH ×2 (08:47→21:15)
[2020-05-31] MEDS: METOPROLOL SUCC 24HR ER 25 MG TAB.ER.24H. PO SCH (08:48)
[2020-05-31] MEDS: LOSARTAN POTASSIUM 25 MG TABLET. PO SCH (08:48)
[2020-05-31] MEDS: levETIRAcetam 500 MG TABLET PO SCH ×2 (08:48→21:15)
[2020-05-31] MEDS: BUDESONIDE 0.5 MG/2 ML NEBU. NEB SCH ×2 (09:04→20:35)
[2020-05-31] MEDS: ALBUTEROL SULFATE 2.5 MG/3 ML NEBU. NEB SCH ×4 (09:04→20:35)
--- NOTE | 2020-05-31 09:11 | PDOC ---
PROGRESS NOTES Date of Service: DATE: 05/31/20 TIME: 09:11 Subjective Subjective low grade fever last night 100.4 Objective Objective Vital Signs Date Time Temp Pulse Resp B/P (MAP) Pulse Ox O2 Delivery O2 Flow Rate FiO2 05/31/20 08:48 66 114/73 05/31/20 07:00 99.4 20 93 Nasal Cannula 2.0 99.4 Intake and Output 05/31/20 07:00 Intake Total 2444 ml Output Total 700 ml Balance 1744 ml Intake Oral 400 ml IV Total 2044 ml Output Urine Total 700 ml # Voids 1 # Bowel Movements 1 Physical Exam Abdomen: Soft, No tenderness Heart: Regular rate, Normal S1, Normal S2 Extremities: No edema, Normal pulses General: Oriented X3 (slightly weaker on the left ), Cooperative, No acute distress, Other (drowsy but awakens to voice, follows commands) HEENT: Other (drsg intact to right head ) MUSCULOSKELETAL: No swelling, Osteoarthritic changes both hands Neck: No JVD Neuro: Normal speech, Other Psych/Mental Status: Mood NL Skin: No breakdown, Other (dressing C,D, I) Diagnosis Problem List Problems Medical Problems: (1) Elevated troponin Status: Acute (2) Subdural hematoma caused by concussion Status: Acute Assessment Assessment Problems Medical Problems: (1) Elevated troponin Status: Acute (2) Subdural hematoma caused by concussion Status: Acute FINAL IMPRESSION:Low grade fever last night 100.4 1. Subdural hematoma secondary to a fall. 2. History of seizures, on Dilantin. 3. Non-ST elevation myocardial infarction, elevated troponin. The patient has a known history of coronary artery disease, 3-vessel disease. The patient's family opted medical treatment. 4. Dementia. 5. Chronic obstructive pulmonary disease. PLAN:trivedi c/s done start on broad spectrum antibiotics Vanco+Zosyn POD#4,bur hole for subdural hematoma nauro consult appreciated change to Keppra from dilantin, dilantin levels down to 15 from 24 speech consult step down unit start feeding today SNU placement Low dose aspirin started Plan Plan of Care Problems Medical Problems: (1) Elevated troponin Status: Acute (2) Subdural hematoma caused by concussion Status: Acute Comment Review of Relevant I have reviewed the following items eleazar (where applicable) has been applied. Labs Laboratory Tests Test 05/30/20 19:05/30/20 21:20 White Blood Count 12.1 x10^3/uL (4.0-11.0) Red Blood Count 4.62 x10^6/uL (4.30-5.70) Hemoglobin 12.7 g/dL (13.0-17.5) Hematocrit 39.3 % (39.0-53.0) Mean Corpuscular Volume 85 fL (79-100) Mean Corpuscular Hemoglobin 28 pg (25-35) Mean Corpuscular Hemoglobin Concent 33 g/dL (31-37) Red Cell Distribution Width 13.8 % (11.5-14.5) Platelet Count 242 x10^3/uL (140-400) Neutrophils (%) (Auto) 82 % (31-73) Lymphocytes (%) (Auto) 9 % (24-48) Monocytes (%) (Auto) 8 % (0-9) Eosinophils (%) (Auto) 1 % (0-3) Basophils (%) (Auto) 0 % (0-3) Neutrophils # (Auto) 9.9 x10^3/uL (1.8-7.7) Lymphocytes # (Auto) 1.1 x10^3/uL (1.0-4.8) Monocytes # (Auto) 1.0 x10^3/uL (0.0-1.1) Eosinophils # (Auto) 0.1 x10^3/uL (0.0-0.7) Basophils # (Auto) 0.1 x10^3/uL (0.0-0.2) Sodium Level 138 mmol/L (136-145) Potassium Level 4.3 mmol/L (3.5-5.1) Chloride Level 104 mmol/L (98-107) Carbon Dioxide Level 27 mmol/L (21-32) Anion Gap 7 (6-14) Blood Urea Nitrogen 19 mg/dL (8-26) Creatinine 1.1 mg/dL (0.7-1.3) Estimated GFR (Cockcroft-Gault) 78.3 BUN/Creatinine Ratio 17 (6-20) Glucose Level 98 mg/dL (70-99) Calcium Level 8.4 mg/dL (8.5-10.1) Total Bilirubin 0.5 mg/dL (0.2-1.0) Aspartate Amino Transf (AST/SGOT) 76 U/L (15-37) Alanine Aminotransferase (ALT/SGPT) 16 U/L (16-63) Alkaline Phosphatase 118 U/L (46-116) Total Protein 8.1 g/dL (6.4-8.2) Albumin 2.7 g/dL (3.4-5.0) Albumin/Globulin Ratio 0.5 (1.0-1.7) Urine Collection Type Unknown Urine Color Yellow Urine Clarity Clear Urine pH 5.5 (<5.0-8.0) Urine Specific [place] 1.020 (1.000-1.030) Urine Protein 30 mg/dL (NEG-TRACE) Urine Glucose (UA) Negative mg/dL (NEG) Urine Ketones (Stick) Trace mg/dL (NEG) Urine Blood Moderate (NEG) Urine Nitrite Negative (NEG) Urine Bilirubin Negative (NEG) Urine Urobilinogen Dipstick 1.0 mg/dL (0.2 mg/dL) Urine Leukocyte Esterase Negative (NEG) Urine RBC 1-2 /HPF (0-2) Urine WBC 1-4 /HPF (0-4) Urine Squamous Epithelial Cells Occ /LPF Urine Amorphous Sediment Present /HPF Urine Bacteria Few /HPF (0-FEW) Urine Hyaline Casts Few /HPF Microbiology 05/28/20 Blood Culture - Preliminary, Resulted NO GROWTH AFTER 2 DAYS Medications Current Medications Acetaminophen (Tylenol) 500 mg PRN Q6HRS PRN PO MILD PAIN / TEMP > 100.3'F Last administered on 05/30/20at 21:29; Start 05/30/20 at 18:30 Levetiracetam (Keppra) 500 mg BID PO Last administered on 05/31/20at 08:48; Start 05/30/20 at 21:00 Levetiracetam 250 mg/Dextrose 102.5 ml @ 410 mls/hr Q12HR IV ; Start 05/30/20 at 10:00; Stop 05/30/20 at 09:35; Status DC Levetiracetam 250 mg/Dextrose 102.5 ml @ 410 mls/hr Q12HR IV Last administered on 05/30/20at 09:40; Start 05/30/20 at 10:00; Stop 05/30/20 at 12:02; Status DC Piperacillin Sod/ Tazobactam Sod 3.375 gm/Sodium Chloride 50 ml @ 100 mls/hr Q6HRS IV Last administered on 05/31/20at 05:11; Start 05/30/20 at 20:00 Vancomycin HCl (Vanco Per Pharmacy) 1 each PRN DAILY PRN MC SEE COMMENTS Last administered on 05/31/20at 00:22; Start 05/30/20 at 18:30 Vancomycin HCl (Vancomycin Trough Level) 1 each 1X ONCE MC ; Start 06/01/20 at 21:00; Stop 06/01/20 at 21:01 Vancomycin HCl 1.25 gm/Sodium Chloride 250 ml @ 166.667 mls/hr 1X ONCE IV Last administered on 05/30/20at 21:29; Start 05/30/20 at 18:45; Stop 05/30/20 at 20:15; Status DC Vancomycin HCl 1 gm/Sodium Chloride 250 ml @ 250 mls/hr 1X IV ; Start 05/30/20 at 18:30; Status UNV Vancomycin HCl 1 gm/Sodium Chloride 250 ml @ 250 mls/hr Q24H IV ; Start 05/31/20 at 21:30 Vitals/I & O Vital Sign - Last 24 Hours 05/30/20 05/30/20 05/30/20 05/30/20 10:00 11:00 12:00 12:00 Temp 97.6 97.6 Pulse 94 86 96 Resp 30 29 26 B/P (MAP) 120/77 (91) 125/92 (103) 108/80 (89) Pulse Ox 98 95 O2 Delivery Room Air Room Air Nasal Cannula Room Air O2 Flow Rate 2.0 05/30/20 05/30/20 05/30/20 05/30/20 12:13 13:00 13:04 14:00 Pulse 94 96 88 Resp 34 25 B/P (MAP) 118/88 (98) 118/88 97/68 (78) Pulse Ox 97 93 97 O2 Delivery Room Air Room Air Room Air 05/30/20 05/30/20 05/30/20 05/30/20 15:00 16:00 16:00 16:21 Pulse 84 88 Resp 26 27 B/P (MAP) 117/79 (92) 107/65 (79) Pulse Ox 98 98 96 O2 Delivery Room Air Nasal Cannula Room Air Room Air O2 Flow Rate 2.0 05/30/20 05/30/20 05/30/20 05/30/20 17:00 18:20 19:00 20:00 Temp 100.5 99.4 100.5 99.4 Pulse 80 97 80 Resp 20 B/P (MAP) 111/75 (87) 126/74 (91) Pulse Ox 99 90 99 O2 Delivery Room Air Room Air Nasal Cannula Nasal Cannula O2 Flow Rate 2.0 2.0 05/30/20 05/30/20 05/31/20 05/31/20 20:48 23:10 02:50 07:00 Temp 99.1 98.2 99.4 99.1 98.2 99.4 Pulse 82 67 58 Resp 20 B/P (MAP) 97/63 (74) 97/65 (76) 114/73 (87) Pulse Ox 97 94 95 93 O2 Delivery Nasal Cannula Room Air Nasal Cannula Nasal Cannula O2 Flow Rate 2.0 2.0 2.0 05/31/20 05/31/20 08:48 08:48 Pulse 7 66 B/P (MAP) 114/73 114/73 Intake and Output 05/30/20 05/30/20 05/31/20 15:00 23:00 07:00 Intake Total 200 ml 250 ml 1994 ml Output Total 450 ml 250 ml Balance 200 ml -200 ml 1744 ml Justifications for Admission Other Justification Nutrition Consultation Dietary Evaluation: Recommendations by RD: Dietary education by RD, Increase Calorie Intake, Protein supplementation Comments: REC advance diet as able/appropriate, goal diet cardiac w/Ensure supplements prn REC PPN or dobhoff/TFs if unable to advance diet within 24 - 48 hrs Expected Outcomes/Goals: diet advancement Malnutrition Findings: Body Fat Depletion (Non Severe: Mild Depletion Weight Status: Underweight KELSY BERNSTEIN MD May 31, 2020 09:11
[2020-05-31 09:21] LABS: PHENY 15.5 mcg/mL (10.0-20.0)
--- NOTE | 2020-05-31 09:25 | PDOC ---
PROGRESS NOTES Date of Service DATE: 05/31/20 TIME: 09:23 Assessment Problems Medical Problems: (1) Elevated troponin Status: Acute (2) Subdural hematoma caused by concussion Status: Acute Right sided subdural hematoma status-post evacuation History of epilepsy, no recent seizures Dementia Plan Levetiracetam 500 mg twice daily Placement in long-term Subjective Denies pain, enjoying breakfast Objective Vital Signs Date Time Temp Pulse Resp B/P (MAP) Pulse Ox O2 Delivery O2 Flow Rate FiO2 05/31/20 09:05 98 Nasal Cannula 2.0 05/31/20 08:48 66 114/73 05/31/20 07:00 99.4 20 99.4 Intake and Output 05/31/20 07:00 Intake Total 2444 ml Output Total 700 ml Balance 1744 ml Intake Oral 400 ml IV Total 2044 ml Output Urine Total 700 ml # Voids 1 # Bowel Movements 1 PHYSICAL EXAM Alert. Oriented to person and "hospital," does not know the date. PERRL. EOMI. CN: no focal findings. Muscle tone: normal. Muscle strength: 4/5, little weaker on the left DTR: 2+ Plantar reflex: Flexor Gait: not examined in bed. Sensory exam: no abnormal findings. No cerebellar signs elicited. Bilateral grasp reflexes Review of Relevant I have reviewed the following items eleazar (where applicable) has been applied. Labs Laboratory Tests Test 05/30/20 07:45 05/30/20 19:22 05/30/20 21:20 White Blood Count 11.6 x10^3/uL (4.0-11.0) 12.1 x10^3/uL (4.0-11.0) Red Blood Count 4.05 x10^6/uL (4.30-5.70) 4.62 x10^6/uL (4.30-5.70) Hemoglobin 11.1 g/dL (13.0-17.5) 12.7 g/dL (13.0-17.5) Hematocrit 34.0 % (39.0-53.0) 39.3 % (39.0-53.0) Mean Corpuscular Volume 84 fL (79-100) 85 fL (79-100) Mean Corpuscular Hemoglobin 27 pg (25-35) 28 pg (25-35) Mean Corpuscular Hemoglobin Concent 33 g/dL (31-37) 33 g/dL (31-37) Red Cell Distribution Width 13.3 % (11.5-14.5) 13.8 % (11.5-14.5) Platelet Count 227 x10^3/uL (140-400) 242 x10^3/uL (140-400) Neutrophils (%) (Auto) 79 % (31-73) 82 % (31-73) Lymphocytes (%) (Auto) 10 % (24-48) 9 % (24-48) Monocytes (%) (Auto) 10 % (0-9) 8 % (0-9) Eosinophils (%) (Auto) 0 % (0-3) 1 % (0-3) Basophils (%) (Auto) 1 % (0-3) 0 % (0-3) Neutrophils # (Auto) 9.2 x10^3/uL (1.8-7.7) 9.9 x10^3/uL (1.8-7.7) Lymphocytes # (Auto) 1.1 x10^3/uL (1.0-4.8) 1.1 x10^3/uL (1.0-4.8) Monocytes # (Auto) 1.2 x10^3/uL (0.0-1.1) 1.0 x10^3/uL (0.0-1.1) Eosinophils # (Auto) 0.0 x10^3/uL (0.0-0.7) 0.1 x10^3/uL (0.0-0.7) Basophils # (Auto) 0.1 x10^3/uL (0.0-0.2) 0.1 x10^3/uL (0.0-0.2) Sodium Level 139 mmol/L (136-145) 138 mmol/L (136-145) Potassium Level 4.4 mmol/L (3.5-5.1) 4.3 mmol/L (3.5-5.1) Chloride Level 105 mmol/L (98-107) 104 mmol/L (98-107) Carbon Dioxide Level 25 mmol/L (21-32) 27 mmol/L (21-32) Anion Gap 9 (6-14) 7 (6-14) Blood Urea Nitrogen 19 mg/dL (8-26) 19 mg/dL (8-26) Creatinine 1.0 mg/dL (0.7-1.3) 1.1 mg/dL (0.7-1.3) Estimated GFR (Cockcroft-Gault) 87.4 78.3 Glucose Level 116 mg/dL (70-99) 98 mg/dL (70-99) Calcium Level 7.8 mg/dL (8.5-10.1) 8.4 mg/dL (8.5-10.1) BUN/Creatinine Ratio 17 (6-20) Total Bilirubin 0.5 mg/dL (0.2-1.0) Aspartate Amino Transf (AST/SGOT) 76 U/L (15-37) Alanine Aminotransferase (ALT/SGPT) 16 U/L (16-63) Alkaline Phosphatase 118 U/L (46-116) Total Protein 8.1 g/dL (6.4-8.2) Albumin 2.7 g/dL (3.4-5.0) Albumin/Globulin Ratio 0.5 (1.0-1.7) Urine Collection Type Unknown Urine Color Yellow Urine Clarity Clear Urine pH 5.5 (<5.0-8.0) Urine Specific [place] 1.020 (1.000-1.030) Urine Protein 30 mg/dL (NEG-TRACE) Urine Glucose (UA) Negative mg/dL (NEG) Urine Ketones (Stick) Trace mg/dL (NEG) Urine Blood Moderate (NEG) Urine Nitrite Negative (NEG) Urine Bilirubin Negative (NEG) Urine Urobilinogen Dipstick 1.0 mg/dL (0.2 mg/dL) Urine Leukocyte Esterase Negative (NEG) Urine RBC 1-2 /HPF (0-2) Urine WBC 1-4 /HPF (0-4) Urine Squamous Epithelial Cells Occ /LPF Urine Amorphous Sediment Present /HPF Urine Bacteria Few /HPF (0-FEW) Urine Hyaline Casts Few /HPF Laboratory Tests Test 05/30/20 19:22 05/30/20 21:20 White Blood Count 12.1 x10^3/uL (4.0-11.0) Red Blood Count 4.62 x10^6/uL (4.30-5.70) Hemoglobin 12.7 g/dL (13.0-17.5) Hematocrit 39.3 % (39.0-53.0) Mean Corpuscular Volume 85 fL (79-100) Mean Corpuscular Hemoglobin 28 pg (25-35) Mean Corpuscular Hemoglobin Concent 33 g/dL (31-37) Red Cell Distribution Width 13.8 % (11.5-14.5) Platelet Count 242 x10^3/uL (140-400) Neutrophils (%) (Auto) 82 % (31-73) Lymphocytes (%) (Auto) 9 % (24-48) Monocytes (%) (Auto) 8 % (0-9) Eosinophils (%) (Auto) 1 % (0-3) Basophils (%) (Auto) 0 % (0-3) Neutrophils # (Auto) 9.9 x10^3/uL (1.8-7.7) Lymphocytes # (Auto) 1.1 x10^3/uL (1.0-4.8) Monocytes # (Auto) 1.0 x10^3/uL (0.0-1.1) Eosinophils # (Auto) 0.1 x10^3/uL (0.0-0.7) Basophils # (Auto) 0.1 x10^3/uL (0.0-0.2) Sodium Level 138 mmol/L (136-145) Potassium Level 4.3 mmol/L (3.5-5.1) Chloride Level 104 mmol/L (98-107) Carbon Dioxide Level 27 mmol/L (21-32) Anion Gap 7 (6-14) Blood Urea Nitrogen 19 mg/dL (8-26) Creatinine 1.1 mg/dL (0.7-1.3) Estimated GFR (Cockcroft-Gault) 78.3 BUN/Creatinine Ratio 17 (6-20) Glucose Level 98 mg/dL (70-99) Calcium Level 8.4 mg/dL (8.5-10.1) Total Bilirubin 0.5 mg/dL (0.2-1.0) Aspartate Amino Transf (AST/SGOT) 76 U/L (15-37) Alanine Aminotransferase (ALT/SGPT) 16 U/L (16-63) Alkaline Phosphatase 118 U/L (46-116) Total Protein 8.1 g/dL (6.4-8.2) Albumin 2.7 g/dL (3.4-5.0) Albumin/Globulin Ratio 0.5 (1.0-1.7) Urine Collection Type Unknown Urine Color Yellow Urine Clarity Clear Urine pH 5.5 (<5.0-8.0) Urine Specific [place] 1.020 (1.000-1.030) Urine Protein 30 mg/dL (NEG-TRACE) Urine Glucose (UA) Negative mg/dL (NEG) Urine Ketones (Stick) Trace mg/dL (NEG) Urine Blood Moderate (NEG) Urine Nitrite Negative (NEG) Urine Bilirubin Negative (NEG) Urine Urobilinogen Dipstick 1.0 mg/dL (0.2 mg/dL) Urine Leukocyte Esterase Negative (NEG) Urine RBC 1-2 /HPF (0-2) Urine WBC 1-4 /HPF (0-4) Urine Squamous Epithelial Cells Occ /LPF Urine Amorphous Sediment Present /HPF Urine Bacteria Few /HPF (0-FEW) Urine Hyaline Casts Few /HPF Microbiology 05/28/20 Blood Culture - Preliminary, Resulted NO GROWTH AFTER 2 DAYS Medications Current Medications Aspirin (Aspirin Chewable) 324 mg 1X ONCE PO Last administered on 05/28/20at 13:14; Start 05/28/20 at 13:00; Stop 05/28/20 at 13:01; Status DC Furosemide (Lasix) 40 mg 1X ONCE IVP Last administered on 05/28/20at 13:56; Start 05/28/20 at 13:45; Stop 05/28/20 at 13:46; Status DC Ondansetron HCl (Zofran) 4 mg PRN Q8HRS PRN IV NAUSEA/VOMITING; Start 05/28/20 at 14:00; Stop 05/29/20 at 13:59; Status DC Morphine Sulfate (Morphine Sulfate) 4 mg PRN Q2HR PRN IV PAIN Last administered on 05/29/20at 02:35; Start 05/28/20 at 14:00; Stop 05/29/20 at 13:59; Status DC Lidocaine HCl (Lidocaine Pf 2% Vial) 5 ml STK-MED ONCE .ROUTE ; Start 05/28/20 at 14:19; Stop 05/28/20 at 14:20; Status DC Propofol (Diprivan) 200 mg STK-MED ONCE IV ; Start 05/28/20 at 14:19; Stop 05/28/20 at 14:20; Status DC Fentanyl Citrate (Fentanyl 2ml Vial) 100 mcg STK-MED ONCE .ROUTE ; Start 05/28/20 at 14:20; Stop 05/28/20 at 14:20; Status DC Rocuronium [place] (Zemuron) 50 mg STK-MED ONCE .ROUTE ; Start 05/28/20 at 14:20; Stop 05/28/20 at 14:20; Status DC Phenylephrine HCl (PHENYLEPHRINE in 0.9% NACL PF) 1 mg STK-MED ONCE IV ; Start 05/28/20 at 14:21; Stop 05/28/20 at 14:21; Status DC Bacitracin 98399 unit/Sodium Chloride 1,000 ml @ 1,000 mls/hr 1X ONCE IRR Last administered on 05/28/20at 16:14; Start 05/28/20 at 15:00; Stop 05/28/20 at 15:59; Status DC Nicardipine HCl (Cardene) 25 mg STK-MED ONCE IV ; Start 05/28/20 at 14:47; Stop 05/28/20 at 14:47; Status DC Nitroglycerin (Nitroglycerin) 50 mg STK-MED ONCE .ROUTE ; Start 05/28/20 at 14:47; Stop 05/28/20 at 14:47; Status DC Fentanyl Citrate (Fentanyl 2ml Vial) 25 mcg PRN Q5MIN PRN IVP MILD PAIN 1-3; Start 05/28/20 at 15:00; Stop 05/28/20 at 21:00; Status DC Morphine Sulfate (Morphine Sulfate) 1 mg PRN Q10MIN PRN IVP SEVERE PAIN 7-10; Start 05/28/20 at 15:00; Stop 05/28/20 at 21:00; Status DC Ringer's Solution 1,000 ml @ 30 mls/hr Q24H IV ; Start 05/28/20 at 15:00; Stop 05/28/20 at 21:00; Status DC Hydromorphone HCl (Dilaudid) 0.5 mg PRN Q10MIN PRN IVP SEVERE PAIN 7-10, 2nd CHOICE; Start 05/28/20 at 15:00; Stop 05/28/20 at 21:00; Status DC Prochlorperazine Edisylate (Compazine) 5 mg PACU PRN PRN IVP NAUSEA, MRX1; Start 05/28/20 at 15:00; Stop 05/28/20 at 21:00; Status DC Gelatin (Gelfoam Size 100) 1 each STK-MED ONCE .ROUTE Last administered on 05/28/20at 16:14; Start 05/28/20 at 14:58; Stop 05/28/20 at 14:58; Status DC Bupivacaine HCl/ Epinephrine Bitart (Sensorcain-Epi 0.5% Kit) 30 ml STK-MED ONCE .ROUTE ; Start 05/28/20 at 14:58; Stop 05/28/20 at 14:58; Status DC Cellulose (Surgicel Hemostat 4x8) 1 each STK-MED ONCE .ROUTE ; Start 05/28/20 at 14:58; Stop 05/28/20 at 14:58; Status DC Thrombin 20,000 unit STK-MED ONCE TP Last administered on 05/28/20at 16:14; Start 05/28/20 at 14:58; Stop 05/28/20 at 14:58; Status DC Bupivacaine HCl/ Epinephrine Bitart (Sensorcain-Epi 0.5%-1:011622 Mpf) 30 ml STK-MED ONCE .ROUTE Last administered on 05/28/20at 16:14; Start 05/28/20 at 14:58; Stop 05/28/20 at 14:59; Status DC Rocuronium [place] (Zemuron) 50 mg STK-MED ONCE .ROUTE ; Start 05/28/20 at 16:26; Stop 05/28/20 at 16:26; Status DC Ephedrine Sulfate (ePHEDrine PF IN SALINE SYRINGE) 50 mg STK-MED ONCE IV ; Start 05/28/20 at 16:26; Stop 05/28/20 at 16:27; Status DC Phenylephrine HCl (John-Synephrine Inj) 10 mg STK-MED ONCE .ROUTE ; Start 05/28/20 at 16:26; Stop 05/28/20 at 16:27; Status DC Ondansetron HCl (Zofran) 4 mg STK-MED ONCE .ROUTE ; Start 05/28/20 at 16:26; Stop 05/28/20 at 16:27; Status DC Dexamethasone Sodium Phosphate (Decadron) 4 mg STK-MED ONCE .ROUTE ; Start 05/28/20 at 16:26; Stop 05/28/20 at 16:27; Status DC Phenylephrine HCl (John-Synephrine Inj) 10 mg STK-MED ONCE .ROUTE ; Start 05/28/20 at 16:40; Stop 05/28/20 at 16:41; Status DC Sevoflurane (Ultane) 60 ml STK-MED ONCE IH ; Start 05/28/20 at 17:20; Stop 05/28/20 at 17:20; Status DC Nicardipine HCl 50 mg/Sodium Chloride 250 ml @ 25 mls/hr TITRATE PRN IV PER PROTOCOL; Start 05/28/20 at 17:30 Hydralazine HCl (Apresoline Inj) 5 mg PRN Q6HRS PRN IVP TO KEEP SBP<150mmHg; Start 05/28/20 at 17:15 Sodium Chloride (Normal Saline Flush) 3 ml QSHIFT PRN IV AFTER MEDS AND BLOOD DRAWS; Start 05/28/20 at 17:15 Dextrose (Dextrose 50%-Water Syringe) 12.5 gm PRN Q15MIN PRN IV SEE COMMENTS; Start 05/28/20 at 17:15 Docusate Sodium (Colace) 100 mg BID PO Last administered on 05/31/20at 08:47; Start 05/28/20 at 21:00 Magnesium Hydroxide (Milk Of Magnesia) 2,400 mg PRN Q12HR PRN PO CONSTIPATION; Start 05/28/20 at 17:15 Cefazolin Sodium (Ancef) 1 gm Q8HRS IVP Last administered on 05/29/20at 15:19; Start 05/28/20 at 22:00; Stop 05/29/20 at 14:01; Status DC Fentanyl Citrate (Fentanyl 2ml Vial) 50 mcg PRN Q2HR PRN IVP PAIN Last administered on 05/29/20at 00:42; Start 05/28/20 at 17:15 Potassium Chloride/Dextrose/ Sod Cl 1,000 ml @ 75 mls/hr [id number] IV Last administered on 05/31/20at 04:19; Start 05/28/20 at 20:00 Losartan Potassium (Cozaar) 50 mg DAILY PO ; Start 05/29/20 at 09:00; Stop 05/29/20 at 09:08; Status DC Metoprolol Succinate (Toprol Xl) 25 mg DAILY PO Last administered on 05/31/20at 08:48; Start 05/29/20 at 09:00 Phenytoin Sodium (Dilantin) 100 mg BID PO ; Start 05/28/20 at 22:15; Stop 05/29/20 at 15:55; Status DC Non-Formulary Medication (Budesonide/ Formoterol Fumarate (Symbicort 160-4.5 Mcg Inhaler)) 2 puff BID IH ; Start 05/29/20 at 09:00; Status UNV Atorvastatin Calcium (Lipitor) 80 mg QHS PO Last administered on 05/30/20at 21:29; Start 05/29/20 at 21:00 Budesonide (Pulmicort) 0.5 mg RTBID NEB Last administered on 05/31/20 09:04; Start 05/29/20 at 08:00 Albuterol Sulfate (Ventolin Neb Soln) 2.5 mg RTQID NEB Last administered on 05/31/20 09:04; Start 05/29/20 at 08:00 Losartan Potassium (Cozaar) 25 mg DAILY PO Last administered on 05/31/20at 08:48; Start 05/30/20 at 09:00 Levetiracetam (Keppra) 250 mg BID PO ; Start 05/30/20 at 09:00; Stop 05/30/20 at 12:59; Status DC Levetiracetam 250 mg/Dextrose 102.5 ml @ 410 mls/hr Q12HR IV ; Start 05/30/20 at 10:00; Stop 05/30/20 at 09:35; Status DC Levetiracetam 250 mg/Dextrose 102.5 ml @ 410 mls/hr Q12HR IV Last administered on 05/30/20at 09:40; Start 05/30/20 at 10:00; Stop 05/30/20 at 12:02; Status DC Levetiracetam (Keppra) 500 mg BID PO Last administered on 05/31/20at 08:48; Start 05/30/20 at 21:00 Acetaminophen (Tylenol) 500 mg PRN Q6HRS PRN PO MILD PAIN / TEMP > 100.3'F Last administered on 05/30/20at 21:29; Start 05/30/20 at 18:30 Piperacillin Sod/ Tazobactam Sod 3.375 gm/Sodium Chloride 50 ml @ 100 mls/hr Q6HRS IV Last administered on 05/31/20at 05:11; Start 05/30/20 at 20:00 Vancomycin HCl 1 gm/Sodium Chloride 250 ml @ 250 mls/hr 1X IV ; Start 05/30/20 at 18:30; Status UNV Vancomycin HCl (Vanco Per Pharmacy) 1 each PRN DAILY PRN MC SEE COMMENTS Last administered on 05/31/20at 00:22; Start 05/30/20 at 18:30 Vancomycin HCl 1.25 gm/Sodium Chloride 250 ml @ 166.667 mls/hr 1X ONCE IV Last administered on 05/30/20at 21:29; Start 05/30/20 at 18:45; Stop 05/30/20 at 20:15; Status DC Vancomycin HCl 1 gm/Sodium Chloride 250 ml @ 250 mls/hr Q24H IV ; Start 05/31/20 at 21:30 Vancomycin HCl (Vancomycin Trough Level) 1 each 1X ONCE MC ; Start 06/01/20 at 21:00; Stop 06/01/20 at 21:01 Active Scripts Active Crestor (Rosuvastatin Calcium) 40 Mg Tablet 0.5 Tab PO DAILY 30 Days Metoprolol Succinate ( Xl ) (Metoprolol Succinate) 25 Mg Tab.er.24h 1 Tab PO DAILY Aspirin Ec (Aspirin) 325 Mg Tablet.dr 325 Mg PO [id number] 365 Days Reported Losartan Potassium 50 Mg Tablet 50 Mg PO DAILY Namenda (Memantine Hcl) 10 Mg Tablet 10 Mg PO HS Proair Hfa Inhaler (Albuterol Sulfate) 8.5 Gm Hfa.aer.ad 2 Puff INH QID PRN Dilantin (Phenytoin Sodium Extended) 100 Mg Capsule 1 Cap PO BID Symbicort 160-4.5 Mcg Inhaler (Budesonide/Formoterol Fumarate) 10.2 Gm Hfa.aer.ad 2 Puff IH BID Vitals/I & O Vital Sign - Last 24 Hours 05/30/20 05/30/20 05/30/20 05/30/20 10:00 11:00 12:00 12:00 Temp 97.6 97.6 Pulse 94 86 96 Resp 30 29 26 B/P (MAP) 120/77 (91) 125/92 (103) 108/80 (89) Pulse Ox 98 95 O2 Delivery Room Air Room Air Nasal Cannula Room Air O2 Flow Rate 2.0 3/23/21 3/23/21 3/23/21 3/23/21 12:13 13:00 13:04 14:00 Pulse 94 96 88 Resp 34 25 B/P (MAP) 118/88 (98) 118/88 97/68 (78) Pulse Ox 97 93 97 O2 Delivery Room Air Room Air Room Air 05/30/20 05/30/20 05/30/20 05/30/20 15:00 16:00 16:00 16:21 Pulse 84 88 Resp 26 27 B/P (MAP) 117/79 (92) 107/65 (79) Pulse Ox 98 98 96 O2 Delivery Room Air Nasal Cannula Room Air Room Air O2 Flow Rate 2.0 05/30/20 05/30/20 05/30/20 05/30/20 17:00 18:20 19:00 20:00 Temp 100.5 99.4 100.5 99.4 Pulse 80 97 80 Resp 22 24 20 B/P (MAP) 111/75 (87) 126/74 (91) Pulse Ox 99 90 99 O2 Delivery Room Air Room Air Nasal Cannula Nasal Cannula O2 Flow Rate 2.0 2.0 05/30/20 05/30/20 05/31/20 05/31/20 20:48 23:10 02:50 07:00 Temp 99.1 98.2 99.4 99.1 98.2 99.4 Pulse 82 67 58 Resp 20 20 20 B/P (MAP) 97/63 (74) 97/65 (76) 114/73 (87) Pulse Ox 97 94 95 93 O2 Delivery Nasal Cannula Room Air Nasal Cannula Nasal Cannula O2 Flow Rate 2.0 2.0 2.0 05/31/20 05/31/20 05/31/20 08:48 08:48 09:05 Pulse 7 66 B/P (MAP) 114/73 114/73 Pulse Ox 98 O2 Delivery Nasal Cannula O2 Flow Rate 2.0 Intake and Output 0 05/30/20 05/30/20 05/31/20 15:00 23:00 07:00 Intake Total 200 ml 250 ml 1994 ml Output Total 450 ml 250 ml Balance 200 ml -200 ml 1744 ml Justicifation of Admission Dx: Justifications for Admission: Justification of Admission Dx: Yes Sepsis: Altered Mental Status EMMA SAWANT MD May 31, 2020 09:25
--- NOTE | 2020-05-31 09:44 | PDOC ---
PROGRESS NOTES Date of Service DATE: 05/31/20 TIME: 09:38 Subjective Subjective No new complaints. Objective Objective Vital Signs Date Time Temp Pulse Resp B/P (MAP) Pulse Ox O2 Delivery O2 Flow Rate FiO2 05/31/20 09:05 98 Nasal Cannula 2.0 05/31/20 08:48 66 114/73 05/31/20 07:00 99.4 20 99.4 Intake and Output 05/31/20 07:00 Intake Total 2444 ml Output Total 700 ml Balance 1744 ml Intake Oral 400 ml IV Total 2044 ml Output Urine Total 700 ml # Voids 1 # Bowel Movements 1 Physical Exam Physical Exam He is supine in bed and seems comfortable and using oxygen by nasal canula and he did walk for 100' with roller walker with physical therapy and he is eating and voiding well and he had a bowel movement. 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 Comment Review of Relevant I have reviewed the following items eleazar (where applicable) has been applied. Labs Laboratory Tests Test 05/30/20 07:45 05/30/20 19:22 05/30/20 21:20 05/31/20 07:00 White Blood Count 11.6 x10^3/uL (4.0-11.0) 12.1 x10^3/uL (4.0-11.0) Red Blood Count 4.05 x10^6/uL (4.30-5.70) 4.62 x10^6/uL (4.30-5.70) Hemoglobin 11.1 g/dL (13.0-17.5) 12.7 g/dL (13.0-17.5) Hematocrit 34.0 % (39.0-53.0) 39.3 % (39.0-53.0) Mean Corpuscular Volume 84 fL (79-100) 85 fL (79-100) Mean Corpuscular Hemoglobin 27 pg (25-35) 28 pg (25-35) Mean Corpuscular Hemoglobin Concent 33 g/dL (31-37) 33 g/dL (31-37) Red Cell Distribution Width 13.3 % (11.5-14.5) 13.8 % (11.5-14.5) Platelet Count 227 x10^3/uL (140-400) 242 x10^3/uL (140-400) Neutrophils (%) (Auto) 79 % (31-73) 82 % (31-73) Lymphocytes (%) (Auto) 10 % (24-48) 9 % (24-48) Monocytes (%) (Auto) 10 % (0-9) 8 % (0-9) Eosinophils (%) (Auto) 0 % (0-3) 1 % (0-3) Basophils (%) (Auto) 1 % (0-3) 0 % (0-3) Neutrophils # (Auto) 9.2 x10^3/uL (1.8-7.7) 9.9 x10^3/uL (1.8-7.7) Lymphocytes # (Auto) 1.1 x10^3/uL (1.0-4.8) 1.1 x10^3/uL (1.0-4.8) Monocytes # (Auto) 1.2 x10^3/uL (0.0-1.1) 1.0 x10^3/uL (0.0-1.1) Eosinophils # (Auto) 0.0 x10^3/uL (0.0-0.7) 0.1 x10^3/uL (0.0-0.7) Basophils # (Auto) 0.1 x10^3/uL (0.0-0.2) 0.1 x10^3/uL (0.0-0.2) Sodium Level 139 mmol/L (136-145) 138 mmol/L (136-145) Potassium Level 4.4 mmol/L (3.5-5.1) 4.3 mmol/L (3.5-5.1) Chloride Level 105 mmol/L (98-107) 104 mmol/L (98-107) Carbon Dioxide Level 25 mmol/L (21-32) 27 mmol/L (21-32) Anion Gap 9 (6-14) 7 (6-14) Blood Urea Nitrogen 19 mg/dL (8-26) 19 mg/dL (8-26) Creatinine 1.0 mg/dL (0.7-1.3) 1.1 mg/dL (0.7-1.3) Estimated GFR (Cockcroft-Gault) 87.4 78.3 Glucose Level 116 mg/dL (70-99) 98 mg/dL (70-99) Calcium Level 7.8 mg/dL (8.5-10.1) 8.4 mg/dL (8.5-10.1) BUN/Creatinine Ratio 17 (6-20) Total Bilirubin 0.5 mg/dL (0.2-1.0) Aspartate Amino Transf (AST/SGOT) 76 U/L (15-37) Alanine Aminotransferase (ALT/SGPT) 16 U/L (16-63) Alkaline Phosphatase 118 U/L (46-116) Total Protein 8.1 g/dL (6.4-8.2) Albumin 2.7 g/dL (3.4-5.0) Albumin/Globulin Ratio 0.5 (1.0-1.7) Urine Collection Type Unknown Urine Color Yellow Urine Clarity Clear Urine pH 5.5 (<5.0-8.0) Urine Specific [place] 1.020 (1.000-1.030) Urine Protein 30 mg/dL (NEG-TRACE) Urine Glucose (UA) Negative mg/dL (NEG) Urine Ketones (Stick) Trace mg/dL (NEG) Urine Blood Moderate (NEG) Urine Nitrite Negative (NEG) Urine Bilirubin Negative (NEG) Urine Urobilinogen Dipstick 1.0 mg/dL (0.2 mg/dL) Urine Leukocyte Esterase Negative (NEG) Urine RBC 1-2 /HPF (0-2) Urine WBC 1-4 /HPF (0-4) Urine Squamous Epithelial Cells Occ /LPF Urine Amorphous Sediment Present /HPF Urine Bacteria Few /HPF (0-FEW) Urine Hyaline Casts Few /HPF Phenytoin (Dilantin) Level 15.5 mcg/mL (10.0-20.0) Phenytoin Last Dose Date Unknown Phenytoin Last Dose Time Unknown Laboratory Tests Test 05/30/20 19:22 05/30/20 21:20 05/31/20 07:00 White Blood Count 12.1 x10^3/uL (4.0-11.0) Red Blood Count 4.62 x10^6/uL (4.30-5.70) Hemoglobin 12.7 g/dL (13.0-17.5) Hematocrit 39.3 % (39.0-53.0) Mean Corpuscular Volume 85 fL (79-100) Mean Corpuscular Hemoglobin 28 pg (25-35) Mean Corpuscular Hemoglobin Concent 33 g/dL (31-37) Red Cell Distribution Width 13.8 % (11.5-14.5) Platelet Count 242 x10^3/uL (140-400) Neutrophils (%) (Auto) 82 % (31-73) Lymphocytes (%) (Auto) 9 % (24-48) Monocytes (%) (Auto) 8 % (0-9) Eosinophils (%) (Auto) 1 % (0-3) Basophils (%) (Auto) 0 % (0-3) Neutrophils # (Auto) 9.9 x10^3/uL (1.8-7.7) Lymphocytes # (Auto) 1.1 x10^3/uL (1.0-4.8) Monocytes # (Auto) 1.0 x10^3/uL (0.0-1.1) Eosinophils # (Auto) 0.1 x10^3/uL (0.0-0.7) Basophils # (Auto) 0.1 x10^3/uL (0.0-0.2) Sodium Level 138 mmol/L (136-145) Potassium Level 4.3 mmol/L (3.5-5.1) Chloride Level 104 mmol/L (98-107) Carbon Dioxide Level 27 mmol/L (21-32) Anion Gap 7 (6-14) Blood Urea Nitrogen 19 mg/dL (8-26) Creatinine 1.1 mg/dL (0.7-1.3) Estimated GFR (Cockcroft-Gault) 78.3 BUN/Creatinine Ratio 17 (6-20) Glucose Level 98 mg/dL (70-99) Calcium Level 8.4 mg/dL (8.5-10.1) Total Bilirubin 0.5 mg/dL (0.2-1.0) Aspartate Amino Transf (AST/SGOT) 76 U/L (15-37) Alanine Aminotransferase (ALT/SGPT) 16 U/L (16-63) Alkaline Phosphatase 118 U/L (46-116) Total Protein 8.1 g/dL (6.4-8.2) Albumin 2.7 g/dL (3.4-5.0) Albumin/Globulin Ratio 0.5 (1.0-1.7) Urine Collection Type Unknown Urine Color Yellow Urine Clarity Clear Urine pH 5.5 (<5.0-8.0) Urine Specific [place] 1.020 (1.000-1.030) Urine Protein 30 mg/dL (NEG-TRACE) Urine Glucose (UA) Negative mg/dL (NEG) Urine Ketones (Stick) Trace mg/dL (NEG) Urine Blood Moderate (NEG) Urine Nitrite Negative (NEG) Urine Bilirubin Negative (NEG) Urine Urobilinogen Dipstick 1.0 mg/dL (0.2 mg/dL) Urine Leukocyte Esterase Negative (NEG) Urine RBC 1-2 /HPF (0-2) Urine WBC 1-4 /HPF (0-4) Urine Squamous Epithelial Cells Occ /LPF Urine Amorphous Sediment Present /HPF Urine Bacteria Few /HPF (0-FEW) Urine Hyaline Casts Few /HPF Phenytoin (Dilantin) Level 15.5 mcg/mL (10.0-20.0) Phenytoin Last Dose Date Unknown Phenytoin Last Dose Time Unknown Microbiology 05/28/20 Blood Culture - Preliminary, Resulted NO GROWTH AFTER 2 DAYS Medications Current Medications Aspirin (Aspirin Chewable) 324 mg 1X ONCE PO Last administered on 05/28/20at 13:14; Start 05/28/20 at 13:00; Stop 05/28/20 at 13:01; Status DC Furosemide (Lasix) 40 mg 1X ONCE IVP Last administered on 05/28/20at 13:56; Start 05/28/20 at 13:45; Stop 05/28/20 at 13:46; Status DC Ondansetron HCl (Zofran) 4 mg PRN Q8HRS PRN IV NAUSEA/VOMITING; Start 05/28/20 at 14:00; Stop 05/29/20 at 13:59; Status DC Morphine Sulfate (Morphine Sulfate) 4 mg PRN Q2HR PRN IV PAIN Last administered on 05/29/20at 02:35; Start 05/28/20 at 14:00; Stop 05/29/20 at 13:59; Status DC Lidocaine HCl (Lidocaine Pf 2% Vial) 5 ml STK-MED ONCE .ROUTE ; Start 05/28/20 at 14:19; Stop 05/28/20 at 14:20; Status DC Propofol (Diprivan) 200 mg STK-MED ONCE IV ; Start 05/28/20 at 14:19; Stop 05/28/20 at 14:20; Status DC Fentanyl Citrate (Fentanyl 2ml Vial) 100 mcg STK-MED ONCE .ROUTE ; Start 05/28/20 at 14:20; Stop 05/28/20 at 14:20; Status DC Rocuronium [place] (Zemuron) 50 mg STK-MED ONCE .ROUTE ; Start 05/28/20 at 14:20; Stop 05/28/20 at 14:20; Status DC Phenylephrine HCl (PHENYLEPHRINE in 0.9% NACL PF) 1 mg STK-MED ONCE IV ; Start 05/28/20 at 14:21; Stop 05/28/20 at 14:21; Status DC Bacitracin 59506 unit/Sodium Chloride 1,000 ml @ 1,000 mls/hr 1X ONCE IRR Last administered on 05/28/20at 16:14; Start 05/28/20 at 15:00; Stop 05/28/20 at 15:59; Status DC Nicardipine HCl (Cardene) 25 mg STK-MED ONCE IV ; Start 05/28/20 at 14:47; Stop 05/28/20 at 14:47; Status DC Nitroglycerin (Nitroglycerin) 50 mg STK-MED ONCE .ROUTE ; Start 05/28/20 at 14:47; Stop 05/28/20 at 14:47; Status DC Fentanyl Citrate (Fentanyl 2ml Vial) 25 mcg PRN Q5MIN PRN IVP MILD PAIN 1-3; Start 05/28/20 at 15:00; Stop 05/28/20 at 21:00; Status DC Morphine Sulfate (Morphine Sulfate) 1 mg PRN Q10MIN PRN IVP SEVERE PAIN 7-10; Start 05/28/20 at 15:00; Stop 05/28/20 at 21:00; Status DC Ringer's Solution 1,000 ml @ 30 mls/hr Q24H IV ; Start 05/28/20 at 15:00; Stop 05/28/20 at 21:00; Status DC Hydromorphone HCl (Dilaudid) 0.5 mg PRN Q10MIN PRN IVP SEVERE PAIN 7-10, 2nd CHOICE; Start 05/28/20 at 15:00; Stop 05/28/20 at 21:00; Status DC Prochlorperazine Edisylate (Compazine) 5 mg PACU PRN PRN IVP NAUSEA, MRX1; Start 05/28/20 at 15:00; Stop 05/28/20 at 21:00; Status DC Gelatin (Gelfoam Size 100) 1 each STK-MED ONCE .ROUTE Last administered on 05/28/20at 16:14; Start 05/28/20 at 14:58; Stop 05/28/20 at 14:58; Status DC Bupivacaine HCl/ Epinephrine Bitart (Sensorcain-Epi 0.5% Kit) 30 ml STK-MED ONCE .ROUTE ; Start 05/28/20 at 14:58; Stop 05/28/20 at 14:58; Status DC Cellulose (Surgicel Hemostat 4x8) 1 each STK-MED ONCE .ROUTE ; Start 05/28/20 at 14:58; Stop 05/28/20 at 14:58; Status DC Thrombin 20,000 unit STK-MED ONCE TP Last administered on 05/28/20at 16:14; Start 05/28/20 at 14:58; Stop 05/28/20 at 14:58; Status DC Bupivacaine HCl/ Epinephrine Bitart (Sensorcain-Epi 0.5%-1:[id number] Mpf) 30 ml STK-MED ONCE .ROUTE Last administered on 05/28/20at 16:14; Start 05/28/20 at 14:58; Stop 05/28/20 at 14:59; Status DC Rocuronium [place] (Zemuron) 50 mg STK-MED ONCE .ROUTE ; Start 05/28/20 at 16:26; Stop 05/28/20 at 16:26; Status DC Ephedrine Sulfate (ePHEDrine PF IN SALINE SYRINGE) 50 mg STK-MED ONCE IV ; Start 05/28/20 at 16:26; Stop 05/28/20 at 16:27; Status DC Phenylephrine HCl (John-Synephrine Inj) 10 mg STK-MED ONCE .ROUTE ; Start 05/28/20 at 16:26; Stop 05/28/20 at 16:27; Status DC Ondansetron HCl (Zofran) 4 mg STK-MED ONCE .ROUTE ; Start 05/28/20 at 16:26; Stop 05/28/20 at 16:27; Status DC Dexamethasone Sodium Phosphate (Decadron) 4 mg STK-MED ONCE .ROUTE ; Start 05/28/20 at 16:26; Stop 05/28/20 at 16:27; Status DC Phenylephrine HCl (John-Synephrine Inj) 10 mg STK-MED ONCE .ROUTE ; Start 05/28/20 at 16:40; Stop 05/28/20 at 16:41; Status DC Sevoflurane (Ultane) 60 ml STK-MED ONCE IH ; Start 05/28/20 at 17:20; Stop 05/28/20 at 17:20; Status DC Nicardipine HCl 50 mg/Sodium Chloride 250 ml @ 25 mls/hr TITRATE PRN IV PER PROTOCOL; Start 05/28/20 at 17:30 Hydralazine HCl (Apresoline Inj) 5 mg PRN Q6HRS PRN IVP TO KEEP SBP<150mmHg; Start 05/28/20 at 17:15 Sodium Chloride (Normal Saline Flush) 3 ml QSHIFT PRN IV AFTER MEDS AND BLOOD DRAWS; Start 05/28/20 at 17:15 Dextrose (Dextrose 50%-Water Syringe) 12.5 gm PRN Q15MIN PRN IV SEE COMMENTS; Start 05/28/20 at 17:15 Docusate Sodium (Colace) 100 mg BID PO Last administered on 05/31/20at 08:47; Start 05/28/20 at 21:00 Magnesium Hydroxide (Milk Of Magnesia) 2,400 mg PRN Q12HR PRN PO CONSTIPATION; Start 05/28/20 at 17:15 Cefazolin Sodium (Ancef) 1 gm Q8HRS IVP Last administered on 05/29/20at 15:19; Start 05/28/20 at 22:00; Stop 05/29/20 at 14:01; Status DC Fentanyl Citrate (Fentanyl 2ml Vial) 50 mcg PRN Q2HR PRN IVP PAIN Last administered on 05/29/20at 00:42; Start 05/28/20 at 17:15 Potassium Chloride/Dextrose/ Sod Cl 1,000 ml @ 75 mls/hr [id number] IV Last administered on 05/31/20at 04:19; Start 05/28/20 at 20:00 Losartan Potassium (Cozaar) 50 mg DAILY PO ; Start 05/29/20 at 09:00; Stop 05/29/20 at 09:08; Status DC Metoprolol Succinate (Toprol Xl) 25 mg DAILY PO Last administered on 05/31/20at 08:48; Start 05/29/20 at 09:00 Phenytoin Sodium (Dilantin) 100 mg BID PO ; Start 05/28/20 at 22:15; Stop 05/29/20 at 15:55; Status DC Non-Formulary Medication (Budesonide/ Formoterol Fumarate (Symbicort 160-4.5 Mcg Inhaler)) 2 puff BID IH ; Start 05/29/20 at 09:00; Status UNV Atorvastatin Calcium (Lipitor) 80 mg QHS PO Last administered on 05/30/20at 21:29; Start 05/29/20 at 21:00 Budesonide (Pulmicort) 0.5 mg RTBID NEB Last administered on 05/31/20at 09:04; Start 05/29/20 at 08:00 Albuterol Sulfate (Ventolin Neb Soln) 2.5 mg RTQID NEB Last administered on 05/31/20at 09:04; Start 05/29/20 at 08:00 Losartan Potassium (Cozaar) 25 mg DAILY PO Last administered on 05/31/20at 08:48; Start 05/30/20 at 09:00 Levetiracetam (Keppra) 250 mg BID PO ; Start 05/30/20 at 09:00; Stop 05/30/20 at 12:59; Status DC Levetiracetam 250 mg/Dextrose 102.5 ml @ 410 mls/hr Q12HR IV ; Start 05/30/20 at 10:00; Stop 05/30/20 at 09:35; Status DC Levetiracetam 250 mg/Dextrose 102.5 ml @ 410 mls/hr Q12HR IV Last administered on 05/30/20at 09:40; Start 05/30/20 at 10:00; Stop 05/30/20 at 12:02; Status DC Levetiracetam (Keppra) 500 mg BID PO Last administered on 05/31/20at 08:48; Start 05/30/20 at 21:00 Acetaminophen (Tylenol) 500 mg PRN Q6HRS PRN PO MILD PAIN / TEMP > 100.3'F Last administered on 05/30/20at 21:29; Start 05/30/20 at 18:30 Piperacillin Sod/ Tazobactam Sod 3.375 gm/Sodium Chloride 50 ml @ 100 mls/hr Q6HRS IV Last administered on 05/31/20at 05:11; Start 05/30/20 at 20:00 Vancomycin HCl 1 gm/Sodium Chloride 250 ml @ 250 mls/hr 1X IV ; Start 05/30/20 at 18:30; Status UNV Vancomycin HCl (Vanco Per Pharmacy) 1 each PRN DAILY PRN MC SEE COMMENTS Last administered on 05/31/20at 00:22; Start 05/30/20 at 18:30 Vancomycin HCl 1.25 gm/Sodium Chloride 250 ml @ 166.667 mls/hr 1X ONCE IV Last administered on 05/30/20at 21:29; Start 05/30/20 at 18:45; Stop 05/30/20 at 20:15; Status DC Vancomycin HCl 1 gm/Sodium Chloride 250 ml @ 250 mls/hr Q24H IV ; Start 05/31/20 at 21:30 Vancomycin HCl (Vancomycin Trough Level) 1 each 1X ONCE MC ; Start 06/01/20 at 21:00; Stop 06/01/20 at 21:01 Active Scripts Active Crestor (Rosuvastatin Calcium) 40 Mg Tablet 0.5 Tab PO DAILY 30 Days Metoprolol Succinate ( Xl ) (Metoprolol Succinate) 25 Mg Tab.er.24h 1 Tab PO DAILY Aspirin Ec (Aspirin) 325 Mg Tablet.dr 325 Mg PO DAILYWBKFT 365 Days Reported Losartan Potassium 50 Mg Tablet 50 Mg PO DAILY Namenda (Memantine Hcl) 10 Mg Tablet 10 Mg PO HS Proair Hfa Inhaler (Albuterol Sulfate) 8.5 Gm Hfa.aer.ad 2 Puff INH QID PRN Dilantin (Phenytoin Sodium Extended) 100 Mg Capsule 1 Cap PO BID Symbicort 160-4.5 Mcg Inhaler (Budesonide/Formoterol Fumarate) 10.2 Gm Hfa.aer.ad 2 Puff IH BID Vitals/I & O Vital Sign - Last 24 Hours 05/30/20 05/30/20 05/30/20 05/30/20 10:00 11:00 12:00 12:00 Temp 97.6 97.6 Pulse 94 86 96 Resp 30 29 26 B/P (MAP) 120/77 (91) 125/92 (103) 108/80 (89) Pulse Ox 98 95 O2 Delivery Room Air Room Air Nasal Cannula Room Air O2 Flow Rate 2.0 05/30/20 05/30/20 05/30/20 05/30/20 12:13 13:00 13:04 14:00 Pulse 94 96 88 Resp 34 25 B/P (MAP) 118/88 (98) 118/88 97/68 (78) Pulse Ox 97 93 97 O2 Delivery Room Air Room Air Room Air 05/30/20 05/30/20 05/30/20 05/30/20 15:00 16:00 16:00 16:21 Pulse 84 88 Resp 26 27 B/P (MAP) 117/79 (92) 107/65 (79) Pulse Ox 98 98 96 O2 Delivery Room Air Nasal Cannula Room Air Room Air O2 Flow Rate 2.0 05/30/20 05/30/20 05/30/20 05/30/20 17:00 18:20 19:00 20:00 Temp 100.5 99.4 100.5 99.4 Pulse 80 97 80 Resp 24 20 B/P (MAP) 111/75 (87) 126/74 (91) Pulse Ox 99 90 99 O2 Delivery Room Air Room Air Nasal Cannula Nasal Cannula O2 Flow Rate 2.0 2.0 05/30/20 05/30/20 05/31/20 05/31/20 20:48 23:10 02:50 07:00 Temp 99.1 98.2 99.4 99.1 98.2 99.4 Pulse 82 67 58 Resp 20 20 20 B/P (MAP) 97/63 (74) 97/65 (76) 114/73 (87) Pulse Ox 97 94 95 93 O2 Delivery Nasal Cannula Room Air Nasal Cannula Nasal Cannula O2 Flow Rate 2.0 2.0 2.0 05/31/20 05/31/20 05/31/20 08:48 08:48 09:05 Pulse 7 66 B/P (MAP) 114/73 114/73 Pulse Ox 98 O2 Delivery Nasal Cannula O2 Flow Rate 2.0 Intake and Output 05/30/20 05/30/20 05/31/20 15:00 23:00 07:00 Intake Total 200 ml 250 ml 1994 ml Output Total 450 ml 250 ml Balance 200 ml -200 ml 1744 ml Justifications for Admission Other Justification Nutrition Consultation Dietary Evaluation: Recommendations by RD: Dietary education by RD, Increase Calorie Intake, Protein supplementation Comments: REC advance diet as able/appropriate, goal diet cardiac w/Ensure supplements prn REC PPN or dobhoff/TFs if unable to advance diet within 24 - 48 hrs Expected Outcomes/Goals: diet advancement Malnutrition Findings: Body Fat Depletion (Non Severe: Mild Depletion Weight Status: Underweight BAILEY BROWN MD May 31, 2020 09:44
[2020-05-31 10:23] LABS: CREATININE 1.1 mg/dL (0.7-1.3); GFR 78.3
[2020-05-31 10:49] VITALS: BP 100/66
--- NOTE | 2020-05-31 11:13 | CONS ---
DATE OF CONSULTATION: 05/31/2020 REFERRING PHYSICIAN: Dr. Glynn. REASON FOR CONSULTATION: Fever. HISTORY OF PRESENT ILLNESS: A 80-year-old male who presented to the ER on 05/28/2020 with altered mental status. The patient is unable to give history. History obtained from chart and medical staff. He has history of dementia, seizures and hypertension, was brought to the ER after a possible fall. The patient was found on the ground by shaper set up operator. The patient's white count was 11.9. He was found to have right-sided subdural hematoma. He underwent evacuation of the subdural on 05/28/[address] Elizabeth. The patient had fever of 100.5 yesterday. He was started on IV vancomycin and Zosyn. ID consultation has been requested for antibiotic management. Today, the patient is comfortable on oxygen 2 liters by nasal cannula, did walk about 100 feet with a roller walker with physical therapy. He is tolerating p.o. intake well. Denies any diarrhea. Postop pain is under control. REVIEW OF SYSTEMS: Negative except for above in HPI, somewhat limited. PAST MEDICAL HISTORY: Coronary artery disease, hypertension, COPD, dementia and seizure. PAST SURGICAL HISTORY: Craniotomy. FAMILY HISTORY: Not pertinent. SOCIAL HISTORY: Quit smoking a couple of years ago. No alcohol. Niece is a DPOA. Lives at home with full-time caregiver. CURRENT MEDICATIONS: IV vancomycin and Zosyn. Other medications reviewed in medication list. ALLERGIES: No known drug allergies. PHYSICAL EXAMINATION: VITAL SIGNS: Temperature 99.4, pulse 66, oxygen saturation 98% on 2 liters O2 by nasal cannula and blood pressure 114/73. GENERAL: Alert, awake, comfortable male lying in bed comfortably, in no acute distress. HEENT: Normocephalic, atraumatic. Wound dressing over the right scalp not removed, dry, intact. Oral mucosa moist. NECK: Supple. LUNGS: Clear bilaterally. HEART: S1, S2, no murmurs. ABDOMEN: Soft, nontender and nondistended. Bowel sounds present. EXTREMITIES: No edema, no cyanosis. NEUROLOGIC: Alert, awake, forgetful. MUSCULOSKELETAL: Changes suggestive DJD. DERMATOLOGIC: Warm, dry. No generalized rash. PIV looks okay. PSYCHIATRIC: Calm and cooperative. LABORATORY DATA: WBC 12.1, hemoglobin 12.7, hematocrit 39.3 and platelets 242. Sodium 138, potassium 4.3, chloride 104, bicarbonate 27, BUN 19, creatinine 1.1, glucose 96 and albumin 2.7. Troponin 17.354. COVID-19 negative. Phenytoin 15.5. UA, negative leukocyte esterase. COVID-19 negative. Micro: Blood culture 05/28 negative, repeat cultures pending. Chest x-ray 05/30, mild chronic interstitial changes, poor inspiration, mild increased atelectasis left lung base without other new infiltrate. DIAGNOSTICS: CT head noted. Chest x-ray noted. IMPRESSION: 1. Fever, etiology could be infectious versus noninfectious. 2. Subdural hematoma, status post evacuation. Operative note pending at this time. 3. Leukocytosis. 4. Non-ST elevation myocardial infarction, coronary artery disease and chronic congestive heart failure. 5. Dementia. 6. Seizures, on Dilantin. 7. Atrial fibrillation, new onset. RECOMMENDATIONS: 1. Continue IV vancomycin and Zosyn. 2. Pharmacy to assist with vancomycin dosing. 3. Follow up labs and cultures. 4. Maintain aspiration precaution. 5. Continue supportive care. 6. Wound care as directed. Thank you, Dr. Glynn, for consulting Infectious Disease to participate in this patient's care. If you have any questions, do not hesitate to contact me. LUCAS SCHUSTER MD DR: ARIANA/yaneth JOB#: [id number] / [id number] XANDER
--- NOTE | 2020-05-31 12:17 | PDOC ---
JUAN NUNN ENGINEERING PSYCHOLOGIST 05/31/20 1217: CARDIO Progress Notes Date and Time Date of Service 05/31/2020 Time of Evaluation 1130 Subjective Subjective: No Chest Pain, No shortness of breath, No Palpitations Vitals Vitals Vital Signs Date Time Temp Pulse Resp B/P (MAP) Pulse Ox O2 Delivery O2 Flow Rate FiO2 05/31/20 10:49 98.9 66 20 100/66 (77) 91 Nasal Cannula 2.0 98.9 Weight Weight [ ] Input and Output Intake and Output Intake and Output 05/31/20 07:00 Intake Total 2444 ml Output Total 700 ml Balance 1744 ml Intake Oral 400 ml IV Total 2044 ml Output Urine Total 700 ml # Voids 1 # Bowel Movements 1 Laboratory Labs Laboratory Tests Test 05/30/20 19:22 05/30/20 21:20 05/31/20 07:00 White Blood Count 12.1 x10^3/uL (4.0-11.0) Red Blood Count 4.62 x10^6/uL (4.30-5.70) Hemoglobin 12.7 g/dL (13.0-17.5) Hematocrit 39.3 % (39.0-53.0) Mean Corpuscular Volume 85 fL (79-100) Mean Corpuscular Hemoglobin 28 pg (25-35) Mean Corpuscular Hemoglobin Concent 33 g/dL (31-37) Red Cell Distribution Width 13.8 % (11.5-14.5) Platelet Count 242 x10^3/uL (140-400) Neutrophils (%) (Auto) 82 % (31-73) Lymphocytes (%) (Auto) 9 % (24-48) Monocytes (%) (Auto) 8 % (0-9) Eosinophils (%) (Auto) 1 % (0-3) Basophils (%) (Auto) 0 % (0-3) Neutrophils # (Auto) 9.9 x10^3/uL (1.8-7.7) Lymphocytes # (Auto) 1.1 x10^3/uL (1.0-4.8) Monocytes # (Auto) 1.0 x10^3/uL (0.0-1.1) Eosinophils # (Auto) 0.1 x10^3/uL (0.0-0.7) Basophils # (Auto) 0.1 x10^3/uL (0.0-0.2) Sodium Level 138 mmol/L (136-145) Potassium Level 4.3 mmol/L (3.5-5.1) Chloride Level 104 mmol/L (98-107) Carbon Dioxide Level 27 mmol/L (21-32) Anion Gap 7 (6-14) Blood Urea Nitrogen 19 mg/dL (8-26) Creatinine 1.1 mg/dL (0.7-1.3) 1.1 mg/dL (0.7-1.3) Estimated GFR (Cockcroft-Gault) 78.3 78.3 BUN/Creatinine Ratio 17 (6-20) Glucose Level 98 mg/dL (70-99) Calcium Level 8.4 mg/dL (8.5-10.1) Total Bilirubin 0.5 mg/dL (0.2-1.0) Aspartate Amino Transf (AST/SGOT) 76 U/L (15-37) Alanine Aminotransferase (ALT/SGPT) 16 U/L (16-63) Alkaline Phosphatase 118 U/L (46-116) Total Protein 8.1 g/dL (6.4-8.2) Albumin 2.7 g/dL (3.4-5.0) Albumin/Globulin Ratio 0.5 (1.0-1.7) Urine Collection Type Unknown Urine Color Yellow Urine Clarity Clear Urine pH 5.5 (<5.0-8.0) Urine Specific [place] 1.020 (1.000-1.030) Urine Protein 30 mg/dL (NEG-TRACE) Urine Glucose (UA) Negative mg/dL (NEG) Urine Ketones (Stick) Trace mg/dL (NEG) Urine Blood Moderate (NEG) Urine Nitrite Negative (NEG) Urine Bilirubin Negative (NEG) Urine Urobilinogen Dipstick 1.0 mg/dL (0.2 mg/dL) Urine Leukocyte Esterase Negative (NEG) Urine RBC 1-2 /HPF (0-2) Urine WBC 1-4 /HPF (0-4) Urine Squamous Epithelial Cells Occ /LPF Urine Amorphous Sediment Present /HPF Urine Bacteria Few /HPF (0-FEW) Urine Hyaline Casts Few /HPF Phenytoin (Dilantin) Level 15.5 mcg/mL (10.0-20.0) Phenytoin Last Dose Date Unknown Phenytoin Last Dose Time Unknown Microbiology Micro Microbiology 3/21/21 Blood Culture - Preliminary, Resulted NO GROWTH AFTER 2 DAYS Physical Exam HEENT: Neck Supple W Full Motion, Other (drsg intact to head) Chest: Symmetric LUNGS: Clear to Auscultation Heart: RRR (SR) Abdomen: Soft N/T Extremities: No Edema Neurology: alert, oriented, follow commands Assessment Assessment 1. Fall; details unknown. No significant arrhythmias on tele 2. Encephalopathy with underlying dementia 3. Acute SDH s/p evacuation, doing well POD#3 4. NSTEMI: trop peak 34, multifactorial with known 3VD as noted below 5. CAD; Recent LHC revealed severe 3VD. 6. Chronic systolic CHF; clinically compensated 7. ICM: Recent echo with LVEF of 40-45% 8. Hx of seizure with Dilantin use 9. Hypertension: controlled 10. Hyperlipidemia: on goal 11. AFIB; possibly induced by recent injury. new, paroxysmal. Maintaining SR Recommendations 1. He is CP free, 3VD is managed medically due to significant comorbid conditio ns and this was discussed significantly in 02/2020 with his DPOA and elected for medical therapy 2. Continue losartan and toprol. No ASA or anticoagulation with SDH. ASA when clear with neurosurgery 3. Continue statin. Lasix PRN 4. Follow neurosurgery recommendations 5. Conservative measures from a CV standpoint 6. Possible [facility] rehab. Outpt f/u Justicifation of Admission Dx: Justifications for Admission: Justification of Admission Dx: Yes Sepsis: Altered Mental Status FRANKIE MARRUFO MD 06/01/20 0843: CARDIO Progress Notes Assessment Assessment Patient seen and examined 05/31/20. Agree with DEALER RELATIONSHIP MANAGER's assessment and plan. Acute subdural hematoma s/p evacuation, neurosurgery team following Known three-vessel coronary disease being managed conservatively, presented with non-STEMI. He is presently chest pain-free. Chronic systolic heart failure clinically well compensated. AF rate controlled Patient is being planned for transfer to [facility] rehab JUAN NUNN APRN May 31, 2020 12:17 FRANKIE MARRUFO MD Jun 01, 2020 08:43
--- NOTE | 2020-05-31 13:12 | NUR ---
SS following up with discharge planning. SS reviewed pt chart and discussed with pt RN. Pt is currently requiring oxygen at two liters nasal canula. COVID19 negative. Pt on IV Zosyn and IV Vancomycin. PT/OT recommended acute rehabilitation. Pt was accepted at [facility]. Dr. Fernandez spoke with pt's niece this morning and pt's niece now wants referral to [facility], ; fax [phone]. SS phoned and faxed referral to [facility]. SS will continue to follow for discharge planning.
--- NOTE | 2020-05-31 13:48 | PDOC ---
PROGRESS NOTES Date of Service DATE: 05/31/20 TIME: 13:43 Subjective Subjective patient seen at 1215 sitting up in chair denies headache Objective Objective Vital Signs Date Time Temp Pulse Resp B/P (MAP) Pulse Ox O2 Delivery O2 Flow Rate FiO2 05/31/20 12:12 96 Nasal Cannula 2.0 05/31/20 10:49 98.9 66 20 100/66 (77) 98.9 Intake and Output 05/31/20 07:00 Intake Total 2444 ml Output Total 700 ml Balance 1744 ml Intake Oral 400 ml IV Total 2044 ml Output Urine Total 700 ml # Voids 1 # Bowel Movements 1 Physical Exam General: Alert, Cooperative, No acute distress MUSCULOSKELETAL: Other (DAVE) Skin: Other (dressing C,D,I) Assessment Assessment Problems Medical Problems: (1) Elevated troponin Status: Acute (2) Subdural hematoma caused by concussion Status: Acute Plan Plan of Care PT OOB as tolerated Comment Review of Relevant I have reviewed the following items eleazar (where applicable) has been applied. Labs Laboratory Tests Test 05/30/20 07:45 05/30/20 19:22 05/30/20 21:20 05/31/20 07:00 White Blood Count 11.6 x10^3/uL (4.0-11.0) 12.1 x10^3/uL (4.0-11.0) Red Blood Count 4.05 x10^6/uL (4.30-5.70) 4.62 x10^6/uL (4.30-5.70) Hemoglobin 11.1 g/dL (13.0-17.5) 12.7 g/dL (13.0-17.5) Hematocrit 34.0 % (39.0-53.0) 39.3 % (39.0-53.0) Mean Corpuscular Volume 84 fL (79-100) 85 fL (79-100) Mean Corpuscular Hemoglobin 27 pg (25-35) 28 pg (25-35) Mean Corpuscular Hemoglobin Concent 33 g/dL (31-37) 33 g/dL (31-37) Red Cell Distribution Width 13.3 % (11.5-14.5) 13.8 % (11.5-14.5) Platelet Count 227 x10^3/uL (140-400) 242 x10^3/uL (140-400) Neutrophils (%) (Auto) 79 % (31-73) 82 % (31-73) Lymphocytes (%) (Auto) 10 % (24-48) 9 % (24-48) Monocytes (%) (Auto) 10 % (0-9) 8 % (0-9) Eosinophils (%) (Auto) 0 % (0-3) 1 % (0-3) Basophils (%) (Auto) 1 % (0-3) 0 % (0-3) Neutrophils # (Auto) 9.2 x10^3/uL (1.8-7.7) 9.9 x10^3/uL (1.8-7.7) Lymphocytes # (Auto) 1.1 x10^3/uL (1.0-4.8) 1.1 x10^3/uL (1.0-4.8) Monocytes # (Auto) 1.2 x10^3/uL (0.0-1.1) 1.0 x10^3/uL (0.0-1.1) Eosinophils # (Auto) 0.0 x10^3/uL (0.0-0.7) 0.1 x10^3/uL (0.0-0.7) Basophils # (Auto) 0.1 x10^3/uL (0.0-0.2) 0.1 x10^3/uL (0.0-0.2) Sodium Level 139 mmol/L (136-145) 138 mmol/L (136-145) Potassium Level 4.4 mmol/L (3.5-5.1) 4.3 mmol/L (3.5-5.1) Chloride Level 105 mmol/L (98-107) 104 mmol/L (98-107) Carbon Dioxide Level 25 mmol/L (21-32) 27 mmol/L (21-32) Anion Gap 9 (6-14) 7 (6-14) Blood Urea Nitrogen 19 mg/dL (8-26) 19 mg/dL (8-26) Creatinine 1.0 mg/dL (0.7-1.3) 1.1 mg/dL (0.7-1.3) 1.1 mg/dL (0.7-1.3) Estimated GFR (Cockcroft-Gault) 87.4 78.3 78.3 Glucose Level 116 mg/dL (70-99) 98 mg/dL (70-99) Calcium Level 7.8 mg/dL (8.5-10.1) 8.4 mg/dL (8.5-10.1) BUN/Creatinine Ratio 17 (6-20) Total Bilirubin 0.5 mg/dL (0.2-1.0) Aspartate Amino Transf (AST/SGOT) 76 U/L (15-37) Alanine Aminotransferase (ALT/SGPT) 16 U/L (16-63) Alkaline Phosphatase 118 U/L (46-116) Total Protein 8.1 g/dL (6.4-8.2) Albumin 2.7 g/dL (3.4-5.0) Albumin/Globulin Ratio 0.5 (1.0-1.7) Urine Collection Type Unknown Urine Color Yellow Urine Clarity Clear Urine pH 5.5 (<5.0-8.0) Urine Specific [place] 1.020 (1.000-1.030) Urine Protein 30 mg/dL (NEG-TRACE) Urine Glucose (UA) Negative mg/dL (NEG) Urine Ketones (Stick) Trace mg/dL (NEG) Urine Blood Moderate (NEG) Urine Nitrite Negative (NEG) Urine Bilirubin Negative (NEG) Urine Urobilinogen Dipstick 1.0 mg/dL (0.2 mg/dL) Urine Leukocyte Esterase Negative (NEG) Urine RBC 1-2 /HPF (0-2) Urine WBC 1-4 /HPF (0-4) Urine Squamous Epithelial Cells Occ /LPF Urine Amorphous Sediment Present /HPF Urine Bacteria Few /HPF (0-FEW) Urine Hyaline Casts Few /HPF Phenytoin (Dilantin) Level 15.5 mcg/mL (10.0-20.0) Phenytoin Last Dose Date Unknown Phenytoin Last Dose Time Unknown Laboratory Tests Test 05/30/20 19:22 05/30/20 21:20 05/31/20 07:00 White Blood Count 12.1 x10^3/uL (4.0-11.0) Red Blood Count 4.62 x10^6/uL (4.30-5.70) Hemoglobin 12.7 g/dL (13.0-17.5) Hematocrit 39.3 % (39.0-53.0) Mean Corpuscular Volume 85 fL (79-100) Mean Corpuscular Hemoglobin 28 pg (25-35) Mean Corpuscular Hemoglobin Concent 33 g/dL (31-37) Red Cell Distribution Width 13.8 % (11.5-14.5) Platelet Count 242 x10^3/uL (140-400) Neutrophils (%) (Auto) 82 % (31-73) Lymphocytes (%) (Auto) 9 % (24-48) Monocytes (%) (Auto) 8 % (0-9) Eosinophils (%) (Auto) 1 % (0-3) Basophils (%) (Auto) 0 % (0-3) Neutrophils # (Auto) 9.9 x10^3/uL (1.8-7.7) Lymphocytes # (Auto) 1.1 x10^3/uL (1.0-4.8) Monocytes # (Auto) 1.0 x10^3/uL (0.0-1.1) Eosinophils # (Auto) 0.1 x10^3/uL (0.0-0.7) Basophils # (Auto) 0.1 x10^3/uL (0.0-0.2) Sodium Level 138 mmol/L (136-145) Potassium Level 4.3 mmol/L (3.5-5.1) Chloride Level 104 mmol/L (98-107) Carbon Dioxide Level 27 mmol/L (21-32) Anion Gap 7 (6-14) Blood Urea Nitrogen 19 mg/dL (8-26) Creatinine 1.1 mg/dL (0.7-1.3) 1.1 mg/dL (0.7-1.3) Estimated GFR (Cockcroft-Gault) 78.3 78.3 BUN/Creatinine Ratio 17 (6-20) Glucose Level 98 mg/dL (70-99) Calcium Level 8.4 mg/dL (8.5-10.1) Total Bilirubin 0.5 mg/dL (0.2-1.0) Aspartate Amino Transf (AST/SGOT) 76 U/L (15-37) Alanine Aminotransferase (ALT/SGPT) 16 U/L (16-63) Alkaline Phosphatase 118 U/L (46-116) Total Protein 8.1 g/dL (6.4-8.2) Albumin 2.7 g/dL (3.4-5.0) Albumin/Globulin Ratio 0.5 (1.0-1.7) Urine Collection Type Unknown Urine Color Yellow Urine Clarity Clear Urine pH 5.5 (<5.0-8.0) Urine Specific [place] 1.020 (1.000-1.030) Urine Protein 30 mg/dL (NEG-TRACE) Urine Glucose (UA) Negative mg/dL (NEG) Urine Ketones (Stick) Trace mg/dL (NEG) Urine Blood Moderate (NEG) Urine Nitrite Negative (NEG) Urine Bilirubin Negative (NEG) Urine Urobilinogen Dipstick 1.0 mg/dL (0.2 mg/dL) Urine Leukocyte Esterase Negative (NEG) Urine RBC 1-2 /HPF (0-2) Urine WBC 1-4 /HPF (0-4) Urine Squamous Epithelial Cells Occ /LPF Urine Amorphous Sediment Present /HPF Urine Bacteria Few /HPF (0-FEW) Urine Hyaline Casts Few /HPF Phenytoin (Dilantin) Level 15.5 mcg/mL (10.0-20.0) Phenytoin Last Dose Date Unknown Phenytoin Last Dose Time Unknown Microbiology 05/28/20 Blood Culture - Preliminary, Resulted NO GROWTH AFTER 2 DAYS Medications Current Medications Aspirin (Aspirin Chewable) 324 mg 1X ONCE PO Last administered on 05/28/20at 1 3:14; Start 05/28/20 at 13:00; Stop 05/28/20 at 13:01; Status DC Furosemide (Lasix) 40 mg 1X ONCE IVP Last administered on 05/28/20at 13:56; Start 05/28/20 at 13:45; Stop 05/28/20 at 13:46; Status DC Ondansetron HCl (Zofran) 4 mg PRN Q8HRS PRN IV NAUSEA/VOMITING; Start 05/28/20 at 14:00; Stop 05/29/20 at 13:59; Status DC Morphine Sulfate (Morphine Sulfate) 4 mg PRN Q2HR PRN IV PAIN Last administered on 05/29/20at 02:35; Start 05/28/20 at 14:00; Stop 05/29/20 at 13:59; Status DC Lidocaine HCl (Lidocaine Pf 2% Vial) 5 ml STK-MED ONCE .ROUTE ; Start 05/28/20 at 14:19; Stop 05/28/20 at 14:20; Status DC Propofol (Diprivan) 200 mg STK-MED ONCE IV ; Start 05/28/20 at 14:19; Stop 05/28/20 at 14:20; Status DC Fentanyl Citrate (Fentanyl 2ml Vial) 100 mcg STK-MED ONCE .ROUTE ; Start 05/28/20 at 14:20; Stop 05/28/20 at 14:20; Status DC Rocuronium Stanley (Zemuron) 50 mg STK-MED ONCE .ROUTE ; Start 05/28/20 at 14:20; Stop 05/28/20 at 14:20; Status DC Phenylephrine HCl (PHENYLEPHRINE in 0.9% NACL PF) 1 mg STK-MED ONCE IV ; Start 05/28/20 at 14:21; Stop 05/28/20 at 14:21; Status DC Bacitracin 11355 unit/Sodium Chloride 1,000 ml @ 1,000 mls/hr 1X ONCE IRR Last administered on 05/28/20at 16:14; Start 05/28/20 at 15:00; Stop 05/28/20 at 15:59; Status DC Nicardipine HCl (Cardene) 25 mg STK-MED ONCE IV ; Start 05/28/20 at 14:47; Stop 05/28/20 at 14:47; Status DC Nitroglycerin (Nitroglycerin) 50 mg STK-MED ONCE .ROUTE ; Start 05/28/20 at 14:47; Stop 05/28/20 at 14:47; Status DC Fentanyl Citrate (Fentanyl 2ml Vial) 25 mcg PRN Q5MIN PRN IVP MILD PAIN 1-3; Start 05/28/20 at 15:00; Stop 05/28/20 at 21:00; Status DC Morphine Sulfate (Morphine Sulfate) 1 mg PRN Q10MIN PRN IVP SEVERE PAIN 7-10; Start 05/28/20 at 15:00; Stop 05/28/20 at 21:00; Status DC Ringer's Solution 1,000 ml @ 30 mls/hr Q24H IV ; Start 05/28/20 at 15:00; Stop 05/28/20 at 21:00; Status DC Hydromorphone HCl (Dilaudid) 0.5 mg PRN Q10MIN PRN IVP SEVERE PAIN 7-10, 2nd CHOICE; Start 05/28/20 at 15:00; Stop 05/28/20 at 21:00; Status DC Prochlorperazine Edisylate (Compazine) 5 mg PACU PRN PRN IVP NAUSEA, MRX1; Start 05/28/20 at 15:00; Stop 05/28/20 at 21:00; Status DC Gelatin (Gelfoam Size 100) 1 each STK-MED ONCE .ROUTE Last administered on 05/28/20at 16:14; Start 05/28/20 at 14:58; Stop 05/28/20 at 14:58; Status DC Bupivacaine HCl/ Epinephrine Bitart (Sensorcain-Epi 0.5% Kit) 30 ml STK-MED ONCE .ROUTE ; Start 05/28/20 at 14:58; Stop 05/28/20 at 14:58; Status DC Cellulose (Surgicel Hemostat 4x8) 1 each STK-MED ONCE .ROUTE ; Start 05/28/20 at 14:58; Stop 05/28/20 at 14:58; Status DC Thrombin 20,000 unit STK-MED ONCE TP Last administered on 05/28/20at 16:14; Start 05/28/20 at 14:58; Stop 05/28/20 at 14:58; Status DC Bupivacaine HCl/ Epinephrine Bitart (Sensorcain-Epi 0.5%-1:022899 Mpf) 30 ml STK-MED ONCE .ROUTE Last administered on 05/28/20at 16:14; Start 05/28/20 at 14:58; Stop 05/28/20 at 14:59; Status DC Rocuronium Stanley (Zemuron) 50 mg STK-MED ONCE .ROUTE ; Start 05/28/20 at 16:26; Stop 05/28/20 at 16:26; Status DC Ephedrine Sulfate (ePHEDrine PF IN SALINE SYRINGE) 50 mg STK-MED ONCE IV ; Start 05/28/20 at 16:26; Stop 05/28/20 at 16:27; Status DC Phenylephrine HCl (John-Synephrine Inj) 10 mg STK-MED ONCE .ROUTE ; Start 05/28/20 at 16:26; Stop 05/28/20 at 16:27; Status DC Ondansetron HCl (Zofran) 4 mg STK-MED ONCE .ROUTE ; Start 05/28/20 at 16:26; Stop 05/28/20 at 16:27; Status DC Dexamethasone Sodium Phosphate (Decadron) 4 mg STK-MED ONCE .ROUTE ; Start 05/28/20 at 16:26; Stop 05/28/20 at 16:27; Status DC Phenylephrine HCl (John-Synephrine Inj) 10 mg STK-MED ONCE .ROUTE ; Start 05/28/20 at 16:40; Stop 05/28/20 at 16:41; Status DC Sevoflurane (Ultane) 60 ml STK-MED ONCE IH ; Start 05/28/20 at 17:20; Stop 05/28/20 at 17:20; Status DC Nicardipine HCl 50 mg/Sodium Chloride 250 ml @ 25 mls/hr TITRATE PRN IV PER PROTOCOL; Start 05/28/20 at 17:30 Hydralazine HCl (Apresoline Inj) 5 mg PRN Q6HRS PRN IVP TO KEEP SBP<150mmHg; Start 05/28/20 at 17:15 Sodium Chloride (Normal Saline Flush) 3 ml QSHIFT PRN IV AFTER MEDS AND BLOOD DRAWS; Start 05/28/20 at 17:15 Dextrose (Dextrose 50%-Water Syringe) 12.5 gm PRN Q15MIN PRN IV SEE COMMENTS; Start 05/28/20 at 17:15 Docusate Sodium (Colace) 100 mg BID PO Last administered on 05/31/20at 08:47; Start 05/28/20 at 21:00 Magnesium Hydroxide (Milk Of Magnesia) 2,400 mg PRN Q12HR PRN PO CONSTIPATION; Start 05/28/20 at 17:15 Cefazolin Sodium (Ancef) 1 gm Q8HRS IVP Last administered on 05/29/20at 15:19; Start 05/28/20 at 22:00; Stop 05/29/20 at 14:01; Status DC Fentanyl Citrate (Fentanyl 2ml Vial) 50 mcg PRN Q2HR PRN IVP PAIN Last administered on 05/29/20at 00:42; Start 05/28/20 at 17:15 Potassium Chloride/Dextrose/ Sod Cl 1,000 ml @ 75 mls/hr [id number] IV Last administered on 05/31/20at 04:19; Start 05/28/20 at 20:00 Losartan Potassium (Cozaar) 50 mg DAILY PO ; Start 05/29/20 at 09:00; Stop 05/29/20 at 09:08; Status DC Metoprolol Succinate (Toprol Xl) 25 mg DAILY PO Last administered on 05/31/20at 08:48; Start 05/29/20 at 09:00 Phenytoin Sodium (Dilantin) 100 mg BID PO ; Start 05/28/20 at 22:15; Stop 05/29/20 at 15:55; Status DC Non-Formulary Medication (Budesonide/ Formoterol Fumarate (Symbicort 160-4.5 Mcg Inhaler)) 2 puff BID IH ; Start 05/29/20 at 09:00; Status UNV Atorvastatin Calcium (Lipitor) 80 mg QHS PO Last administered on 05/30/20at 21:29; Start 05/29/20 at 21:00 Budesonide (Pulmicort) 0.5 mg RTBID NEB Last administered on 05/31/20at 09:04; Start 05/29/20 at 08:00 Albuterol Sulfate (Ventolin Neb Soln) 2.5 mg RTQID NEB Last administered on 05/31/20at 12:12; Start 05/29/20 at 08:00 Losartan Potassium (Cozaar) 25 mg DAILY PO Last administered on 05/31/20at 08:48; Start 05/30/20 at 09:00 Levetiracetam (Keppra) 250 mg BID PO ; Start 05/30/20 at 09:00; Stop 05/30/20 at 12:59; Status DC Levetiracetam 250 mg/Dextrose 102.5 ml @ 410 mls/hr Q12HR IV ; Start 05/30/20 a t 10:00; Stop 05/30/20 at 09:35; Status DC Levetiracetam 250 mg/Dextrose 102.5 ml @ 410 mls/hr Q12HR IV Last administered on 05/30/20at 09:40; Start 05/30/20 at 10:00; Stop 05/30/20 at 12:02; Status DC Levetiracetam (Keppra) 500 mg BID PO Last administered on 05/31/20at 08:48; Start 05/30/20 at 21:00 Acetaminophen (Tylenol) 500 mg PRN Q6HRS PRN PO MILD PAIN / TEMP > 100.3'F Last administered on 05/30/20at 21:29; Start 05/30/20 at 18:30 Piperacillin Sod/ Tazobactam Sod 3.375 gm/Sodium Chloride 50 ml @ 100 mls/hr Q6HRS IV Last administered on 05/31/20at 11:43; Start 05/30/20 at 20:00 Vancomycin HCl 1 gm/Sodium Chloride 250 ml @ 250 mls/hr 1X IV ; Start 05/30/20 at 18:30; Status UNV Vancomycin HCl (Vanco Per Pharmacy) 1 each PRN DAILY PRN MC SEE COMMENTS Last administered on 05/31/20at 00:22; Start 05/30/20 at 18:30 Vancomycin HCl 1.25 gm/Sodium Chloride 250 ml @ 166.667 mls/hr 1X ONCE IV Last administered on 05/30/20at 21:29; Start 05/30/20 at 18:45; Stop 05/30/20 at 20:15; Status DC Vancomycin HCl 1 gm/Sodium Chloride 250 ml @ 250 mls/hr Q24H IV ; Start 05/31/20 at 21:30 Vancomycin HCl (Vancomycin Trough Level) 1 each 1X ONCE MC ; Start 06/01/20 at 21:00; Stop 06/01/20 at 21:01 Active Scripts Active Crestor (Rosuvastatin Calcium) 40 Mg Tablet 0.5 Tab PO DAILY 30 Days Metoprolol Succinate ( Xl ) (Metoprolol Succinate) 25 Mg Tab.er.24h 1 Tab PO DAILY Aspirin Ec (Aspirin) 325 Mg Tablet.dr 325 Mg PO DAILYWBKFT 365 Days Reported Losartan Potassium 50 Mg Tablet 50 Mg PO DAILY Namenda (Memantine Hcl) 10 Mg Tablet 10 Mg PO HS Proair Hfa Inhaler (Albuterol Sulfate) 8.5 Gm Hfa.aer.ad 2 Puff INH QID PRN Dilantin (Phenytoin Sodium Extended) 100 Mg Capsule 1 Cap PO BID Symbicort 160-4.5 Mcg Inhaler (Budesonide/Formoterol Fumarate) 10.2 Gm Hfa.aer.ad 2 Puff IH BID Vitals/I & O Vital Sign - Last 24 Hours 05/30/20 05/30/20 05/30/20 05/30/20 14:00 15:00 16:00 16:00 Pulse 88 84 88 Resp 25 26 27 B/P (MAP) 97/68 (78) 117/79 (92) 107/65 (79) Pulse Ox 97 98 98 O2 Delivery Room Air Room Air Nasal Cannula Room Air O2 Flow Rate 2.0 05/30/20 05/30/20 05/30/20 05/30/20 16:21 17:00 18:20 19:00 Temp 100.5 99.4 100.5 99.4 Pulse 80 97 80 Resp 20 B/P (MAP) 111/75 (87) 126/74 (91) Pulse Ox 96 99 90 99 O2 Delivery Room Air Room Air Room Air Nasal Cannula O2 Flow Rate 2.0 05/30/20 05/30/20 05/30/20 05/31/20 20:00 20:48 23:10 02:50 Temp 99.1 98.2 99.1 98.2 Pulse 82 67 Resp 20 20 B/P (MAP) 97/63 (74) 97/65 (76) Pulse Ox 97 94 95 O2 Delivery Nasal Cannula Nasal Cannula Room Air Nasal Cannula O2 Flow Rate 2.0 2.0 2.0 05/31/20 05/31/20 05/31/20 05/31/20 07:00 08:00 08:48 08:48 Temp 99.4 99.4 Pulse 58 7 66 Resp 20 B/P (MAP) 114/73 (87) 114/73 114/73 Pulse Ox 93 O2 Delivery Nasal Cannula Nasal Cannula O2 Flow Rate 2.0 2.0 05/31/20 05/31/20 05/31/20 09:05 10:49 12:12 Temp 98.9 98.9 Pulse 66 Resp 20 B/P (MAP) 100/66 (77) Pulse Ox 98 91 96 O2 Delivery Nasal Cannula Nasal Cannula Nasal Cannula O2 Flow Rate 2.0 2.0 2.0 Intake and Output 05/30/20 05/30/20 05/31/20 15:00 23:00 07:00 Intake Total 200 ml 250 ml 1994 ml Output Total 450 ml 250 ml Balance 200 ml -200 ml 1744 ml Justifications for Admission Other Justification Nutrition Consultation Dietary Evaluation: Recommendations by RD: Dietary education by RD, Increase Calorie Intake, Protein supplementation Comments: REC advance diet as able/appropriate, goal diet cardiac w/Ensure supplements prn REC PPN or dobhoff/TFs if unable to advance diet within 24 - 48 hrs Expected Outcomes/Goals: diet advancement Malnutrition Findings: Body Fat Depletion (Non Severe: Mild Depletion Weight Status: Underweight LIZZETTE FONTENOT MANAGER [employer]OP[employer] May 31, 2020 13:48
[2020-05-31 15:00] VITALS: BP 94/63
[2020-05-31 19:00] VITALS: BP 101/59
[2020-05-31] MEDS: ATORVASTATIN CALCIUM 40 MG TABLET. PO SCH (21:15)
[2020-05-31] MEDS ORDERED: VANCOMYCIN 1 GM in IV NORMAL SALINE 250ML 250 ML IV SCH (21:30)
[2020-05-31 23:18] VITALS: BP 96/62
[2020-06-01] MEDS: PIPERACILLIN/TAZOBACTAM 3.375 GM in IV NORMAL SALINE 50ML 50 ML IV SCH ×4 (00:07→18:52)
[2020-06-01 03:32] VITALS: BP 92/62
[2020-06-01] MEDS: POTASSIUM CL 20MEQ D5-0.45NACL 1,000 ML IV SCH (04:00)
[2020-06-01 05:37] LABS: BASO # 0.1 x10^3/uL (0.0-0.2); BASO % 1 % (0-3); EOS # 0.3 x10^3/uL (0.0-0.7); EOS % 4 % (0-3); HEMATOCRIT 30.3 % (39.0-53.0); LYMPH # 1.4 x10^3/uL (1.0-4.8); LYMPH % 17 % (24-48); MEAN CORPUSCULAR HEMOGLOBIN 28 pg (25-35); MEAN CORPUSCULAR HGB CONC 33 g/dL (31-37); MEAN CORPUSCULAR VOLUME 83 fL (79-100); MONO # 0.8 x10^3/uL (0.0-1.1); MONO % 10 % (0-9); NEUT # 5.7 x10^3/uL (1.8-7.7); NEUT % 69 % (31-73); PLATELET COUNT 221 x10^3/uL (140-400); RED BLOOD COUNT 3.65 x10^6/uL (4.30-5.70); RED CELL DISTRIBUTION WIDTH 13.6 % (11.5-14.5); WHITE BLOOD COUNT 8.2 x10^3/uL (4.0-11.0)
[2020-06-01 05:49] LABS: CALCIUM 7.6 mg/dL (8.5-10.1); CREATININE 1.1 mg/dL (0.7-1.3); GFR 78.3; POTASSIUM 4.2 mmol/L (3.5-5.1)
[2020-06-01 07:00] VITALS: BP 101/71
[2020-06-01] MEDS: ALBUTEROL SULFATE 2.5 MG/3 ML NEBU. NEB SCH ×4 (07:04→20:29)
[2020-06-01] MEDS: BUDESONIDE 0.5 MG/2 ML NEBU. NEB SCH ×2 (07:04→20:29)
--- NOTE | 2020-06-01 08:09 | PDOC ---
PROGRESS NOTES Date of Service: DATE: 06/01/20 TIME: 08:09 Subjective Subjective looks good Objective Objective Vital Signs Date Time Temp Pulse Resp B/P (MAP) Pulse Ox O2 Delivery O2 Flow Rate FiO2 06/01/20 07:17 93 Room Air 06/01/20 03:32 99.6 80 18 92/62 (72) 2.0 99.6 Intake and Output 06/01/20 07:00 Intake Total 250 ml Output Total 200 ml Balance 50 ml Intake Oral 250 ml Output Urine Total 200 ml # Voids 2 Physical Exam Abdomen: Soft, No tenderness Heart: Regular rate, Normal S1, Normal S2 Extremities: No edema, Normal pulses General: Alert, Cooperative, No acute distress HEENT: Other (drsg intact to right head ) MUSCULOSKELETAL: No swelling, Osteoarthritic changes both hands Neck: No JVD Neuro: Normal speech, Other Psych/Mental Status: Mood NL Skin: No breakdown, Other (dressing C,D, I) Diagnosis Problem List Problems Medical Problems: (1) Elevated troponin Status: Acute (2) Subdural hematoma caused by concussion Status: Acute Assessment Assessment Problems Medical Problems: (1) Elevated troponin Status: Acute (2) Subdural hematoma caused by concussion Status: Acute FINAL IMPRESSION:Low grade fever.99.4 1. Subdural hematoma secondary to a fall. 2. History of seizures, on Dilantin. 3. Non-ST elevation myocardial infarction, elevated troponin. The patient has a known history of coronary artery disease, 3-vessel disease. The patient's family opted medical treatment. 4. Dementia. 5. Chronic obstructive pulmonary disease. PLAN: d/c to SNU ?oral antibiorics trivedi c/s done,neg so far start on broad spectrum antibiotics Vanco+Zosyn POD#5,bur hole for subdural hematoma nauro consult appreciated change to Keppra from dilantin, dilantin levels down to 15 from 24 speech consult step down unit start feeding today SNU placement Low dose aspirin started Plan Plan of Care Problems Medical Problems: (1) Elevated troponin Status: Acute (2) Subdural hematoma caused by concussion Status: Acute Comment Review of Relevant I have reviewed the following items eleazar (where applicable) has been applied. Labs Laboratory Tests Test 06/01/20 05:00 White Blood Count 8.2 x10^3/uL (4.0-11.0) Red Blood Count 3.65 x10^6/uL (4.30-5.70) Hemoglobin 10.0 g/dL (13.0-17.5) Hematocrit 30.3 % (39.0-53.0) Mean Corpuscular Volume 83 fL (79-100) Mean Corpuscular Hemoglobin 28 pg (25-35) Mean Corpuscular Hemoglobin Concent 33 g/dL (31-37) Red Cell Distribution Width 13.6 % (11.5-14.5) Platelet Count 221 x10^3/uL (140-400) Neutrophils (%) (Auto) 69 % (31-73) Lymphocytes (%) (Auto) 17 % (24-48) Monocytes (%) (Auto) 10 % (0-9) Eosinophils (%) (Auto) 4 % (0-3) Basophils (%) (Auto) 1 % (0-3) Neutrophils # (Auto) 5.7 x10^3/uL (1.8-7.7) Lymphocytes # (Auto) 1.4 x10^3/uL (1.0-4.8) Monocytes # (Auto) 0.8 x10^3/uL (0.0-1.1) Eosinophils # (Auto) 0.3 x10^3/uL (0.0-0.7) Basophils # (Auto) 0.1 x10^3/uL (0.0-0.2) Sodium Level 133 mmol/L (136-145) Potassium Level 4.2 mmol/L (3.5-5.1) Chloride Level 103 mmol/L (98-107) Carbon Dioxide Level 22 mmol/L (21-32) Anion Gap 8 (6-14) Blood Urea Nitrogen 23 mg/dL (8-26) Creatinine 1.1 mg/dL (0.7-1.3) Estimated GFR (Cockcroft-Gault) 78.3 Glucose Level 104 mg/dL (70-99) Calcium Level 7.6 mg/dL (8.5-10.1) Microbiology 05/30/20 Blood Culture - Preliminary, Resulted NO GROWTH AFTER 1 DAY Medications Current Medications Vancomycin HCl (Vancomycin Trough Level) 1 each 1X ONCE MC ; Start 06/01/20 at 21:00; Stop 06/01/20 at 21:01 Vancomycin HCl 1 gm/Sodium Chloride 250 ml @ 250 mls/hr Q24H IV Last administered on 05/31/20at 21:17; Start 05/31/20 at 21:30 Vitals/I & O Vital Sign - Last 24 Hours 05/31/20 05/31/20 05/31/20 05/31/20 08:48 08:48 09:05 10:49 Temp 98.9 98.9 Pulse 7 66 66 Resp 20 B/P (MAP) 114/73 114/73 100/66 (77) Pulse Ox 98 91 O2 Delivery Nasal Cannula Nasal Cannula O2 Flow Rate 2.0 2.0 05/31/20 05/31/20 05/31/20 05/31/20 12:12 15:00 16:12 19:00 Temp 97.3 98.4 97.3 98.4 Pulse 72 73 Resp 20 18 B/P (MAP) 94/63 (73) 101/59 (73) Pulse Ox 96 90 94 98 O2 Delivery Nasal Cannula Nasal Cannula Nasal Cannula Room Air O2 Flow Rate 2.0 2.0 2.0 05/31/20 05/31/20 05/31/20 05/31/20 19:35 20:38 20:39 23:18 Temp 99.6 99.6 Pulse 74 Resp 16 B/P (MAP) 96/62 (73) Pulse Ox 97 97 94 O2 Delivery Nasal Cannula Nasal Cannula Nasal Cannula Nasal Cannula O2 Flow Rate 2.0 2.0 2.0 2.0 06/01/20 06/01/20 03:32 07:17 Temp 99.6 99.6 Pulse 80 Resp 18 B/P (MAP) 92/62 (72) Pulse Ox 96 93 O2 Delivery Nasal Cannula Room Air O2 Flow Rate 2.0 Intake and Output 05/31/20 05/31/20 06/01/20 15:00 23:00 07:00 Intake Total 250 ml 0 ml Output Total 200 ml Balance 250 ml -200 ml Justifications for Admission Other Justification Nutrition Consultation Dietary Evaluation: Recommendations by RD: Dietary education by RD, Increase Calorie Intake, Protein supplementation Comments: REC advance diet as able/appropriate, goal diet cardiac w/Ensure supplements prn REC PPN or dobhoff/TFs if unable to advance diet within 24 - 48 hrs Expected Outcomes/Goals: diet advancement Malnutrition Findings: Body Fat Depletion (Non Severe: Mild Depletion Weight Status: Underweight KELSY BERNSTEIN MD Jun 01, 2020 08:09
[2020-06-01] MEDS: DOCUSATE SODIUM 100 MG CAPSULE. PO SCH ×2 (08:51→21:33)
[2020-06-01] MEDS: LOSARTAN POTASSIUM 25 MG TABLET. PO SCH (08:52)
[2020-06-01] MEDS: levETIRAcetam 500 MG TABLET PO SCH ×2 (08:52→21:33)
[2020-06-01] MEDS: ACETAMINOPHEN 500 MG TABLET PO PRN (08:52)
[2020-06-01] MEDS: METOPROLOL SUCC 24HR ER 25 MG TAB.ER.24H. PO SCH (08:52)
--- NOTE | 2020-06-01 08:53 | PDOC ---
PROGRESS NOTES Date of Service DATE: 06/01/20 TIME: 08:49 Subjective Subjective No new complaints. Objective Objective Vital Signs Date Time Temp Pulse Resp B/P (MAP) Pulse Ox O2 Delivery O2 Flow Rate FiO2 06/01/20 07:17 93 Room Air 06/01/20 07:00 99.0 68 18 101/71 (81) 2.0 99.0 Intake and Output 06/01/20 07:00 Intake Total 250 ml Output Total 200 ml Balance 50 ml Intake Oral 250 ml Output Urine Total 200 ml # Voids 2 Physical Exam Physical Exam he is awake,comfortable,sitting in bed side chair and had dressing to right frontal area. He dis walk for 250 with with roller walker with physical therapy and he continues to require supervision and cues as he is impulsive with his swallowing and moves. he is a safety risk for falls and aspiration to be by himself. He is receiving IV medicine and he is anemic. Assessment Assessment Problems Medical Problems: (1) Elevated troponin Status: Acute (2) Subdural hematoma caused by concussion Status: Acute Plan Plan of Care To [facility] when medically stable. Comment Review of Relevant I have reviewed the following items eleazar (where applicable) has been applied. Labs Laboratory Tests Test 05/30/20 19:22 05/30/20 21:20 05/31/20 07:00 06/01/20 05:00 White Blood Count 12.1 x10^3/uL (4.0-11.0) 8.2 x10^3/uL (4.0-11.0) Red Blood Count 4.62 x10^6/uL (4.30-5.70) 3.65 x10^6/uL (4.30-5.70) Hemoglobin 12.7 g/dL (13.0-17.5) 10.0 g/dL (13.0-17.5) Hematocrit 39.3 % (39.0-53.0) 30.3 % (39.0-53.0) Mean Corpuscular Volume 85 fL (79-100) 83 fL (79-100) Mean Corpuscular Hemoglobin 28 pg (25-35) 28 pg (25-35) Mean Corpuscular Hemoglobin Concent 33 g/dL (31-37) 33 g/dL (31-37) Red Cell Distribution Width 13.8 % (11.5-14.5) 13.6 % (11.5-14.5) Platelet Count 242 x10^3/uL (140-400) 221 x10^3/uL (140-400) Neutrophils (%) (Auto) 82 % (31-73) 69 % (31-73) Lymphocytes (%) (Auto) 9 % (24-48) 17 % (24-48) Monocytes (%) (Auto) 8 % (0-9) 10 % (0-9) Eosinophils (%) (Auto) 1 % (0-3) 4 % (0-3) Basophils (%) (Auto) 0 % (0-3) 1 % (0-3) Neutrophils # (Auto) 9.9 x10^3/uL (1.8-7.7) 5.7 x10^3/uL (1.8-7.7) Lymphocytes # (Auto) 1.1 x10^3/uL (1.0-4.8) 1.4 x10^3/uL (1.0-4.8) Monocytes # (Auto) 1.0 x10^3/uL (0.0-1.1) 0.8 x10^3/uL (0.0-1.1) Eosinophils # (Auto) 0.1 x10^3/uL (0.0-0.7) 0.3 x10^3/uL (0.0-0.7) Basophils # (Auto) 0.1 x10^3/uL (0.0-0.2) 0.1 x10^3/uL (0.0-0.2) Sodium Level 138 mmol/L (136-145) 133 mmol/L (136-145) Potassium Level 4.3 mmol/L (3.5-5.1) 4.2 mmol/L (3.5-5.1) Chloride Level 104 mmol/L (98-107) 103 mmol/L (98-107) Carbon Dioxide Level 27 mmol/L (21-32) 22 mmol/L (21-32) Anion Gap 7 (6-14) 8 (6-14) Blood Urea Nitrogen 19 mg/dL (8-26) 23 mg/dL (8-26) Creatinine 1.1 mg/dL (0.7-1.3) 1.1 mg/dL (0.7-1.3) 1.1 mg/dL (0.7-1.3) Estimated GFR (Cockcroft-Gault) 78.3 78.3 78.3 BUN/Creatinine Ratio 17 (6-20) Glucose Level 98 mg/dL (70-99) 104 mg/dL (70-99) Calcium Level 8.4 mg/dL (8.5-10.1) 7.6 mg/dL (8.5-10.1) Total Bilirubin 0.5 mg/dL (0.2-1.0) Aspartate Amino Transf (AST/SGOT) 76 U/L (15-37) Alanine Aminotransferase (ALT/SGPT) 16 U/L (16-63) Alkaline Phosphatase 118 U/L (46-116) Total Protein 8.1 g/dL (6.4-8.2) Albumin 2.7 g/dL (3.4-5.0) Albumin/Globulin Ratio 0.5 (1.0-1.7) Urine Collection Type Unknown Urine Color Yellow Urine Clarity Clear Urine pH 5.5 (<5.0-8.0) Urine Specific [place] 1.020 (1.000-1.030) Urine Protein 30 mg/dL (NEG-TRACE) Urine Glucose (UA) Negative mg/dL (NEG) Urine Ketones (Stick) Trace mg/dL (NEG) Urine Blood Moderate (NEG) Urine Nitrite Negative (NEG) Urine Bilirubin Negative (NEG) Urine Urobilinogen Dipstick 1.0 mg/dL (0.2 mg/dL) Urine Leukocyte Esterase Negative (NEG) Urine RBC 1-2 /HPF (0-2) Urine WBC 1-4 /HPF (0-4) Urine Squamous Epithelial Cells Occ /LPF Urine Amorphous Sediment Present /HPF Urine Bacteria Few /HPF (0-FEW) Urine Hyaline Casts Few /HPF Phenytoin (Dilantin) Level 15.5 mcg/mL (10.0-20.0) Phenytoin Last Dose Date Unknown Phenytoin Last Dose Time Unknown Laboratory Tests Test 06/01/20 05:00 White Blood Count 8.2 x10^3/uL (4.0-11.0) Red Blood Count 3.65 x10^6/uL (4.30-5.70) Hemoglobin 10.0 g/dL (13.0-17.5) Hematocrit 30.3 % (39.0-53.0) Mean Corpuscular Volume 83 fL (79-100) Mean Corpuscular Hemoglobin 28 pg (25-35) Mean Corpuscular Hemoglobin Concent 33 g/dL (31-37) Red Cell Distribution Width 13.6 % (11.5-14.5) Platelet Count 221 x10^3/uL (140-400) Neutrophils (%) (Auto) 69 % (31-73) Lymphocytes (%) (Auto) 17 % (24-48) Monocytes (%) (Auto) 10 % (0-9) Eosinophils (%) (Auto) 4 % (0-3) Basophils (%) (Auto) 1 % (0-3) Neutrophils # (Auto) 5.7 x10^3/uL (1.8-7.7) Lymphocytes # (Auto) 1.4 x10^3/uL (1.0-4.8) Monocytes # (Auto) 0.8 x10^3/uL (0.0-1.1) Eosinophils # (Auto) 0.3 x10^3/uL (0.0-0.7) Basophils # (Auto) 0.1 x10^3/uL (0.0-0.2) Sodium Level 133 mmol/L (136-145) Potassium Level 4.2 mmol/L (3.5-5.1) Chloride Level 103 mmol/L (98-107) Carbon Dioxide Level 22 mmol/L (21-32) Anion Gap 8 (6-14) Blood Urea Nitrogen 23 mg/dL (8-26) Creatinine 1.1 mg/dL (0.7-1.3) Estimated GFR (Cockcroft-Gault) 78.3 Glucose Level 104 mg/dL (70-99) Calcium Level 7.6 mg/dL (8.5-10.1) Microbiology 05/30/20 Blood Culture - Preliminary, Resulted NO GROWTH AFTER 1 DAY Medications Current Medications Aspirin (Aspirin Chewable) 324 mg 1X ONCE PO Last administered on 05/28/20at 13:14; Start 05/28/20 at 13:00; Stop 05/28/20 at 13:01; Status DC Furosemide (Lasix) 40 mg 1X ONCE IVP Last administered on 05/28/20at 13:56; Start 05/28/20 at 13:45; Stop 05/28/20 at 13:46; Status DC Ondansetron HCl (Zofran) 4 mg PRN Q8HRS PRN IV NAUSEA/VOMITING; Start 05/28/20 at 14:00; Stop 05/29/20 at 13:59; Status DC Morphine Sulfate (Morphine Sulfate) 4 mg PRN Q2HR PRN IV PAIN Last administered on 05/29/20at 02:35; Start 05/28/20 at 14:00; Stop 05/29/20 at 13:59; Status DC Lidocaine HCl (Lidocaine Pf 2% Vial) 5 ml STK-MED ONCE .ROUTE ; Start 05/28/20 at 14:19; Stop 05/28/20 at 14:20; Status DC Propofol (Diprivan) 200 mg STK-MED ONCE IV ; Start 05/28/20 at 14:19; Stop at 14:20; Status DC Fentanyl Citrate (Fentanyl 2ml Vial) 100 mcg STK-MED ONCE .ROUTE ; Start 05/28/20 at 14:20; Stop 05/28/20 at 14:20; Status DC Rocuronium [place] (Zemuron) 50 mg STK-MED ONCE .ROUTE ; Start 05/28/20 at 14:20; Stop 05/28/20 at 14:20; Status DC Phenylephrine HCl (PHENYLEPHRINE in 0.9% NACL PF) 1 mg STK-MED ONCE IV ; Start 05/28/20 at 14:21; Stop 05/28/20 at 14:21; Status DC Bacitracin 18676 unit/Sodium Chloride 1,000 ml @ 1,000 mls/hr 1X ONCE IRR Last administered on 05/28/20at 16:14; Start 05/28/20 at 15:00; Stop 05/28/20 at 15:59; Status DC Nicardipine HCl (Cardene) 25 mg STK-MED ONCE IV ; Start 05/28/20 at 14:47; Stop 05/28/20 at 14:47; Status DC Nitroglycerin (Nitroglycerin) 50 mg STK-MED ONCE .ROUTE ; Start 05/28/20 at 14 :47; Stop 05/28/20 at 14:47; Status DC Fentanyl Citrate (Fentanyl 2ml Vial) 25 mcg PRN Q5MIN PRN IVP MILD PAIN 1-3; Start 05/28/20 at 15:00; Stop 05/28/20 at 21:00; Status DC Morphine Sulfate (Morphine Sulfate) 1 mg PRN Q10MIN PRN IVP SEVERE PAIN 7-10; Start 05/28/20 at 15:00; Stop 05/28/20 at 21:00; Status DC Ringer's Solution 1,000 ml @ 30 mls/hr Q24H IV ; Start 05/28/20 at 15:00; Stop 05/28/20 at 21:00; Status DC Hydromorphone HCl (Dilaudid) 0.5 mg PRN Q10MIN PRN IVP SEVERE PAIN 7-10, 2nd CHOICE; Start 05/28/20 at 15:00; Stop 05/28/20 at 21:00; Status DC Prochlorperazine Edisylate (Compazine) 5 mg PACU PRN PRN IVP NAUSEA, MRX1; Start 05/28/20 at 15:00; Stop 05/28/20 at 21:00; Status DC Gelatin (Gelfoam Size 100) 1 each STK-MED ONCE .ROUTE Last administered on 05/28/20at 16:14; Start 05/28/20 at 14:58; Stop 05/28/20 at 14:58; Status DC Bupivacaine HCl/ Epinephrine Bitart (Sensorcain-Epi 0.5% Kit) 30 ml STK-MED ONCE .ROUTE ; Start 05/28/20 at 14:58; Stop 05/28/20 at 14:58; Status DC Cellulose (Surgicel Hemostat 4x8) 1 each STK-MED ONCE .ROUTE ; Start 05/28/20 at 14:58; Stop 05/28/20 at 14:58; Status DC Thrombin 20,000 unit STK-MED ONCE TP Last administered on 05/28/20at 16:14; Start 05/28/20 at 14:58; Stop 05/28/20 at 14:58; Status DC Bupivacaine HCl/ Epinephrine Bitart (Sensorcain-Epi 0.5%-1:[id number] Mpf) 30 ml STK-MED ONCE .ROUTE Last administered on 05/28/20at 16:14; Start 05/28/20 at 14:58; Stop 05/28/20 at 14:59; Status DC Rocuronium [place] (Zemuron) 50 mg STK-MED ONCE .ROUTE ; Start 05/28/20 at 16:26; Stop 05/28/20 at 16:26; Status DC Ephedrine Sulfate (ePHEDrine PF IN SALINE SYRINGE) 50 mg STK-MED ONCE IV ; Sta rt 05/28/20 at 16:26; Stop 05/28/20 at 16:27; Status DC Phenylephrine HCl (John-Synephrine Inj) 10 mg STK-MED ONCE .ROUTE ; Start 05/28/20 at 16:26; Stop 05/28/20 at 16:27; Status DC Ondansetron HCl (Zofran) 4 mg STK-MED ONCE .ROUTE ; Start 05/28/20 at 16:26; Stop 05/28/20 at 16:27; Status DC Dexamethasone Sodium Phosphate (Decadron) 4 mg STK-MED ONCE .ROUTE ; Start 05/28/20 at 16:26; Stop 05/28/20 at 16:27; Status DC Phenylephrine HCl (John-Synephrine Inj) 10 mg STK-MED ONCE .ROUTE ; Start 05/28/20 at 16:40; Stop 05/28/20 at 16:41; Status DC Sevoflurane (Ultane) 60 ml STK-MED ONCE IH ; Start 05/28/20 at 17:20; Stop 05/28/20 at 17:20; Status DC Nicardipine HCl 50 mg/Sodium Chloride 250 ml @ 25 mls/hr TITRATE PRN IV PER PROTOCOL; Start 05/28/20 at 17:30 Hydralazine HCl (Apresoline Inj) 5 mg PRN Q6HRS PRN IVP TO KEEP SBP<150mmHg; Start 05/28/20 at 17:15 Sodium Chloride (Normal Saline Flush) 3 ml QSHIFT PRN IV AFTER MEDS AND BLOOD DRAWS; Start 05/28/20 at 17:15 Dextrose (Dextrose 50%-Water Syringe) 12.5 gm PRN Q15MIN PRN IV SEE COMMENTS; Start 05/28/20 at 17:15 Docusate Sodium (Colace) 100 mg BID PO Last administered on 05/31/20at 21:15; Start 05/28/20 at 21:00 Magnesium Hydroxide (Milk Of Magnesia) 2,400 mg PRN Q12HR PRN PO CONSTIPATION; Start 05/28/20 at 17:15 Cefazolin Sodium (Ancef) 1 gm Q8HRS IVP Last administered on 05/29/20at 15:19; Start 05/28/20 at 22:00; Stop 05/29/20 at 14:01; Status DC Fentanyl Citrate (Fentanyl 2ml Vial) 50 mcg PRN Q2HR PRN IVP PAIN Last administered on 05/29/20at 00:42; Start 05/28/20 at 17:15 Potassium Chloride/Dextrose/ Sod Cl 1,000 ml @ 75 mls/hr [id number] IV Last administered on 05/31/20at 21:16; Start 05/28/20 at 20:00 Losartan Potassium (Cozaar) 50 mg DAILY PO ; Start 05/29/20 at 09:00; Stop 05/29/20 at 09:08; Status DC Metoprolol Succinate (Toprol Xl) 25 mg DAILY PO Last administered on 05/31/20at 08:48; Start 05/29/20 at 09:00 Phenytoin Sodium (Dilantin) 100 mg BID PO ; Start 05/28/20 at 22:15; Stop 05/29/20 at 15:55; Status DC Non-Formulary Medication (Budesonide/ Formoterol Fumarate (Symbicort 160-4.5 Mcg Inhaler)) 2 puff BID IH ; Start 05/29/20 at 09:00; Status UNV Atorvastatin Calcium (Lipitor) 80 mg QHS PO Last administered on 05/31/20at 21:15; Start 05/29/20 at 21:00 Budesonide (Pulmicort) 0.5 mg RTBID NEB Last administered on 06/01/20at 07:04; Start 05/29/20 at 08:00 Albuterol Sulfate (Ventolin Neb Soln) 2.5 mg RTQID NEB Last administered on 06/01/20at 07:04; Start 05/29/20 at 08:00 Losartan Potassium (Cozaar) 25 mg DAILY PO Last administered on 05/31/20at 08:4 8; Start 05/30/20 at 09:00 Levetiracetam (Keppra) 250 mg BID PO ; Start 05/30/20 at 09:00; Stop 05/30/20 at 12:59; Status DC Levetiracetam 250 mg/Dextrose 102.5 ml @ 410 mls/hr Q12HR IV ; Start 05/30/20 at 10:00; Stop 05/30/20 at 09:35; Status DC Levetiracetam 250 mg/Dextrose 102.5 ml @ 410 mls/hr Q12HR IV Last administered on 05/30/20at 09:40; Start 05/30/20 at 10:00; Stop 05/30/20 at 12:02; Status DC Levetiracetam (Keppra) 500 mg BID PO Last administered on 05/31/20at 21:15; Start 05/30/20 at 21:00 Acetaminophen (Tylenol) 500 mg PRN Q6HRS PRN PO MILD PAIN / TEMP > 100.3'F Last administered on 05/30/20at 21:29; Start 05/30/20 at 18:30 Piperacillin Sod/ Tazobactam Sod 3.375 gm/Sodium Chloride 50 ml @ 100 mls/hr Q6HRS IV Last administered on 06/01/20at 05:49; Start 05/30/20 at 20:00 Vancomycin HCl 1 gm/Sodium Chloride 250 ml @ 250 mls/hr 1X IV ; Start 05/30/20 at 18:30; Status UNV Vancomycin HCl (Vanco Per Pharmacy) 1 each PRN DAILY PRN MC SEE COMMENTS Last administered on 05/31/20at 00:22; Start 05/30/20 at 18:30 Vancomycin HCl 1.25 gm/Sodium Chloride 250 ml @ 166.667 mls/hr 1X ONCE IV Last administered on 05/30/20at 21:29; Start 05/30/20 at 18:45; Stop 05/30/20 at 20:15; Status DC Vancomycin HCl 1 gm/Sodium Chloride 250 ml @ 250 mls/hr Q24H IV Last administered on 05/31/20at 21:17; Start 05/31/20 at 21:30 Vancomycin HCl (Vancomycin Trough Level) 1 each 1X ONCE MC ; Start 06/01/20 at 21:00; Stop 06/01/20 at 21:01 Active Scripts Active Crestor (Rosuvastatin Calcium) 40 Mg Tablet 0.5 Tab PO DAILY 30 Days Metoprolol Succinate ( Xl ) (Metoprolol Succinate) 25 Mg Tab.er.24h 1 Tab PO DAILY Aspirin Ec (Aspirin) 325 Mg Tablet.dr 325 Mg PO DAILYWBKFT 365 Days Reported Losartan Potassium 50 Mg Tablet 50 Mg PO DAILY Namenda (Memantine Hcl) 10 Mg Tablet 10 Mg PO HS Proair Hfa Inhaler (Albuterol Sulfate) 8.5 Gm Hfa.aer.ad 2 Puff INH QID PRN Dilantin (Phenytoin Sodium Extended) 100 Mg Capsule 1 Cap PO BID Symbicort 160-4.5 Mcg Inhaler (Budesonide/Formoterol Fumarate) 10.2 Gm Hfa.aer.ad 2 Puff IH BID Vitals/I & O Vital Sign - Last 24 Hours 05/31/20 05/31/20 05/31/20 05/31/20 09:05 10:49 12:12 15:00 Temp 98.9 97.3 98.9 97.3 Pulse 66 72 Resp 20 20 B/P (MAP) 100/66 (77) 94/63 (73) Pulse Ox 98 91 96 90 O2 Delivery Nasal Cannula Nasal Cannula Nasal Cannula Nasal Cannula O2 Flow Rate 2.0 2.0 2.0 2.0 05/31/20 05/31/20 05/31/20 05/31/20 16:12 19:00 19:35 20:38 Temp 98.4 98.4 Pulse 73 Resp 18 B/P (MAP) 101/59 (73) Pulse Ox 94 98 97 O2 Delivery Nasal Cannula Room Air Nasal Cannula Nasal Cannula O2 Flow Rate 2.0 2.0 2.0 05/31/20 05/31/20 06/01/20 06/01/20 20:39 23:18 03:32 07:00 Temp 99.6 99.6 99.0 99.6 99.6 99.0 Pulse 74 80 68 Resp 16 18 18 B/P (MAP) 96/62 (73) 92/62 (72) 101/71 (81) Pulse Ox 97 94 96 94 O2 Delivery Nasal Cannula Nasal Cannula Nasal Cannula Nasal Cannula O2 Flow Rate 2.0 2.0 2.0 2.0 06/01/20 07:17 Pulse Ox 93 O2 Delivery Room Air Intake and Output 05/31/20 05/31/20 06/01/20 15:00 23:00 07:00 Intake Total 250 ml 0 ml Output Total 200 ml Balance 250 ml -200 ml Justifications for Admission Other Justification Nutrition Consultation Dietary Evaluation: Recommendations by RD: Dietary education by RD, Increase Calorie Intake, Protein supplementation Comments: REC advance diet as able/appropriate, goal diet cardiac w/Ensure supplements prn REC PPN or dobhoff/TFs if unable to advance diet within 24 - 48 hrs Expected Outcomes/Goals: diet advancement Malnutrition Findings: Body Fat Depletion (Non Severe: Mild Depletion Weight Status: Underweight BAILEY BROWN MD Jun 01, 2020 08:53
[2020-06-01] MEDS ORDERED: AMOX1TAB58 PO (09:09)
[2020-06-01] MEDS ORDERED: LEVE500T56 PO (09:09)
--- NOTE | 2020-06-01 09:11 | SNU/HH DC ---
DISCHARGE ORDERS DISCHARGE INFORMATION: DISCHARGE DATE: Jun 01, 2020 FINAL DIAGNOSIS Problems Medical Problems: (1) Elevated troponin Status: Acute (2) Subdural hematoma caused by concussion Status: Acute CONDITION ON DISCHARGE: Stable CODE STATUS: Code Status: Full [facility]ENIOR LIVING: SNF STAY <30 DAYS: Yes HOSPICE: HOSPICE: No POST DISCHARGE ORDERS: ACTIVITY ORDERS: Activity as tolerated WEIGHT BEARING STATUS: As tolerated DIET AFTER DISCHARGE: Cardiac CHECKS AFTER DISCHARGE: CHECKS AFTER DISCHARGE: Check blood press - daily, Check blood sugar, ac/hs, Check your Temp as needed TREATMENT/EQUIPMENT ORDERS: ADAPTIVE EQUIPMENT NEEDED: Four wheeled walker Physical Therapy For: Evalulation/Treatment Occupational Therapy For: Evaluation/Treatment DISCHARGE MEDICATIONS: Home Meds Active Scripts Amoxicillin/Potassium Clav (AUGMENTIN 500-125 TABLET) 1 Each Tablet, 1 TAB PO BID for fevers for 5 Days, #10 TAB 0 Refills Prov:KELSY BERNSTEIN MD 06/01/20 Levetiracetam (KEPPRA) 500 Mg Tablet, 500 MG PO BID for seizures for 90 Days, #180 TAB Prov:KELSY BERNSTEIN MD 06/01/20 Rosuvastatin Calcium (CRESTOR) 40 Mg Tablet, 0.5 TAB PO DAILY for CAD for 30 Days, #15 TAB 3 Refills Prov:JUAN NUNN APRN 03/07/20 Metoprolol Succinate (METOPROLOL SUCCINATE ( XL )) 25 Mg Tab.er.24h, 1 TAB PO DAILY for cad, #30 TAB 5 Refills Prov:KELSY BERNSTEIN MD 03/07/20 Aspirin (ASPIRIN EC) 325 Mg Tablet.dr, 325 MG PO DAILYWBKFT for cad for 365 Days, #365 TAB.SR Prov:KELSY BERNSTEIN MD 03/07/20 Reported Medications Losartan Potassium (LOSARTAN POTASSIUM) 50 Mg Tablet, 50 MG PO DAILY, TAB 01/06/18 Memantine Hcl (NAMENDA) 10 Mg Tablet, 10 MG PO HS, TAB 01/06/18 Albuterol Sulfate (PROAIR HFA INHALER) 8.5 Gm Hfa.aer.ad, 2 PUFF INH QID PRN for SHORTNESS OF BREATH, INHALER 0 Refills 01/06/18 Budesonide/Formoterol Fumarate (SYMBICORT 160-4.5 MCG INHALER) 10.2 Gm Hfa.aer.ad, 2 PUFF IH BID, #10.6 GM 3 Refills 01/06/18 Discontinued Reported Medications Phenytoin Sodium Extended (DILANTIN) 100 Mg Capsule, 1 CAP PO BID, #90 CAP 3 Refills 01/06/18 KELSY BERNSTEIN MD Jun 01, 2020 09:11
--- NOTE | 2020-06-01 09:42 | PDOC ---
Infectious Disease Note Subjective: Subjective Patient says feels better Postop pain is under control Denies any fever, nausea, vomiting, diarrhea Vital Signs: Vital Signs Vital Signs Date Time Temp Pulse Resp B/P (MAP) Pulse Ox O2 Delivery O2 Flow Rate FiO2 06/01/20 08:52 68 101/71 06/01/20 07:17 93 Room Air 06/01/20 07:00 99.0 18 2.0 99.0 Physical Exam: PHYSICAL EXAM GENERAL: Alert, awake, comfortable male comfortable, in no acute distress. HEENT: Normocephalic, atraumatic. Wound dressing over the right scalp , dinorah intact, dry, No surrounding redness, oral mucosa moist. NECK: Supple. LUNGS: Clear bilaterally. HEART: S1, S2, no murmurs. ABDOMEN: Soft, nontender and nondistended. Bowel sounds present. EXTREMITIES: No edema, no cyanosis. NEUROLOGIC: Alert, awake, forgetful. MUSCULOSKELETAL: Changes suggestive DJD. DERMATOLOGIC: Warm, dry. No generalized rash. PIV looks okay. PSYCHIATRIC: Calm and cooperative. Medications: Inpatient Meds: Medications reviewed. Labs: Lab Laboratory Tests Test 06/01/20 05:00 White Blood Count 8.2 x10^3/uL (4.0-11.0) Red Blood Count 3.65 x10^6/uL (4.30-5.70) Hemoglobin 10.0 g/dL (13.0-17.5) Hematocrit 30.3 % (39.0-53.0) Mean Corpuscular Volume 83 fL (79-100) Mean Corpuscular Hemoglobin 28 pg (25-35) Mean Corpuscular Hemoglobin Concent 33 g/dL (31-37) Red Cell Distribution Width 13.6 % (11.5-14.5) Platelet Count 221 x10^3/uL (140-400) Neutrophils (%) (Auto) 69 % (31-73) Lymphocytes (%) (Auto) 17 % (24-48) Monocytes (%) (Auto) 10 % (0-9) Eosinophils (%) (Auto) 4 % (0-3) Basophils (%) (Auto) 1 % (0-3) Neutrophils # (Auto) 5.7 x10^3/uL (1.8-7.7) Lymphocytes # (Auto) 1.4 x10^3/uL (1.0-4.8) Monocytes # (Auto) 0.8 x10^3/uL (0.0-1.1) Eosinophils # (Auto) 0.3 x10^3/uL (0.0-0.7) Basophils # (Auto) 0.1 x10^3/uL (0.0-0.2) Sodium Level 133 mmol/L (136-145) Potassium Level 4.2 mmol/L (3.5-5.1) Chloride Level 103 mmol/L (98-107) Carbon Dioxide Level 22 mmol/L (21-32) Anion Gap 8 (6-14) Blood Urea Nitrogen 23 mg/dL (8-26) Creatinine 1.1 mg/dL (0.7-1.3) Estimated GFR (Cockcroft-Gault) 78.3 Glucose Level 104 mg/dL (70-99) Calcium Level 7.6 mg/dL (8.5-10.1) Objective: Assessment: 1. Fever, etiology could be infectious versus noninfectious. 2. Subdural hematoma, status post evacuation. Operative note pending at this time. 3. Leukocytosis. 4. Non-ST elevation myocardial infarction, coronary artery disease and chronic congestive heart failure. 5. Dementia. 6. Seizures, on Dilantin. 7. Atrial fibrillation, new onset. Plan: Plan of Care Continue Zosyn DC IV vancomycin Start Doxy When ready for transfer to [facility] transition to p.o. Augmentin and doxycycline for total of 7 days Follow-up culture results which are pending at this time Wound care as directed. Discussed with nursing staff LUCAS SCHUSTER MD Jun 01, 2020 09:42
[2020-06-01] MEDS: FERROUS SULFATE 325 MG TABLET. PO SCH (09:50)
[2020-06-01 11:00] VITALS: BP 102/66
[2020-06-01] MEDS: DOXYCYCLINE HYCLATE 100 MG TABLET PO SCH ×2 (12:25→21:33)
--- NOTE | 2020-06-01 12:34 | NUR ---
SS following up with discharge planning. SS reviewed pt chart and discussed with pt RN. Pt is currently requiring oxygen at two liters nasal canula. COVID19 negative. Pt on IV Zosyn. PT/OT recommended acute rehabilitation. Dr. Fernandez spoke with family and pt's family requesting that pt go to [facility], ; fax [phone]. Pt accepted at [facility] pending updated COVID19 test. Probable discharge to [facility] tomorrow pending COVID19 test result. SS will continue to follow for discharge planning.
--- NOTE | 2020-06-01 12:42 | PDOC ---
CARDIO Progress Notes Date and Time Date of Service 06/01/2020 Time of Evaluation 1200 Subjective Subjective: No Chest Pain, No shortness of breath, No Palpitations Vitals Vitals Vital Signs Date Time Temp Pulse Resp B/P (MAP) Pulse Ox O2 Delivery O2 Flow Rate FiO2 06/01/20 11:00 97.7 77 18 102/66 (78) 94 Nasal Cannula 2.0 97.7 Weight Weight [ ] Input and Output Intake and Output Intake and Output 06/01/20 07:00 Intake Total 250 ml Output Total 200 ml Balance 50 ml Intake Oral 250 ml Output Urine Total 200 ml # Voids 2 Laboratory Labs Laboratory Tests Test 06/01/20 05:00 White Blood Count 8.2 x10^3/uL (4.0-11.0) Red Blood Count 3.65 x10^6/uL (4.30-5.70) Hemoglobin 10.0 g/dL (13.0-17.5) Hematocrit 30.3 % (39.0-53.0) Mean Corpuscular Volume 83 fL (79-100) Mean Corpuscular Hemoglobin 28 pg (25-35) Mean Corpuscular Hemoglobin Concent 33 g/dL (31-37) Red Cell Distribution Width 13.6 % (11.5-14.5) Platelet Count 221 x10^3/uL (140-400) Neutrophils (%) (Auto) 69 % (31-73) Lymphocytes (%) (Auto) 17 % (24-48) Monocytes (%) (Auto) 10 % (0-9) Eosinophils (%) (Auto) 4 % (0-3) Basophils (%) (Auto) 1 % (0-3) Neutrophils # (Auto) 5.7 x10^3/uL (1.8-7.7) Lymphocytes # (Auto) 1.4 x10^3/uL (1.0-4.8) Monocytes # (Auto) 0.8 x10^3/uL (0.0-1.1) Eosinophils # (Auto) 0.3 x10^3/uL (0.0-0.7) Basophils # (Auto) 0.1 x10^3/uL (0.0-0.2) Sodium Level 133 mmol/L (136-145) Potassium Level 4.2 mmol/L (3.5-5.1) Chloride Level 103 mmol/L (98-107) Carbon Dioxide Level 22 mmol/L (21-32) Anion Gap 8 (6-14) Blood Urea Nitrogen 23 mg/dL (8-26) Creatinine 1.1 mg/dL (0.7-1.3) Estimated GFR (Cockcroft-Gault) 78.3 Glucose Level 104 mg/dL (70-99) Calcium Level 7.6 mg/dL (8.5-10.1) Microbiology Micro Microbiology 05/30/20 Blood Culture - Preliminary, Resulted NO GROWTH AFTER 1 DAY Physical Exam HEENT: Neck Supple W Full Motion, Other (drsg intact to head) Chest: Symmetric LUNGS: Clear to Auscultation Heart: RRR (SR) Abdomen: Soft N/T Extremities: No Edema Neurology: alert, oriented, follow commands Assessment Assessment 1. Fall; details unknown. No significant arrhythmias on tele 2. Encephalopathy with underlying dementia 3. Acute SDH s/p evacuation, doing well POD#3 4. NSTEMI: trop peak 34, multifactorial with known 3VD as noted below 5. CAD; Recent LHC revealed severe 3VD, CP free 6. Chronic systolic CHF; clinically compensated 7. ICM: Recent echo with LVEF of 40-45% 8. Hx of seizure with Dilantin use 9. Hypertension: controlled 10. Hyperlipidemia: on goal 11. AFIB; possibly induced by recent injury. new, paroxysmal. Maintaining SR Recommendations 1. He is CP free, 3VD is managed medically due to significant comorbid conditions and this was discussed significantly in 02/2020 with his DPOA and elected for medical therapy 2. Continue losartan and toprol. No ASA or anticoagulation with SDH. ASA when clear with neurosurgery 3. Continue statin. Lasix PRN 4. Follow neurosurgery recommendations 5. Conservative measures from a CV standpoint 6. Possible [facility]. Outpt f/u Justicifation of Admission Dx: Justifications for Admission: Justification of Admission Dx: Yes Sepsis: Altered Mental Status JUAN NUNN PIPE TURNER Jun 01, 2020 12:42
--- NOTE | 2020-06-01 13:09 | PDOC ---
PROGRESS NOTES Date of Service DATE: 06/01/20 TIME: 13:08 Assessment Problems Medical Problems: (1) Elevated troponin Status: Acute (2) Subdural hematoma caused by concussion Status: Acute Right sided subdural hematoma status-post evacuation History of epilepsy, no recent seizures Dementia Plan Levetiracetam 500 mg twice daily [facility] Subjective No complaints Objective Vital Signs Date Time Temp Pulse Resp B/P (MAP) Pulse Ox O2 Delivery O2 Flow Rate FiO2 06/01/20 11:00 97.7 77 18 102/66 (78) 94 Nasal Cannula 2.0 97.7 Intake and Output 06/01/20 07:00 Intake Total 250 ml Output Total 200 ml Balance 50 ml Intake Oral 250 ml Output Urine Total 200 ml # Voids 2 PHYSICAL EXAM Alert. Oriented to person and place, 2 days off on the date PERRL. EOMI. CN: no focal findings. Muscle tone: normal. Muscle strength: 4/5, little weaker on the left DTR: 2+ Plantar reflex: Flexor Gait: not examined in bed. Sensory exam: no abnormal findings. No cerebellar signs elicited. Bilateral grasp reflexes Review of Relevant I have reviewed the following items eleazar (where applicable) has been applied. Labs Laboratory Tests Test 05/30/20 19:22 05/30/20 21:20 05/31/20 07:00 06/01/20 05:00 White Blood Count 12.1 x10^3/uL (4.0-11.0) 8.2 x10^3/uL (4.0-11.0) Red Blood Count 4.62 x10^6/uL (4.30-5.70) 3.65 x10^6/uL (4.30-5.70) Hemoglobin 12.7 g/dL (13.0-17.5) 10.0 g/dL (13.0-17.5) Hematocrit 39.3 % (39.0-53.0) 30.3 % (39.0-53.0) Mean Corpuscular Volume 85 fL (79-100) 83 fL (79-100) Mean Corpuscular Hemoglobin 28 pg (25-35) 28 pg (25-35) Mean Corpuscular Hemoglobin Concent 33 g/dL (31-37) 33 g/dL (31-37) Red Cell Distribution Width 13.8 % (11.5-14.5) 13.6 % (11.5-14.5) Platelet Count 242 x10^3/uL (140-400) 221 x10^3/uL (140-400) Neutrophils (%) (Auto) 82 % (31-73) 69 % (31-73) Lymphocytes (%) (Auto) 9 % (24-48) 17 % (24-48) Monocytes (%) (Auto) 8 % (0-9) 10 % (0-9) Eosinophils (%) (Auto) 1 % (0-3) 4 % (0-3) Basophils (%) (Auto) 0 % (0-3) 1 % (0-3) Neutrophils # (Auto) 9.9 x10^3/uL (1.8-7.7) 5.7 x10^3/uL (1.8-7.7) Lymphocytes # (Auto) 1.1 x10^3/uL (1.0-4.8) 1.4 x10^3/uL (1.0-4.8) Monocytes # (Auto) 1.0 x10^3/uL (0.0-1.1) 0.8 x10^3/uL (0.0-1.1) Eosinophils # (Auto) 0.1 x10^3/uL (0.0-0.7) 0.3 x10^3/uL (0.0-0.7) Basophils # (Auto) 0.1 x10^3/uL (0.0-0.2) 0.1 x10^3/uL (0.0-0.2) Sodium Level 138 mmol/L (136-145) 133 mmol/L (136-145) Potassium Level 4.3 mmol/L (3.5-5.1) 4.2 mmol/L (3.5-5.1) Chloride Level 104 mmol/L (98-107) 103 mmol/L (98-107) Carbon Dioxide Level 27 mmol/L (21-32) 22 mmol/L (21-32) Anion Gap 7 (6-14) 8 (6-14) Blood Urea Nitrogen 19 mg/dL (8-26) 23 mg/dL (8-26) Creatinine 1.1 mg/dL (0.7-1.3) 1.1 mg/dL (0.7-1.3) 1.1 mg/dL (0.7-1.3) Estimated GFR (Cockcroft-Gault) 78.3 78.3 78.3 BUN/Creatinine Ratio 17 (6-20) Glucose Level 98 mg/dL (70-99) 104 mg/dL (70-99) Calcium Level 8.4 mg/dL (8.5-10.1) 7.6 mg/dL (8.5-10.1) Total Bilirubin 0.5 mg/dL (0.2-1.0) Aspartate Amino Transf (AST/SGOT) 76 U/L (15-37) Alanine Aminotransferase (ALT/SGPT) 16 U/L (16-63) Alkaline Phosphatase 118 U/L (46-116) Total Protein 8.1 g/dL (6.4-8.2) Albumin 2.7 g/dL (3.4-5.0) Albumin/Globulin Ratio 0.5 (1.0-1.7) Urine Collection Type Unknown Urine Color Yellow Urine Clarity Clear Urine pH 5.5 (<5.0-8.0) Urine Specific [place] 1.020 (1.000-1.030) Urine Protein 30 mg/dL (NEG-TRACE) Urine Glucose (UA) Negative mg/dL (NEG) Urine Ketones (Stick) Trace mg/dL (NEG) Urine Blood Moderate (NEG) Urine Nitrite Negative (NEG) Urine Bilirubin Negative (NEG) Urine Urobilinogen Dipstick 1.0 mg/dL (0.2 mg/dL) Urine Leukocyte Esterase Negative (NEG) Urine RBC 1-2 /HPF (0-2) Urine WBC 1-4 /HPF (0-4) Urine Squamous Epithelial Cells Occ /LPF Urine Amorphous Sediment Present /HPF Urine Bacteria Few /HPF (0-FEW) Urine Hyaline Casts Few /HPF Phenytoin (Dilantin) Level 15.5 mcg/mL (10.0-20.0) Phenytoin Last Dose Date Unknown Phenytoin Last Dose Time Unknown Laboratory Tests Test 06/01/20 05:00 White Blood Count 8.2 x10^3/uL (4.0-11.0) Red Blood Count 3.65 x10^6/uL (4.30-5.70) Hemoglobin 10.0 g/dL (13.0-17.5) Hematocrit 30.3 % (39.0-53.0) Mean Corpuscular Volume 83 fL (79-100) Mean Corpuscular Hemoglobin 28 pg (25-35) Mean Corpuscular Hemoglobin Concent 33 g/dL (31-37) Red Cell Distribution Width 13.6 % (11.5-14.5) Platelet Count 221 x10^3/uL (140-400) Neutrophils (%) (Auto) 69 % (31-73) Lymphocytes (%) (Auto) 17 % (24-48) Monocytes (%) (Auto) 10 % (0-9) Eosinophils (%) (Auto) 4 % (0-3) Basophils (%) (Auto) 1 % (0-3) Neutrophils # (Auto) 5.7 x10^3/uL (1.8-7.7) Lymphocytes # (Auto) 1.4 x10^3/uL (1.0-4.8) Monocytes # (Auto) 0.8 x10^3/uL (0.0-1.1) Eosinophils # (Auto) 0.3 x10^3/uL (0.0-0.7) Basophils # (Auto) 0.1 x10^3/uL (0.0-0.2) Sodium Level 133 mmol/L (136-145) Potassium Level 4.2 mmol/L (3.5-5.1) Chloride Level 103 mmol/L (98-107) Carbon Dioxide Level 22 mmol/L (21-32) Anion Gap 8 (6-14) Blood Urea Nitrogen 23 mg/dL (8-26) Creatinine 1.1 mg/dL (0.7-1.3) Estimated GFR (Cockcroft-Gault) 78.3 Glucose Level 104 mg/dL (70-99) Calcium Level 7.6 mg/dL (8.5-10.1) Microbiology 05/30/20 Blood Culture - Preliminary, Resulted NO GROWTH AFTER 1 DAY Medications Current Medications Aspirin (Aspirin Chewable) 324 mg 1X ONCE PO Last administered on 05/28/20at 13:14; Start 05/28/20 at 13:00; Stop 05/28/20 at 13:01; Status DC Furosemide (Lasix) 40 mg 1X ONCE IVP Last administered on 05/28/20at 13:56; Start 05/28/20 at 13:45; Stop 05/28/20 at 13:46; Status DC Ondansetron HCl (Zofran) 4 mg PRN Q8HRS PRN IV NAUSEA/VOMITING; Start 05/28/20 at 14:00; Stop 05/29/20 at 13:59; Status DC Morphine Sulfate (Morphine Sulfate) 4 mg PRN Q2HR PRN IV PAIN Last administered on 05/29/20at 02:35; Start 05/28/20 at 14:00; Stop 05/29/20 at 13:59; Status DC Lidocaine HCl (Lidocaine Pf 2% Vial) 5 ml STK-MED ONCE .ROUTE ; Start 05/28/20 at 14:19; Stop 05/28/20 at 14:20; Status DC Propofol (Diprivan) 200 mg STK-MED ONCE IV ; Start 05/28/20 at 14:19; Stop 05/28/20 at 14:20; Status DC Fentanyl Citrate (Fentanyl 2ml Vial) 100 mcg STK-MED ONCE .ROUTE ; Start 05/28/20 at 14:20; Stop 05/28/20 at 14:20; Status DC Rocuronium Rogers (Zemuron) 50 mg STK-MED ONCE .ROUTE ; Start 05/28/20 at 14:20; Stop 05/28/20 at 14:20; Status DC Phenylephrine HCl (PHENYLEPHRINE in 0.9% NACL PF) 1 mg STK-MED ONCE IV ; Start 05/28/20 at 14:21; Stop 05/28/20 at 14:21; Status DC Bacitracin 85180 unit/Sodium Chloride 1,000 ml @ 1,000 mls/hr 1X ONCE IRR Last administered on 05/28/20at 16:14; Start 05/28/20 at 15:00; Stop 05/28/20 at 15:59; Status DC Nicardipine HCl (Cardene) 25 mg STK-MED ONCE IV ; Start 05/28/20 at 14:47; Stop 05/28/20 at 14:47; Status DC Nitroglycerin (Nitroglycerin) 50 mg STK-MED ONCE .ROUTE ; Start 05/28/20 at 14:47; Stop 05/28/20 at 14:47; Status DC Fentanyl Citrate (Fentanyl 2ml Vial) 25 mcg PRN Q5MIN PRN IVP MILD PAIN 1-3; Start 05/28/20 at 15:00; Stop 05/28/20 at 21:00; Status DC Morphine Sulfate (Morphine Sulfate) 1 mg PRN Q10MIN PRN IVP SEVERE PAIN 7-10; Start 05/28/20 at 15:00; Stop 05/28/20 at 21:00; Status DC Ringer's Solution 1,000 ml @ 30 mls/hr Q24H IV ; Start 05/28/20 at 15:00; Stop 05/28/20 at 21:00; Status DC Hydromorphone HCl (Dilaudid) 0.5 mg PRN Q10MIN PRN IVP SEVERE PAIN 7-10, 2nd CHOICE; Start 05/28/20 at 15:00; Stop 05/28/20 at 21:00; Status DC Prochlorperazine Edisylate (Compazine) 5 mg PACU PRN PRN IVP NAUSEA, MRX1; Start 05/28/20 at 15:00; Stop 05/28/20 at 21:00; Status DC Gelatin (Gelfoam Size 100) 1 each STK-MED ONCE .ROUTE Last administered on 05/28/20at 16:14; Start 05/28/20 at 14:58; Stop 05/28/20 at 14:58; Status DC Bupivacaine HCl/ Epinephrine Bitart (Sensorcain-Epi 0.5% Kit) 30 ml STK-MED ONCE .ROUTE ; Start 05/28/20 at 14:58; Stop 05/28/20 at 14:58; Status DC Cellulose (Surgicel Hemostat 4x8) 1 each STK-MED ONCE .ROUTE ; Start 05/28/20 at 14:58; Stop 05/28/20 at 14:58; Status DC Thrombin 20,000 unit STK-MED ONCE TP Last administered on 05/28/20at 16:14; Start 05/28/20 at 14:58; Stop 05/28/20 at 14:58; Status DC Bupivacaine HCl/ Epinephrine Bitart (Sensorcain-Epi 0.5%-1:238320 Mpf) 30 ml STK-MED ONCE .ROUTE Last administered on 05/28/20at 16:14; Start 05/28/20 at 14:58; Stop 05/28/20 at 14:59; Status DC Rocuronium Rogers (Zemuron) 50 mg STK-MED ONCE .ROUTE ; Start 05/28/20 at 16:26; Stop 05/28/20 at 16:26; Status DC Ephedrine Sulfate (ePHEDrine PF IN SALINE SYRINGE) 50 mg STK-MED ONCE IV ; Start 05/28/20 at 16:26; Stop 05/28/20 at 16:27; Status DC Phenylephrine HCl (John-Synephrine Inj) 10 mg STK-MED ONCE .ROUTE ; Start 05/28/20 at 16:26; Stop 05/28/20 at 16:27; Status DC Ondansetron HCl (Zofran) 4 mg STK-MED ONCE .ROUTE ; Start 05/28/20 at 16:26; Stop 05/28/20 at 16:27; Status DC Dexamethasone Sodium Phosphate (Decadron) 4 mg STK-MED ONCE .ROUTE ; Start at 16:26; Stop 05/28/20 at 16:27; Status DC Phenylephrine HCl (John-Synephrine Inj) 10 mg STK-MED ONCE .ROUTE ; Start 05/09 03/30 at 16:40; Stop 05/28/20 at 16:41; Status DC Sevoflurane (Ultane) 60 ml STK-MED ONCE IH ; Start 05/28/20 at 17:20; Stop at 17:20; Status DC Nicardipine HCl 50 mg/Sodium Chloride 250 ml @ 25 mls/hr TITRATE PRN IV PER PROTOCOL; Start 05/28/20 at 17:30 Hydralazine HCl (Apresoline Inj) 5 mg PRN Q6HRS PRN IVP TO KEEP SBP<150mmHg; Start 05/28/20 at 17:15 Sodium Chloride (Normal Saline Flush) 3 ml QSHIFT PRN IV AFTER MEDS AND BLOOD DRAWS; Start 05/28/20 at 17:15 Dextrose (Dextrose 50%-Water Syringe) 12.5 gm PRN Q15MIN PRN IV SEE COMMENTS; Start 05/28/20 at 17:15 Docusate Sodium (Colace) 100 mg BID PO Last administered on 06/01/20at 08:51; Start 05/28/20 at 21:00 Magnesium Hydroxide (Milk Of Magnesia) 2,400 mg PRN Q12HR PRN PO CONSTIPATION; Start 05/28/20 at 17:15 Cefazolin Sodium (Ancef) 1 gm Q8HRS IVP Last administered on 05/29/20at 15:19; Start 05/28/20 at 22:00; Stop 05/29/20 at 14:01; Status DC Fentanyl Citrate (Fentanyl 2ml Vial) 50 mcg PRN Q2HR PRN IVP PAIN Last administered on 05/29/20at 00:42; Start 05/28/20 at 17:15 Potassium Chloride/Dextrose/ Sod Cl 1,000 ml @ 75 mls/hr [id number] IV Last administered on 05/31/20at 21:16; Start 05/28/20 at 20:00; Stop 06/01/20 at 09:12; Status DC Losartan Potassium (Cozaar) 50 mg DAILY PO ; Start 05/29/20 at 09:00; Stop 05/29/20 at 09:08; Status DC Metoprolol Succinate (Toprol Xl) 25 mg DAILY PO Last administered on 06/01/20at 08:52; Start 05/29/20 at 09:00 Phenytoin Sodium (Dilantin) 100 mg BID PO ; Start 05/28/20 at 22:15; Stop 05/29/20 at 15:55; Status DC Non-Formulary Medication (Budesonide/ Formoterol Fumarate (Symbicort 160-4.5 Mcg Inhaler)) 2 puff BID IH ; Start 05/29/20 at 09:00; Status UNV Atorvastatin Calcium (Lipitor) 80 mg QHS PO Last administered on 05/31/20at 21:15; Start 05/29/20 at 21:00 Budesonide (Pulmicort) 0.5 mg RTBID NEB Last administered on 06/01/20at 07:04; Start 05/29/20 at 08:00 Albuterol Sulfate (Ventolin Neb Soln) 2.5 mg RTQID NEB Last administered on 06/01/20at 07:04; Start 05/29/20 at 08:00 Losartan Potassium (Cozaar) 25 mg DAILY PO Last administered on 06/01/20at 08:52; Start 05/30/20 at 09:00 Levetiracetam (Keppra) 250 mg BID PO ; Start 05/30/20 at 09:00; Stop 05/30/20 at 12:59; Status DC Levetiracetam 250 mg/Dextrose 102.5 ml @ 410 mls/hr Q12HR IV ; Start 05/30/20 at 10:00; Stop 05/30/20 at 09:35; Status DC Levetiracetam 250 mg/Dextrose 102.5 ml @ 410 mls/hr Q12HR IV Last administered on 05/30/20at 09:40; Start 05/30/20 at 10:00; Stop 05/30/20 at 12:02; Status DC Levetiracetam (Keppra) 500 mg BID PO Last administered on 06/01/20at 08:52; Start 05/30/20 at 21:00 Acetaminophen (Tylenol) 500 mg PRN Q6HRS PRN PO MILD PAIN / TEMP > 100.3'F Last administered on 06/01/20at 08:52; Start 05/30/20 at 18:30 Piperacillin Sod/ Tazobactam Sod 3.375 gm/Sodium Chloride 50 ml @ 100 mls/hr Q6HRS IV Last administered on 06/01/20at 12:29; Start 05/30/20 at 20:00 Vancomycin HCl 1 gm/Sodium Chloride 250 ml @ 250 mls/hr 1X IV ; Start 05/30/20 at 18:30; Status UNV Vancomycin HCl (Vanco Per Pharmacy) 1 each PRN DAILY PRN MC SEE COMMENTS Last administered on 05/31/20at 00:22; Start 05/30/20 at 18:30; Stop 06/01/20 at 10:21; Status DC Vancomycin HCl 1.25 gm/Sodium Chloride 250 ml @ 166.667 mls/hr 1X ONCE IV Last administered on 05/30/20at 21:29; Start 05/30/20 at 18:45; Stop 05/30/20 at 20:15; Status DC Vancomycin HCl 1 gm/Sodium Chloride 250 ml @ 250 mls/hr Q24H IV Last administered on 05/31/20at 21:17; Start 05/31/20 at 21:30; Stop 06/01/20 at 10:21; Status DC Vancomycin HCl (Vancomycin Trough Level) 1 each 1X ONCE MC ; Start 06/01/20 at 21:00; Stop 06/01/20 at 10:22; Status DC Ferrous Sulfate (Feosol) 325 mg DAILYWBKFT PO Last administered on 06/01/20at 09:50; Start 06/01/20 at 09:00 Doxycycline Hyclate (Vibra-Tab) 100 mg BID PO Last administered on 06/01/20at 12:25; Start 06/01/20 at 11:00 Lactobacillus Rhamnosus (Culturelle) 1 cap BID PO ; Start 06/01/20 at 21:00 Active Scripts Active Augmentin 500-125 Tablet (Amoxicillin/Potassium Clav) 1 Each Tablet 1 Tab PO BID 5 Days Keppra (Levetiracetam) 500 Mg Tablet 500 Mg PO BID 90 Days Crestor (Rosuvastatin Calcium) 40 Mg Tablet 0.5 Tab PO DAILY 30 Days Metoprolol Succinate ( Xl ) (Metoprolol Succinate) 25 Mg Tab.er.24h 1 Tab PO DAILY Aspirin Ec (Aspirin) 325 Mg Tablet.dr 325 Mg PO DAILYWBKFT 365 Days Reported Losartan Potassium 50 Mg Tablet 50 Mg PO DAILY Namenda (Memantine Hcl) 10 Mg Tablet 10 Mg PO HS Proair Hfa Inhaler (Albuterol Sulfate) 8.5 Gm Hfa.aer.ad 2 Puff INH QID PRN Symbicort 160-4.5 Mcg Inhaler (Budesonide/Formoterol Fumarate) 10.2 Gm Hfa.aer.ad 2 Puff IH BID Vitals/I & O Vital Sign - Last 24 Hours 05/31/20 05/31/20 05/31/20 05/31/20 15:00 16:12 19:00 19:35 Temp 97.3 98.4 97.3 98.4 Pulse 72 73 Resp 20 18 B/P (MAP) 94/63 (73) 101/59 (73) Pulse Ox 90 94 98 O2 Delivery Nasal Cannula Nasal Cannula Room Air Nasal Cannula O2 Flow Rate 2.0 2.0 2.0 05/31/20 05/31/20 05/31/20 06/01/20 20:38 20:39 23:18 03:32 Temp 99.6 99.6 99.6 99.6 Pulse 74 80 Resp 16 18 B/P (MAP) 96/62 (73) 92/62 (72) Pulse Ox 97 97 94 96 O2 Delivery Nasal Cannula Nasal Cannula Nasal Cannula Nasal Cannula O2 Flow Rate 2.0 2.0 2.0 2.0 06/01/20 06/01/20 06/01/20 06/01/20 07:00 07:17 08:00 08:52 Temp 99.0 99.0 Pulse 68 73 Resp 18 B/P (MAP) 101/71 (81) 101/71 Pulse Ox 94 93 O2 Delivery Nasal Cannula Room Air Nasal Cannula O2 Flow Rate 2.0 2.0 06/01/20 06/01/20 08:52 11:00 Temp 97.7 97.7 Pulse 68 77 Resp 18 B/P (MAP) 101/71 102/66 (78) Pulse Ox 94 O2 Delivery Nasal Cannula O2 Flow Rate 2.0 Intake and Output 05/31/20 05/31/20 06/01/20 15:00 23:00 07:00 Intake Total 250 ml 0 ml Output Total 200 ml Balance 250 ml -200 ml Justicifation of Admission Dx: Justifications for Admission: Justification of Admission Dx: Yes Sepsis: Altered Mental Status EMMA SAWANT MD Jun 01, 2020 13:09
[2020-06-01 15:00] VITALS: BP 100/72
[2020-06-01] MEDS ORDERED: DOXY100C2 PO (17:17)
--- NOTE | 2020-06-01 18:57 | PDOC ---
PROGRESS NOTES Date of Service DATE: 06/01/20 TIME: 18:55 Subjective Subjective patient seen at 1515 resting in bed awake, alert denies headache Objective Objective Vital Signs Date Time Temp Pulse Resp B/P (MAP) Pulse Ox O2 Delivery O2 Flow Rate FiO2 06/01/20 16:20 93 Room Air 06/01/20 15:00 97.5 74 18 100/72 (81) 2.0 97.5 Intake and Output 06/01/20 07:00 Intake Total 250 ml Output Total 200 ml Balance 50 ml Intake Oral 250 ml Output Urine Total 200 ml # Voids 2 Physical Exam General: Alert, Cooperative, No acute distress Skin: Other (right dresssing dry and intact) Assessment Assessment Problems Medical Problems: (1) Elevated troponin Status: Acute (2) Subdural hematoma caused by concussion Status: Acute Plan Plan of Care OOB as tolerated,PT SCDs will repeat CT in 7 to 10 days D/W RN Comment Review of Relevant I have reviewed the following items eleazar (where applicable) has been applied. Labs Laboratory Tests Test 05/30/20 19:22 05/30/20 21:20 05/31/20 07:00 06/01/20 05:00 White Blood Count 12.1 x10^3/uL (4.0-11.0) 8.2 x10^3/uL (4.0-11.0) Red Blood Count 4.62 x10^6/uL (4.30-5.70) 3.65 x10^6/uL (4.30-5.70) Hemoglobin 12.7 g/dL (13.0-17.5) 10.0 g/dL (13.0-17.5) Hematocrit 39.3 % (39.0-53.0) 30.3 % (39.0-53.0) Mean Corpuscular Volume 85 fL (79-100) 83 fL (79-100) Mean Corpuscular Hemoglobin 28 pg (25-35) 28 pg (25-35) Mean Corpuscular Hemoglobin Concent 33 g/dL (31-37) 33 g/dL (31-37) Red Cell Distribution Width 13.8 % (11.5-14.5) 13.6 % (11.5-14.5) Platelet Count 242 x10^3/uL (140-400) 221 x10^3/uL (140-400) Neutrophils (%) (Auto) 82 % (31-73) 69 % (31-73) Lymphocytes (%) (Auto) 9 % (24-48) 17 % (24-48) Monocytes (%) (Auto) 8 % (0-9) 10 % (0-9) Eosinophils (%) (Auto) 1 % (0-3) 4 % (0-3) Basophils (%) (Auto) 0 % (0-3) 1 % (0-3) Neutrophils # (Auto) 9.9 x10^3/uL (1.8-7.7) 5.7 x10^3/uL (1.8-7.7) Lymphocytes # (Auto) 1.1 x10^3/uL (1.0-4.8) 1.4 x10^3/uL (1.0-4.8) Monocytes # (Auto) 1.0 x10^3/uL (0.0-1.1) 0.8 x10^3/uL (0.0-1.1) Eosinophils # (Auto) 0.1 x10^3/uL (0.0-0.7) 0.3 x10^3/uL (0.0-0.7) Basophils # (Auto) 0.1 x10^3/uL (0.0-0.2) 0.1 x10^3/uL (0.0-0.2) Sodium Level 138 mmol/L (136-145) 133 mmol/L (136-145) Potassium Level 4.3 mmol/L (3.5-5.1) 4.2 mmol/L (3.5-5.1) Chloride Level 104 mmol/L (98-107) 103 mmol/L (98-107) Carbon Dioxide Level 27 mmol/L (21-32) 22 mmol/L (21-32) Anion Gap 7 (6-14) 8 (6-14) Blood Urea Nitrogen 19 mg/dL (8-26) 23 mg/dL (8-26) Creatinine 1.1 mg/dL (0.7-1.3) 1.1 mg/dL (0.7-1.3) 1.1 mg/dL (0.7-1.3) Estimated GFR (Cockcroft-Gault) 78.3 78.3 78.3 BUN/Creatinine Ratio 17 (6-20) Glucose Level 98 mg/dL (70-99) 104 mg/dL (70-99) Calcium Level 8.4 mg/dL (8.5-10.1) 7.6 mg/dL (8.5-10.1) Total Bilirubin 0.5 mg/dL (0.2-1.0) Aspartate Amino Transf (AST/SGOT) 76 U/L (15-37) Alanine Aminotransferase (ALT/SGPT) 16 U/L (16-63) Alkaline Phosphatase 118 U/L (46-116) Total Protein 8.1 g/dL (6.4-8.2) Albumin 2.7 g/dL (3.4-5.0) Albumin/Globulin Ratio 0.5 (1.0-1.7) Urine Collection Type Unknown Urine Color Yellow Urine Clarity Clear Urine pH 5.5 (<5.0-8.0) Urine Specific [place] 1.020 (1.000-1.030) Urine Protein 30 mg/dL (NEG-TRACE) Urine Glucose (UA) Negative mg/dL (NEG) Urine Ketones (Stick) Trace mg/dL (NEG) Urine Blood Moderate (NEG) Urine Nitrite Negative (NEG) Urine Bilirubin Negative (NEG) Urine Urobilinogen Dipstick 1.0 mg/dL (0.2 mg/dL) Urine Leukocyte Esterase Negative (NEG) Urine RBC 1-2 /HPF (0-2) Urine WBC 1-4 /HPF (0-4) Urine Squamous Epithelial Cells Occ /LPF Urine Amorphous Sediment Present /HPF Urine Bacteria Few /HPF (0-FEW) Urine Hyaline Casts Few /HPF Phenytoin (Dilantin) Level 15.5 mcg/mL (10.0-20.0) Phenytoin Last Dose Date Unknown Phenytoin Last Dose Time Unknown Laboratory Tests Test 06/01/20 05:00 White Blood Count 8.2 x10^3/uL (4.0-11.0) Red Blood Count 3.65 x10^6/uL (4.30-5.70) Hemoglobin 10.0 g/dL (13.0-17.5) Hematocrit 30.3 % (39.0-53.0) Mean Corpuscular Volume 83 fL (79-100) Mean Corpuscular Hemoglobin 28 pg (25-35) Mean Corpuscular Hemoglobin Concent 33 g/dL (31-37) Red Cell Distribution Width 13.6 % (11.5-14.5) Platelet Count 221 x10^3/uL (140-400) Neutrophils (%) (Auto) 69 % (31-73) Lymphocytes (%) (Auto) 17 % (24-48) Monocytes (%) (Auto) 10 % (0-9) Eosinophils (%) (Auto) 4 % (0-3) Basophils (%) (Auto) 1 % (0-3) Neutrophils # (Auto) 5.7 x10^3/uL (1.8-7.7) Lymphocytes # (Auto) 1.4 x10^3/uL (1.0-4.8) Monocytes # (Auto) 0.8 x10^3/uL (0.0-1.1) Eosinophils # (Auto) 0.3 x10^3/uL (0.0-0.7) Basophils # (Auto) 0.1 x10^3/uL (0.0-0.2) Sodium Level 133 mmol/L (136-145) Potassium Level 4.2 mmol/L (3.5-5.1) Chloride Level 103 mmol/L (98-107) Carbon Dioxide Level 22 mmol/L (21-32) Anion Gap 8 (6-14) Blood Urea Nitrogen 23 mg/dL (8-26) Creatinine 1.1 mg/dL (0.7-1.3) Estimated GFR (Cockcroft-Gault) 78.3 Glucose Level 104 mg/dL (70-99) Calcium Level 7.6 mg/dL (8.5-10.1) Microbiology 05/30/20 Blood Culture - Preliminary, Resulted NO GROWTH AFTER 1 DAY Medications Current Medications Aspirin (Aspirin Chewable) 324 mg 1X ONCE PO Last administered on 05/28/20at 13:14; Start 05/28/20 at 13:00; Stop 05/28/20 at 13:01; Status DC Furosemide (Lasix) 40 mg 1X ONCE IVP Last administered on 05/28/20at 13:56; Start 05/28/20 at 13:45; Stop 05/28/20 at 13:46; Status DC Ondansetron HCl (Zofran) 4 mg PRN Q8HRS PRN IV NAUSEA/VOMITING; Start 05/28/20 at 14:00; Stop 05/29/20 at 13:59; Status DC Morphine Sulfate (Morphine Sulfate) 4 mg PRN Q2HR PRN IV PAIN Last administered on 05/29/20at 02:35; Start 05/28/20 at 14:00; Stop 05/29/20 at 13:59; Status DC Lidocaine HCl (Lidocaine Pf 2% Vial) 5 ml STK-MED ONCE .ROUTE ; Start 05/28/20 at 14:19; Stop 05/28/20 at 14:20; Status DC Propofol (Diprivan) 200 mg STK-MED ONCE IV ; Start 05/28/20 at 14:19; Stop 05/28/20 at 14:20; Status DC Fentanyl Citrate (Fentanyl 2ml Vial) 100 mcg STK-MED ONCE .ROUTE ; Start 05/28/20 at 14:20; Stop 05/28/20 at 14:20; Status DC Rocuronium [place] (Zemuron) 50 mg STK-MED ONCE .ROUTE ; Start 05/28/20 at 14:20; Stop 05/28/20 at 14:20; Status DC Phenylephrine HCl (PHENYLEPHRINE in 0.9% NACL PF) 1 mg STK-MED ONCE IV ; Start 05/28/20 at 14:21; Stop 05/28/20 at 14:21; Status DC Bacitracin 57193 unit/Sodium Chloride 1,000 ml @ 1,000 mls/hr 1X ONCE IRR Last administered on 05/28/20at 16:14; Start 05/28/20 at 15:00; Stop 05/28/20 at 15:59; Status DC Nicardipine HCl (Cardene) 25 mg STK-MED ONCE IV ; Start 05/28/20 at 14:47; Stop 05/28/20 at 14:47; Status DC Nitroglycerin (Nitroglycerin) 50 mg STK-MED ONCE .ROUTE ; Start 05/28/20 at 14:47; Stop 05/28/20 at 14:47; Status DC Fentanyl Citrate (Fentanyl 2ml Vial) 25 mcg PRN Q5MIN PRN IVP MILD PAIN 1-3; Start 05/28/20 at 15:00; Stop 05/28/20 at 21:00; Status DC Morphine Sulfate (Morphine Sulfate) 1 mg PRN Q10MIN PRN IVP SEVERE PAIN 7-10; Start 05/28/20 at 15:00; Stop 05/28/20 at 21:00; Status DC Ringer's Solution 1,000 ml @ 30 mls/hr Q24H IV ; Start 05/28/20 at 15:00; Stop 05/28/20 at 21:00; Status DC Hydromorphone HCl (Dilaudid) 0.5 mg PRN Q10MIN PRN IVP SEVERE PAIN 7-10, 2nd CHOICE; Start 05/28/20 at 15:00; Stop 05/28/20 at 21:00; Status DC Prochlorperazine Edisylate (Compazine) 5 mg PACU PRN PRN IVP NAUSEA, MRX1; Start 05/28/20 at 15:00; Stop 05/28/20 at 21:00; Status DC Gelatin (Gelfoam Size 100) 1 each STK-MED ONCE .ROUTE Last administered on 05/28/20at 16:14; Start 05/28/20 at 14:58; Stop 05/28/20 at 14:58; Status DC Bupivacaine HCl/ Epinephrine Bitart (Sensorcain-Epi 0.5% Kit) 30 ml STK-MED ONCE .ROUTE ; Start 05/28/20 at 14:58; Stop 05/28/20 at 14:58; Status DC Cellulose (Surgicel Hemostat 4x8) 1 each STK-MED ONCE .ROUTE ; Start 05/28/20 at 14:58; Stop 05/28/20 at 14:58; Status DC Thrombin 20,000 unit STK-MED ONCE TP Last administered on 05/28/20at 16:14; Start 05/28/20 at 14:58; Stop 05/28/20 at 14:58; Status DC Bupivacaine HCl/ Epinephrine Bitart (Sensorcain-Epi 0.5%-1:996161 Mpf) 30 ml STK-MED ONCE .ROUTE Last administered on 05/28/20at 16:14; Start 05/28/20 at 14:58; Stop 05/28/20 at 14:59; Status DC Rocuronium [place] (Zemuron) 50 mg STK-MED ONCE .ROUTE ; Start 05/28/20 at 16:26; Stop 05/28/20 at 16:26; Status DC Ephedrine Sulfate (ePHEDrine PF IN SALINE SYRINGE) 50 mg STK-MED ONCE IV ; Start 05/28/20 at 16:26; Stop 05/28/20 at 16:27; Status DC Phenylephrine HCl (John-Synephrine Inj) 10 mg STK-MED ONCE .ROUTE ; Start 05/28/20 at 16:26; Stop 05/28/20 at 16:27; Status DC Ondansetron HCl (Zofran) 4 mg STK-MED ONCE .ROUTE ; Start 05/28/20 at 16:26; Stop 05/28/20 at 16:27; Status DC Dexamethasone Sodium Phosphate (Decadron) 4 mg STK-MED ONCE .ROUTE ; Start 05/28/20 at 16:26; Stop 05/28/20 at 16:27; Status DC Phenylephrine HCl (John-Synephrine Inj) 10 mg STK-MED ONCE .ROUTE ; Start 05/28/20 at 16:40; Stop 05/28/20 at 16:41; Status DC Sevoflurane (Ultane) 60 ml STK-MED ONCE IH ; Start 05/28/20 at 17:20; Stop 05/28/20 at 17:20; Status DC Nicardipine HCl 50 mg/Sodium Chloride 250 ml @ 25 mls/hr TITRATE PRN IV PER PROTOCOL; Start 05/28/20 at 17:30 Hydralazine HCl (Apresoline Inj) 5 mg PRN Q6HRS PRN IVP TO KEEP SBP<150mmHg; Start 05/28/20 at 17:15 Sodium Chloride (Normal Saline Flush) 3 ml QSHIFT PRN IV AFTER MEDS AND BLOOD DRAWS; Start 05/28/20 at 17:15 Dextrose (Dextrose 50%-Water Syringe) 12.5 gm PRN Q15MIN PRN IV SEE COMMENTS; Start 05/28/20 at 17:15 Docusate Sodium (Colace) 100 mg BID PO Last administered on 06/01/20at 08:51; Start 05/28/20 at 21:00 Magnesium Hydroxide (Milk Of Magnesia) 2,400 mg PRN Q12HR PRN PO CONSTIPATION; Start 05/28/20 at 17:15 Cefazolin Sodium (Ancef) 1 gm Q8HRS IVP Last administered on 05/29/20at 15:19; Start 05/28/20 at 22:00; Stop 05/29/20 at 14:01; Status DC Fentanyl Citrate (Fentanyl 2ml Vial) 50 mcg PRN Q2HR PRN IVP PAIN Last administered on 05/29/20at 00:42; Start 05/28/20 at 17:15 Potassium Chloride/Dextrose/ Sod Cl 1,000 ml @ 75 mls/hr [id number] IV Last administered on 05/31/20at 21:16; Start 05/28/20 at 20:00; Stop 06/01/20 at 09:12; Status DC Losartan Potassium (Cozaar) 50 mg DAILY PO ; Start 05/29/20 at 09:00; Stop 05/29/20 at 09:08; Status DC Metoprolol Succinate (Toprol Xl) 25 mg DAILY PO Last administered on 06/01/20at 08:52; Start 05/29/20 at 09:00 Phenytoin Sodium (Dilantin) 100 mg BID PO ; Start 05/28/20 at 22:15; Stop 05/29/20 at 15:55; Status DC Non-Formulary Medication (Budesonide/ Formoterol Fumarate (Symbicort 160-4.5 Mcg Inhaler)) 2 puff BID IH ; Start 05/29/20 at 09:00; Status UNV Atorvastatin Calcium (Lipitor) 80 mg QHS PO Last administered on 05/31/20at 21:15; Start 05/29/20 at 21:00 Budesonide (Pulmicort) 0.5 mg RTBID NEB Last administered on 06/01/20at 07:04; Start 05/29/20 at 08:00 Albuterol Sulfate (Ventolin Neb Soln) 2.5 mg RTQID NEB Last administered on 06/01/20at 16:18; Start 05/29/20 at 08:00 Losartan Potassium (Cozaar) 25 mg DAILY PO Last administered on 06/01/20at 08:52; Start 05/30/20 at 09:00 Levetiracetam (Keppra) 250 mg BID PO ; Start 05/30/20 at 09:00; Stop 05/30/20 at 12:59; Status DC Levetiracetam 250 mg/Dextrose 102.5 ml @ 410 mls/hr Q12HR IV ; Start 05/30/20 at 10:00; Stop 05/30/20 at 09:35; Status DC Levetiracetam 250 mg/Dextrose 102.5 ml @ 410 mls/hr Q12HR IV Last administered on 05/30/20at 09:40; Start 05/30/20 at 10:00; Stop 05/30/20 at 12:02; Status DC Levetiracetam (Keppra) 500 mg BID PO Last administered on 06/01/20at 08:52; Start 05/30/20 at 21:00 Acetaminophen (Tylenol) 500 mg PRN Q6HRS PRN PO MILD PAIN / TEMP > 100.3'F Last administered on 06/01/20at 08:52; Start 05/30/20 at 18:30 Piperacillin Sod/ Tazobactam Sod 3.375 gm/Sodium Chloride 50 ml @ 100 mls/hr Q6HRS IV Last administered on 06/01/20at 18:52; Start 05/30/20 at 20:00 Vancomycin HCl 1 gm/Sodium Chloride 250 ml @ 250 mls/hr 1X IV ; Start 05/30/20 at 18:30; Status UNV Vancomycin HCl (Vanco Per Pharmacy) 1 each PRN DAILY PRN MC SEE COMMENTS Last administered on 05/31/20at 00:22; Start 05/30/20 at 18:30; Stop 06/01/20 at 10:21; Status DC Vancomycin HCl 1.25 gm/Sodium Chloride 250 ml @ 166.667 mls/hr 1X ONCE IV Last administered on 05/30/20at 21:29; Start 05/30/20 at 18:45; Stop 05/30/20 at 20:15; Status DC Vancomycin HCl 1 gm/Sodium Chloride 250 ml @ 250 mls/hr Q24H IV Last administered on 05/31/20at 21:17; Start 05/31/20 at 21:30; Stop 06/01/20 at 10:21; Status DC Vancomycin HCl (Vancomycin Trough Level) 1 each 1X ONCE MC ; Start 06/01/20 at 21:00; Stop 06/01/20 at 10:22; Status DC Ferrous Sulfate (Feosol) 325 mg DAILYWBKFT PO Last administered on 06/01/20at 09:50; Start 06/01/20 at 09:00 Doxycycline Hyclate (Vibra-Tab) 100 mg BID PO Last administered on 06/01/20at 12:25; Start 06/01/20 at 11:00 Lactobacillus Rhamnosus (Culturelle) 1 cap BID PO ; Start 06/01/20 at 21:00 Active Scripts Active Doxycycline Hyclate 100 Mg Capsule 1 Cap PO BID Augmentin 500-125 Tablet (Amoxicillin/Potassium Clav) 1 Each Tablet 1 Tab PO BID 5 Days Keppra (Levetiracetam) 500 Mg Tablet 500 Mg PO BID 90 Days Crestor (Rosuvastatin Calcium) 40 Mg Tablet 0.5 Tab PO DAILY 30 Days Metoprolol Succinate ( Xl ) (Metoprolol Succinate) 25 Mg Tab.er.24h 1 Tab PO DAILY Aspirin Ec (Aspirin) 325 Mg Tablet.dr 325 Mg PO DAILYWBKFT 365 Days Reported Losartan Potassium 50 Mg Tablet 50 Mg PO DAILY Namenda (Memantine Hcl) 10 Mg Tablet 10 Mg PO HS Proair Hfa Inhaler (Albuterol Sulfate) 8.5 Gm Hfa.aer.ad 2 Puff INH QID PRN Symbicort 160-4.5 Mcg Inhaler (Budesonide/Formoterol Fumarate) 10.2 Gm Hfa.aer.ad 2 Puff IH BID Vitals/I & O Vital Sign - Last 24 Hours 05/31/20 05/31/20 05/31/20 05/31/20 19:00 19:35 20:38 20:39 Temp 98.4 98.4 Pulse 73 Resp 18 B/P (MAP) 101/59 (73) Pulse Ox 98 97 97 O2 Delivery Room Air Nasal Cannula Nasal Cannula Nasal Cannula O2 Flow Rate 2.0 2.0 2.0 05/31/20 06/01/20 06/01/20 06/01/20 23:18 03:32 07:00 07:17 Temp 99.6 99.6 99.0 99.6 99.6 99.0 Pulse 74 80 68 Resp 16 18 18 B/P (MAP) 96/62 (73) 92/62 (72) 101/71 (81) Pulse Ox 94 96 94 93 O2 Delivery Nasal Cannula Nasal Cannula Nasal Cannula Room Air O2 Flow Rate 2.0 2.0 2.0 06/01/20 06/01/20 06/01/20 06/01/20 08:00 08:52 08:52 11:00 Temp 97.7 97.7 Pulse 73 68 77 Resp 18 B/P (MAP) 101/71 101/71 102/66 (78) Pulse Ox 94 O2 Delivery Nasal Cannula Nasal Cannula O2 Flow Rate 2.0 2.0 06/01/20 06/01/20 06/01/20 13:11 15:00 16:20 Temp 97.5 97.5 Pulse 74 Resp 18 B/P (MAP) 100/72 (81) Pulse Ox 94 93 93 O2 Delivery Room Air Nasal Cannula Room Air O2 Flow Rate 2.0 Intake and Output 05/31/20 05/31/20 06/01/20 15:00 23:00 07:00 Intake Total 250 ml 0 ml Output Total 200 ml Balance 250 ml -200 ml Justifications for Admission Other Justification Nutrition Consultation Dietary Evaluation: Recommendations by RD: Dietary education by RD, Increase Calorie Intake, Protein supplementation Comments: REC advance diet as able/appropriate, goal diet cardiac w/Ensure supplements prn REC PPN or dobhoff/TFs if unable to advance diet within 24 - 48 hrs Expected Outcomes/Goals: diet advancement Malnutrition Findings: Body Fat Depletion (Non Severe: Mild Depletion Weight Status: Underweight LIZZETTE FONTENOT CLERICAL ASSIGNER Jun 01, 2020 18:57
[2020-06-01 19:17] VITALS: BP 107/70
[2020-06-01] MEDS: LACTOBACILLUS RHAMNOSUS GG 1 CAPSULE. PO SCH (21:32)
[2020-06-01] MEDS: ATORVASTATIN CALCIUM 40 MG TABLET. PO SCH (21:33)
[2020-06-01 22:22] VITALS: BP 124/91
[2020-06-02] MEDS: PIPERACILLIN/TAZOBACTAM 3.375 GM in IV NORMAL SALINE 50ML 50 ML IV SCH ×2 (00:11→06:13)
[2020-06-02 03:51] VITALS: BP 116/78
[2020-06-02] MEDS: ALBUTEROL SULFATE 2.5 MG/3 ML NEBU. NEB SCH ×2 (06:54→11:56)
[2020-06-02] MEDS: BUDESONIDE 0.5 MG/2 ML NEBU. NEB SCH (06:55)
[2020-06-02 07:46] VITALS: BP 104/63
--- NOTE | 2020-06-02 08:09 | PDOC ---
PROGRESS NOTES Date of Service: DATE: 06/02/20 TIME: 08:09 Subjective Subjective feels good Objective Objective Vital Signs Date Time Temp Pulse Resp B/P (MAP) Pulse Ox O2 Delivery O2 Flow Rate FiO2 06/02/20 07:46 98.7 58 16 104/63 (77) 94 Nasal Cannula 2.0 98.7 Intake and Output 06/02/20 07:00 Intake Total 400 ml Output Total 400 ml Balance 0 ml Intake Oral 400 ml Output Urine Total 400 ml # Voids 2 # Bowel Movements 1 Physical Exam Abdomen: Soft, No tenderness Heart: Regular rate, Normal S1, Normal S2 Extremities: No edema, Normal pulses General: Alert, Cooperative, No acute distress HEENT: Other (drsg intact to right head ) MUSCULOSKELETAL: No swelling, Osteoarthritic changes both hands Neck: No JVD Neuro: Normal speech, Other Psych/Mental Status: Mood NL Skin: Other (right dresssing dry and intact) Diagnosis Problem List Problems Medical Problems: (1) Elevated troponin Status: Acute (2) Subdural hematoma caused by concussion Status: Acute Assessment Assessment Problems Medical Problems: (1) Elevated troponin Status: Acute (2) Subdural hematoma caused by concussion Status: Acute FINAL IMPRESSION:Low grade fever.99.4 1. Subdural hematoma secondary to a fall. 2. History of seizures, on Dilantin. 3. Non-ST elevation myocardial infarction, elevated troponin. The patient has a known history of coronary artery disease, 3-vessel disease. The patient's family opted medical treatment. 4. Dementia. 5. Chronic obstructive pulmonary disease. PLAN: d/c to [facility] today oral antibiorics for 1 week,augmentin+doxycline POD #6 [place] hole keppra for seizures wean off oxygen Plan Plan of Care Problems Medical Problems: (1) Elevated troponin Status: Acute (2) Subdural hematoma caused by concussion Status: Acute Comment Review of Relevant I have reviewed the following items eleazar (where applicable) has been applied. Labs Laboratory Tests Test 06/01/20 13:50 Coronavirus (PCR) Not detected (Not Detected) SARS-CoV-2 Comment Performed (.) Microbiology 05/30/20 Blood Culture - Preliminary, Resulted NO GROWTH AFTER 2 DAYS Medications Current Medications Doxycycline Hyclate (Vibra-Tab) 100 mg BID PO Last administered on 06/01/20at 21:33; Start 06/01/20 at 11:00 Ferrous Sulfate (Feosol) 325 mg DAILYWBKFT PO Last administered on 06/01/20at 09:50; Start 06/01/20 at 09:00 Lactobacillus Rhamnosus (Culturelle) 1 cap BID PO Last administered on 06/01/20at 21:32; Start 06/01/20 at 21:00 Vancomycin HCl (Vancomycin Trough Level) 1 each 1X ONCE MC ; Start 06/01/20 at 21:00; Stop 06/01/20 at 10:22; Status DC Vitals/I & O Vital Sign - Last 24 Hours 06/01/20 06/01/20 06/01/20 06/01/20 08:52 08:52 11:00 13:11 Temp 97.7 97.7 Pulse 73 68 77 Resp 18 B/P (MAP) 101/71 101/71 102/66 (78) Pulse Ox 94 94 O2 Delivery Nasal Cannula Room Air O2 Flow Rate 2.0 06/01/20 06/01/20 06/01/20 06/01/20 15:00 16:20 19:15 19:17 Temp 97.5 97.6 97.5 97.6 Pulse 74 69 Resp 18 18 B/P (MAP) 100/72 (81) 107/70 (82) Pulse Ox 93 93 92 O2 Delivery Nasal Cannula Room Air Room Air Room Air O2 Flow Rate 2.0 06/01/20 06/01/20 06/01/20 06/02/20 20:31 20:32 22:22 03:51 Temp 99.1 97.5 99.1 97.5 Pulse 75 74 Resp 18 18 B/P (MAP) 124/91 (102) 116/78 (91) Pulse Ox 92 92 92 93 O2 Delivery Room Air Room Air Room Air Nasal Cannula O2 Flow Rate 2.0 06/02/20 06/02/20 06:56 07:46 Temp 98.7 98.7 Pulse 58 Resp 16 B/P (MAP) 104/63 (77) Pulse Ox 95 94 O2 Delivery Nasal Cannula Nasal Cannula O2 Flow Rate 2.0 2.0 Intake and Output 06/01/20 06/01/20 06/02/20 15:00 23:00 07:00 Intake Total 300 ml 100 ml Output Total 200 ml 200 ml Balance 100 ml -100 ml Justifications for Admission Other Justification Nutrition Consultation Dietary Evaluation: Recommendations by RD: Dietary education by RD, Increase Calorie Intake, Protein supplementation Comments: REC advance diet as able/appropriate, goal diet cardiac w/Ensure supplements prn REC PPN or dobhoff/TFs if unable to advance diet within 24 - 48 hrs Expected Outcomes/Goals: diet advancement Malnutrition Findings: Body Fat Depletion (Non Severe: Mild Depletion Weight Status: Underweight KELSY BERNSTEIN MD Jun 02, 2020 08:09
--- NOTE | 2020-06-02 08:40 | PDOC ---
PROGRESS NOTES Date of Service DATE: 06/02/20 TIME: 08:39 Assessment Problems Medical Problems: (1) Elevated troponin Status: Acute (2) Subdural hematoma caused by concussion Status: Acute Right sided subdural hematoma status-post evacuation History of epilepsy, no recent seizures Dementia Plan Levetiracetam 500 mg twice daily Placement in fdc Subjective No complaints Objective Vital Signs Date Time Temp Pulse Resp B/P (MAP) Pulse Ox O2 Delivery O2 Flow Rate FiO2 06/02/20 07:46 98.7 58 16 104/63 (77) 94 Nasal Cannula 2.0 98.7 Intake and Output 06/02/20 07:00 Intake Total 400 ml Output Total 400 ml Balance 0 ml Intake Oral 400 ml Output Urine Total 400 ml # Voids 2 # Bowel Movements 1 PHYSICAL EXAM Alert. Oriented to person and place, gives correct month and year PERRL. EOMI. CN: no focal findings. Muscle tone: normal. Muscle strength: 4/5, little weaker on the left DTR: 2+ Plantar reflex: Flexor Gait: not examined in bed. Sensory exam: no abnormal findings. No cerebellar signs elicited. Bilateral grasp reflexes Review of Relevant I have reviewed the following items eleazar (where applicable) has been applied. Labs Laboratory Tests Test 06/01/20 05:00 06/01/20 13:50 White Blood Count 8.2 x10^3/uL (4.0-11.0) Red Blood Count 3.65 x10^6/uL (4.30-5.70) Hemoglobin 10.0 g/dL (13.0-17.5) Hematocrit 30.3 % (39.0-53.0) Mean Corpuscular Volume 83 fL (79-100) Mean Corpuscular Hemoglobin 28 pg (25-35) Mean Corpuscular Hemoglobin Concent 33 g/dL (31-37) Red Cell Distribution Width 13.6 % (11.5-14.5) Platelet Count 221 x10^3/uL (140-400) Neutrophils (%) (Auto) 69 % (31-73) Lymphocytes (%) (Auto) 17 % (24-48) Monocytes (%) (Auto) 10 % (0-9) Eosinophils (%) (Auto) 4 % (0-3) Basophils (%) (Auto) 1 % (0-3) Neutrophils # (Auto) 5.7 x10^3/uL (1.8-7.7) Lymphocytes # (Auto) 1.4 x10^3/uL (1.0-4.8) Monocytes # (Auto) 0.8 x10^3/uL (0.0-1.1) Eosinophils # (Auto) 0.3 x10^3/uL (0.0-0.7) Basophils # (Auto) 0.1 x10^3/uL (0.0-0.2) Sodium Level 133 mmol/L (136-145) Potassium Level 4.2 mmol/L (3.5-5.1) Chloride Level 103 mmol/L (98-107) Carbon Dioxide Level 22 mmol/L (21-32) Anion Gap 8 (6-14) Blood Urea Nitrogen 23 mg/dL (8-26) Creatinine 1.1 mg/dL (0.7-1.3) Estimated GFR (Cockcroft-Gault) 78.3 Glucose Level 104 mg/dL (70-99) Calcium Level 7.6 mg/dL (8.5-10.1) Coronavirus (PCR) Not detected (Not Detected) SARS-CoV-2 Comment Performed (.) Laboratory Tests Test 06/01/20 13:50 Coronavirus (PCR) Not detected (Not Detected) SARS-CoV-2 Comment Performed (.) Microbiology 05/30/20 Blood Culture - Preliminary, Resulted NO GROWTH AFTER 2 DAYS Medications Current Medications Aspirin (Aspirin Chewable) 324 mg 1X ONCE PO Last administered on 05/28/20at 13:14; Start 05/28/20 at 13:00; Stop 05/28/20 at 13:01; Status DC Furosemide (Lasix) 40 mg 1X ONCE IVP Last administered on 05/28/20at 13:56; Start 05/28/20 at 13:45; Stop 05/28/20 at 13:46; Status DC Ondansetron HCl (Zofran) 4 mg PRN Q8HRS PRN IV NAUSEA/VOMITING; Start 05/28/20 at 14:00; Stop 05/29/20 at 13:59; Status DC Morphine Sulfate (Morphine Sulfate) 4 mg PRN Q2HR PRN IV PAIN Last administered on 05/29/20at 02:35; Start 05/28/20 at 14:00; Stop 05/29/20 at 13:59; Status DC Lidocaine HCl (Lidocaine Pf 2% Vial) 5 ml STK-MED ONCE .ROUTE ; Start 05/28/20 at 14:19; Stop 05/28/20 at 14:20; Status DC Propofol (Diprivan) 200 mg STK-MED ONCE IV ; Start 05/28/20 at 14:19; Stop 05/28/20 at 14:20; Status DC Fentanyl Citrate (Fentanyl 2ml Vial) 100 mcg STK-MED ONCE .ROUTE ; Start 05/28/20 at 14:20; Stop 05/28/20 at 14:20; Status DC Rocuronium Benzon[place] (Zemuron) 50 mg STK-MED ONCE .ROUTE ; Start 05/28/20 at 14:20; Stop 05/28/20 at 14:20; Status DC Phenylephrine HCl (PHENYLEPHRINE in 0.9% NACL PF) 1 mg STK-MED ONCE IV ; Start 05/28/20 at 14:21; Stop 05/28/20 at 14:21; Status DC Bacitracin 97555 unit/Sodium Chloride 1,000 ml @ 1,000 mls/hr 1X ONCE IRR Last administered on 05/28/20at 16:14; Start 05/28/20 at 15:00; Stop 05/28/20 at 15:59; Status DC Nicardipine HCl (Cardene) 25 mg STK-MED ONCE IV ; Start 05/28/20 at 14:47; Stop 05/28/20 at 14:47; Status DC Nitroglycerin (Nitroglycerin) 50 mg STK-MED ONCE .ROUTE ; Start 05/28/20 at 14:47; Stop 05/28/20 at 14:47; Status DC Fentanyl Citrate (Fentanyl 2ml Vial) 25 mcg PRN Q5MIN PRN IVP MILD PAIN 1-3; Start 05/28/20 at 15:00; Stop 05/28/20 at 21:00; Status DC Morphine Sulfate (Morphine Sulfate) 1 mg PRN Q10MIN PRN IVP SEVERE PAIN 7-10; Start 05/28/20 at 15:00; Stop 05/28/20 at 21:00; Status DC Ringer's Solution 1,000 ml @ 30 mls/hr Q24H IV ; Start 05/28/20 at 15:00; Stop 05/28/20 at 21:00; Status DC Hydromorphone HCl (Dilaudid) 0.5 mg PRN Q10MIN PRN IVP SEVERE PAIN 7-10, 2nd CHOICE; Start 05/28/20 at 15:00; Stop 05/28/20 at 21:00; Status DC Prochlorperazine Edisylate (Compazine) 5 mg PACU PRN PRN IVP NAUSEA, MRX1; Start 05/28/20 at 15:00; Stop 05/28/20 at 21:00; Status DC Gelatin (Gelfoam Size 100) 1 each STK-MED ONCE .ROUTE Last administered on 05/28/20at 16:14; Start 05/28/20 at 14:58; Stop 05/28/20 at 14:58; Status DC Bupivacaine HCl/ Epinephrine Bitart (Sensorcain-Epi 0.5% Kit) 30 ml STK-MED ONCE .ROUTE ; Start 05/28/20 at 14:58; Stop 05/28/20 at 14:58; Status DC Cellulose (Surgicel Hemostat 4x8) 1 each STK-MED ONCE .ROUTE ; Start 05/28/20 at 14:58; Stop 05/28/20 at 14:58; Status DC Thrombin 20,000 unit STK-MED ONCE TP Last administered on 05/28/20at 16:14; Start 05/28/20 at 14:58; Stop 05/28/20 at 14:58; Status DC Bupivacaine HCl/ Epinephrine Bitart (Sensorcain-Epi 0.5%-1:936825 Mpf) 30 ml STK-MED ONCE .ROUTE Last administered on 05/28/20at 16:14; Start 05/28/20 at 14:58; Stop 05/28/20 at 14:59; Status DC Rocuronium Benzonia (Zemuron) 50 mg STK-MED ONCE .ROUTE ; Start 05/28/20 at 16:26; Stop 05/28/20 at 16:26; Status DC Ephedrine Sulfate (ePHEDrine PF IN SALINE SYRINGE) 50 mg STK-MED ONCE IV ; Start 05/28/20 at 16:26; Stop 05/28/20 at 16:27; Status DC Phenylephrine HCl (John-Synephrine Inj) 10 mg STK-MED ONCE .ROUTE ; Start 05/28/20 at 16:26; Stop 05/28/20 at 16:27; Status DC Ondansetron HCl (Zofran) 4 mg STK-MED ONCE .ROUTE ; Start 05/28/20 at 16:26; Stop 05/28/20 at 16:27; Status DC Dexamethasone Sodium Phosphate (Decadron) 4 mg STK-MED ONCE .ROUTE ; Start 05/28/20 at 16:26; Stop 05/28/20 at 16:27; Status DC Phenylephrine HCl (John-Synephrine Inj) 10 mg STK-MED ONCE .ROUTE ; Start 05/28/20 at 16:40; Stop 05/28/20 at 16:41; Status DC Sevoflurane (Ultane) 60 ml STK-MED ONCE IH ; Start 05/28/20 at 17:20; Stop 05/28/20 at 17:20; Status DC Nicardipine HCl 50 mg/Sodium Chloride 250 ml @ 25 mls/hr TITRATE PRN IV PER PROTOCOL; Start 05/28/20 at 17:30; Stop 06/02/20 at 08:09; Status DC Hydralazine HCl (Apresoline Inj) 5 mg PRN Q6HRS PRN IVP TO KEEP SBP<150mmHg; Start 05/28/20 at 17:15 Sodium Chloride (Normal Saline Flush) 3 ml QSHIFT PRN IV AFTER MEDS AND BLOOD DRAWS; Start 05/28/20 at 17:15 Dextrose (Dextrose 50%-Water Syringe) 12.5 gm PRN Q15MIN PRN IV SEE COMMENTS; Start 05/28/20 at 17:15 Docusate Sodium (Colace) 100 mg BID PO Last administered on 06/01/20at 08:51; Start 05/28/20 at 21:00 Magnesium Hydroxide (Milk Of Magnesia) 2,400 mg PRN Q12HR PRN PO CONSTIPATION; Start 05/28/20 at 17:15 Cefazolin Sodium (Ancef) 1 gm Q8HRS IVP Last administered on 05/29/20at 15:19; Start 05/28/20 at 22:00; Stop 05/29/20 at 14:01; Status DC Fentanyl Citrate (Fentanyl 2ml Vial) 50 mcg PRN Q2HR PRN IVP PAIN Last administered on 05/29/20at 00:42; Start 05/28/20 at 17:15 Potassium Chloride/Dextrose/ Sod Cl 1,000 ml @ 75 mls/hr [id number] IV Last administered on 05/31/20at 21:16; Start 05/28/20 at 20:00; Stop 06/01/20 at 09:12; Status DC Losartan Potassium (Cozaar) 50 mg DAILY PO ; Start 05/29/20 at 09:00; Stop 05/29/20 at 09:08; Status DC Metoprolol Succinate (Toprol Xl) 25 mg DAILY PO Last administered on 06/01/20at 08:52; Start 05/29/20 at 09:00 Phenytoin Sodium (Dilantin) 100 mg BID PO ; Start 05/28/20 at 22:15; Stop 05/29/20 at 15:55; Status DC Non-Formulary Medication (Budesonide/ Formoterol Fumarate (Symbicort 160-4.5 Mcg Inhaler)) 2 puff BID IH ; Start 05/29/20 at 09:00; Status UNV Atorvastatin Calcium (Lipitor) 80 mg QHS PO Last administered on 06/01/20at 21:33; Start 05/29/20 at 21:00 Budesonide (Pulmicort) 0.5 mg RTBID NEB Last administered on 06/02/20at 06:55; Start 05/29/20 at 08:00 Albuterol Sulfate (Ventolin Neb Soln) 2.5 mg RTQID NEB Last administered on 06/02/20at 06:54; Start 05/29/20 at 08:00 Losartan Potassium (Cozaar) 25 mg DAILY PO Last administered on 06/01/20at 08:52; Start 05/30/20 at 09:00 Levetiracetam (Keppra) 250 mg BID PO ; Start 05/30/20 at 09:00; Stop 05/30/20 at 12:59; Status DC Levetiracetam 250 mg/Dextrose 102.5 ml @ 410 mls/hr Q12HR IV ; Start 05/30/20 at 10:00; Stop 05/30/20 at 09:35; Status DC Levetiracetam 250 mg/Dextrose 102.5 ml @ 410 mls/hr Q12HR IV Last administered on 05/30/20at 09:40; Start 05/30/20 at 10:00; Stop 05/30/20 at 12:02; Status DC Levetiracetam (Keppra) 500 mg BID PO Last administered on 06/01/20at 21:33; Start 05/30/20 at 21:00 Acetaminophen (Tylenol) 500 mg PRN Q6HRS PRN PO MILD PAIN / TEMP > 100.3'F Last administered on 06/01/20at 08:52; Start 05/30/20 at 18:30 Piperacillin Sod/ Tazobactam Sod 3.375 gm/Sodium Chloride 50 ml @ 100 mls/hr Q6 HRS IV Last administered on 06/02/20at 06:13; Start 05/30/20 at 20:00; Stop 06/02/20 at 08:09; Status DC Vancomycin HCl 1 gm/Sodium Chloride 250 ml @ 250 mls/hr 1X IV ; Start 05/30/20 at 18:30; Status UNV Vancomycin HCl (Vanco Per Pharmacy) 1 each PRN DAILY PRN MC SEE COMMENTS Last administered on 05/31/20at 00:22; Start 05/30/20 at 18:30; Stop 06/01/20 at 10:21; Status DC Vancomycin HCl 1.25 gm/Sodium Chloride 250 ml @ 166.667 mls/hr 1X ONCE IV Last administered on 05/30/20at 21:29; Start 05/30/20 at 18:45; Stop 05/30/20 at 20:15; Status DC Vancomycin HCl 1 gm/Sodium Chloride 250 ml @ 250 mls/hr Q24H IV Last administered on 05/31/20at 21:17; Start 05/31/20 at 21:30; Stop 06/01/20 at 10:21; Status DC Vancomycin HCl (Vancomycin Trough Level) 1 each 1X ONCE MC ; Start 06/01/20 at 21:00; Stop 06/01/20 at 10:22; Status DC Ferrous Sulfate (Feosol) 325 mg DAILYWBKFT PO Last administered on 06/01/20at 09:50; Start 06/01/20 at 09:00 Doxycycline Hyclate (Vibra-Tab) 100 mg BID PO Last administered on 06/01/20at 21:33; Start 06/01/20 at 11:00 Lactobacillus Rhamnosus (Culturelle) 1 cap BID PO Last administered on 06/01/20at 21:32; Start 06/01/20 at 21:00 Amoxicillin/ Clavulanate Potassium (Augmentin 500/ 125mg) 1 tab BID PO ; Start 06/02/20 at 09:00 Active Scripts Active Doxycycline Hyclate 100 Mg Capsule 1 Cap PO BID Augmentin 500-125 Tablet (Amoxicillin/Potassium Clav) 1 Each Tablet 1 Tab PO BID 5 Days Keppra (Levetiracetam) 500 Mg Tablet 500 Mg PO BID 90 Days Crestor (Rosuvastatin Calcium) 40 Mg Tablet 0.5 Tab PO DAILY 30 Days Metoprolol Succinate ( Xl ) (Metoprolol Succinate) 25 Mg Tab.er.24h 1 Tab PO DAILY Aspirin Ec (Aspirin) 325 Mg Tablet.dr 325 Mg PO DAILYWBKFT 365 Days Reported Losartan Potassium 50 Mg Tablet 50 Mg PO DAILY Namenda (Memantine Hcl) 10 Mg Tablet 10 Mg PO HS Proair Hfa Inhaler (Albuterol Sulfate) 8.5 Gm Hfa.aer.ad 2 Puff INH QID PRN Symbicort 160-4.5 Mcg Inhaler (Budesonide/Formoterol Fumarate) 10.2 Gm Hfa.aer.ad 2 Puff IH BID Vitals/I & O Vital Sign - Last 24 Hours 06/01/20 06/01/20 06/01/20 06/01/20 08:52 08:52 11:00 13:11 Temp 97.7 97.7 Pulse 73 68 77 Resp 18 B/P (MAP) 101/71 101/71 102/66 (78) Pulse Ox 94 94 O2 Delivery Nasal Cannula Room Air O2 Flow Rate 2.0 06/01/20 06/01/20 06/01/20 06/01/20 15:00 16:20 19:15 19:17 Temp 97.5 97.6 97.5 97.6 Pulse 74 69 Resp 18 18 B/P (MAP) 100/72 (81) 107/70 (82) Pulse Ox 93 93 92 O2 Delivery Nasal Cannula Room Air Room Air Room Air O2 Flow Rate 2.0 06/01/20 06/01/20 06/01/20 06/02/20 20:31 20:32 22:22 03:51 Temp 99.1 97.5 99.1 97.5 Pulse 75 74 Resp 18 18 B/P (MAP) 124/91 (102) 116/78 (91) Pulse Ox 92 92 92 93 O2 Delivery Room Air Room Air Room Air Nasal Cannula O2 Flow Rate 2.0 06/02/20 06/02/20 06:56 07:46 Temp 98.7 98.7 Pulse 58 Resp 16 B/P (MAP) 104/63 (77) Pulse Ox 95 94 O2 Delivery Nasal Cannula Nasal Cannula O2 Flow Rate 2.0 2.0 Intake and Output 06/01/20 06/01/20 06/02/20 15:00 23:00 07:00 Intake Total 300 ml 100 ml Output Total 200 ml 200 ml Balance 100 ml -100 ml Justicifation of Admission Dx: Justifications for Admission: Justification of Admission Dx: Yes Sepsis: Altered Mental Status EMMA SAWANT MD Jun 02, 2020 08:40
[2020-06-02] MEDS: FERROUS SULFATE 325 MG TABLET. PO SCH (08:59)
[2020-06-02] MEDS: DOCUSATE SODIUM 100 MG CAPSULE. PO SCH (08:59)
[2020-06-02] MEDS: ACETAMINOPHEN 500 MG TABLET PO PRN (08:59)
[2020-06-02] MEDS: LACTOBACILLUS RHAMNOSUS GG 1 CAPSULE. PO SCH (08:59)
[2020-06-02] MEDS: METOPROLOL SUCC 24HR ER 25 MG TAB.ER.24H. PO SCH (09:00)
[2020-06-02] MEDS: levETIRAcetam 500 MG TABLET PO SCH (09:00)
[2020-06-02] MEDS ORDERED: AMOXICILLIN/K CLAV 500/125MG TABLET. PO SCH (09:00)
[2020-06-02] MEDS: LOSARTAN POTASSIUM 25 MG TABLET. PO SCH (09:00)
[2020-06-02] MEDS: DOXYCYCLINE HYCLATE 100 MG TABLET PO SCH (09:03)
[2020-06-02] MEDS ORDERED: HYDR-2761 PO (09:12)
--- NOTE | 2020-06-02 09:17 | PDOC ---
PROGRESS NOTES Date of Service DATE: 06/02/20 TIME: 09:14 Subjective Subjective No new complaints. Objective Objective Vital Signs Date Time Temp Pulse Resp B/P (MAP) Pulse Ox O2 Delivery O2 Flow Rate FiO2 06/02/20 09:00 58 104/63 06/02/20 07:46 98.7 16 94 Nasal Cannula 2.0 98.7 Intake and Output 06/02/20 07:00 Intake Total 400 ml Output Total 400 ml Balance 0 ml Intake Oral 400 ml Output Urine Total 400 ml # Voids 2 # Bowel Movements 1 Physical Exam Physical Exam He is sitting in bed and seems comfortable and he had dinorah in place to right frontal area. He is walking with roller walker but he is a fall risk with his cognitive deficits. Assessment Assessment Problems Medical Problems: (1) Elevated troponin Status: Acute (2) Subdural hematoma caused by concussion Status: Acute Plan Plan of Care He probably needs more supervision than 40 hours per week of attendant coverage. Comment Review of Relevant I have reviewed the following items eleazar (where applicable) has been applied. Labs Laboratory Tests Test 06/01/20 05:00 06/01/20 13:50 White Blood Count 8.2 x10^3/uL (4.0-11.0) Red Blood Count 3.65 x10^6/uL (4.30-5.70) Hemoglobin 10.0 g/dL (13.0-17.5) Hematocrit 30.3 % (39.0-53.0) Mean Corpuscular Volume 83 fL (79-100) Mean Corpuscular Hemoglobin 28 pg (25-35) Mean Corpuscular Hemoglobin Concent 33 g/dL (31-37) Red Cell Distribution Width 13.6 % (11.5-14.5) Platelet Count 221 x10^3/uL (140-400) Neutrophils (%) (Auto) 69 % (31-73) Lymphocytes (%) (Auto) 17 % (24-48) Monocytes (%) (Auto) 10 % (0-9) Eosinophils (%) (Auto) 4 % (0-3) Basophils (%) (Auto) 1 % (0-3) Neutrophils # (Auto) 5.7 x10^3/uL (1.8-7.7) Lymphocytes # (Auto) 1.4 x10^3/uL (1.0-4.8) Monocytes # (Auto) 0.8 x10^3/uL (0.0-1.1) Eosinophils # (Auto) 0.3 x10^3/uL (0.0-0.7) Basophils # (Auto) 0.1 x10^3/uL (0.0-0.2) Sodium Level 133 mmol/L (136-145) Potassium Level 4.2 mmol/L (3.5-5.1) Chloride Level 103 mmol/L (98-107) Carbon Dioxide Level 22 mmol/L (21-32) Anion Gap 8 (6-14) Blood Urea Nitrogen 23 mg/dL (8-26) Creatinine 1.1 mg/dL (0.7-1.3) Estimated GFR (Cockcroft-Gault) 78.3 Glucose Level 104 mg/dL (70-99) Calcium Level 7.6 mg/dL (8.5-10.1) Coronavirus (PCR) Not detected (Not Detected) SARS-CoV-2 Comment Performed (.) Laboratory Tests Test 06/01/20 13:50 Coronavirus (PCR) Not detected (Not Detected) SARS-CoV-2 Comment Performed (.) Microbiology 05/30/20 Blood Culture - Preliminary, Resulted NO GROWTH AFTER 2 DAYS Medications Current Medications Aspirin (Aspirin Chewable) 324 mg 1X ONCE PO Last administered on 05/28/20at 13:14; Start 05/28/20 at 13:00; Stop 05/28/20 at 13:01; Status DC Furosemide (Lasix) 40 mg 1X ONCE IVP Last administered on 05/28/20at 13:56; Start 05/28/20 at 13:45; Stop 05/28/20 at 13:46; Status DC Ondansetron HCl (Zofran) 4 mg PRN Q8HRS PRN IV NAUSEA/VOMITING; Start 05/28/20 at 14:00; Stop 05/29/20 at 13:59; Status DC Morphine Sulfate (Morphine Sulfate) 4 mg PRN Q2HR PRN IV PAIN Last administered on 05/29/20at 02:35; Start 05/28/20 at 14:00; Stop 05/29/20 at 13:59; Status DC Lidocaine HCl (Lidocaine Pf 2% Vial) 5 ml Telvent Git-MED ONCE .ROUTE ; Start 05/28/20 at 14:19; Stop 05/28/20 at 14:20; Status DC Propofol (Diprivan) 200 mg STK-MED ONCE IV ; Start 05/28/20 at 14:19; Stop 05/28/20 at 14:20; Status DC Fentanyl Citrate (Fentanyl 2ml Vial) 100 mcg STK-MED ONCE .ROUTE ; Start 05/28/20 at 14:20; Stop 05/28/20 at 14:20; Status DC Rocuronium David (Zemuron) 50 mg STK-MED ONCE .ROUTE ; Start 05/28/20 at 14:20; Stop 05/28/20 at 14:20; Status DC Phenylephrine HCl (PHENYLEPHRINE in 0.9% NACL PF) 1 mg STK-MED ONCE IV ; Start 05/28/20 at 14:21; Stop 05/28/20 at 14:21; Status DC Bacitracin 77694 unit/Sodium Chloride 1,000 ml @ 1,000 mls/hr 1X ONCE IRR Last administered on 05/28/20at 16:14; Start 05/28/20 at 15:00; Stop 05/28/20 at 15:59; Status DC Nicardipine HCl (Cardene) 25 mg STK-MED ONCE IV ; Start 05/28/20 at 14:47; Stop 05/28/20 at 14:47; Status DC Nitroglycerin (Nitroglycerin) 50 mg STK-MED ONCE .ROUTE ; Start 05/28/20 at 14:47; Stop 05/28/20 at 14:47; Status DC Fentanyl Citrate (Fentanyl 2ml Vial) 25 mcg PRN Q5MIN PRN IVP MILD PAIN 1-3; Start 05/28/20 at 15:00; Stop 05/28/20 at 21:00; Status DC Morphine Sulfate (Morphine Sulfate) 1 mg PRN Q10MIN PRN IVP SEVERE PAIN 7-10; Start 05/28/20 at 15:00; Stop 05/28/20 at 21:00; Status DC Ringer's Solution 1,000 ml @ 30 mls/hr Q24H IV ; Start 05/28/20 at 15:00; Stop 05/28/20 at 21:00; Status DC Hydromorphone HCl (Dilaudid) 0.5 mg PRN Q10MIN PRN IVP SEVERE PAIN 7-10, 2nd CHOICE; Start 05/28/20 at 15:00; Stop 05/28/20 at 21:00; Status DC Prochlorperazine Edisylate (Compazine) 5 mg PACU PRN PRN IVP NAUSEA, MRX1; Start 05/28/20 at 15:00; Stop 05/28/20 at 21:00; Status DC Gelatin (Gelfoam Size 100) 1 each STK-MED ONCE .ROUTE Last administered on 05/28/20at 16:14; Start 05/28/20 at 14:58; Stop 05/28/20 at 14:58; Status DC Bupivacaine HCl/ Epinephrine Bitart (Sensorcain-Epi 0.5% Kit) 30 ml STK-MED ONCE .ROUTE ; Start 05/28/20 at 14:58; Stop 05/28/20 at 14:58; Status DC Cellulose (Surgicel Hemostat 4x8) 1 each STK-MED ONCE .ROUTE ; Start 05/28/20 at 14:58; Stop 05/28/20 at 14:58; Status DC Thrombin 20,000 unit STK-MED ONCE TP Last administered on 05/28/20at 16:14; Start 05/28/20 at 14:58; Stop 05/28/20 at 14:58; Status DC Bupivacaine HCl/ Epinephrine Bitart (Sensorcain-Epi 0.5%-1:556256 Mpf) 30 ml STK-MED ONCE .ROUTE Last administered on 05/28/20at 16:14; Start 05/28/20 at 14:58; Stop 05/28/20 at 14:59; Status DC Rocuronium David (Zemuron) 50 mg STK-MED ONCE .ROUTE ; Start 05/28/20 at 16:26; Stop 05/28/20 at 16:26; Status DC Ephedrine Sulfate (ePHEDrine PF IN SALINE SYRINGE) 50 mg STK-MED ONCE IV ; Start 05/28/20 at 16:26; Stop 05/28/20 at 16:27; Status DC Phenylephrine HCl (John-Synephrine Inj) 10 mg STK-MED ONCE .ROUTE ; Start 05/28/20 at 16:26; Stop 05/28/20 at 16:27; Status DC Ondansetron HCl (Zofran) 4 mg STK-MED ONCE .ROUTE ; Start 05/28/20 at 16:26; Stop 05/28/20 at 16:27; Status DC Dexamethasone Sodium Phosphate (Decadron) 4 mg STK-MED ONCE .ROUTE ; Start 05/28/20 at 16:26; Stop 05/28/20 at 16:27; Status DC Phenylephrine HCl (John-Synephrine Inj) 10 mg STK-MED ONCE .ROUTE ; Start 05/28/20 at 16:40; Stop 05/28/20 at 16:41; Status DC Sevoflurane (Ultane) 60 ml STK-MED ONCE IH ; Start 05/28/20 at 17:20; Stop 05/28/20 at 17:20; Status DC Nicardipine HCl 50 mg/Sodium Chloride 250 ml @ 25 mls/hr TITRATE PRN IV PER PROTOCOL; Start 05/28/20 at 17:30; Stop 06/02/20 at 08:09; Status DC Hydralazine HCl (Apresoline Inj) 5 mg PRN Q6HRS PRN IVP TO KEEP SBP<150mmHg; Start 05/28/20 at 17:15 Sodium Chloride (Normal Saline Flush) 3 ml QSHIFT PRN IV AFTER MEDS AND BLOOD DRAWS; Start 05/28/20 at 17:15 Dextrose (Dextrose 50%-Water Syringe) 12.5 gm PRN Q15MIN PRN IV SEE COMMENTS; Start 05/28/20 at 17:15 Docusate Sodium (Colace) 100 mg BID PO Last administered on 06/02/20at 08:59; Start 05/28/20 at 21:00 Magnesium Hydroxide (Milk Of Magnesia) 2,400 mg PRN Q12HR PRN PO CONSTIPATION; Start 05/28/20 at 17:15 Cefazolin Sodium (Ancef) 1 gm Q8HRS IVP Last administered on 05/29/20at 15:19; Start 05/28/20 at 22:00; Stop 05/29/20 at 14:01; Status DC Fentanyl Citrate (Fentanyl 2ml Vial) 50 mcg PRN Q2HR PRN IVP PAIN Last administered on 05/29/20at 00:42; Start 05/28/20 at 17:15 Potassium Chloride/Dextrose/ Sod Cl 1,000 ml @ 75 mls/hr [id number] IV Last administered on 05/31/20at 21:16; Start 05/28/20 at 20:00; Stop 06/01/20 at 09:12; Status DC Losartan Potassium (Cozaar) 50 mg DAILY PO ; Start 05/29/20 at 09:00; Stop 05/29/20 at 09:08; Status DC Metoprolol Succinate (Toprol Xl) 25 mg DAILY PO Last administered on 06/02/20at 09:00; Start 05/29/20 at 09:00 Phenytoin Sodium (Dilantin) 100 mg BID PO ; Start 05/28/20 at 22:15; Stop 05/29/20 at 15:55; Status DC Non-Formulary Medication (Budesonide/ Formoterol Fumarate (Symbicort 160-4.5 Mcg Inhaler)) 2 puff BID IH ; Start 05/29/20 at 09:00; Status UNV Atorvastatin Calcium (Lipitor) 80 mg QHS PO Last administered on 06/01/20at 21:33; Start 05/29/20 at 21:00 Budesonide (Pulmicort) 0.5 mg RTBID NEB Last administered on 06/02/20at 06:55; Start 05/29/20 at 08:00 Albuterol Sulfate (Ventolin Neb Soln) 2.5 mg RTQID NEB Last administered on 06/02/20at 06:54; Start 05/29/20 at 08:00 Losartan Potassium (Cozaar) 25 mg DAILY PO Last administered on 06/02/20at 09:00; Start 05/30/20 at 09:00 Levetiracetam (Keppra) 250 mg BID PO ; Start 05/30/20 at 09:00; Stop 05/30/20 at 12:59; Status DC Levetiracetam 250 mg/Dextrose 102.5 ml @ 410 mls/hr Q12HR IV ; Start 05/30/20 at 10:00; Stop 05/30/20 at 09:35; Status DC Levetiracetam 250 mg/Dextrose 102.5 ml @ 410 mls/hr Q12HR IV Last administered on 05/30/20at 09:40; Start 05/30/20 at 10:00; Stop 05/30/20 at 12:02; Status DC Levetiracetam (Keppra) 500 mg BID PO Last administered on 06/02/20at 09:00; Start 05/30/20 at 21:00 Acetaminophen (Tylenol) 500 mg PRN Q6HRS PRN PO MILD PAIN / TEMP > 100.3'F Last administered on 06/02/20at 08:59; Start 05/30/20 at 18:30 Piperacillin Sod/ Tazobactam Sod 3.375 gm/Sodium Chloride 50 ml @ 100 mls/hr Q6HRS IV Last administered on 06/02/20at 06:13; Start 05/30/20 at 20:00; Stop 06/02/20 at 08:09; Status DC Vancomycin HCl 1 gm/Sodium Chloride 250 ml @ 250 mls/hr 1X IV ; Start 05/30/20 at 18:30; Status UNV Vancomycin HCl (Vanco Per Pharmacy) 1 each PRN DAILY PRN MC SEE COMMENTS Last administered on 05/31/20at 00:22; Start 05/30/20 at 18:30; Stop 06/01/20 at 10:21; Status DC Vancomycin HCl 1.25 gm/Sodium Chloride 250 ml @ 166.667 mls/hr 1X ONCE IV Last administered on 05/30/20at 21:29; Start 05/30/20 at 18:45; Stop 05/30/20 at 20:15; Status DC Vancomycin HCl 1 gm/Sodium Chloride 250 ml @ 250 mls/hr Q24H IV Last administered on 05/31/20at 21:17; Start 05/31/20 at 21:30; Stop 06/01/20 at 10:21; Status DC Vancomycin HCl (Vancomycin Trough Level) 1 each 1X ONCE MC ; Start 06/01/20 at 21:00; Stop 06/01/20 at 10:22; Status DC Ferrous Sulfate (Feosol) 325 mg DAILYWBKFT PO Last administered on 06/02/20at 08:59; Start 06/01/20 at 09:00 Doxycycline Hyclate (Vibra-Tab) 100 mg BID PO Last administered on 06/02/20at 09:03; Start 06/01/20 at 11:00 Lactobacillus Rhamnosus (Culturelle) 1 cap BID PO Last administered on 06/02/20at 08:59; Start 06/01/20 at 21:00 Amoxicillin/ Clavulanate Potassium (Augmentin 500/ 125mg) 1 tab BID PO Last administered on 06/02/20at 09:03; Start 06/02/20 at 09:00 Active Scripts Active Hydrocodone-Apap 5-325 (Hydrocodone Bit/Acetaminophen) 1 Tab Tablet 1 Tab PO PRN Q12HR PRN Doxycycline Hyclate 100 Mg Capsule 1 Cap PO BID Augmentin 500-125 Tablet (Amoxicillin/Potassium Clav) 1 Each Tablet 1 Tab PO BID 5 Days Keppra (Levetiracetam) 500 Mg Tablet 500 Mg PO BID 90 Days Crestor (Rosuvastatin Calcium) 40 Mg Tablet 0.5 Tab PO DAILY 30 Days Metoprolol Succinate ( Xl ) (Metoprolol Succinate) 25 Mg Tab.er.24h 1 Tab PO DAILY Aspirin Ec (Aspirin) 325 Mg Tablet.dr 325 Mg PO DAILYWBKFT 365 Days Reported Losartan Potassium 50 Mg Tablet 50 Mg PO DAILY Namenda (Memantine Hcl) 10 Mg Tablet 10 Mg PO HS Proair Hfa Inhaler (Albuterol Sulfate) 8.5 Gm Hfa.aer.ad 2 Puff INH QID PRN Symbicort 160-4.5 Mcg Inhaler (Budesonide/Formoterol Fumarate) 10.2 Gm Hfa.aer.ad 2 Puff IH BID Vitals/I & O Vital Sign - Last 24 Hours 06/01/20 06/01/20 06/01/20 06/01/20 11:00 13:11 15:00 16:20 Temp 97.7 97.5 97.7 97.5 Pulse 77 74 Resp 18 18 B/P (MAP) 102/66 (78) 100/72 (81) Pulse Ox 94 94 93 93 O2 Delivery Nasal Cannula Room Air Nasal Cannula Room Air O2 Flow Rate 2.0 2.0 06/01/20 06/01/20 06/01/20 06/01/20 19:15 19:17 20:31 20:32 Temp 97.6 97.6 Pulse 69 Resp 18 B/P (MAP) 107/70 (82) Pulse Ox 92 92 92 O2 Delivery Room Air Room Air Room Air Room Air 06/01/20 06/02/20 06/02/20 06/02/20 22:22 03:51 06:56 07:46 Temp 99.1 97.5 98.7 99.1 97.5 98.7 Pulse 75 74 58 Resp 18 18 16 B/P (MAP) 124/91 (102) 116/78 (91) 104/63 (77) Pulse Ox 92 93 95 94 O2 Delivery Room Air Nasal Cannula Nasal Cannula Nasal Cannula O2 Flow Rate 2.0 2.0 2.0 06/02/20 06/02/20 09:00 09:00 Pulse 58 58 B/P (MAP) 104/63 104/63 Intake and Output 06/01/20 06/01/20 06/02/20 15:00 23:00 07:00 Intake Total 300 ml 100 ml Output Total 200 ml 200 ml Balance 100 ml -100 ml Justifications for Admission Other Justification Nutrition Consultation Dietary Evaluation: Recommendations by RD: Dietary education by RD, Increase Calorie Intake, Protein supplementation Comments: REC advance diet as able/appropriate, goal diet cardiac w/Ensure supplements prn REC PPN or dobhoff/TFs if unable to advance diet within 24 - 48 hrs Expected Outcomes/Goals: diet advancement Malnutrition Findings: Body Fat Depletion (Non Severe: Mild Depletion Weight Status: Underweight BAILEY BROWN MD Jun 02, 2020 09:17
--- NOTE | 2020-06-02 09:22 | NUR ---
SS following up with discharge planning. SS reviewed pt chart and discussed with pt RN. Pt is currently requiring oxygen at two liters nasal canula. Pt accepted at [facility], ; fax [phone]. COVID19 negative x2. Discharge orders received. SS phoned and faxed discharge orders to [facility]. Pt will discharge today and go to [facility] between 1130 and 1200 via [facility]. Pt, pt's RN, and pt's DPOA notified.
[2020-06-02 09:51] LABS: CREATININE 1.1 mg/dL (0.7-1.3); GFR 78.3
[2020-06-02 10:02] VITALS: BP 110/64
--- NOTE | 2020-06-02 10:32 | PDOC ---
Infectious Disease Note Subjective: Subjective Patient without complaints Denies any fever, nausea, vomiting, diarrhea Vital Signs: Vital Signs Vital Signs Date Time Temp Pulse Resp B/P (MAP) Pulse Ox O2 Delivery O2 Flow Rate FiO2 06/02/20 10:02 98.2 64 16 110/64 (79) 95 Nasal Cannula 2.0 98.2 Physical Exam: PHYSICAL EXAM GENERAL: Alert, awake, comfortable male comfortable, in no acute distress. HEENT: Normocephalic, atraumatic. Wound dressing over the right scalp , dinorah intact, dry, No surrounding redness, oral mucosa moist. NECK: Supple. LUNGS: Clear bilaterally. HEART: S1, S2, no murmurs. ABDOMEN: Soft, nontender and nondistended. Bowel sounds present. EXTREMITIES: No edema, no cyanosis. NEUROLOGIC: Alert, awake, forgetful. MUSCULOSKELETAL: Changes suggestive DJD. DERMATOLOGIC: Warm, dry. No generalized rash. PIV looks okay. PSYCHIATRIC: Calm and cooperative. Medications: Inpatient Meds: Medications reviewed. Labs: Lab Laboratory Tests Test 06/01/20 13:50 06/02/20 08:30 Coronavirus (PCR) Not detected (Not Detected) SARS-CoV-2 Comment Performed (.) Creatinine 1.1 mg/dL (0.7-1.3) Estimated GFR (Cockcroft-Gault) 78.3 Objective: Assessment: 1. Fever, etiology could be infectious versus noninfectious. 2. Subdural hematoma, status post evacuation. Operative note pending at this time. 3. Leukocytosis. 4. Non-ST elevation myocardial infarction, coronary artery disease and chronic congestive heart failure. 5. Dementia. 6. Seizures, on Dilantin. 7. Atrial fibrillation, new onset. Plan: Plan of Care DC Zosyn Patient is ready for transfer to [facility] transition Augmentin and doxycycline for total of 7 days Wound care as directed. Discussed with nursing staff LUCAS SCHUSTER MD Jun 02, 2020 10:32
--- NOTE | 2020-06-02 11:43 | NUR ---
spoke to Shantanu at [facility] and gave report at approx 1120. Pt picked up by transport shortly after. All belongings sent with the pt at the time of discharge. pt left via wheelchair. Called Family contact listed Karin hickey at [phone] to let her know that the pt was transported to [facility].
--- NOTE | 2020-06-03 21:10 | PDOC ---
Provider Note Date of Service: DATE: 06/03/20 TIME: 21:09 Provider Note Discharge summary dictated,#[id number]. Justifications for Admission Other Justification KELSY BERNSTEIN MD Jun 03, 2020 21:10
--- NOTE | 2020-06-03 22:07 | DS ---
DATE OF DISCHARGE: 06/02/2020 REASON FOR ADMISSION TO THE HOSPITAL: Fall, subdural hematoma. CONSULTATIONS: 1. Rick Elizabeth MD 2. Dr. Malloy. 3. Jose Angel Fernandez MD 4. Dr. Anderson, Infectious Disease. PROCEDURES DONE: 1. CT head. 2. [place] hole placement. HOSPITAL COURSE: The patient is a 80-year-old male with history of seizures. He is on Dilantin and he also has history of coronary artery disease, 3-vessel disease and did not want any surgical intervention. He was found by the caregiver on the floor, was confused, was brought to the hospital. CT head shows a subdural hematoma. The patient had a right frontoparietal subdural hematoma with a mass shift, weakness and confusion. The patient was taken to surgery, had a elba hole placement and evacuation of the hematoma. The patient was in the ICU for 2 days after the surgery. His Dilantin level was high at 25. The patient is having problems with Dilantin levels maintaining and therapeutic levels. We decided to change to Keppra. Neurology was consulted and the patient was changed from Dilantin, was stopped and changed Keppra 500 mg b.i.d. The patient had postop fevers, was seen by Infectious Disease, was treated with broad-spectrum antibiotics and his white count was down and he was feeling better, seen by Dr. Fernandez from rehab and it was felt that he could go to penitentiary unit. FINAL DIAGNOSES: 1. Subdural hematoma, right frontoparietal from mechanical fall and had a elba hole placement. 2. Non-ST elevation myocardial infarction. The patient has elevated troponin. EKG was negative. The patient declined any surgical intervention in the past. Medical treatment. 3. History of seizures, change Dilantin to Keppra, Dilantin levels were high at admission 25. 4. Postop fevers, probably aspiration pneumonia, was treated with broad-spectrum antibiotics. 5. Dementia. 6. Hypertension. 7. Hyperlipidemia. DISPOSITION: To penitentiary unit. PT, OT, rehab. DISCHARGE MEDICATIONS: See MRAD for discharge medications. KELSY BERNSTEIN MD DR: LIANET/yaneth JOB#: [id number] / [id number]
== END 2020-06-02 11:20 | DRG 25 ==
LOC: ER 11:50 → 1 WEST ICU 14:19 → 2 NORTH 05-30 18:39
PROVIDERS: ADMIT Internal Medicine; ATTEND Internal Medicine
PROC: 009400Z Drainage of Intracranial Subdural Space with Drainage Device, Open Approach (ICD-10-PCS; principal; 2020-05-28 15:00)
DX: S06.5X9A Traumatic subdural hemorrhage with loss of consciousness of unspecified duration, initial encounter (principal); I21.4 Non-ST elevation (NSTEMI) myocardial infarction; J69.0 Pneumonitis due to inhalation of food and vomit; N17.9 Acute kidney failure, unspecified; G93.40 Encephalopathy, unspecified; I50.22 Chronic systolic (congestive) heart failure; E78.5 Hyperlipidemia, unspecified; E86.0 Dehydration; F03.90 Unspecified dementia, unspecified severity, without behavioral disturbance, psychotic disturbance, mood disturbance, and anxiety; G40.909 Epilepsy, unspecified, not intractable, without status epilepticus; G51.0 Bell's palsy; G62.9 Polyneuropathy, unspecified; I11.0 Hypertensive heart disease with heart failure; I25.10 Atherosclerotic heart disease of native coronary artery without angina pectoris; I48.91 Unspecified atrial fibrillation; J44.9 Chronic obstructive pulmonary disease, unspecified; R50.82 Postprocedural fever; Z82.49 Family history of ischemic heart disease and other diseases of the circulatory system; Z87.891 Personal history of nicotine dependence; M19.90 Unspecified osteoarthritis, unspecified site; W18.39XA Other fall on same level, initial encounter; Y93.89 Activity, other specified; Y92.89 Other specified places as the place of occurrence of the external cause; Y99.8 Other external cause status; Z20.822 Contact with and (suspected) exposure to COVID-19; Z79.899 Other long term (current) drug therapy
CPT/HCPCS: 36415; 70450; 71045; 80048; 80053; 80076; 80185; 81001; 82140; 82550; 82565; 83735; 83880; 84484; 85025; 85610; 85730; 87040; 87426; 88112; 88305; 93005; 94640; 94760; 96374; A4314; A4364; A4452; A4930; A6255; A6258; C1713; C1751; J0690; J1100; J1940; J1953; J2270; J2370; J2405; J2543; J2704; J3010; J3370; J3480; J3490; J7030; J7050; J7060; U0003; 92526-GN; 92610-GN; 97110-GO; 97116-GP; 97530-GO; 97530-GP; 97535-GO; 99285-25; G0378; J7613; J7626

== ENCOUNTER → 2020-06-09 | Outpatient (CLI) | payer MEDICARE, OTHER ==
[2020-06-02 10:02] VITALS: BP 110/64
[~2020-06-09] MED LIST changes: +AMOX1TAB58 PO; +DOXY100C2 PO; +HYDR-2761 PO; +LEVE500T56 PO
--- NOTE | 2020-06-09 15:41 | RAD ---
EXAM: CT HEAD WITHOUT CONTRAST. HISTORY: Subdural hematoma. TECHNIQUE: Computed tomography of the head was performed without intravenous contrast. One or more of the following individualized dose reduction techniques were utilized for this examination: 1. Automated exposure control. 2. Adjustment of the mA and/or kV according to patient size. 3. Use of iterative reconstruction technique. COMPARISON: 05/28/2020. FINDINGS: A large right hemispheric subdural collection is now mostly hypoattenuating. Maximum thickn ess is 2.1 cm. The right sulci are somewhat effaced. Leftward midline shift measures 5 mm, decreased from 9 mm. There are interval changes of right frontal elba hole. Skin dinorah remain in place. Hypoattenuation within the periventricular white matter indicates mild chronic microangiopathic hill e. The ventricles are normal in size and position. The visualized paranasal sinuses appear clear. There are changes of bilateral cataract surgery. The t emporal bones are unremarkable. The calvarium reveals no suspicious lesions. IMPRESSION: 1. Right frontal elba hole decompression of a large right hemispheric subdural hematoma. Maximum thic kness is 2.1 cm. Leftward midline shift is decreased to 5 mm. Electronically signed by: Ene Miles MD (06/09/2020 3:38 PM) [facility]
== END ==
LOC: CT 11:23
PROVIDERS: ATTEND Neurological Surgery
DX: S06.5X9A Traumatic subdural hemorrhage with loss of consciousness of unspecified duration, initial encounter (principal); X58.XXXA Exposure to other specified factors, initial encounter; Y93.89 Activity, other specified; Y92.89 Other specified places as the place of occurrence of the external cause; Y99.8 Other external cause status
CPT/HCPCS: 70450

== ENCOUNTER → 2020-06-19 | Outpatient (CLI) | payer MEDICARE, OTHER ==
[2020-06-02 10:02] VITALS: BP 110/64
[~2020-06-19] MED LIST changes: +BARIUM SULFATE 40% (APPLE) 148 GM PWD. PO ONE
--- NOTE | 2020-06-19 18:00 | RAD ---
EXAMINATION: DG VIDEO SWALLOW STUDY 06/19/2020 9:52 AM HISTORY: Dysphagia COMPARISON: None TECHNIQUE: The patient was observed swallowing various consistencies of barium under intermittent flu oroscopy. FINDINGS: No aspiration with any consistency. Flash penetration was seen on a few trials with large boluses of liquid. Normal swallowing mechanism. Total fluoroscopic time:0.9 minutes. IMPRESSION: No aspiration. Please see the speech pathologist's report for details. Electronically signed by: Sara Tinoco MD (06/19/2020 5:58 PM) [id number]
== END ==
LOC: RAD 11:20
PROVIDERS: ATTEND Family Medicine
DX: R13.10 Dysphagia, unspecified (principal)
CPT/HCPCS: 74230; 92611-GN

== ENCOUNTER → 2020-08-10 | Outpatient (CLI) | payer MEDICARE, OTHER ==
[~2020-08-10] MED LIST changes: -BARIUM SULFATE 40% (APPLE) 148 GM PWD. PO ONE
[2020-08-10 07:34] LABS: CHOLESTEROL/HDL RATIO 2.4
== END ==
LOC: SPEC 03:38
PROVIDERS: ATTEND Family Medicine
DX: I25.10 Atherosclerotic heart disease of native coronary artery without angina pectoris (principal)
CPT/HCPCS: 36415; 80061

== ENCOUNTER → 2020-09-20 | Outpatient (CLI) | payer MEDICARE, OTHER ==
[2020-09-20 18:03] LABS: BILIRUBIN,URINE NEGATIVE (NEG); CLARITY,URINE CLEAR; COLOR,URINE YELLOW; NITRITE,URINE NEGATIVE (NEG); PROTEIN,URINE NEGATIVE (NEG-TRACE)
[2020-09-20 18:19] LABS: BACTERIA,URINE 0 /HPF (0-FEW); RBC,URINE RARE /HPF (0-2); WBC,URINE 0 /HPF (0-4)
== END ==
LOC: SPEC 17:37
PROVIDERS: ATTEND Family Medicine
DX: R30.0 Dysuria (principal); R41.82 Altered mental status, unspecified
CPT/HCPCS: 81001

== ENCOUNTER → 2020-09-22 | Outpatient (CLI) | payer MEDICARE, OTHER ==
[2020-09-22 11:34] LABS: BASO % 1 % (0-3); EOS # 0.2 x10^3/uL (0.0-0.7); EOS % 4 % (0-3); HEMATOCRIT 41.3 % (39.0-53.0); HEMOGLOBIN 13.7 g/dL (13.0-17.5); LYMPH # 1.7 x10^3/uL (1.0-4.8); LYMPH % 37 % (24-48); MEAN CORPUSCULAR HEMOGLOBIN 27 pg (25-35); MEAN CORPUSCULAR HGB CONC 33 g/dL (31-37); MEAN CORPUSCULAR VOLUME 81 fL (79-100); MONO # 0.7 x10^3/uL (0.0-1.1); MONO % 16 % (0-9); NEUT % 43 % (31-73); PLATELET COUNT 155 x10^3/uL (140-400); RED BLOOD COUNT 5.11 x10^6/uL (4.30-5.70); RED CELL DISTRIBUTION WIDTH 14.3 % (11.5-14.5); WHITE BLOOD COUNT 4.7 x10^3/uL (4.0-11.0)
[2020-09-22 11:48] LABS: ALBUMIN 3.5 g/dL (3.4-5.0); ALBUMIN/GLOBULIN RATIO 0.7 (1.0-1.7); CALCIUM 9.4 mg/dL (8.5-10.1); CREATININE 1.4 mg/dL (0.7-1.3); GFR 59.3; TOTAL BILIRUBIN 0.4 mg/dL (0.2-1.0); TOTAL PROTEIN 8.5 g/dL (6.4-8.2)
[2020-09-22 11:52] LABS: POTASSIUM 5.7 mmol/L (3.5-5.1)
== END ==
LOC: SPEC 02:22
PROVIDERS: ATTEND Family Medicine
DX: I50.9 Heart failure, unspecified (principal); I25.10 Atherosclerotic heart disease of native coronary artery without angina pectoris
CPT/HCPCS: 36415; 80053; 82607; 82746; 84443; 85025

== ENCOUNTER → 2020-10-06 | Outpatient (CLI) | payer MEDICARE, OTHER ==
[~2020-10-06] MED LIST changes: -DOXY100C2 PO; +DOXY100C3 PO
[2020-10-06 08:10] LABS: BASO % 1 % (0-3); EOS # 0.2 x10^3/uL (0.0-0.7); EOS % 3 % (0-3); HEMATOCRIT 40.7 % (39.0-53.0); HEMOGLOBIN 13.6 g/dL (13.0-17.5); LYMPH # 2.2 x10^3/uL (1.0-4.8); LYMPH % 38 % (24-48); MEAN CORPUSCULAR HEMOGLOBIN 27 pg (25-35); MEAN CORPUSCULAR HGB CONC 33 g/dL (31-37); MEAN CORPUSCULAR VOLUME 80 fL (79-100); MONO # 0.7 x10^3/uL (0.0-1.1); MONO % 13 % (0-9); NEUT # 2.6 x10^3/uL (1.8-7.7); NEUT % 45 % (31-73); PLATELET COUNT 183 x10^3/uL (140-400); RED BLOOD COUNT 5.09 x10^6/uL (4.30-5.70); RED CELL DISTRIBUTION WIDTH 14.3 % (11.5-14.5); WHITE BLOOD COUNT 5.7 x10^3/uL (4.0-11.0)
[2020-10-06 08:31] LABS: CALCIUM 9.8 mg/dL (8.5-10.1); CREATININE 1.3 mg/dL (0.7-1.3); GFR 64.6; POTASSIUM 4.5 mmol/L (3.5-5.1)
== END ==
LOC: SPEC 07:14
PROVIDERS: ATTEND Family Medicine
DX: S06.5X9D Traumatic subdural hemorrhage with loss of consciousness of unspecified duration, subsequent encounter (principal); E78.5 Hyperlipidemia, unspecified; I21.4 Non-ST elevation (NSTEMI) myocardial infarction; I50.9 Heart failure, unspecified; G93.40 Encephalopathy, unspecified; X58.XXXD Exposure to other specified factors, subsequent encounter
CPT/HCPCS: 36415; 80048; 85025; 85651

== ENCOUNTER → 2020-10-10 | Outpatient (CLI) | payer MEDICARE, OTHER ==
--- NOTE | 2020-10-10 08:29 | RAD ---
EXAM: Abdomen sonogram. HISTORY: Pain. TECHNIQUE: Sonographic imaging of the abdomen was performed. COMPARISON: None. FINDINGS: The liver is normal in size. No focal hepatic lesion is seen. The gallbladder is unremarkab le. The common bile duct is normal in caliber. There is a 10 mm simple cyst within the right kidney. Follow-up is not routinely performed for simple cysts. The kidneys are normal in size. There is no hy dronephrosis. The spleen is normal in size. The pancreas, aorta and inferior vena cava are partially obscured due to bowel gas. IMPRESSION: 1. No acute sonographic finding. 2. Small simple right renal cyst. 3. Partially obscured midline structures due to bowel gas. Electronically signed by: Mary Domínguez MD (10/10/2020 8:27 AM) [id number]
== END ==
LOC: US 08:24
PROVIDERS: ATTEND Family Medicine
DX: N28.1 Cyst of kidney, acquired (principal); R11.0 Nausea
CPT/HCPCS: 76700

== ENCOUNTER → 2021-01-01 | Outpatient (CLI) | payer MEDICARE, OTHER ==
[2021-01-01 06:41] LABS: ALBUMIN 3.3 g/dL (3.4-5.0); ALBUMIN/GLOBULIN RATIO 0.8 (1.0-1.7); CALCIUM 8.8 mg/dL (8.5-10.1); CREATININE 1.4 mg/dL (0.7-1.3); GFR 59.3; TOTAL BILIRUBIN 0.5 mg/dL (0.2-1.0); TOTAL PROTEIN 7.5 g/dL (6.4-8.2)
[2021-01-01 06:49] LABS: POTASSIUM 6.1 mmol/L (3.5-5.1)
[2021-01-01 06:50] LABS: BASO % 1 % (0-3); EOS # 0.2 x10^3/uL (0.0-0.7); EOS % 4 % (0-3); HEMOGLOBIN 11.4 g/dL (13.0-17.5); LYMPH # 1.9 x10^3/uL (1.0-4.8); LYMPH % 41 % (24-48); MEAN CORPUSCULAR HEMOGLOBIN 27 pg (25-35); MEAN CORPUSCULAR HGB CONC 34 g/dL (31-37); MEAN CORPUSCULAR VOLUME 81 fL (79-100); MONO # 0.7 x10^3/uL (0.0-1.1); MONO % 15 % (0-9); NEUT # 1.8 x10^3/uL (1.8-7.7); NEUT % 39 % (31-73); PLATELET COUNT 135 x10^3/uL (140-400); RED BLOOD COUNT 4.19 x10^6/uL (4.30-5.70); RED CELL DISTRIBUTION WIDTH 15.4 % (11.5-14.5); WHITE BLOOD COUNT 4.7 x10^3/uL (4.0-11.0)
== END ==
LOC: SPEC 01:57
PROVIDERS: ATTEND Family Medicine
DX: I25.10 Atherosclerotic heart disease of native coronary artery without angina pectoris (principal); I50.810 Right heart failure, unspecified
CPT/HCPCS: 36415; 80053; 85025

== ENCOUNTER → 2021-01-02 | Outpatient (CLI) | payer MEDICARE, OTHER | LOC: SPEC 00:04 | PROVIDERS: ATTEND Family Medicine | DX: I50.9 Heart failure, unspecified (principal) | CPT/HCPCS: 36415; 84132 ==

== ENCOUNTER → 2021-01-09 | Outpatient (CLI) | payer MEDICARE, OTHER | LOC: SPEC 07:58 | PROVIDERS: ATTEND Family Medicine | DX: I10 Essential (primary) hypertension (principal) | CPT/HCPCS: 36415; 84132 ==

== ENCOUNTER 2021-06-25 03:13 | Inpatient (IN) | payer MEDICARE, OTHER ==
[~2021-06-25] VITALS: Ht 185.4 cm; Wt 68.7 kg
[2021-06-25] MEDS ORDERED: IV NORMAL SALINE 500ML BAG 500 ML IV ONE (03:30)
[2021-06-25 03:37] LABS: BASO % 1 % (0-3); EOS % 0 % (0-3); HEMOGLOBIN 12.5 g/dL (13.0-17.5); LYMPH # 0.9 x10^3/uL (1.0-4.8); LYMPH % 10 % (24-48); MEAN CORPUSCULAR HEMOGLOBIN 27 pg (25-35); MEAN CORPUSCULAR HGB CONC 33 g/dL (31-37); MEAN CORPUSCULAR VOLUME 81 fL (79-100); MONO # 0.7 x10^3/uL (0.0-1.1); MONO % 8 % (0-9); NEUT # 7.4 x10^3/uL (1.8-7.7); NEUT % 82 % (31-73); PLATELET COUNT 176 x10^3/uL (140-400); RED BLOOD COUNT 4.67 x10^6/uL (4.30-5.70); RED CELL DISTRIBUTION WIDTH 14.8 % (11.5-14.5)
--- NOTE | 2021-06-25 03:49 | RAD ---
AP chest x-ray HISTORY: Altered mental status. COMPARISON: Chest x-ray May 30, 2020 FINDINGS: Mild cardiomegaly is stable. Tortuosity and calcified plaque in the thoracic aorta is stabl e. Skinfold artifact overlapping the right lateral upper lobe. No pneumothorax. No pleural effusions. There are pulmonary infiltrates of the lung bases similar to the prior exam from one year ago may be mild interstitial edema or sequela of chronic interstitial disease. Bones are unremarkable. IMPRESSION: Coarse interstitial markings at the lung bases stable to the study from one year ago may represent chronic interstitial lung disease, versus chronic/recurrent pulmonary interstitial edema. M ild cardiomegaly stable. Electronically signed by: Kalpesh Alvarado MD (06/25/2021 3:47 AM) [facility]
[2021-06-25 03:59] LABS: CALCIUM 9.5 mg/dL (8.5-10.1); CREATININE 1.3 mg/dL (0.7-1.3); GFR 64.4; POTASSIUM 4.9 mmol/L (3.5-5.1)
[2021-06-25 04:05] LABS: ALBUMIN/GLOBULIN RATIO 0.9 (1.0-1.7); TOTAL BILIRUBIN 0.7 mg/dL (0.2-1.0); TOTAL PROTEIN 8.7 g/dL (6.4-8.2)
--- NOTE | 2021-06-25 04:50 | RAD ---
CT head without contrast PQRS statement: CT scans at this facility use dose reduction including either automated exposure cont rol, iterative reconstructions, and /or weight based radiation dosing via mA and kV modification when appropriate to reduce radiation dose to as low as reasonably achievable. HISTORY: Altered mental status. COMPARISON: CT head June 09, 2020 FINDINGS: Right frontoparietal elba hole. No intracranial hemorrhage, mass, hydrocephalus, extra-axia l fluid collections or infarction. Mild generalized brain atrophy. Orbits, mastoids and bones are unr emarkable. IMPRESSION: No acute abnormality. Electronically signed by: Kalpesh Alvarado MD (06/25/2021 4:48 AM) [facility]
[2021-06-25 04:54] LABS: BACTERIA,URINE 0 /HPF (0-FEW); HYALINE CASTS, URINE OCCASIONAL /HPF; WBC,URINE OCC /HPF (0-4)
--- NOTE | 2021-06-25 06:20 | PHYS DOC ---
Past Medical History Past Medical History: COPD, Dementia, Hypertension, Seizure, Other Additional Past Medical Histor: [place] 05/28 Past Surgical History: No Surgical History Additional Past Surgical Histo: unable to assess 05/28 Smoking Status: Former Smoker Alcohol Use: None Drug Use: None Adult General Chief Complaint Chief Complaint: ALTERED MENTAL STATUS HPI HPI The patient is a 81-year-old male with a history of hypertension, hyperlipidemia, coronary artery disease, some degree of heart failure, dementia. He had an intracranial hemorrhage last year for which he was treated here. Mr. English presents from his nursing facility with concern for altered mental status at the nursing facility prior to arrival. A CHANNEL DEVELOPMENT MANAGER woke him up to do a bed check and was concerned because he seemed that he was not acting normally or responding verbally in the way that he normally would (at baseline, patient is alert and conversant but confused, ambulatory and talkative). Patient was transported here. Upon initial evaluation here in the emergency department patient is sleepy but wakes up easily and interacts with us appropriately in a way that seems cons istent with his baseline mentation. He does not provide any history. He is in no acute distress and vital signs are appropriate here. Review of Systems Review of Systems Review of systems not obtainable secondary to demented patient. Current Medications Current Medications Current Medications Medications (Trade) Dose Ordered Sig/Rebekah Start Time Stop Time Status Last Admin Dose Admin Sodium Chloride 500 ml @ 500 mls/hr 1X ONCE 06/25/21 03:30 06/25/21 04:29 DC 06/25/21 03:58 500 MLS/HR Allergies Allergies Allergies Coded Allergies Type Severity Reaction Last Updated Verified No Known Drug Allergies 05/28/20 No Physical Exam Physical Exam Elderly black male appearing nontoxic and in no acute distress. Head is normocephalic and atraumatic. Neck is supple and nontender. Oropharynx is m oist. Lungs are clear to auscultation at all stations. There is a normal S1 and S2 without rubs or gallops and capillary refill is appropriate, less than 2 seconds globally. Abdomen is soft, nontender and nondistended. Skin is warm and dry without cyanosis, clubbing or edema. Psychiatrically, the patient demonstrates appropriate mood and affect and is alert. Neurologically, patient moves all extremities equally, is alert and active/interactive consistent with his baseline mentation per report, and no lateralizing deficits are seen. He does not cooperate for full formal neurologic examination. Evaluation of the extremities reveals BUEs and BLEs neurovascularly intact distally strength 5-5, sensation intact light touch in all nerve distributions, radial, DP and PT pulses 2+ and equal bilaterally, capillary refill less than 2 seconds, hands and feet warm and well-perfused. No dependent peripheral edema distally. No calf tenderness swelling bilaterally. Homans test is negative bilaterally. Current Patient Data Vital Signs Vital Signs Date Time Temp Pulse Resp B/P (MAP) Pulse Ox O2 Delivery O2 Flow Rate FiO2 06/25/21 03:15 98.4 75 20 125/66 (85) 99 Room Air 98.4 Lab Values Laboratory Tests Test 06/25/21 03:28 06/25/21 03:38 White Blood Count 9.0 x10^3/uL (4.0-11.0) Red Blood Count 4.67 x10^6/uL (4.30-5.70) Hemoglobin 12.5 g/dL (13.0-17.5) L Hematocrit 38.0 % (39.0-53.0) L Mean Corpuscular Volume 81 fL (79-100) Mean Corpuscular Hemoglobin 27 pg (25-35) Mean Corpuscular Hemoglobin Concent 33 g/dL (31-37) Red Cell Distribution Width 14.8 % (11.5-14.5) H Platelet Count 176 x10^3/uL (140-400) Neutrophils (%) (Auto) 82 % (31-73) H Lymphocytes (%) (Auto) 10 % (24-48) L Monocytes (%) (Auto) 8 % (0-9) Eosinophils (%) (Auto) 0 % (0-3) Basophils (%) (Auto) 1 % (0-3) Neutrophils # (Auto) 7.4 x10^3/uL (1.8-7.7) Lymphocytes # (Auto) 0.9 x10^3/uL (1.0-4.8) L Monocytes # (Auto) 0.7 x10^3/uL (0.0-1.1) Eosinophils # (Auto) 0.0 x10^3/uL (0.0-0.7) Basophils # (Auto) 0.0 x10^3/uL (0.0-0.2) Sodium Level 129 mmol/L (136-145) L Potassium Level 4.9 mmol/L (3.5-5.1) Chloride Level 94 mmol/L (98-107) L Carbon Dioxide Level 25 mmol/L (21-32) Anion Gap 10 (6-14) Blood Urea Nitrogen 22 mg/dL (8-26) Creatinine 1.3 mg/dL (0.7-1.3) Estimated GFR (Cockcroft-Gault) 64.4 BUN/Creatinine Ratio 17 (6-20) Glucose Level 140 mg/dL (70-99) H Calcium Level 9.5 mg/dL (8.5-10.1) Total Bilirubin 0.7 mg/dL (0.2-1.0) Aspartate Amino Transferase (AST) 27 U/L (15-37) Alanine Aminotransferase (ALT) 16 U/L (16-63) Alkaline Phosphatase 71 U/L (46-116) Troponin I High Sensitivity 181 ng/L (4-75) H Total Protein 8.7 g/dL (6.4-8.2) H Albumin 4.0 g/dL (3.4-5.0) Albumin/Globulin Ratio 0.9 (1.0-1.7) L Urine Collection Type U cath Urine Color (Auto) Light yellow Urine Turbidity Clear Urine pH (Auto) 6.5 (<5.0-8.0) Urine Specific [place] 1.013 (1.000-1.030) Urine Protein (Auto) Negative mg/dL (Negative) Urine Glucose (Auto)(UA) Negative mg/dL (Negative) Urine Ketones (Auto) 20 mg/dL (Negative) Urine Blood (Auto) Negative (Negative) Urine Nitrite Negative (Negative) Urine Bilirubin (Auto) Negative (Negative) Urine Urobilinogen (Auto) Normal mg/dL (Normal) Urine Leukocyte Esterase (Auto) Negative (Negative) Urine RBC 1-2 /HPF (0-2) Urine WBC Occ /HPF (0-4) Urine Squamous Epithelial Cells Occ /LPF Urine Bacteria 0 /HPF (0-FEW) Urine Hyaline Casts Occasional /HPF Urine Mucus Slight /LPF Laboratory Tests 06/25/21 03:28 Laboratory Tests 06/25/21 03:28 EKG EKG Sinus rhythm, rate 65, no acute ST elevation, ST depressions noted to inferior and lateral leads appearing new versus prior, EP interpretation. Radiology/Procedures Radiology/Procedures CT head without contrast PQRS statement: CT scans at this facility use dose reduction including either automated exposure control, iterative reconstructions, and /or weight based radiation dosing via mA and kV modification when appropriate to reduce radiation dose to as low as reasonably achievable. HISTORY: Altered mental status. COMPARISON: CT head June 09, 2020 FINDINGS: Right frontoparietal elba hole. No intracranial hemorrhage, mass, hydrocephalus, extra-axial fluid collections or infarction. Mild generalized brain atrophy. Orbits, mastoids and bones are unremarkable. IMPRESSION: No acute abnormality. Electronically signed by: Shirlene Alvarado MD (06/25/2021 4:48 AM) [facility] DICTATED and SIGNED BY: SHIRLENE ALVARADO MD DATE: 06/25/21 0444 AP chest x-ray HISTORY: Altered mental status. COMPARISON: Chest x-ray May 30, 2020 FINDINGS: Mild cardiomegaly is stable. Tortuosity and calcified plaque in the thoracic aorta is stable. Skinfold artifact overlapping the right lateral upper lobe. No pneumothorax. No pleural effusions. There are pulmonary infiltrates of the lung bases similar to the prior exam from one year ago may be mild interstitial edema or sequela of chronic interstitial disease. Bones are unremarkable. IMPRESSION: Coarse interstitial markings at the lung bases stable to the study from one year ago may represent chronic interstitial lung disease, versus chronic/recurrent pulmonary interstitial edema. Mild cardiomegaly stable. Electronically signed by: Shirlene Alvarado MD (06/25/2021 3:47 AM) [facility] DICTATED and SIGNED BY: SHIRLENE ALVARADO MD DATE: 06/25/21 0344 Course & Med Decision Making Course & Med Decision Making Large work-up is without much evidence of acute process. Patient does have mild hyponatremia which has been addressed with a small fluid bolus. He also has an elevated high-sensitivity troponin without a clear prior baseline. He is not clearly having any chest pain or shortness of breath, but is not a trustworthy historian. EKG with some ST changes to inferior and lateral leads which appear new versus the most recent prior EKG we have on file. Will bring in for further care, to include troponin trending, cardiology consultation and further care as indicated. We will give a full-strength aspirin. Graciously excepted for admission by Dr. Garcia on behalf of Dr. Bernstein. Dragon Disclaimer Dragon Disclaimer This electronic medical record was generated, in whole or in part, using a voice recognition dictation system. Departure Departure Impression: Primary Impression: Troponin level elevated Additional Impression: Acute hyponatremia Disposition: ADMITTED INPATIENT Condition: STABLE Referrals: KELSY BERNSTEIN MD (PCP) Problem Qualifiers DUNIA ROSALES MD Jun 25, 2021 06:20
[2021-06-25] MEDS ORDERED: ONDANSETRON PF 4 MG/2 ML VIAL. IVP PRN (06:30)
[2021-06-25] MEDS ORDERED: ASPIRIN CHEWABLE 81 MG TABLET. PO ONE (06:30)
[2021-06-25] MEDS ORDERED: ACETAMINOPHEN 325 MG TABLET. PO PRN (06:30)
--- NOTE | 2021-06-25 09:07 | PDOC2 ---
RUY ROSALES VEGETABLE WORKER 06/25/21 0907: CARDIAC CONSULT DATE OF CONSULT Date of Consult DATE: 06/25/21 TIME: 09:00 REASON FOR CONSULT Reason for Consult: Elevated troponin REFERRING PHYSICIAN Referring Physician: Dr. Castillo SOURCE Source: Chart review HISTORY OF PRESENT ILLNESS HISTORY OF PRESENT ILLNESS This is a 81 yo male who presented from nursing facility secondary to altered mental status. Troponin noted to be mildly elevated, which prompted this consult. Patient is presently somnolent and unable to provide any information. Patient reportedly confused at baseline with history of dementia, but is alert and conversant at baseline. Staff facility noted that he was not responding as his usual self and he was brought into the ED for further evaluation and treatment. No reports of chest pain, palpitations, dizziness, or shortness of breath. Was in no acute stress upon arrival to the ED and would wake up and respond appropriately. PAST MEDICAL HISTORY Past Medical History Cardiovascular: CAD, CHF, HTN, Hyperlipidemia Pulmonary: COPD CENTRAL NERVOUS SYSTEM: Dementia, Seizure, SDH Musculoskeletal: Osteoarthritis Renal/: Acute renal failure PAST SURGICAL HISTORY Past Surgical History: No pertinent history FAMILY HISTORY Family History: Hypertension SOCIAL HISTORY Smoke: Quit ALCOHOL: none Drugs: None Lives: [facility] CURRENT MEDICATIONS CURRENT MEDICATIONS Current Medications Medications (Trade) Dose Ordered Sig/Rebekah Route PRN Reason Start Time Stop Time Status Last Admin Dose Admin Sodium Chloride 500 ml @ 500 mls/hr 1X ONCE IV 06/25/21 03:30 06/25/21 04:29 DC 06/25/21 03:58 ALLERGIES ALLERGIES: Coded Allergies: No Known Drug Allergies (Unverified , 05/28/20) ROS Review of System unobtainable PHYSICAL EXAM General: No acute distress, Other HEENT: Atraumatic Lungs: Other (diminished bases) Heart: Regular rate Abdomen: Soft Extremities: No edema Skin: No significant lesion Neuro: Other (sleeping ) MUSCULOSKELETAL: Osteoarthritic changes both hands VITALS/I&O VITALS/I&O: Vital Signs Date Time Temp Pulse Resp B/P (MAP) Pulse Ox O2 Delivery O2 Flow Rate FiO2 06/25/21 07:36 64 22 130/71 (90) 98 Room Air 06/25/21 03:15 98.4 98.4 I & O 06/24/21 06/24/21 06/25/21 15:00 23:00 07:00 Intake Total 500 ml Balance 500 ml LABS Lab: Laboratory Tests Test 06/25/21 03:28 06/25/21 03:38 06/25/21 07:15 White Blood Count 9.0 x10^3/uL (4.0-11.0) Red Blood Count 4.67 x10^6/uL (4.30-5.70) Hemoglobin 12.5 g/dL (13.0-17.5) L Hematocrit 38.0 % (39.0-53.0) L Mean Corpuscular Volume 81 fL (79-100) Mean Corpuscular Hemoglobin 27 pg (25-35) Mean Corpuscular Hemoglobin Concent 33 g/dL (31-37) Red Cell Distribution Width 14.8 % (11.5-14.5) H Platelet Count 176 x10^3/uL (140-400) Neutrophils (%) (Auto) 82 % (31-73) H Lymphocytes (%) (Auto) 10 % (24-48) L Monocytes (%) (Auto) 8 % (0-9) Eosinophils (%) (Auto) 0 % (0-3) Basophils (%) (Auto) 1 % (0-3) Neutrophils # (Auto) 7.4 x10^3/uL (1.8-7.7) Lymphocytes # (Auto) 0.9 x10^3/uL (1.0-4.8) L Monocytes # (Auto) 0.7 x10^3/uL (0.0-1.1) Eosinophils # (Auto) 0.0 x10^3/uL (0.0-0.7) Basophils # (Auto) 0.0 x10^3/uL (0.0-0.2) Sodium Level 129 mmol/L (136-145) L Potassium Level 4.9 mmol/L (3.5-5.1) Chloride Level 94 mmol/L (98-107) L Carbon Dioxide Level 25 mmol/L (21-32) Anion Gap 10 (6-14) Blood Urea Nitrogen 22 mg/dL (8-26) Creatinine 1.3 mg/dL (0.7-1.3) Estimated GFR (Cockcroft-Gault) 64.4 BUN/Creatinine Ratio 17 (6-20) Glucose Level 140 mg/dL (70-99) H Calcium Level 9.5 mg/dL (8.5-10.1) Total Bilirubin 0.7 mg/dL (0.2-1.0) Aspartate Amino Transferase (AST) 27 U/L (15-37) Alanine Aminotransferase (ALT) 16 U/L (16-63) Alkaline Phosphatase 71 U/L (46-116) Troponin I High Sensitivity 181 ng/L (4-75) H 199 ng/L (4-75) H Total Protein 8.7 g/dL (6.4-8.2) H Albumin 4.0 g/dL (3.4-5.0) Albumin/Globulin Ratio 0.9 (1.0-1.7) L Urine Collection Type U cath Urine Color (Auto) Light yellow Urine Turbidity Clear Urine pH (Auto) 6.5 (<5.0-8.0) Urine Specific [place] 1.013 (1.000-1.030) Urine Protein (Auto) Negative mg/dL (Negative) Urine Glucose (Auto)(UA) Negative mg/dL (Negative) Urine Ketones (Auto) 20 mg/dL (Negative) Urine Blood (Auto) Negative (Negative) Urine Nitrite Negative (Negative) Urine Bilirubin (Auto) Negative (Negative) Urine Urobilinogen (Auto) Normal mg/dL (Normal) Urine Leukocyte Esterase (Auto) Negative (Negative) Urine RBC 1-2 /HPF (0-2) Urine WBC Occ /HPF (0-4) Urine Squamous Epithelial Cells Occ /LPF Urine Bacteria 0 /HPF (0-FEW) Urine Hyaline Casts Occasional /HPF Urine Mucus Slight /LPF Laboratory Tests 06/25/21 03:28 Laboratory Tests 06/25/21 03:28 ECHOCARDIOGRAM ECHOCARDIOGRAM <Conclusion> Akinetic apical wall with ejection fraction estimated at 40-45%. 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 Mild aortic regurgitation. Moderate mitral regurgitation. Mild to moderate tricuspid regurgitation. Estimated PAP 46 mmHg. There is no evidence of significant pericardial effusion. DATE: 03/06/20 [id number] 0 HEART CATH HEART CATH FINDINGS 1. Hemodynamics: Left ventricular end-diastolic pressure of 16 mmHg. No pullback gradient across the aortic valve. 2. Coronary angiography: a. The left main coronary artery arose from the left sinus of Valsalva, gave rise to the left anterior descending and left circumflex arteries and did not show any significant stenosis. b. The left anterior descending artery was heavily calcified and showed sequential 80%, 80% and 90% stenosis in the midsegment. c. The left circumflex artery was calcified and showed ectatic areas with a long 50% stenosis in the midsegment and 100% occlusion in the very distal segment. The first obtuse marginal branch which is a medium caliber vessel showed 90% proximal segment stenosis and a second obtuse marginal branch which is also a medium caliber vessel showed 90% stenosis in the proximal segment. d. The right coronary artery arose from the right sinus of Valsalva and showed 70% stenosis in the proximal to mid segment and 60% stenosis in the midsegment. Conclusion Severe three-vessel coronary artery disease Recommendations Patient needs coronary artery bypass surgery but considering his age, dementia and comorbidities, we will discuss with family regarding pursuing conservative management by optimizing medical therapy. DATE: 03/06/20 [id number] 0 ASSESSMENT/PLAN ASSESSMENT/PLAN 1. Encephalopathy with underlying dementia; CT head without acute changes 2. Mild troponin elevation; initial 181. Possibly type II, demand ischemia. No reports of CP 3. CAD; known 3VD per [facility] 2019. managed medically given dementia and comorbidities 4. Chronic systolic CHF; appears clinically compensated 5. ICM: echo 2019 with LVEF of 40-45% 6. Hypertension; controlled 7. Hyperlipidemia; statin therapy 8. PAFIB; presently SR 9. H/o SDH s/p evacuation 10. H/o seizure with Dilantin use 11. Hyponatremia; s/p IVFs Recommendations Trend troponin Echocardiogram Resume secondary prevention as able Rectal ASA IV metoprolol for rate control while NPO Supportive care FRANKIE MARRUFO MD 06/25/212100: CARDIAC CONSULT ASSESSMENT/PLAN ASSESSMENT/PLAN Patient seen and examined. Agree with LANDING SCALER's assessment and plan Slight trop elevation prob demand ischemia - doubt ACS Patient has known 3v CAD that is being managed conservatively - appears stable PAF maintaining SR - poor exterminator AC candidate Check 2D echo to assess LV function Thank you for your consultation RUY ROSALES APRN Jun 25, 2021 09:07 FRANKIE MARRUFO MD Jun 25, 2021 21:01
--- NOTE | 2021-06-25 09:33 | PDOC ---
Provider Note Date of Service: DATE: 06/25/21 TIME: 09:33 Provider Note Pt seen in ER .H&P dictated.#[id number]. Justifications for Admission Other Justification KELSY BERNSTEIN MD Jun 25, 2021 09:33
[2021-06-25 10:49] VITALS: BP 135/71
--- NOTE | 2021-06-25 12:05 | NUR ---
Pt arrived on unit at 1040 by bed via ED staff. POC/orders reviewed, tele monitor applied. Pt nonverbal, information on pt obtained from Taryn nurse at [facility] and paperwork. Taryn, nurse from [facility] states pt's baseline is A&O x2, WC bound, but able to move self. Wears a pull-up, but is continent. Medication list requested to be faxed to [phone]. Admission requirements/questions completed to the best of this RN's ability.
[2021-06-25] MEDS: IV NORMAL SALINE 1000ML BAG 1,000 ML IV SCH ×2 (12:22→23:02)
[2021-06-25] MEDS ORDERED: MAGN24003 PO (15:12)
[2021-06-25] MEDS ORDERED: GUAI600T47 PO (15:12)
[2021-06-25] MEDS ORDERED: MELO7.5T5 PO (15:12)
[2021-06-25] MEDS ORDERED: DICL20GE TP (15:12)
[2021-06-25] MEDS ORDERED: METO25TA4 PO (15:12)
[2021-06-25] MEDS ORDERED: IPRA3AMP29 NEB (15:12)
[2021-06-25] MEDS ORDERED: FURO-69 PO (15:12)
[2021-06-25] MEDS ORDERED: ONDA4TAB12 PO (15:12)
[2021-06-25 15:30] VITALS: BP 161/94
--- NOTE | 2021-06-25 15:42 | EKG ---
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
[2021-06-25] MEDS ORDERED: ASPIRIN RECTAL 300 MG SUPP. PR ONE (16:00)
[2021-06-25] MEDS: METOPROLOL IV PUSH 5 MG/5 ML VIAL. IVP SCH (16:21)
[2021-06-25] MEDS ORDERED: DICLOFENAC SODIUM 1% TOPICAL GEL 100GM TUBE. TP PRN (17:30)
[2021-06-25] MEDS ORDERED: IPRATRPIUM/ALBUTEROL 0.5/2.5MG 3 ML NEBU. NEB PRN (17:30)
[2021-06-25] MEDS ORDERED: ONDANSETRON ODT 4 MG TAB.RAPDIS. PO PRN (17:30)
[2021-06-25] MEDS ORDERED: MAGNESIUM HYDROXIDE 2,400 MG/30 ML ORAL.SUSP. PO PRN (17:30)
[2021-06-25] MEDS ORDERED: ALBUTEROL SULFATE 2.5 MG/3 ML NEBU. INH PRN (17:30)
[2021-06-25 19:00] VITALS: BP 168/98
[2021-06-25] MEDS: levETIRAcetam 500 MG TABLET PO SCH (20:10)
[2021-06-25] MEDS: HYDROcodone/APAP 5/325MG 1 TAB TABLET PO PRN (20:10)
[2021-06-25] MEDS: MEMANTINE 10 MG TABLET. PO SCH (20:10)
--- NOTE | 2021-06-25 20:42 | EKG ---
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
[2021-06-25 23:36] VITALS: BP_SYST 138; BP_SYST 18; BP_DIAS 95
[2021-06-26] MEDS: METOPROLOL IV PUSH 5 MG/5 ML VIAL. IVP SCH ×4 (01:25→17:08)
[2021-06-26 03:00] VITALS: BP 143/84
[2021-06-26 07:00] VITALS: BP 143/95
[2021-06-26 08:02] LABS: BASO % 1 % (0-3); EOS % 0 % (0-3); HEMATOCRIT 36.3 % (39.0-53.0); HEMOGLOBIN 12.2 g/dL (13.0-17.5); LYMPH # 1.4 x10^3/uL (1.0-4.8); LYMPH % 19 % (24-48); MEAN CORPUSCULAR HEMOGLOBIN 27 pg (25-35); MEAN CORPUSCULAR HGB CONC 34 g/dL (31-37); MEAN CORPUSCULAR VOLUME 81 fL (79-100); MONO # 0.9 x10^3/uL (0.0-1.1); MONO % 12 % (0-9); NEUT # 5.2 x10^3/uL (1.8-7.7); NEUT % 68 % (31-73); PLATELET COUNT 184 x10^3/uL (140-400); RED CELL DISTRIBUTION WIDTH 14.9 % (11.5-14.5); WHITE BLOOD COUNT 7.6 x10^3/uL (4.0-11.0)
[2021-06-26 08:17] LABS: ALBUMIN 3.9 g/dL (3.4-5.0); ALBUMIN/GLOBULIN RATIO 0.8 (1.0-1.7); CALCIUM 9.3 mg/dL (8.5-10.1); CREATININE 1.2 mg/dL (0.7-1.3); GFR 70.7; POTASSIUM 4.1 mmol/L (3.5-5.1); TOTAL BILIRUBIN 0.9 mg/dL (0.2-1.0); TOTAL PROTEIN 8.5 g/dL (6.4-8.2)
[2021-06-26 08:20] LABS: CHOLESTEROL/HDL RATIO 2.1
[2021-06-26] MEDS: levETIRAcetam 500 MG TABLET PO SCH ×2 (09:04→21:19)
[2021-06-26] MEDS: ATORVASTATIN CALCIUM 40 MG TABLET. PO SCH ×2 (09:04→21:20)
[2021-06-26] MEDS: MELOXICAM 7.5 MG TABLET PO SCH (09:04)
[2021-06-26] MEDS: FUROSEMIDE 20 MG TABLET PO SCH (09:05)
[2021-06-26] MEDS: METOPROLOL TART IMMED RELEASE 25 MG TABLET. PO SCH (09:07)
--- NOTE | 2021-06-26 09:08 | HP ---
DATE OF SERVICE: 06/25/2021 ADMIT DATE: 06/25/2021 MEDICAL HISTORY AND PHYSICAL REASON FOR ADMISSION TO THE HOSPITAL: Altered mental status, elevation in troponin, the patient has known coronary artery disease, the patient had opted to treat medically in the past. HISTORY OF PRESENT ILLNESS: The patient is a 81-year-old male. The patient in a custodial, has a known history of coronary artery disease. He also had a history of seizures, dementia, COPD in the custodial. The patient was admitted for change in mental status and was found to have elevated troponin and was admitted to the hospital. PAST MEDICAL HISTORY: As mentioned, he has a history of coronary artery disease, VT in the past, optic medical treatment, hypertension, hyperlipidemia, COPD, dementia, seizures, history of subdural hematoma, arthritis, kidney disease. PAST SURGICAL HISTORY: No major surgeries, I believe he had a cardiac catheterization shows 3-vessel disease couple of years ago. FAMILY HISTORY: Hypertension. SOCIAL HISTORY: Lives at custodial. Ex-smoker. ALLERGIES: No known allergies. MEDICATIONS: The patient is on albuterol, diclofenac, Lasix 20 mg, Mucinex, hydrocodone, DuoNeb 4 times daily, Keppra 500 mg twice a day, meloxicam 7.5, Namenda 10 mg, metoprolol 25 mg, Zofran for nausea, milk of mag, Crestor 40 mg. REVIEW OF SYSTEMS: The patient is sleeping, not in any distress, comfortable. PHYSICAL EXAMINATION: VITAL SIGNS: At the time of admission shows vitals stable, blood pressure 130/70. HEENT: Head is atraumatic. Pupils equal. Oral cavity, no congestion. NECK: Supple. Thyroid not enlarged. JVD not elevated. CHEST: Symmetrical. CARDIOVASCULAR: S1, S2. LUNGS: Few crackles at the base. ABDOMEN: Soft. Bowel sounds present. No mass palpable. EXTERNAL GENITALIA: No Akbar. RECTUM: Deferred. EXTREMITIES: No calf tenderness, no edema. NEUROLOGIC: The patient is slightly lethargic, hard to follow commands at this time. LABORATORY DATA: Shows a white count of 9, hemoglobin 12.5, platelets 176. Electrolytes show sodium 129, potassium 4.9, chloride 94, bicarbonate 25, anion gap 10, BUN 22, creatinine 1.3, glucose 140. LFTs negative. Troponin 181, went up to 199, 183. Urine negative for infection. CT head, no acute abnormality. Chest x-ray, some scarring, interstitial markings. FINAL IMPRESSION: 1. Non-ST elevation myocardial infarction, elevated troponin. 2. Mental status changes. 3. Hyponatremia. 4. Coronary artery disease, known history had triple vessel disease opted for medical treatment. 5. Dementia. 6. History of seizures. 7. History of intracranial bleed. 8. General debility and progressive decline. PLAN: At this time, admit to hospital, hydrate with IV fluids. Cardiology is consulted. Resume home medications and IV fluids, normal saline. Check electrolytes and see if we can correct the hyponatremia and see if neurologic condition improves or not. LIANET/JOANNA/QIAN DR: LIANET/yaneth TID: [id number] [facility]
--- NOTE | 2021-06-26 09:34 | PDOC ---
PROGRESS NOTES Date of Service: DATE: 06/26/21 TIME: 09:34 Subjective Subjective demetia hard time expressing words Objective Objective Vital Signs Date Time Temp Pulse Resp B/P (MAP) Pulse Ox O2 Delivery O2 Flow Rate FiO2 06/26/21 09:07 101 143/95 06/26/21 08:30 Room Air 06/26/21 07:00 99.7 18 100 99.7 Intake and Output 06/26/21 07:00 Intake Total 720 ml Balance 720 ml Intake Oral 720 ml # Voids 6 Physical Exam Abdomen: Soft Heart: Regular rate Extremities: No edema General: No acute distress, Other HEENT: Atraumatic Lungs: Other (diminished bases) MUSCULOSKELETAL: No swelling, Osteoarthritic changes both hands Neuro: Other (sleeping ) Skin: No breakdown, No significant lesion Diagnosis Problem List Problems Medical Problems: (1) Acute hyponatremia Status: Acute Assessment Assessment Problems Medical Problems: (1) Acute hyponatremia Status: Acute FINAL IMPRESSION: 1. Non-ST elevation myocardial infarction, elevated troponin. 2. Mental status changes. 3. Hyponatremia. 4. Coronary artery disease, known history had triple vessel disease opted for medical treatment. 5. Dementia. 6. History of seizures. 7. History of intracranial bleed. 8. General debility and progressive decline. PLAN:NA 131 improved.d/c Lasix other labs stable ECHO today spoke with zully URBINA work up. d/c back to [place] at [facility]. poor overall prognosis At this time, admit to hospital, hydrate with IV fluids. Cardiology is consulted. Resume home medications and IV fluids, normal saline. Check electrolytes and see if we can correct the hyponatremia and see if neurologic condition improves or not. Plan Plan of Care Problems Medical Problems: (1) Acute hyponatremia Status: Acute Comment Review of Relevant I have reviewed the following items eleazar (where applicable) has been applied. Labs Laboratory Tests Test 06/25/21 11:34 06/26/21 06:45 Troponin I High Sensitivity 183 ng/L (4-75) White Blood Count 7.6 x10^3/uL (4.0-11.0) Red Blood Count 4.50 x10^6/uL (4.30-5.70) Hemoglobin 12.2 g/dL (13.0-17.5) Hematocrit 36.3 % (39.0-53.0) Mean Corpuscular Volume 81 fL (79-100) Mean Corpuscular Hemoglobin 27 pg (25-35) Mean Corpuscular Hemoglobin Concent 34 g/dL (31-37) Red Cell Distribution Width 14.9 % (11.5-14.5) Platelet Count 184 x10^3/uL (140-400) Neutrophils (%) (Auto) 68 % (31-73) Lymphocytes (%) (Auto) 19 % (24-48) Monocytes (%) (Auto) 12 % (0-9) Eosinophils (%) (Auto) 0 % (0-3) Basophils (%) (Auto) 1 % (0-3) Neutrophils # (Auto) 5.2 x10^3/uL (1.8-7.7) Lymphocytes # (Auto) 1.4 x10^3/uL (1.0-4.8) Monocytes # (Auto) 0.9 x10^3/uL (0.0-1.1) Eosinophils # (Auto) 0.0 x10^3/uL (0.0-0.7) Basophils # (Auto) 0.0 x10^3/uL (0.0-0.2) Sodium Level 131 mmol/L (136-145) Potassium Level 4.1 mmol/L (3.5-5.1) Chloride Level 98 mmol/L (98-107) Carbon Dioxide Level 20 mmol/L (21-32) Anion Gap 13 (6-14) Blood Urea Nitrogen 16 mg/dL (8-26) Creatinine 1.2 mg/dL (0.7-1.3) Estimated GFR (Cockcroft-Gault) 70.7 BUN/Creatinine Ratio 13 (6-20) Glucose Level 112 mg/dL (70-99) Calcium Level 9.3 mg/dL (8.5-10.1) Total Bilirubin 0.9 mg/dL (0.2-1.0) Aspartate Amino Transf (AST/SGOT) 23 U/L (15-37) Alanine Aminotransferase (ALT/SGPT) 15 U/L (16-63) Alkaline Phosphatase 70 U/L (46-116) Total Protein 8.5 g/dL (6.4-8.2) Albumin 3.9 g/dL (3.4-5.0) Albumin/Globulin Ratio 0.8 (1.0-1.7) Triglycerides Level 55 mg/dL (0-150) Cholesterol Level 142 mg/dL (0-200) LDL Cholesterol, Calculated 64 mg/dL (0-100) VLDL Cholesterol, Calculated 11 mg/dL (0-40) Non-HDL Cholesterol Calculated 75 mg/dL (0-129) HDL Cholesterol 67 mg/dL (40-60) Cholesterol/HDL Ratio 2.1 Thyroid Stimulating Hormone (TSH) 0.966 uIU/mL (0.358-3.74) Medications Current Medications Acetaminophen/ Hydrocodone Bitart (Lortab 5/325) 1 tab PRN Q12HR PRN PO MODERATE PAIN Last administered on 06/25/21at 20:10; Start 06/25/21 at 17:30 Albuterol Sulfate (Ventolin Neb Soln) 2.5 mg PRN QID PRN INH SHORTNESS OF BREATH; Start 06/25/21 at 17:30 Albuterol/ Ipratropium (Duoneb) 3 ml PRN Q12HRS PRN NEB SHORTNESS OF BREATH; Start 06/25/21 at 17:30 Aspirin (Aspirin Rectal Supp) [address] Last administered on 06/25/21at 16:08; Start 06/25/21 at 16:00; Stop 06/25/21 at 16:01; Status DC Atorvastatin Calcium (Lipitor) 80 mg QHS PO Last administered on 06/26/21at 09:04; Start 06/26/21 at 09:00 Diclofenac Sodium (Voltaren) 20 madeline PRN Q6HRS PRN TP PAIN; Start 06/25/21 at 17:30 Furosemide (Lasix) 20 mg DAILY PO Last administered on 06/26/21at 09:05; Start 06/26/21 at 09:00 Guaifenesin (Mucinex) 600 mg BID PO Last administered on 06/26/21at 09:05; Start 06/25/21 at 21:00 Levetiracetam (Keppra) 500 mg BID PO Last administered on 06/26/21at 09:04; Start 06/25/21 at 21:00 Magnesium Hydroxide (Milk Of Magnesia) 2,400 mg PRN DAILY PRN PO CONSTIPATION; Start 06/25/21 at 17:30 Meloxicam (Mobic) 7.5 mg DAILY PO Last administered on 06/26/21at 09:04; Start 06/26/21 at 09:00 Memantine (Namenda) 10 mg HS PO Last administered on 06/25/21at 20:10; Start 06/25/21 at 21:00 Metoprolol Tartrate (Lopressor Vial) 2.5 mg Q6HRS IVP Last administered on 06/26/21at 05:35; Start 06/25/21 at 16:00 Metoprolol Tartrate (Lopressor) 12.5 mg DAILY PO Last administered on 06/26/21at 09:07; Start 06/26/21 at 09:00 Ondansetron HCl (Zofran Odt) 4 mg PRN Q4HRS PRN PO NAUSEA/VOMITING; Start 06/25/21 at 17:30 Sodium Chloride 1,000 ml @ 75 mls/hr [id number] IV Last administered on 06/25/21at 23:02; Start 06/25/21 at 10:00 Vitals/I & O Vital Sign - Last 24 Hours 06/25/21 06/25/21 06/25/21 06/25/21 09:36 10:06 10:49 11:42 Temp 99.6 99.6 Pulse 78 84 74 Resp 23 24 20 B/P (MAP) 107/64 (78) 128/76 (93) 135/71 (92) Pulse Ox 97 96 96 O2 Delivery Room Air Room Air Room Air Room Air 06/25/21 06/25/21 06/25/21 06/25/21 15:30 16:21 19:00 20:00 Temp 98.8 98.3 98.8 98.3 Pulse 78 78 76 Resp 16 20 B/P (MAP) 161/94 (116) 161/94 168/98 (121) Pulse Ox 92 94 O2 Delivery Room Air Room Air Room Air 06/25/21 06/25/21 06/25/21 06/25/21 20:10 20:40 21:28 23:36 Temp 98.4 98.4 Pulse 81 Resp 18 18 20 B/P (MAP) 138/95 (109) Pulse Ox 92 92 96 96 O2 Delivery Room Air Room Air Room Air 06/26/21 06/26/21 06/26/21 06/26/21 01:25 03:00 05:35 07:00 Temp 98.5 99.7 98.5 99.7 Pulse 81 95 89 101 Resp 20 18 B/P (MAP) 138/95 143/84 (103) 142/76 143/95 (111) Pulse Ox 94 100 O2 Delivery Room Air Room Air 06/26/21 06/26/21 08:30 09:07 Pulse 101 B/P (MAP) 143/95 O2 Delivery Room Air Intake and Output 06/25/21 06/25/21 06/26/21 15:00 23:00 07:00 Intake Total 400 ml 320 ml Balance 400 ml 320 ml Justifications for Admission Other Justification KELSY BERNSTEIN MD Jun 26, 2021 09:34
--- NOTE | 2021-06-26 09:38 | SNU/HH DC ---
DISCHARGE ORDERS DISCHARGE INFORMATION: DISCHARGE DATE: Jun 26, 2021 FINAL DIAGNOSIS Problems Medical Problems: (1) Acute hyponatremia Status: Acute CONDITION ON DISCHARGE: Stable CODE STATUS: Code Status: Full JAIL: SNF STAY <30 DAYS: Yes HOSPICE: HOSPICE: No HOSPICE EVAL & TREAT: No LTAC: ADMIT TO LTAC: No POST DISCHARGE ORDERS: ACTIVITY ORDERS: Activity as tolerated WEIGHT BEARING STATUS: As tolerated DIET AFTER DISCHARGE: Cardiac CHECKS AFTER DISCHARGE: CHECKS AFTER DISCHARGE: Check blood press - daily, Check blood sugar, ac/hs, Check your Temp as needed FOLLOW-UP: LAB ORDERS FOR FOLLOW-UP: bmp weekly TREATMENT/EQUIPMENT ORDERS: ADAPTIVE EQUIPMENT NEEDED: Four wheeled walker Physical Therapy For: Evalulation/Treatment Occupational Therapy For: Evaluation/Treatment DISCHARGE MEDICATIONS: Home Meds Active Scripts Hydrocodone Bit/Acetaminophen (HYDROCODONE-APAP 5-325 ) 1 Tab Tablet, 1 TAB PO PRN Q12HR PRN for PAIN, #20 TAB 0 Refills Prov:KELSY BERNSTEIN MD 06/02/20 Levetiracetam (KEPPRA) 500 Mg Tablet, 500 MG PO BID for seizures for 90 Days, #180 TAB Prov:KELSY BERNSTEIN MD 06/01/20 Rosuvastatin Calcium (CRESTOR) 40 Mg Tablet, 0.5 TAB PO DAILY for CAD for 30 Days, #15 TAB 3 Refills Prov:JUAN NUNN TECHNICAL LEAD 03/07/20 Reported Medications Guaifenesin (MUCINEX) 600 Mg Tablet.er, 1 TAB PO BID for cough for 10 Days, #20 TAB 0 Refills 06/25/21 Meloxicam (MOBIC) 7.5 Mg Tablet, 1 TAB PO DAILY for pain, #30 TAB 1 Refill 06/25/21 Magnesium Hydroxide (MILK OF MAGNESIA) 2,400 Mg/10 Ml Oral.susp, 7200 MG PO PRN PRN for CONSTIPATION, MISC 06/25/21 Ipratropium/Albuterol Sulfate (DUONEB 0.5-3(2.5) MG/3 ML) 3 Ml Ampul.neb, 3 ML NEB PRN Q12HRS PRN for SHORTNESS OF BREATH, EACH 06/25/21 Metoprolol Tartrate (METOPROLOL TARTRATE) 25 Mg Tablet, 0.5 TAB PO DAILY for HTN, #180 TAB 1 Refill 06/25/21 Ondansetron (ONDANSETRON ODT) 4 Mg Tab.rapdis, 1 TAB PO PRN Q4HRS PRN for NAUSEA/VOMITING, #16 TAB 06/25/21 Diclofenac Sodium (Voltaren Arthritis Pain) 20 Gm Gel..gram., 20 GM TP PRN Q6HRS PRN for PAIN, EACH 06/25/21 Memantine Hcl (NAMENDA) 10 Mg Tablet, 10 MG PO HS, TAB 01/06/18 Albuterol Sulfate (PROAIR HFA INHALER) 8.5 Gm Hfa.aer.ad, 2 PUFF INH QID PRN for SHORTNESS OF BREATH, INHALER 0 Refills 01/06/18 Discontinued Reported Medications Furosemide (LASIX) 20 Mg Tablet, 1 TAB PO DAILY for CHF for 30 Days, #30 TAB 0 Refills 06/25/21 KELSY BERNSTEIN MD Jun 26, 2021 09:38
[2021-06-26 11:00] VITALS: BP 135/90
[2021-06-26] MEDS: IV NORMAL SALINE 1000ML BAG 1,000 ML IV SCH (12:02)
--- NOTE | 2021-06-26 12:03 | PDOC ---
RUY ROSALES ORDNANCE TECHNICIAN 06/26/21 1203: CARDIO Progress Notes Date and Time Date of Service 06/26/21 Time of Evaluation 1200 Subjective Subjective: No Chest Pain, No shortness of breath Vitals Vitals Vital Signs Date Time Temp Pulse Resp B/P (MAP) Pulse Ox O2 Delivery O2 Flow Rate FiO2 06/26/21 09:07 101 143/95 06/26/21 08:30 Room Air 06/26/21 07:00 99.7 18 100 99.7 Weight Weight [ ] Input and Output Intake and Output Intake and Output 06/26/21 07:00 Intake Total 720 ml Balance 720 ml Intake Oral 720 ml # Voids 6 Laboratory Labs Laboratory Tests Test 06/26/21 06:45 White Blood Count 7.6 x10^3/uL (4.0-11.0) Red Blood Count 4.50 x10^6/uL (4.30-5.70) Hemoglobin 12.2 g/dL (13.0-17.5) Hematocrit 36.3 % (39.0-53.0) Mean Corpuscular Volume 81 fL (79-100) Mean Corpuscular Hemoglobin 27 pg (25-35) Mean Corpuscular Hemoglobin Concent 34 g/dL (31-37) Red Cell Distribution Width 14.9 % (11.5-14.5) Platelet Count 184 x10^3/uL (140-400) Neutrophils (%) (Auto) 68 % (31-73) Lymphocytes (%) (Auto) 19 % (24-48) Monocytes (%) (Auto) 12 % (0-9) Eosinophils (%) (Auto) 0 % (0-3) Basophils (%) (Auto) 1 % (0-3) Neutrophils # (Auto) 5.2 x10^3/uL (1.8-7.7) Lymphocytes # (Auto) 1.4 x10^3/uL (1.0-4.8) Monocytes # (Auto) 0.9 x10^3/uL (0.0-1.1) Eosinophils # (Auto) 0.0 x10^3/uL (0.0-0.7) Basophils # (Auto) 0.0 x10^3/uL (0.0-0.2) Sodium Level 131 mmol/L (136-145) Potassium Level 4.1 mmol/L (3.5-5.1) Chloride Level 98 mmol/L (98-107) Carbon Dioxide Level 20 mmol/L (21-32) Anion Gap 13 (6-14) Blood Urea Nitrogen 16 mg/dL (8-26) Creatinine 1.2 mg/dL (0.7-1.3) Estimated GFR (Cockcroft-Gault) 70.7 BUN/Creatinine Ratio 13 (6-20) Glucose Level 112 mg/dL (70-99) Calcium Level 9.3 mg/dL (8.5-10.1) Total Bilirubin 0.9 mg/dL (0.2-1.0) Aspartate Amino Transf (AST/SGOT) 23 U/L (15-37) Alanine Aminotransferase (ALT/SGPT) 15 U/L (16-63) Alkaline Phosphatase 70 U/L (46-116) Total Protein 8.5 g/dL (6.4-8.2) Albumin 3.9 g/dL (3.4-5.0) Albumin/Globulin Ratio 0.8 (1.0-1.7) Triglycerides Level 55 mg/dL (0-150) Cholesterol Level 142 mg/dL (0-200) LDL Cholesterol, Calculated 64 mg/dL (0-100) VLDL Cholesterol, Calculated 11 mg/dL (0-40) Non-HDL Cholesterol Calculated 75 mg/dL (0-129) HDL Cholesterol 67 mg/dL (40-60) Cholesterol/HDL Ratio 2.1 Thyroid Stimulating Hormone (TSH) 0.966 uIU/mL (0.358-3.74) Physical Exam Chest: Symmetric LUNGS: Clear to Auscultation Heart: RRR Abdomen: Soft N/T Extremities: No Edema Neurology: alert, confused Assessment Assessment 1. Encephalopathy with underlying dementia; CT head without acute changes. Mentation reportedly back at baseline 2. Mild troponin elevation; trop peak 191. Most probably type II, demand ischemia. CP free 3. CAD; known 3VD per [facility] 2019. managed medically given dementia and comorbidities. appears stable 4. Chronic systolic CHF; appears clinically compensated 5. ICM: echo 2019 with LVEF of 40-45% 6. Hypertension; controlled 7. Hyperlipidemia; statin therapy 8. PAFIB; presently SR. 9. H/o SDH s/p evacuation 10. H/o seizure with Dilantin use 11. Hyponatremia; s/p IVFs Recommendations Echocardiogram Secondary prevention Continue metoprolol for rate control ASA therapy. Poor candidate for long-term OAC Supportive care from a CV standpoint Justicifation of Admission Dx: Justifications for Admission: Justification of Admission Dx: Yes Sepsis: Altered Mental Status FRANKIE MARRUFO MD 06/26/21 1911: CARDIO Progress Notes Assessment Assessment Patient seen and examined. Agree with FOOD AND NUTRITION SERVICES SUPERVISOR's assessment and plan Slight trop elevation prob demand ischemia - doubt ACS Patient has known 3v CAD that is being managed conservatively - appears stable PAF maintaining SR - poor alf AC candidate RUY ROSALES APRN Jun 26, 2021 12:03 FRANKIE MARRUFO MD Jun 26, 2021 19:11
--- NOTE | 2021-06-26 12:56 | NUR ---
SS following up with discharge planning. SS reviewed pt chart and discussed with pt RN. Pt is currently on room air. Cardiology following. Pt is LTC resident from [facility], ; fax [phone]. Discharge orders received and sent to [facility]. SS was informed that pt will need stretcher transport. SS was informed by [facility] that stretchers are not available until evening times. SS contacted [facility] and was notified that no more times are available today until evening. Pt scheduled for 0800 picker/puller on 06/27/2021 with [facility] ambulance, . Pt's RN notified. Packet and ambulance form on the chart.
[2021-06-26 15:00] VITALS: BP 146/98
[2021-06-26 19:00] VITALS: BP 142/96
[2021-06-26] MEDS: HYDROcodone/APAP 5/325MG 1 TAB TABLET PO PRN (21:20)
[2021-06-26] MEDS: MEMANTINE 10 MG TABLET. PO SCH (21:20)
[2021-06-26 22:42] VITALS: BP 123/78
[2021-06-27] MEDS: IV NORMAL SALINE 1000ML BAG 1,000 ML IV SCH (00:34)
[2021-06-27 03:00] VITALS: BP 130/86
[2021-06-27] MEDS: METOPROLOL IV PUSH 5 MG/5 ML VIAL. IVP SCH ×2 (04:53)
[2021-06-27 07:00] VITALS: BP 130/84
[2021-06-27 08:33] VITALS: BP 130/86
[2021-06-27] MEDS: MELOXICAM 7.5 MG TABLET PO SCH (08:33)
[2021-06-27] MEDS: METOPROLOL TART IMMED RELEASE 25 MG TABLET. PO SCH (08:33)
[2021-06-27] MEDS: FUROSEMIDE 20 MG TABLET PO SCH (08:33)
[2021-06-27] MEDS: levETIRAcetam 500 MG TABLET PO SCH (08:33)
--- NOTE | 2021-06-27 09:01 | PDOC ---
PROGRESS NOTES Date of Service: DATE: 06/27/21 TIME: 08:59 Subjective Subjective confused, expresive aphasia Objective Objective Vital Signs Date Time Temp Pulse Resp B/P (MAP) Pulse Ox O2 Delivery O2 Flow Rate FiO2 06/27/21 08:33 108 130/86 06/27/21 03:00 99.0 20 97 Room Air 99.0 Intake and Output 06/27/21 07:00 Intake Total 1150 ml Output Total 0 ml Balance 1150 ml Intake Oral 300 ml IV Total 850 ml Output Urine Total 0 ml # Voids 2 Physical Exam Abdomen: Soft Heart: Regular rate Extremities: No edema General: No acute distress, Other HEENT: Atraumatic Lungs: Other (diminished bases) MUSCULOSKELETAL: No swelling, Osteoarthritic changes both hands Neuro: Other (sleeping ) Skin: No breakdown, No significant lesion Diagnosis Problem List Problems Medical Problems: (1) Acute hyponatremia Status: Acute Assessment Assessment Problems Medical Problems: (1) Acute hyponatremia Status: Acute FINAL IMPRESSION: 1. ? demand ischemia, elevated troponin. 2. Mental status changes. 3. Hyponatremia. 4. Coronary artery disease, known history had triple vessel disease opted for medical treatment. 5. Dementia. 6. History of seizures. 7. History of intracranial bleed. 8. General debility and progressive decline. PLAN:d/c back to [place] today. Na 131 improved. d/c Lasix other labs stable spoke with zully URBINA furter work up. d/c back to [place] at [facility]. poor overall prognosis Plan Plan of Care Problems Medical Problems: (1) Acute hyponatremia Status: Acute Comment Review of Relevant I have reviewed the following items eleazar (where applicable) has been applied. Medications Current Medications Atorvastatin Calcium (Lipitor) 80 mg QHS PO Last administered on 06/26/21at 21:20; Start 06/26/21 at 09:00 Furosemide (Lasix) 20 mg DAILY PO Last administered on 06/27/21at 08:33; Start 06/26/21 at 09:00 Meloxicam (Mobic) 7.5 mg DAILY PO Last administered on 06/27/21at 08:33; Start 06/26/21 at 09:00 Metoprolol Tartrate (Lopressor) 12.5 mg DAILY PO Last administered on 06/27/21at 08:33; Start 06/26/21 at 09:00 Vitals/I & O Vital Sign - Last 24 Hours 06/26/21 06/26/21 06/26/21 06/26/21 09:07 11:00 15:00 19:00 Temp 99.2 98.3 97.5 99.2 98.3 97.5 Pulse 101 96 101 107 Resp 24 24 20 B/P (MAP) 143/95 135/90 (105) 146/98 (114) 142/96 (111) Pulse Ox 96 96 95 O2 Delivery Room Air Room Air Room Air 06/26/21 06/26/21 06/26/21 06/26/21 20:05 21:20 21:50 22:42 Temp 97.8 97.8 Pulse 102 Resp 20 B/P (MAP) 123/78 (93) Pulse Ox 95 95 95 O2 Delivery Room Air Room Air Room Air Room Air 06/27/21 06/27/21 06/27/21 06/27/21 00:00 03:00 04:53 08:33 Temp 99.0 99.0 Pulse 102 108 108 108 Resp 20 B/P (MAP) 123/78 130/86 (101) 130/86 130/86 Pulse Ox 97 O2 Delivery Room Air Intake and Output 06/26/21 06/26/21 06/27/21 15:00 23:00 07:00 Intake Total 850 ml 200 ml 100 ml Output Total 0 ml Balance 850 ml 200 ml 100 ml Justifications for Admission Other Justification KELSY BERNSTEIN MD Jun 27, 2021 09:01
--- NOTE | 2021-06-27 09:05 | NUR ---
Pt DC to [facility] per EMS with belongings in stable condition. Dr. Glynn recently at bedside and aware of transfer. Report given yesterday with patient planned discharge. Patient packet given to EMS and attempted to call [facility] with updated report/medications given this am. No answer at [facility].
--- NOTE | 2021-06-27 21:35 | PDOC ---
Provider Note Date of Service: DATE: 06/27/21 TIME: 21:35 Provider Note Discharge summary dictated.#[id number]. Justifications for Admission Other Justification KELSY BERNSTEIN MD Jun 27, 2021 21:35
--- NOTE | 2021-06-27 22:02 | DS ---
DATE OF DISCHARGE: 06/27/2021 REASON FOR ADMISSION TO THE HOSPITAL: Confusion, demand ischemia, hyponatremia. CONSULTATION: Cardiology, Dr. Washington. PROCEDURE DONE: CT head. HOSPITAL COURSE: The patient is a 81-year-old male with history of dementia, long-term jail, history of known coronary artery disease, opted medical treatment, history of dementia and also history of intracranial bleed in the past, came in for confusion, more lethargy, was found to have a sodium of 129, elevated troponin to 180. EKG negative for ischemia. Seen by Cardiology. Medical management recommended. The patient was given IV fluids. Sodium went up to 131. His condition improved and discussed with Karin URBINA, and she did not want any further aggressive treatment for her uncle, and it was decided to [facility], where he is a long-term resident. His prognosis poor. FINAL DIAGNOSES: 1. Confusion secondary to hyponatremia. 2. Non-ST elevation myocardial infarction versus demand ischemia, slight elevation in troponin. 3. Known history of coronary artery disease, medical management, 3-vessel disease. 4. Dementia. 5. Seizures. 6. History of previous strokes. 7. Chronic obstructive pulmonary disease. DISPOSITION: Back to the jail. BERTHA DR: Kandis TID: [id number]
== END 2021-06-27 09:00 | DRG 280 ==
LOC: ER 03:13 → ED HOLD 05:21 → 5 NORTH 10:47
PROVIDERS: ADMIT Internal Medicine; ATTEND Internal Medicine
DX: I21.4 Non-ST elevation (NSTEMI) myocardial infarction (principal); G93.41 Metabolic encephalopathy; E87.1 Hypo-osmolality and hyponatremia; I50.22 Chronic systolic (congestive) heart failure; R47.01 Aphasia; I24.8 Other forms of acute ischemic heart disease; F03.90 Unspecified dementia, unspecified severity, without behavioral disturbance, psychotic disturbance, mood disturbance, and anxiety; I25.5 Ischemic cardiomyopathy; E78.5 Hyperlipidemia, unspecified; I11.0 Hypertensive heart disease with heart failure; I25.10 Atherosclerotic heart disease of native coronary artery without angina pectoris; I25.2 Old myocardial infarction; I48.0 Paroxysmal atrial fibrillation; J44.9 Chronic obstructive pulmonary disease, unspecified; Z82.49 Family history of ischemic heart disease and other diseases of the circulatory system; Z86.73 Personal history of transient ischemic attack (TIA), and cerebral infarction without residual deficits; Z87.891 Personal history of nicotine dependence; M19.90 Unspecified osteoarthritis, unspecified site
CPT/HCPCS: 36415; 70450; 71045; 80053; 80061; 81001; 84443; 84484; 85025; 93005; J3490; J7030; J7040; 99285-25; G0378

== ENCOUNTER → 2021-07-10 | Outpatient (CLI) | payer MEDICARE, OTHER ==
[2021-06-27 08:33] VITALS: BP 130/86
[~2021-07-10] MED LIST changes: +DICL20GE TP; +FURO-69 PO; +GUAI600T47 PO; +IPRA3AMP29 NEB; +MAGN24003 PO; +MELO7.5T5 PO; +METO25TA4 PO; +ONDA4TAB12 PO
[2021-07-10 07:08] LABS: CALCIUM 8.9 mg/dL (8.5-10.1); CREATININE 1.2 mg/dL (0.7-1.3); GFR 70.7; POTASSIUM 4.8 mmol/L (3.5-5.1)
== END ==
LOC: SPEC
PROVIDERS: ATTEND Family Medicine
DX: R41.82 Altered mental status, unspecified (principal)
CPT/HCPCS: 36415; 80048